=== PATIENT | female | born 1950 | race African-American/Black ===

== ENCOUNTER → 2017-10-05 | Outpatient (CLI) | payer MEDICARE, OTHER ==
[~2017-10-05] MED LIST: FLUT9.9S NS; LOSA1TAB22 PO; MULT1TAB52 PO; PANT40TA5 PO
--- NOTE | 2017-10-05 15:02 | KCIC ---
MRI Lumbar Spine without contrast History: Low back pain into the hips since May, bilateral leg pain Technique: Multiplanar, multi sequential noncontrast MR imaging was performed of the lumbar spine. Contrast: None Comparison: None Findings: Lumbar vertebral body stature is preserved. There is negligible anterior spondylolisthesis at L4-5. Conus terminates at L1. There is some edema associated with the facet articulations at L4-5 greater on the left. There is mild degenerative disc disease L1-2 through L4-5 and mild disc desiccation L5-S1. There is also mild degenerative disc disease of the visualized T11-12 and to lesser degree the T12-L1 levels. Not included on the axial images, there are posterior bulges at T11-12, T12-L1, L1-2 with mild indentation upon the ventral thecal sac. There is mild narrowing of the central canal at T11-12. Facet degenerative change contributes to [id number] posterior narrowing of the T11-12 neural foramina. L2-L3: There is very minimal disc osteophyte complex. There is mild facet hypertrophic change and mild to moderate buckling of the ligamentum flavum. There is prominence of posterior epidural fat. Spinal canal is overall adequate. Neural foramina are overall adequate. L3-L4: There is very minimal disc osteophyte complex. There is mild buckling of the ligamentum flavum and facet hypertrophic change. Spinal canal is overall adequate. Neural foramina are adequate. L4-L5: There is moderate buckling of the ligamentum flavum and [id number]-[id number] facet degenerative change. There is minimal disc osteophyte complex. There is overall mild spinal stenosis, mild left lateral recess stenosis. Neural foramina are overall adequate. L5-S1: There is moderate to severe facet degenerative change. There is some fluid in the left facet articulation. Spinal canal is overall adequate. Neural foramina are adequate. Impression: 1. There is mild spinal stenosis with left lateral recess stenosis at L4-5. There is negligible anterior spondylolisthesis at L4-5 at which there is facet degenerative change, some edema about the facet articulations at L4-5 probably reactive/degenerative in etiology. 2. There is no significant lumbar neural foramina compromise. 3. There is multilevel mild degenerative disc disease. Electronically signed by: David Salvador MD (10/05/2017 2:58 PM) -[id number]
== END | disposition home or self-care (01) ==
LOC: KCIC MRI 12:56
PROVIDERS: ATTEND Family Medicine
DX: M48.061 Spinal stenosis, lumbar region without neurogenic claudication (principal); M43.16 Spondylolisthesis, lumbar region
CPT/HCPCS: 72148

== ENCOUNTER → 2017-10-16 | Outpatient (CLI) | payer MEDICARE, OTHER ==
[~2017-10-16] MED LIST changes: -FLUT9.9S NS; +IOHEXOL 180 MG/ML 10 ML VIAL.; -LOSA1TAB22 PO; -MULT1TAB52 PO; -PANT40TA5 PO; +methylPREDNISolone ACETATE 40 MG/ML VIAL.; +methylPREDNISolone ACETATE 80 MG/ML VIAL.
== END | disposition home or self-care (01) ==
LOC: PNCL 08:01
DX: M51.16 Intervertebral disc disorders with radiculopathy, lumbar region (principal); M48.061 Spinal stenosis, lumbar region without neurogenic claudication; I10 Essential (primary) hypertension; E11.9 Type 2 diabetes mellitus without complications; M19.90 Unspecified osteoarthritis, unspecified site; M81.0 Age-related osteoporosis without current pathological fracture; Z79.899 Other long term (current) drug therapy; Z88.8 Allergy status to other drugs, medicaments and biological substances; Z98.890 Other specified postprocedural states
CPT/HCPCS: 62323; J1030; J1040

== ENCOUNTER → 2017-11-02 | Outpatient (CLI) | payer MEDICARE, OTHER | END | disposition home or self-care (01) | LOC: PNCL 13:02 | DX: M51.16 Intervertebral disc disorders with radiculopathy, lumbar region (principal); M48.061 Spinal stenosis, lumbar region without neurogenic claudication; Z88.6 Allergy status to analgesic agent; Z88.8 Allergy status to other drugs, medicaments and biological substances | CPT/HCPCS: 62323; J1030; J1040 ==

== ENCOUNTER → 2017-11-16 | Outpatient (CLI) | payer MEDICARE, OTHER | END | disposition home or self-care (01) | LOC: PNCL 11:33 | DX: M51.16 Intervertebral disc disorders with radiculopathy, lumbar region (principal); M48.061 Spinal stenosis, lumbar region without neurogenic claudication; Z88.6 Allergy status to analgesic agent; Z88.8 Allergy status to other drugs, medicaments and biological substances | CPT/HCPCS: 62323; J1030; J1040 ==

== ENCOUNTER 2018-01-19 15:26 | Inpatient (IN) | payer MEDICARE, OTHER ==
[2018-01-19 16:16] LABS: BILIRUBIN,URINE NEGATIVE (NEG); CLARITY,URINE CLEAR; GLUCOSE,URINE NEGATIVE (NEG); NITRITE,URINE NEGATIVE (NEG); PH,URINE 7.5; PROTEIN,URINE NEGATIVE (NEG-TRACE); UROBILINOGEN,URINE 0.2 mg/dL (0.2 mg/dL)
[2018-01-19 16:19] LABS: COLOR,URINE STRAW
[2018-01-19 16:22] LABS: BACTERIA,URINE MANY /HPF (0-FEW); RBC,URINE OCC /HPF (0-2); SQUAMOUS EPITHELIAL CELL,UR MOD /LPF
[2018-01-19 16:41] LABS: ADD MAN DIFF? NO
[2018-01-19 16:42] LABS: BASO % 0 % (0-3); EOS # 0.1 x10^3/uL (0.0-0.7); EOS % 1 % (0-3); HEMATOCRIT 31.8 % (36.0-47.0); HEMOGLOBIN 10.2 g/dL (12.0-15.5); LYMPH # 1.6 x10^3/uL (1.0-4.8); LYMPH % 18 % (24-48); MEAN CORPUSCULAR HEMOGLOBIN 26 pg (25-35); MEAN CORPUSCULAR HGB CONC 32 g/dL (31-37); MEAN CORPUSCULAR VOLUME 79 fL (79-100); MONO % 12 % (0-9); NEUT % 69 % (31-73); PLATELET COUNT 547 x10^3/uL (140-400); RED CELL DISTRIBUTION WIDTH 15.8 % (11.5-14.5); WHITE BLOOD COUNT 8.7 x10^3/uL (4.0-11.0)
[2018-01-19 17:10] LABS: LACTIC ACID 1.3 mmol/L (0.4-2.0)
[2018-01-19 17:14] LABS: TROPONINI < 0.017 ng/mL (0.000-0.055)
[2018-01-19 17:17] LABS: ALBUMIN 2.5 g/dL (3.4-5.0); ALK PHOS 60 U/L (46-116); ALT (SGPT) 17 U/L (14-59); ANION GAP 8 (6-14); AST (SGOT) 22 U/L (15-37); BLOOD UREA NITROGEN 8 mg/dL (7-20); CALCIUM 9.4 mg/dL (8.5-10.1); CARBON DIOXIDE 31 mmol/L (21-32); CHLORIDE 95 mmol/L (98-107); DIRECT BILIRUBIN 0.1 mg/dL (0.0-0.2); GFR 66.5; GLUCOSE 90 mg/dL (70-99); LIPASE 140 U/L (73-393); SODIUM 134 mmol/L (136-145); TOTAL BILIRUBIN 0.4 mg/dL (0.2-1.0); TOTAL PROTEIN 7.8 g/dL (6.4-8.2)
[2018-01-19 17:19] LABS: POTASSIUM 2.9 mmol/L (3.5-5.1)
[2018-01-19] MEDS: IV NORMAL SALINE 500ML BAG 500 ML IV (17:44)
[2018-01-19] MEDS: ONDANSETRON PF 4 MG/2 ML VIAL. IV (17:45)
[2018-01-19] MEDS: fentaNYL PF VIAL 100 MCG/2 ML VIAL IV ×2 (17:45→19:30)
[2018-01-19] MEDS ORDERED: CONTRAST GIVEN MC (17:45)
[2018-01-19] MEDS: IOHEXOL 300 MG/ML 100ML VIAL. IV (18:00)
[2018-01-19] MEDS: METOCLOPRAMIDE HCL 10 MG/2 ML VIAL. IV (19:29)
[2018-01-19] MEDS: CIPROFLOXACIN 400MG PREMIX 200 ML IV (21:21)
[2018-01-19] MEDS: IV NORMAL SALINE 1000ML BAG 1,000 ML IV (21:21)
[2018-01-19] MEDS: MORPHINE SULFATE 4 MG/ML DISP.SYRIN. IV (22:49)
[2018-01-20 05:20] LABS: ADD MAN DIFF? NO
[2018-01-20 05:37] LABS: BASO % 0 % (0-3); EOS # 0.1 x10^3/uL (0.0-0.7); EOS % 1 % (0-3); HEMATOCRIT 29.1 % (36.0-47.0); HEMOGLOBIN 9.5 g/dL (12.0-15.5); LYMPH # 1.5 x10^3/uL (1.0-4.8); LYMPH % 19 % (24-48); MEAN CORPUSCULAR HEMOGLOBIN 26 pg (25-35); MEAN CORPUSCULAR HGB CONC 32 g/dL (31-37); MEAN CORPUSCULAR VOLUME 80 fL (79-100); MONO # 1.3 x10^3/uL (0.0-1.1); MONO % 16 % (0-9); NEUT % 63 % (31-73); PLATELET COUNT 492 x10^3/uL (140-400); RED BLOOD COUNT 3.65 x10^6/uL (3.50-5.40); RED CELL DISTRIBUTION WIDTH 15.9 % (11.5-14.5); WHITE BLOOD COUNT 7.9 x10^3/uL (4.0-11.0)
[2018-01-20 05:43] LABS: ANION GAP 5 (6-14); BLOOD UREA NITROGEN 6 mg/dL (7-20); CARBON DIOXIDE 33 mmol/L (21-32); CHLORIDE 102 mmol/L (98-107); CREATININE 1.1 mg/dL (0.6-1.0); GFR 59.6; GLUCOSE 95 mg/dL (70-99); POTASSIUM 3.7 mmol/L (3.5-5.1); SODIUM 140 mmol/L (136-145)
[2018-01-20] MEDS: MORPHINE SULFATE 4 MG/ML DISP.SYRIN. IV ×4 (06:45→20:04)
[2018-01-20] MEDS: ONDANSETRON PF 4 MG/2 ML VIAL. IV (06:46)
[2018-01-20] MEDS: CIPROFLOXACIN 400MG PREMIX 200 ML IV ×2 (08:28→23:59)
[2018-01-20] MEDS ORDERED: NON FORMULARY ITEM (Losartan/Hydrochlorothiazide (Losartan-Hctz 100-25 Mg Tab) 1 TAB) PO (09:00)
[2018-01-20] MEDS: MULTIVITAMIN with MINERAL TABLET. PO ×2 (09:01→09:07)
[2018-01-20] MEDS: LOSARTAN POTASSIUM 50 MG TABLET. PO (09:08)
[2018-01-20] MEDS: hydroCHLOROthiazide 25 MG TABLET PO (09:09)
[2018-01-20] MEDS: PANTOPRAZOLE 40 MG TABLET.DR. PO ×2 (09:12→16:19)
[2018-01-20] MEDS: LACTOBACILLUS RHAMNOSUS GG 1 CAPSULE. PO ×2 (09:12→21:36)
[2018-01-20] MEDS ORDERED: PANTOPRAZOLE 40 MG TABLET.DR. PO (09:30)
[2018-01-20] MEDS: FLUTICASONE 50MCG/NASAL SPRAY 16GM BOTTLE. NS (09:55)
[2018-01-20 12:27] LABS: RETIC COUNT 1.5 % (0.5-2.5)
[2018-01-20 12:31] LABS: % SAT IRON 10 % (15-34); IRON,SERUM 14 ug/dL (50-170)
[2018-01-20 12:43] LABS: VITAMIN-B12 1814 pg/mL (247-911)
[2018-01-21] MEDS: fentaNYL PF VIAL 100 MCG/2 ML VIAL IV ×4 (06:30→21:09)
[2018-01-21 07:01] LABS: ANION GAP 5 (6-14); BLOOD UREA NITROGEN 3 mg/dL (7-20); CALCIUM 8.6 mg/dL (8.5-10.1); CARBON DIOXIDE 32 mmol/L (21-32); CHLORIDE 105 mmol/L (98-107); GFR 66.5; GLUCOSE 107 mg/dL (70-99); SODIUM 142 mmol/L (136-145)
[2018-01-21] MEDS: PANTOPRAZOLE 40 MG TABLET.DR. PO ×2 (09:46→16:58)
[2018-01-21] MEDS: LACTOBACILLUS RHAMNOSUS GG 1 CAPSULE. PO ×2 (09:46→21:09)
[2018-01-21] MEDS: CIPROFLOXACIN 400MG PREMIX 200 ML IV ×2 (09:46→22:25)
[2018-01-21] MEDS: FLUTICASONE 50MCG/NASAL SPRAY 16GM BOTTLE. NS (09:47)
[2018-01-22] MEDS ORDERED: LIDOCAINE 1% PF 2 ML VIAL. ID (07:00)
[2018-01-22] MEDS ORDERED: MORPHINE SULFATE 4 MG/ML DISP.SYRIN. IV (07:00)
[2018-01-22] MEDS ORDERED: PROCHLORPERAZINE 10 MG/2 ML VIAL. IV (07:00)
[2018-01-22] MEDS ORDERED: fentaNYL PF VIAL 100 MCG/2 ML VIAL IV (07:00)
[2018-01-22] MEDS ORDERED: HYDROmorphone 2 MG/ML VIAL IV (07:00)
[2018-01-22] MEDS: IV RINGERS,LACTATED 1000ML 1,000 ML IV ×2 (07:07→09:03)
[2018-01-22] MEDS ORDERED: fentaNYL PF VIAL 100 MCG/2 ML VIAL (07:14)
[2018-01-22] MEDS ORDERED: DEXAMETHASONE SOD PHOS 20 MG/5 ML VIAL. (07:14)
[2018-01-22] MEDS ORDERED: PROPOFOL 20 ML IV (07:14)
[2018-01-22] MEDS ORDERED: ONDANSETRON PF 4 MG/2 ML VIAL. (07:14)
[2018-01-22] MEDS: PANTOPRAZOLE 40 MG TABLET.DR. PO ×2 (07:30→16:27)
[2018-01-22] MEDS ORDERED: FAMOTIDINE 20 MG/2 ML VIAL (08:21)
[2018-01-22] MEDS ORDERED: SEVOFLURANE 31 TO 60 MINUTES. IH (08:35)
[2018-01-22] MEDS: fentaNYL PF VIAL 100 MCG/2 ML VIAL IV ×2 (09:04→09:17)
[2018-01-22] MEDS: CIPROFLOXACIN 400MG PREMIX 200 ML IV (09:17)
[2018-01-22] MEDS: FLUTICASONE 50MCG/NASAL SPRAY 16GM BOTTLE. NS (12:09)
[2018-01-22] MEDS: LACTOBACILLUS RHAMNOSUS GG 1 CAPSULE. PO ×2 (12:09→21:06)
[2018-01-22] MEDS: MULTIVITAMIN with MINERAL TABLET. PO (12:09)
[2018-01-22] MEDS ORDERED: ACETAMINOPHEN 500 MG TABLET PO (12:45)
[2018-01-22] MEDS: metroNIDAZOLE 500 MG TABLET PO (21:06)
[2018-01-22] MEDS: CIPROFLOXACIN HCL 250 MG TABLET. PO (21:06)
[2018-01-23] MEDS: PANTOPRAZOLE 40 MG TABLET.DR. PO (06:19)
[2018-01-23] MEDS: LACTOBACILLUS RHAMNOSUS GG 1 CAPSULE. PO (08:43)
[2018-01-23] MEDS: FLUTICASONE 50MCG/NASAL SPRAY 16GM BOTTLE. NS (08:43)
[2018-01-23] MEDS: metroNIDAZOLE 500 MG TABLET PO (08:43)
[2018-01-23] MEDS: MULTIVITAMIN with MINERAL TABLET. PO (08:43)
[2018-01-23] MEDS: CIPROFLOXACIN HCL 250 MG TABLET. PO (08:43)
== END 2018-01-23 14:41 | disposition home or self-care (01) | DRG 744 ==
LOC: ER 15:26 → 5 SOUTH 20:42
PROC: 0UDB8ZX Extraction of Endometrium, Via Natural or Artificial Opening Endoscopic, Diagnostic (ICD-10-PCS; principal; 2018-01-22 07:30)
DX: D25.9 Leiomyoma of uterus, unspecified (principal); K57.32 Diverticulitis of large intestine without perforation or abscess without bleeding; E11.22 Type 2 diabetes mellitus with diabetic chronic kidney disease; N13.4 Hydroureter; N18.3 Chronic kidney disease, stage 3 (moderate); N70.11 Chronic salpingitis; E87.6 Hypokalemia; K21.9 Gastro-esophageal reflux disease without esophagitis; N84.0 Polyp of corpus uteri; R93.8 Abnormal findings on diagnostic imaging of other specified body structures; K57.30 Diverticulosis of large intestine without perforation or abscess without bleeding; I12.9 Hypertensive chronic kidney disease with stage 1 through stage 4 chronic kidney disease, or unspecified chronic kidney disease; J30.9 Allergic rhinitis, unspecified; Z88.8 Allergy status to other drugs, medicaments and biological substances; Z80.9 Family history of malignant neoplasm, unspecified; Z83.3 Family history of diabetes mellitus
CPT/HCPCS: 36415; 74177; 76830; 76856; 80048; 80076; 81001; 82607; 82746; 83540; 83550; 83605; 83690; 84484; 85025; 85045; 87086; 88305; 93005; 96361; 96365; 96368; 96375; 99285; 99285-25; J0744; J1100; J2270; J2405; J2704; J2765; J3010; J3490; J7030; J7040; J7120; S0028

== ENCOUNTER → 2018-07-07 | Day surgery (SDC) | payer MEDICARE, OTHER ==
[~2018-07-07] MED LIST changes: +CIPR250T30 PO; +FLUT9.9S NS; +HYDROmorphone 2 MG/ML VIAL IV PRN; -IOHEXOL 180 MG/ML 10 ML VIAL.; +IV RINGERS,LACTATED 1000ML 1,000 ML IV SCH; +LIDOCAINE 1% PF 2 ML VIAL. ID PRN; +LOSA1TAB22 PO; +METF500T16 PO; +METR500T PO; +MORPHINE SULFATE 2 MG/ML VIAL. IV PRN; +MULT1TAB52 PO; +PANT40TA5 PO; +PROCHLORPERAZINE 10 MG/2 ML VIAL. IV PRN; +PROPOFOL 40 ML IV ONE; +fentaNYL PF VIAL 100 MCG/2 ML VIAL IV PRN; -methylPREDNISolone ACETATE 40 MG/ML VIAL.; -methylPREDNISolone ACETATE 80 MG/ML VIAL.
[2018-07-07 08:28] VITALS: BP 123/60
== END | disposition home or self-care (01) ==
LOC: ENDOS 06:22
PROVIDERS: ATTEND Internal Medicine Gastroenterology
DX: K64.0 First degree hemorrhoids (principal); Z53.8 Procedure and treatment not carried out for other reasons; K29.50 Unspecified chronic gastritis without bleeding; K56.699 Other intestinal obstruction unspecified as to partial versus complete obstruction; Z88.6 Allergy status to analgesic agent; Z88.1 Allergy status to other antibiotic agents; Z88.8 Allergy status to other drugs, medicaments and biological substances; I10 Essential (primary) hypertension; M15.0 Primary generalized (osteo)arthritis; Z86.010 Personal history of colon polyps; E11.9 Type 2 diabetes mellitus without complications; K21.9 Gastro-esophageal reflux disease without esophagitis; Z82.3 Family history of stroke; Z82.49 Family history of ischemic heart disease and other diseases of the circulatory system; Z83.3 Family history of diabetes mellitus; Z79.84 Long term (current) use of oral hypoglycemic drugs; Z79.899 Other long term (current) drug therapy; Z90.710 Acquired absence of both cervix and uterus
CPT/HCPCS: 43235; 45378; J2704

== ENCOUNTER → 2018-07-15 | Outpatient (CLI) | payer MEDICARE, OTHER ==
[2018-07-07 08:28] VITALS: BP 123/60
[~2018-07-15] MED LIST changes: -HYDROmorphone 2 MG/ML VIAL IV PRN; -IV RINGERS,LACTATED 1000ML 1,000 ML IV SCH; -LIDOCAINE 1% PF 2 ML VIAL. ID PRN; -MORPHINE SULFATE 2 MG/ML VIAL. IV PRN; -PROCHLORPERAZINE 10 MG/2 ML VIAL. IV PRN; -PROPOFOL 40 ML IV ONE; -fentaNYL PF VIAL 100 MCG/2 ML VIAL IV PRN
--- NOTE | 2018-07-16 09:28 | KCIC ---
Double contrast barium enema 07/15/2018 CLINICAL HISTORY: Sigmoid colon stricture. Constipation. TECHNIQUE: A double contrast barium enema was performed under fluoroscopic and radiographic control. The total fluoroscopic time is 7 minutes 16 seconds. 7 digital spot radiographs were obtained. FINDINGS: Comparison is made to a CT scan of the abdomen and pelvis dated 02/25/2018. An AP supine digital radiograph of the abdomen/pelvis was obtained as crocheter hand. This demonstrates a nonobstructive bowel gas pattern. Calcifications are seen within the pelvis consistent with phleboliths. Degenerative changes are seen involving lumbar spine and both hips. An area of marked narrowing of the contrast column is seen involving the sigmoid colon which measures approximately 5 cm in length.. This is consistent with the patient's history of a stricture. Whether this stricture is benign or malignant cannot be determined on this study. Multiple diverticula are seen scattered throughout the colon. The entire colon is distended with barium and air. The cecum is in its normal location within the right lower quadrant of the abdomen. No additional mucosal abnormality of the colon is seen. No extrinsic mass effect upon the large bowel is noted. IMPRESSION: 1. 5 cm stricture involving the sigmoid colon. 2. Colonic diverticulosis. 3. Otherwise negative study. Electronically signed by: Tera Higuera MD (07/16/2018 9:24 AM) [email or web address]
== END | disposition home or self-care (01) ==
LOC: KCIC 08:09
PROVIDERS: ATTEND Internal Medicine Gastroenterology
DX: K56.699 Other intestinal obstruction unspecified as to partial versus complete obstruction (principal); K57.30 Diverticulosis of large intestine without perforation or abscess without bleeding; I87.8 Other specified disorders of veins; I12.9 Hypertensive chronic kidney disease with stage 1 through stage 4 chronic kidney disease, or unspecified chronic kidney disease; E11.22 Type 2 diabetes mellitus with diabetic chronic kidney disease; N18.3 Chronic kidney disease, stage 3 (moderate); K21.9 Gastro-esophageal reflux disease without esophagitis; E87.6 Hypokalemia; Z90.710 Acquired absence of both cervix and uterus; Z86.010 Personal history of colon polyps; Z88.1 Allergy status to other antibiotic agents; Z88.6 Allergy status to analgesic agent; Z88.8 Allergy status to other drugs, medicaments and biological substances; Z82.3 Family history of stroke; Z82.49 Family history of ischemic heart disease and other diseases of the circulatory system; Z83.3 Family history of diabetes mellitus; Z80.3 Family history of malignant neoplasm of breast
CPT/HCPCS: 74270

== ENCOUNTER → 2018-07-30 | Outpatient (CLI) | payer MEDICARE, OTHER ==
[2018-07-07 08:28] VITALS: BP 123/60
[~2018-07-30] MED LIST changes: +CONTRAST GIVEN. MC PRN; +IOHEXOL 240 MG/ML 50ML VIAL. PO ONE; +IOHEXOL 300 MG/ML 100ML VIAL. IV ONE
--- NOTE | 2018-07-30 13:07 | KCIC ---
EXAM: CT Abdomen and Pelvis with IV contrast CLINICAL HISTORY: Colonic stricture, follow-up with CT. COMPARISON: 02/25/2018, 02/24/2018 TECHNIQUE: Helical CT of the abdomen and pelvis was performed following the administration of intravenous contrast. Oral contrast was administered. Axial, coronal and sagittal reformatted images were generated. PQRS compliance statement - One or more of the following individualized dose reduction techniques were utilized for this study: 1. Automated exposure control 2. Adjustment of the mA and/or kV according to patient size 3. Use of iterative reconstruction technique FINDINGS: Lower chest: Minimal dependent opacities in the lung bases likely atelectasis. Heart is mildly enlarged. Small hiatal hernia. Abdomen and Pelvis: No focal liver lesion. Gallbladder is unremarkable. No biliary ductal dilatation. Adrenal glands and pancreas are normal. Symmetric nephrograms. Left interpolar renal cystic lesion is stable. No hydronephrosis. Bladder is unremarkable. Moderate colonic stool content is seen throughout the colon. Diffuse colonic diverticulosis most prominent in the sigmoid colon. Associated mild fat infiltration surrounding the sigmoid colon may suggest superimposed acute diverticulitis. This should be further evaluated with endoscopy to exclude associated colonic mass. Associated mildly prominent lymph nodes, possibly reactive. No abdominal or pelvic lymphadenopathy by size criteria. No free intraperitoneal gas or ascites. Trace presacral edema. There has been a hysterectomy. Small fat-containing periumbilical hernia. Bones: Advanced right hip joint osteoarthritis. Degenerative changes of the spine are also seen. IMPRESSION: 1. Diffuse thickening of the sigmoid colon with associated fat infiltration in the region of several diverticula is compatible with acute diverticulitis. However associated colonic mass is not excluded and therefore recommend correlation with direct visualization/colonoscopy. A few small associated lymph nodes may be reactive. Electronically signed by: Baudilio Hogue MD (07/30/2018 1:04 PM) [id number]
== END | disposition home or self-care (01) ==
LOC: KCIC CT 08:30
PROVIDERS: ATTEND Surgery
DX: K57.30 Diverticulosis of large intestine without perforation or abscess without bleeding (principal); K42.9 Umbilical hernia without obstruction or gangrene; K44.9 Diaphragmatic hernia without obstruction or gangrene; M16.11 Unilateral primary osteoarthritis, right hip; M47.896 Other spondylosis, lumbar region
CPT/HCPCS: 74177; 82565; Q9966; Q9967

== ENCOUNTER 2018-12-07 07:25 | Inpatient (IN) | payer MEDICARE, OTHER ==
[~2018-12-07] VITALS: Ht 152.4 cm; Wt 79.8 kg
[2018-12-07] VITALS (8 sets, daily range): BP systolic 90–111; BP diastolic 52–70
[~2018-12-07 07:25] MED LIST changes: -CONTRAST GIVEN. MC PRN; +DICY10CA3 PO; -IOHEXOL 240 MG/ML 50ML VIAL. PO ONE; -IOHEXOL 300 MG/ML 100ML VIAL. IV ONE; +LIDOCAINE 1% PF 2 ML VIAL. ID PRN; +LISI1TAB5 PO; +MORPHINE SULFATE 2 MG/ML VIAL. IV PRN; +ONDANSETRON PF 4 MG/2 ML VIAL. IV PRN; +fentaNYL PF VIAL 100 MCG/2 ML VIAL IV PRN
[2018-12-07] MEDS ORDERED: cefOXitin SODIUM 2 GM in IV DEXTROSE 5% 100ML 100 ML IV ONE (07:30)
[2018-12-07] MEDS ORDERED: cefOXitin SODIUM IV Push 1 GM VIAL. IVP ONE ×2 (07:30→11:48)
[2018-12-07] MEDS ORDERED: IOHEXOL 300 MG/ML 100ML VIAL. ONE (07:31)
[2018-12-07] MEDS ORDERED: BUPIVAC MPF-EPI 0.5%-1:200000 30 ML VIAL. ONE (07:31)
[2018-12-07] MEDS ORDERED: LIDOCAINE 2% JELLY 6ML IN APPLICATOR. ONE (07:32)
[2018-12-07] MEDS: IV RINGERS,LACTATED 1000ML 1,000 ML IV SCH ×3 (08:00→15:06)
[2018-12-07] MEDS ORDERED: LIDOCAINE 2% PF 5 ML VIAL. ONE (08:37)
[2018-12-07] MEDS ORDERED: PROPOFOL 20 ML IV ONE (08:37)
[2018-12-07] MEDS ORDERED: ROCURONIUM 100 MG/10 ML VIAL. ONE (08:39)
[2018-12-07] MEDS ORDERED: fentaNYL PF VIAL 100 MCG/2 ML VIAL ONE ×2 (08:40→09:37)
[2018-12-07] MEDS ORDERED: SUCCINYLCHOLINE 200 MG/10 ML VIAL. ONE (08:40)
[2018-12-07] MEDS ORDERED: PHENYLEPHRINE 10 MG/ML VIAL. ONE (08:42)
--- NOTE | 2018-12-07 09:11 | PDOC ---
SURGICAL PROGRESS NOTE Subjective 68 yo F with recurrent, complicated diverticulitis with associated colon stricture and colovaginal fistula TO OR for laparoscopic versus open sigmoid resection with protecting loop ileostomy Appreciate urology placing stents R/R/B/A d/w pt and pt's supportive family. Risks, including, but not limited to : bleeding, infection, damage to surrounding structures, risk of anesthesia, risk of open. Suspect that pt has hostile abd with above process and may require extensive dissection. They appear to understand, their questions are answered and they elect to proceed. Office note H&P reviewed and unchanged. Pt reexamined. Vital Signs Vital Signs Date Time Temp Pulse Resp B/P (MAP) Pulse Ox O2 Delivery O2 Flow Rate FiO2 12/07/18 07:50 98.2 81 98 98.2 12/07/18 07:40 20 98/61 Room Air Labs Laboratory Tests Test 12/07/18 07:58 Glucose (Fingerstick) 113 mg/dL (70-99) Laboratory Tests Test 12/07/18 07:58 Glucose (Fingerstick) 113 mg/dL (70-99) JOEY GAGNON MD Dec 07, 2018 09:11
[2018-12-07] MEDS ORDERED: SEVOFLURANE > 120 MINUTES. IH ONE ×2 (09:40→12:06)
[2018-12-07] MEDS ORDERED: FAMOTIDINE 20 MG/2 ML VIAL ONE (09:51)
--- NOTE | 2018-12-07 09:54 | PDOC4 ---
OPERATIVE NOTE Date: Date: February 16, 2018 Pre-Op Diagnosis: colon surgery Post-Op Diagnosis: same Procedure Performed: cysto, placement of ureteral catheters Surgeon: jadon Anesthesia Type: gen Blood Loss: min Specimans Obtained: none Findings: nl bladder and trigone Complications: none Operative Note: Pt under GA, in lith'y pos'n, prepped and draped in usual fashion. Cysto performed w 21-Fr scope. Bladder exam wnl. Trigonal structures identified in nl location. 5-Fr whistle-tip catheters were threaded thru each orifice approx 25 cm. The scope was removed and sheriff placed. the ureteral cath's were connected to the sheriff in usual fashion. The procedure was then turned over to Dr Mack. LISSETH DIEHL MD Dec 07, 2018 09:54
[2018-12-07] MEDS ORDERED: NEOSTIGMINE 10 MG/10 ML VIAL. ONE (10:58)
[2018-12-07] MEDS ORDERED: GLYCOPYRROLATE 1 MG/5 ML VIAL. ONE (10:58)
[2018-12-07] MEDS ORDERED: NALOXONE 0.4 MG/ML VIAL. IV PRN (13:30)
[2018-12-07] MEDS ORDERED: HYDROmorphone 12mg/30ml PCA 30 ML IV PRN (13:30)
[2018-12-07] MEDS ORDERED: 0.9 % SODIUM CHLORIDE 10 ML DISP.SYRIN. IV PRN (13:30)
--- NOTE | 2018-12-07 13:44 | PDOC4 ---
OPERATIVE NOTE Date: Date: Dec 07, 2018 Pre-Op Diagnosis: Colovaginal fistula, diverticulitis, colonic stricture Post-Op Diagnosis: same Procedure Performed: Laparoscopic converted to open exploration, lysis of adhesions (extensive), takedown of splenic flexure, sigmoid colectomy with protecting loop ileostomy, repair of vaginal cuff Surgeon: Aldair Gagnon Anesthesia Type: GETA plus local Blood Loss: 100 Specimans Obtained: sigmoid colon Findings: extensive adhesions to lower abdominal midline and left side wall, chronic inflammatory changes in deep pelvis with multiple loops of small bowel adherent , stricturing of sigmoid colon secondary to diverticulitis, perforated diverticulum, c/w colovaginal fistula, no persistent fistula noted, surgically absent appendix, no gynecological structures, intact ureters bilaterally. Complications: none Operative Note: After obtaining informed consent, patient was taken to OR, induced under GETA and prepped in the usual fashion. 5mm port placed in LUQ, RUQ and RLQ, all under laparoscopic guidance. Abdominal cavity was explored and otherwise unremarkable. Extensive adhesions noted and taken down laparoscopically off the anterior abdominal wall. Given extensive adhesions, open procedure indicated. An extensive lysis was performed, which was majority of procedure. Abdominal cavity explored. Stomach and liver normal in appearance. Small bowel had extensive adhesions which required extensive lysis of adhesions. Multiple serosal tears (inherent to the procedure) created but no obvious mucosal injury noted. Multiple loops of small bowel caught up in involuted area in deep pelvis in area of concern, requiring freeing up of bowel. Multiple serosal tears repaired with 3 0 vicryl. Right colon and transverse normal in appearance. Appendix surgically absent. Splenic flexure taken down using cautery, mobilizing left colon. White line of toldt taken down using cautery. Sigmoid colon was hard and strictured, secondary to chronic inflammation. Extensive dissection needed to free up involved area. Ureters noted by stent palpation bilaterally and maintained without injury. Sigmoid colon divided with NAUN proximal to area of concern. Mesentery taken with ligasure. Dissection continued below peritoneal reflection. Rectum divided below area of concern using cautery. Specimen sent to pathology for evaluation with stitch in distal end. No mucosal lesion. Multiple diverticuli, with one c /w colovaginal fistula. Vaginal cuff and rough area, but no persistent fistula , once colon mobilized off. Raw area was oversewn with 3 0 vicryl. Bladder did not appear to be involved. End to end sutured anastomosis created with 3 0 PDS and 3 0 vicryl. Anastomosis noted to be intact, under no tension, completely viable and without evidence of leakage. Hysteroscopy performed and area of fistula noted at apex of vaginal cuff. No air noted with inflation. Rigid sigmoidoscopy performed with patent anastomosis with no evidence of air leakage. Gown and gloves changed. Copious irrigation. No evidence of bleeding or other pathology noted. Omentum placed over area of concern of vaginal cuff. Given extensive inflammation, ileostomy indicated. Ileum brought through RUQ over ostomy bridge, proximal to area of main concern on small bowel. Fascia repaired with 0 looped PDS. Skin repaired with 3 0 vicryl and 4 0 monocryl with aylsha placed in wound. Dressing placed. Ileostomy matured with 3 0 chromic and noted to patent to fascia. Ostomy device placed. Patient tolerated procedure well and sent to PACU in stable condition. All counts correct. Wound class is dirty, 4 (pus noted in area of concern). Procedure was difficult throughout. JOEY GAGNON MD Dec 07, 2018 13:44
[2018-12-07] MEDS ORDERED: MORPHINE SULFATE 10 MG/ML VIAL. ONE (13:51)
[2018-12-07] MEDS ORDERED: PROCHLORPERAZINE 10 MG/2 ML VIAL. ONE (13:57)
[2018-12-07] MEDS: IV NORMAL SALINE 1000ML BAG 1,000 ML IV SCH (14:00)
[2018-12-07] MEDS: PROCHLORPERAZINE 10 MG/2 ML VIAL. IV PRN ×2 (14:03→14:50)
[2018-12-07] MEDS ORDERED: KETOROLAC 15 MG/ML VIAL. IV ONE (14:15)
[2018-12-07] MEDS: HYDROmorphone 2 MG/ML VIAL IV PRN ×2 (14:18→14:51)
--- NOTE | 2018-12-07 16:58 | RAD ---
Portable abdomen, 12/07/2018: HISTORY: Postop colectomy Gas is present in large and small bowel extending down to the rectal level. There is a moderate amount of gas in the transverse colon. There is no evidence of a retained surgical instrument, needle or radiopaque sponge on this single view. Electronically signed by: Abrahan Velasco MD (12/07/2018 4:55 PM) [facility]
[2018-12-07] MEDS: INSULIN LISPRO 300 UNITS/3 ML INSULN.PEN. SQ SCH ×2 (17:00→21:00)
--- NOTE | 2018-12-07 19:45 | NUR ---
Pt arrived to unit by bed from PACU at 1600. Pt drowsy but A&Ox4 when asked any questions. 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 Dr. uNll notified of consult, Side rails up x2, call light within reach, bedside report given to CRISTO Weber.
[2018-12-08] MEDS: IV RINGERS,LACTATED 1000ML 1,000 ML IV SCH ×3 (00:37→20:49)
[2018-12-08 03:12] VITALS: BP 96/58
[2018-12-08 04:20] LABS: BASO % 0 % (0-3); EOS % 0 % (0-3); HEMATOCRIT 34.3 % (36.0-47.0); HEMOGLOBIN 11.1 g/dL (12.0-15.5); LYMPH # 0.7 x10^3/uL (1.0-4.8); LYMPH % 6 % (24-48); MEAN CORPUSCULAR HEMOGLOBIN 26 pg (25-35); MEAN CORPUSCULAR HGB CONC 32 g/dL (31-37); MEAN CORPUSCULAR VOLUME 80 fL (79-100); MONO % 9 % (0-9); NEUT # 10.1 x10^3uL (1.8-7.7); NEUT % 85 % (31-73); PLATELET COUNT 292 x10^3/uL (140-400); RED BLOOD COUNT 4.28 x10^6/uL (3.50-5.40); RED CELL DISTRIBUTION WIDTH 16.8 % (11.5-14.5); WHITE BLOOD COUNT 11.8 x10^3/uL (4.0-11.0)
[2018-12-08 05:01] LABS: % BANDS 17 % (0-9); % LYMPHS 9 % (24-48); % METAS 1 % (0-0); % MONOS 7 % (0-10); % SEGS 66 % (35-66); PLT ESTIMATE ADEQUATE (ADEQUATE); TOXIC GRANULATION MOD
[2018-12-08 07:00] VITALS: BP 90/59
[2018-12-08] MEDS: INSULIN LISPRO 300 UNITS/3 ML INSULN.PEN. SQ SCH ×4 (07:30→20:55)
[2018-12-08] MEDS: ENOXAPARIN 40 MG/0.4 ML SYRINGE. SQ SCH (08:29)
[2018-12-08 11:00] VITALS: BP 118/73
--- NOTE | 2018-12-08 11:59 | NUR ---
SW following for discharge planning. Discussed with RN, pt had surgery yesterday. No SW needs at this time. SW will continue to follow.
[2018-12-08] MEDS: IV NORMAL SALINE 1000ML BAG 1,000 ML IV SCH (12:11)
[2018-12-08 15:00] VITALS: BP 101/56
--- NOTE | 2018-12-08 15:12 | PDOC ---
SURGICAL PROGRESS NOTE Subjective Pt doing well, franny some clears slowly, pain controlled Vital Signs Vital Signs Date Time Temp Pulse Resp B/P (MAP) Pulse Ox O2 Delivery O2 Flow Rate FiO2 12/08/18 11:00 98.2 95 18 118/73 (88) 96 Room Air 98.2 12/07/18 23:00 2.0 I&O Intake and Output 12/08/18 07:00 Intake Total 3700 ml Output Total 650 ml Balance 3050 ml Intake Oral 100 ml IV Total 3200 ml Other 400 ml Output Urine Total 550 ml Estimated Blood Loss 100 ml PATIENT HAS A GONGORA: Yes General: Alert, Oriented X3, Cooperative, No acute distress Abdomen: Soft, No tenderness, Other (ostomy pink and viable) Labs Laboratory Tests Test 12/07/18 07:58 12/07/18 15:23 12/07/18 20:09 12/08/18 03:00 Glucose (Fingerstick) 113 mg/dL (70-99) 178 mg/dL (70-99) 198 mg/dL (70-99) White Blood Count 11.8 x10^3/uL (4.0-11.0) Red Blood Count 4.28 x10^6/uL (3.50-5.40) Hemoglobin 11.1 g/dL (12.0-15.5) Hematocrit 34.3 % (36.0-47.0) Mean Corpuscular Volume 80 fL (79-100) Mean Corpuscular Hemoglobin 26 pg (25-35) Mean Corpuscular Hemoglobin Concent 32 g/dL (31-37) Red Cell Distribution Width 16.8 % (11.5-14.5) Platelet Count 292 x10^3/uL (140-400) Neutrophils (%) (Auto) 85 % (31-73) Lymphocytes (%) (Auto) 6 % (24-48) Monocytes (%) (Auto) 9 % (0-9) Eosinophils (%) (Auto) 0 % (0-3) Basophils (%) (Auto) 0 % (0-3) Neutrophils # (Auto) 10.1 x10^3uL (1.8-7.7) Lymphocytes # (Auto) 0.7 x10^3/uL (1.0-4.8) Monocytes # (Auto) 1.0 x10^3/uL (0.0-1.1) Eosinophils # (Auto) 0.0 x10^3/uL (0.0-0.7) Basophils # (Auto) 0.0 x10^3/uL (0.0-0.2) Segmented Neutrophils % 66 % (35-66) Band Neutrophils % 17 % (0-9) Lymphocytes % 9 % (24-48) Monocytes % 7 % (0-10) Metamyelocytes % 1 % (0-0) Toxic Granulation Mod Platelet Estimate Adequate (ADEQUATE) Test 12/08/18 07:20 12/08/18 10:32 Glucose (Fingerstick) 127 mg/dL (70-99) 167 mg/dL (70-99) Laboratory Tests Test 12/07/18 15:23 12/07/18 20:09 12/08/18 03:00 12/08/18 07:20 Glucose (Fingerstick) 178 mg/dL (70-99) 198 mg/dL (70-99) 127 mg/dL (70-99) White Blood Count 11.8 x10^3/uL (4.0-11.0) Red Blood Count 4.28 x10^6/uL (3.50-5.40) Hemoglobin 11.1 g/dL (12.0-15.5) Hematocrit 34.3 % (36.0-47.0) Mean Corpuscular Volume 80 fL (79-100) Mean Corpuscular Hemoglobin 26 pg (25-35) Mean Corpuscular Hemoglobin Concent 32 g/dL (31-37) Red Cell Distribution Width 16.8 % (11.5-14.5) Platelet Count 292 x10^3/uL (140-400) Neutrophils (%) (Auto) 85 % (31-73) Lymphocytes (%) (Auto) 6 % (24-48) Monocytes (%) (Auto) 9 % (0-9) Eosinophils (%) (Auto) 0 % (0-3) Basophils (%) (Auto) 0 % (0-3) Neutrophils # (Auto) 10.1 x10^3uL (1.8-7.7) Lymphocytes # (Auto) 0.7 x10^3/uL (1.0-4.8) Monocytes # (Auto) 1.0 x10^3/uL (0.0-1.1) Eosinophils # (Auto) 0.0 x10^3/uL (0.0-0.7) Basophils # (Auto) 0.0 x10^3/uL (0.0-0.2) Segmented Neutrophils % 66 % (35-66) Band Neutrophils % 17 % (0-9) Lymphocytes % 9 % (24-48) Monocytes % 7 % (0-10) Metamyelocytes % 1 % (0-0) Toxic Granulation Mod Platelet Estimate Adequate (ADEQUATE) Test 12/08/18 10:32 Glucose (Fingerstick) 167 mg/dL (70-99) Problem List s/p sigmoid looks pretty good await bowel fxn cont supportive care JOEY GAGNON MD Dec 08, 2018 15:12
--- NOTE | 2018-12-08 16:28 | CONS ---
DATE OF CONSULTATION: 12/08/2018 REASON FOR CONSULTATION: Medical management of diabetes. CLINICAL COURSE: This patient is a 68-year-old -Algerian female who has been under outpatient evaluation for suspected rectovaginal fistula after a severe case of diverticulitis. She was brought in for elective colostomy and debridement with resection of fistula. This was accomplished and is postop day #1. The patient is doing well, but continues to have minimal bowel sounds, but healthy-appearing colostomy with no significant output. The patient did have some mildly elevated blood sugars and sliding scale insulin was prescribed. The patient is currently n.p.o. PAST MEDICAL HISTORY: Significant for, 1. Hypertension. 2. Type 2 diabetes. 3. Gastroesophageal reflux disease. 4. Chronic kidney disease stage 3. 5. Morbid obesity. 6. Osteoarthritis of shoulder. 7. History of gallstones. 8. Diverticulosis, status post diverticulitis. FAMILY HISTORY: Significant for mother who was with late effect of CVA. Father who was with heart disease. A sister who was with breast cancer. PAST SURGICAL HISTORY: Significant for total abdominal hysterectomy, appendectomy, previous foot surgery, previous laparotomy. SOCIAL HISTORY: The patient has never smoked. She does not use alcohol. ALLERGIES: THE PATIENT EXHIBITS ALLERGIES TO BACTRIM WELL NAPROSYN. NAPROSYN CAUSES UPSET STOMACH. REVIEW OF SYSTEMS: The patient is in her usual state of health except for new episodes of vaginal bleeding and vaginal discharge consistent with GI liquid stools. PHYSICAL EXAMINATION: GENERAL: This is a well-nourished -Algerian female in no apparent distress, on my exam, she is alert and oriented x 3. HEENT: Benign. NECK: Supple. CARDIAC: Regular rate and rhythm. LUNGS: Clear. ABDOMEN: Soft with hypoactive bowel sounds. EXTREMITIES: With 2+ pulses without edema. NEUROLOGIC: Intact. SKIN: She has right-sided colostomy noted, which is pink and healthy looking. ASSESSMENT: 1. Postop day #1, rectovaginal fistula closure with diverting colostomy. 2. Type 2 diabetes, under good control. We will add sliding scale insulin due to n.p.o. status and routine blood sugar monitoring. 3. Longstanding hypertension. 4. Chronic kidney disease with baseline creatinine of 1.14. PLAN: To continue to monitor postoperative course with surgery and GRAB HOOKER and follow blood pressure and diabetes needs. Thank you very much for this consultation. ASTRID DURAN MD DR: PORTIA/esperanza JOB#: [id number] / [id number]
[2018-12-08 19:45] VITALS: BP 106/60
--- NOTE | 2018-12-08 22:30 | NUR ---
Patient currently running oral temp 100.7, HR 111, BP 89/54. paged to notify of positive sepsis screen and orders rec'd. Nurse will initiate orders, and lab draw in the AM. Will continue to monitor closely.
[2018-12-08] MEDS ORDERED: ACETAMINOPHEN 325 MG TABLET. PO PRN (22:45)
[2018-12-08] MEDS ORDERED: IV NORMAL SALINE 1000ML BAG 1,000 ML IV SCH (22:45)
[2018-12-08 23:00] VITALS: BP 89/54
[2018-12-09] VITALS (7 sets, daily range): BP systolic 112–151; BP diastolic 68–89
[2018-12-09 03:57] LABS: BASO % 0 % (0-3); EOS % 1 % (0-3); HEMATOCRIT 29.6 % (36.0-47.0); HEMOGLOBIN 9.7 g/dL (12.0-15.5); LYMPH # 0.9 x10^3/uL (1.0-4.8); LYMPH % 13 % (24-48); MEAN CORPUSCULAR HEMOGLOBIN 26 pg (25-35); MEAN CORPUSCULAR HGB CONC 33 g/dL (31-37); MEAN CORPUSCULAR VOLUME 80 fL (79-100); MONO # 0.7 x10^3/uL (0.0-1.1); MONO % 11 % (0-9); NEUT # 5.1 x10^3uL (1.8-7.7); NEUT % 75 % (31-73); PLATELET COUNT 241 x10^3/uL (140-400); RED BLOOD COUNT 3.72 x10^6/uL (3.50-5.40); RED CELL DISTRIBUTION WIDTH 16.4 % (11.5-14.5); WHITE BLOOD COUNT 6.7 x10^3/uL (4.0-11.0)
[2018-12-09 04:13] LABS: ALBUMIN 2.2 g/dL (3.4-5.0); ALBUMIN/GLOBULIN RATIO 0.6 (1.0-1.7); CALCIUM 8.6 mg/dL (8.5-10.1); CREATININE 1.1 mg/dL (0.6-1.0); GFR 59.4; POTASSIUM 3.9 mmol/L (3.5-5.1); TOTAL BILIRUBIN 0.3 mg/dL (0.2-1.0); TOTAL PROTEIN 6.2 g/dL (6.4-8.2)
--- NOTE | 2018-12-09 05:59 | NUR ---
400cc clear, straw urine emptied from sheriff catheter at this time. 16F Sheriff removed, patient tolerated well. Alba care completed. Will continue to monitor closely.
[2018-12-09] MEDS: IV RINGERS,LACTATED 1000ML 1,000 ML IV SCH ×3 (06:00→17:49)
[2018-12-09] MEDS: INSULIN LISPRO 300 UNITS/3 ML INSULN.PEN. SQ SCH ×4 (07:30→21:59)
[2018-12-09] MEDS: FLUTICASONE 50MCG/NASAL SPRAY 16GM BOTTLE. NS SCH (08:49)
[2018-12-09] MEDS: ENOXAPARIN 40 MG/0.4 ML SYRINGE. SQ SCH (08:50)
--- NOTE | 2018-12-09 09:59 | PDOC ---
SURGICAL PROGRESS NOTE Subjective some nausea yesterday, better today pain managed up to chair Vital Signs Vital Signs Date Time Temp Pulse Resp B/P (MAP) Pulse Ox O2 Delivery O2 Flow Rate FiO2 12/09/18 07:22 Room Air 12/09/18 07:00 97.8 89 16 116/75 (89) 99 2.0 97.8 I&O Intake and Output 12/09/18 06:59 Intake Total 3831.5 ml Output Total 4150 ml Balance -318.5 ml Intake Oral 2822 ml IV Total 1009.5 ml Output Urine Total 3750 ml Stool Total 400 ml General: Alert, Oriented X3, Cooperative, No acute distress Abdomen: Soft, Other (stoma pink, some stool, dressing dry) Labs Laboratory Tests Test 12/07/18 15:23 12/07/18 20:09 12/08/18 03:00 12/08/18 07:20 Glucose (Fingerstick) 178 mg/dL (70-99) 198 mg/dL (70-99) 127 mg/dL (70-99) White Blood Count 11.8 x10^3/uL (4.0-11.0) Red Blood Count 4.28 x10^6/uL (3.50-5.40) Hemoglobin 11.1 g/dL (12.0-15.5) Hematocrit 34.3 % (36.0-47.0) Mean Corpuscular Volume 80 fL (79-100) Mean Corpuscular Hemoglobin 26 pg (25-35) Mean Corpuscular Hemoglobin Concent 32 g/dL (31-37) Red Cell Distribution Width 16.8 % (11.5-14.5) Platelet Count 292 x10^3/uL (140-400) Neutrophils (%) (Auto) 85 % (31-73) Lymphocytes (%) (Auto) 6 % (24-48) Monocytes (%) (Auto) 9 % (0-9) Eosinophils (%) (Auto) 0 % (0-3) Basophils (%) (Auto) 0 % (0-3) Neutrophils # (Auto) 10.1 x10^3uL (1.8-7.7) Lymphocytes # (Auto) 0.7 x10^3/uL (1.0-4.8) Monocytes # (Auto) 1.0 x10^3/uL (0.0-1.1) Eosinophils # (Auto) 0.0 x10^3/uL (0.0-0.7) Basophils # (Auto) 0.0 x10^3/uL (0.0-0.2) Segmented Neutrophils % 66 % (35-66) Band Neutrophils % 17 % (0-9) Lymphocytes % 9 % (24-48) Monocytes % 7 % (0-10) Metamyelocytes % 1 % (0-0) Toxic Granulation Mod Platelet Estimate Adequate (ADEQUATE) Test 12/08/18 10:32 12/08/18 16:43 12/08/18 20:42 12/09/18 02:55 Glucose (Fingerstick) 167 mg/dL (70-99) 107 mg/dL (70-99) 155 mg/dL (70-99) White Blood Count 6.7 x10^3/uL (4.0-11.0) Red Blood Count 3.72 x10^6/uL (3.50-5.40) Hemoglobin 9.7 g/dL (12.0-15.5) Hematocrit 29.6 % (36.0-47.0) Mean Corpuscular Volume 80 fL (79-100) Mean Corpuscular Hemoglobin 26 pg (25-35) Mean Corpuscular Hemoglobin Concent 33 g/dL (31-37) Red Cell Distribution Width 16.4 % (11.5-14.5) Platelet Count 241 x10^3/uL (140-400) Neutrophils (%) (Auto) 75 % (31-73) Lymphocytes (%) (Auto) 13 % (24-48) Monocytes (%) (Auto) 11 % (0-9) Eosinophils (%) (Auto) 1 % (0-3) Basophils (%) (Auto) 0 % (0-3) Neutrophils # (Auto) 5.1 x10^3uL (1.8-7.7) Lymphocytes # (Auto) 0.9 x10^3/uL (1.0-4.8) Monocytes # (Auto) 0.7 x10^3/uL (0.0-1.1) Eosinophils # (Auto) 0.0 x10^3/uL (0.0-0.7) Basophils # (Auto) 0.0 x10^3/uL (0.0-0.2) Sodium Level 136 mmol/L (136-145) Potassium Level 3.9 mmol/L (3.5-5.1) Chloride Level 99 mmol/L (98-107) Carbon Dioxide Level 29 mmol/L (21-32) Anion Gap 8 (6-14) Blood Urea Nitrogen 11 mg/dL (7-20) Creatinine 1.1 mg/dL (0.6-1.0) Estimated GFR (Cockcroft-Gault) 59.4 BUN/Creatinine Ratio 10 (6-20) Glucose Level 110 mg/dL (70-99) Calcium Level 8.6 mg/dL (8.5-10.1) Total Bilirubin 0.3 mg/dL (0.2-1.0) Aspartate Amino Transf (AST/SGOT) 23 U/L (15-37) Alanine Aminotransferase (ALT/SGPT) 20 U/L (14-59) Alkaline Phosphatase 46 U/L (46-116) Total Protein 6.2 g/dL (6.4-8.2) Albumin 2.2 g/dL (3.4-5.0) Albumin/Globulin Ratio 0.6 (1.0-1.7) Test 12/09/18 07:30 Glucose (Fingerstick) 91 mg/dL (70-99) Laboratory Tests Test 12/08/18 10:32 12/08/18 16:43 12/08/18 20:42 12/09/18 02:55 Glucose (Fingerstick) 167 mg/dL (70-99) 107 mg/dL (70-99) 155 mg/dL (70-99) White Blood Count 6.7 x10^3/uL (4.0-11.0) Red Blood Count 3.72 x10^6/uL (3.50-5.40) Hemoglobin 9.7 g/dL (12.0-15.5) Hematocrit 29.6 % (36.0-47.0) Mean Corpuscular Volume 80 fL (79-100) Mean Corpuscular Hemoglobin 26 pg (25-35) Mean Corpuscular Hemoglobin Concent 33 g/dL (31-37) Red Cell Distribution Width 16.4 % (11.5-14.5) Platelet Count 241 x10^3/uL (140-400) Neutrophils (%) (Auto) 75 % (31-73) Lymphocytes (%) (Auto) 13 % (24-48) Monocytes (%) (Auto) 11 % (0-9) Eosinophils (%) (Auto) 1 % (0-3) Basophils (%) (Auto) 0 % (0-3) Neutrophils # (Auto) 5.1 x10^3uL (1.8-7.7) Lymphocytes # (Auto) 0.9 x10^3/uL (1.0-4.8) Monocytes # (Auto) 0.7 x10^3/uL (0.0-1.1) Eosinophils # (Auto) 0.0 x10^3/uL (0.0-0.7) Basophils # (Auto) 0.0 x10^3/uL (0.0-0.2) Sodium Level 136 mmol/L (136-145) Potassium Level 3.9 mmol/L (3.5-5.1) Chloride Level 99 mmol/L (98-107) Carbon Dioxide Level 29 mmol/L (21-32) Anion Gap 8 (6-14) Blood Urea Nitrogen 11 mg/dL (7-20) Creatinine 1.1 mg/dL (0.6-1.0) Estimated GFR (Cockcroft-Gault) 59.4 BUN/Creatinine Ratio 10 (6-20) Glucose Level 110 mg/dL (70-99) Calcium Level 8.6 mg/dL (8.5-10.1) Total Bilirubin 0.3 mg/dL (0.2-1.0) Aspartate Amino Transf (AST/SGOT) 23 U/L (15-37) Alanine Aminotransferase (ALT/SGPT) 20 U/L (14-59) Alkaline Phosphatase 46 U/L (46-116) Total Protein 6.2 g/dL (6.4-8.2) Albumin 2.2 g/dL (3.4-5.0) Albumin/Globulin Ratio 0.6 (1.0-1.7) Test 12/09/18 07:30 Glucose (Fingerstick) 91 mg/dL (70-99) Problem List s/p sigmoid, protecting ileostomy increase activity clears today, if no n/v, advance diet in am FERNANDO MAHONEY APRN Dec 09, 2018 09:59
[2018-12-09] MEDS: ONDANSETRON PF 4 MG/2 ML VIAL. IV PRN ×2 (12:02→23:32)
--- NOTE | 2018-12-09 12:37 | PDOC ---
PROGRESS NOTES Subjective Subjective Patient feeling better nausea improved on clears. Objective Objective Vital Signs Date Time Temp Pulse Resp B/P (MAP) Pulse Ox O2 Delivery O2 Flow Rate FiO2 12/09/18 11:00 98.3 94 16 134/77 (96) 94 Room Air 98.3 12/09/18 07:00 2.0 Intake and Output 12/09/18 06:59 Intake Total 3831.5 ml Output Total 4150 ml Balance -318.5 ml Intake Oral 2822 ml IV Total 1009.5 ml Output Urine Total 3750 ml Stool Total 400 ml Physical Exam Abdomen: Normal bowel sounds Heart: Regular rate Extremities: No edema General: Alert Lungs: Clear to auscultation Assessment Assessment 1. Postop day #2, rectovaginal fistula closure with diverting colostomy. 2. Type 2 diabetes, under good control. 3. Longstanding hypertension. 4. Chronic kidney disease with baseline creatinine of 1.14. Plan Plan of Care Start PO meds increase activity await bowel function Comment Review of Relevant I have reviewed the following items sathya (where applicable) has been applied. Labs Laboratory Tests Test 12/07/18 15:23 12/07/18 20:09 12/08/18 03:00 12/08/18 07:20 Glucose (Fingerstick) 178 mg/dL (70-99) 198 mg/dL (70-99) 127 mg/dL (70-99) White Blood Count 11.8 x10^3/uL (4.0-11.0) Red Blood Count 4.28 x10^6/uL (3.50-5.40) Hemoglobin 11.1 g/dL (12.0-15.5) Hematocrit 34.3 % (36.0-47.0) Mean Corpuscular Volume 80 fL (79-100) Mean Corpuscular Hemoglobin 26 pg (25-35) Mean Corpuscular Hemoglobin Concent 32 g/dL (31-37) Red Cell Distribution Width 16.8 % (11.5-14.5) Platelet Count 292 x10^3/uL (140-400) Neutrophils (%) (Auto) 85 % (31-73) Lymphocytes (%) (Auto) 6 % (24-48) Monocytes (%) (Auto) 9 % (0-9) Eosinophils (%) (Auto) 0 % (0-3) Basophils (%) (Auto) 0 % (0-3) Neutrophils # (Auto) 10.1 x10^3uL (1.8-7.7) Lymphocytes # (Auto) 0.7 x10^3/uL (1.0-4.8) Monocytes # (Auto) 1.0 x10^3/uL (0.0-1.1) Eosinophils # (Auto) 0.0 x10^3/uL (0.0-0.7) Basophils # (Auto) 0.0 x10^3/uL (0.0-0.2) Segmented Neutrophils % 66 % (35-66) Band Neutrophils % 17 % (0-9) Lymphocytes % 9 % (24-48) Monocytes % 7 % (0-10) Metamyelocytes % 1 % (0-0) Toxic Granulation Mod Platelet Estimate Adequate (ADEQUATE) Test 12/08/18 10:32 12/08/18 16:43 12/08/18 20:42 12/09/18 02:55 Glucose (Fingerstick) 167 mg/dL (70-99) 107 mg/dL (70-99) 155 mg/dL (70-99) White Blood Count 6.7 x10^3/uL (4.0-11.0) Red Blood Count 3.72 x10^6/uL (3.50-5.40) Hemoglobin 9.7 g/dL (12.0-15.5) Hematocrit 29.6 % (36.0-47.0) Mean Corpuscular Volume 80 fL (79-100) Mean Corpuscular Hemoglobin 26 pg (25-35) Mean Corpuscular Hemoglobin Concent 33 g/dL (31-37) Red Cell Distribution Width 16.4 % (11.5-14.5) Platelet Count 241 x10^3/uL (140-400) Neutrophils (%) (Auto) 75 % (31-73) Lymphocytes (%) (Auto) 13 % (24-48) Monocytes (%) (Auto) 11 % (0-9) Eosinophils (%) (Auto) 1 % (0-3) Basophils (%) (Auto) 0 % (0-3) Neutrophils # (Auto) 5.1 x10^3uL (1.8-7.7) Lymphocytes # (Auto) 0.9 x10^3/uL (1.0-4.8) Monocytes # (Auto) 0.7 x10^3/uL (0.0-1.1) Eosinophils # (Auto) 0.0 x10^3/uL (0.0-0.7) Basophils # (Auto) 0.0 x10^3/uL (0.0-0.2) Sodium Level 136 mmol/L (136-145) Potassium Level 3.9 mmol/L (3.5-5.1) Chloride Level 99 mmol/L (98-107) Carbon Dioxide Level 29 mmol/L (21-32) Anion Gap 8 (6-14) Blood Urea Nitrogen 11 mg/dL (7-20) Creatinine 1.1 mg/dL (0.6-1.0) Estimated GFR (Cockcroft-Gault) 59.4 BUN/Creatinine Ratio 10 (6-20) Glucose Level 110 mg/dL (70-99) Calcium Level 8.6 mg/dL (8.5-10.1) Total Bilirubin 0.3 mg/dL (0.2-1.0) Aspartate Amino Transf (AST/SGOT) 23 U/L (15-37) Alanine Aminotransferase (ALT/SGPT) 20 U/L (14-59) Alkaline Phosphatase 46 U/L (46-116) Total Protein 6.2 g/dL (6.4-8.2) Albumin 2.2 g/dL (3.4-5.0) Albumin/Globulin Ratio 0.6 (1.0-1.7) Test 12/09/18 07:30 12/09/18 11:44 Glucose (Fingerstick) 91 mg/dL (70-99) 116 mg/dL (70-99) Laboratory Tests Test 12/08/18 16:43 12/08/18 20:42 12/09/18 02:55 12/09/18 07:30 Glucose (Fingerstick) 107 mg/dL (70-99) 155 mg/dL (70-99) 91 mg/dL (70-99) White Blood Count 6.7 x10^3/uL (4.0-11.0) Red Blood Count 3.72 x10^6/uL (3.50-5.40) Hemoglobin 9.7 g/dL (12.0-15.5) Hematocrit 29.6 % (36.0-47.0) Mean Corpuscular Volume 80 fL (79-100) Mean Corpuscular Hemoglobin 26 pg (25-35) Mean Corpuscular Hemoglobin Concent 33 g/dL (31-37) Red Cell Distribution Width 16.4 % (11.5-14.5) Platelet Count 241 x10^3/uL (140-400) Neutrophils (%) (Auto) 75 % (31-73) Lymphocytes (%) (Auto) 13 % (24-48) Monocytes (%) (Auto) 11 % (0-9) Eosinophils (%) (Auto) 1 % (0-3) Basophils (%) (Auto) 0 % (0-3) Neutrophils # (Auto) 5.1 x10^3uL (1.8-7.7) Lymphocytes # (Auto) 0.9 x10^3/uL (1.0-4.8) Monocytes # (Auto) 0.7 x10^3/uL (0.0-1.1) Eosinophils # (Auto) 0.0 x10^3/uL (0.0-0.7) Basophils # (Auto) 0.0 x10^3/uL (0.0-0.2) Sodium Level 136 mmol/L (136-145) Potassium Level 3.9 mmol/L (3.5-5.1) Chloride Level 99 mmol/L (98-107) Carbon Dioxide Level 29 mmol/L (21-32) Anion Gap 8 (6-14) Blood Urea Nitrogen 11 mg/dL (7-20) Creatinine 1.1 mg/dL (0.6-1.0) Estimated GFR (Cockcroft-Gault) 59.4 BUN/Creatinine Ratio 10 (6-20) Glucose Level 110 mg/dL (70-99) Calcium Level 8.6 mg/dL (8.5-10.1) Total Bilirubin 0.3 mg/dL (0.2-1.0) Aspartate Amino Transf (AST/SGOT) 23 U/L (15-37) Alanine Aminotransferase (ALT/SGPT) 20 U/L (14-59) Alkaline Phosphatase 46 U/L (46-116) Total Protein 6.2 g/dL (6.4-8.2) Albumin 2.2 g/dL (3.4-5.0) Albumin/Globulin Ratio 0.6 (1.0-1.7) Test 12/09/18 11:44 Glucose (Fingerstick) 116 mg/dL (70-99) Medications Current Medications Ondansetron HCl (Zofran) 4 mg PRN Q6HRS PRN IV NAUSEA/VOMITING; Start 12/07/18 at 07:00; Stop 12/07/18 at 19:00; Status DC Fentanyl Citrate (Fentanyl 2ml Vial) 25 mcg PRN Q5MIN PRN IV MILD PAIN; Start 12/07/18 at 07:00; Stop 12/07/18 at 19:00; Status DC Fentanyl Citrate (Fentanyl 2ml Vial) 50 mcg PRN Q5MIN PRN IV MODERATE TO SEVERE PAIN; Start 12/07/18 at 07:00; Stop 12/07/18 at 19:00; Status DC Morphine Sulfate (Morphine Sulfate) 1 mg PRN Q10MIN PRN IV SEVERE PAIN; Start 12/07/18 at 07:00; Stop 12/07/18 at 19:00; Status DC Ringer's Solution 1,000 ml @ 30 mls/hr Q24H IV Last administered on 12/07/18at 15:06; Start 12/07/18 at 07:00; Stop 12/07/18 at 18:59; Status DC Lidocaine HCl (Xylocaine-Mpf 1% 2ml Vial) 2 ml PRN 1X PRN ID IV START; Start at 07:00; Stop 12/07/18 at 19:00; Status DC Hydromorphone HCl (Dilaudid) 0.5 mg PRN Q10MIN PRN IV SEV PAIN, Second choice Last administered on 12/07/18at 14:51; Start 12/07/18 at 07:00; Stop 12/07/18 at 19:00; Status DC Prochlorperazine Edisylate (Compazine) 5 mg PACU PRN PRN IV NAUSEA, MRX1 Last administered on 12/07/18at 14:50; Start 12/07/18 at 07:00; Stop 12/07/18 at 19:00 ; Status DC Cefoxitin Sodium 2 gm/Dextrose 100 ml @ 200 mls/hr 1X ONCE IV ; Start at 07:30; Stop 12/07/18 at 07:59; Status UNV Cefoxitin Sodium (Mefoxin) 2 gm 1X ONCE IVP Last administered on 12/07/18at 09: 25; Start 12/07/18 at 07:30; Stop 12/07/18 at 07:31; Status DC Bupivacaine HCl/ Epinephrine Bitart (Sensorcain-Mpf Epi 0.5%-1:[id number]) 30 ml STK -MED ONCE .ROUTE Last administered on 12/07/18at 11:20; Start 12/07/18 at 07:31 ; Stop 12/07/18 at 07:32; Status DC Iohexol (Omnipaque 300 Mg/ml) 100 ml STK-MED ONCE .ROUTE ; Start 12/07/18 at 07: 31; Stop 12/07/18 at 07:32; Status DC Lidocaine HCl (Glydo (Lidocaine) Jelly) 6 jonas STK-MED ONCE .ROUTE ; Start at 07:32; Stop 12/07/18 at 07:33; Status DC Propofol 20 ml @ As Directed STK-MED ONCE IV ; Start 12/07/18 at 08:37; Stop at 08:38; Status DC Lidocaine HCl (Lidocaine Pf 2% Vial) 5 ml STK-MED ONCE .ROUTE ; Start 12/07/18 at 08:37; Stop 12/07/18 at 08:38; Status DC Ephedrine Sulfate (Akovaz) 50 mg STK-MED ONCE .ROUTE ; Start 12/07/18 at 08:37; Stop 12/07/18 at 08:38; Status DC Rocuronium Reinbeck (Zemuron) 100 mg STK-MED ONCE .ROUTE ; Start 12/07/18 at 08: 39; Stop 12/07/18 at 08:40; Status DC Succinylcholine Chloride (Anectine) 200 mg STK-MED ONCE .ROUTE ; Start 12/07/18 at 08:40; Stop 12/07/18 at 08:41; Status DC Fentanyl Citrate (Fentanyl 2ml Vial) 100 mcg STK-MED ONCE .ROUTE ; Start at 08:40; Stop 12/07/18 at 08:41; Status DC Phenylephrine HCl (Newton-Synephrine Inj) 10 mg STK-MED ONCE .ROUTE ; Start at 08:42; Stop 12/07/18 at 08:43; Status DC Fentanyl Citrate (Fentanyl 2ml Vial) 100 mcg STK-MED ONCE .ROUTE ; Start at 09:37; Stop 12/07/18 at 09:38; Status DC Sevoflurane (Ultane) 90 ml STK-MED ONCE IH ; Start 12/07/18 at 09:40; Stop 12/07 at 09:41; Status DC Famotidine (Pepcid Vial) 20 mg STK-MED ONCE .ROUTE ; Start 12/07/18 at 09:51; Stop 12/07/18 at 09:52; Status DC Neostigmine Methylsulfate (Bloxiverz) 10 mg STK-MED ONCE .ROUTE ; Start at 10:58; Stop 12/07/18 at 10:59; Status DC Glycopyrrolate (Robinul) 1 mg STK-MED ONCE .ROUTE ; Start 12/07/18 at 10:58; Stop 12/07/18 at 10:59; Status DC Cefoxitin Sodium (Mefoxin) 1 gm STK-MED ONCE IVP ; Start 12/07/18 at 11:48; Stop 12/07/18 at 11:49; Status DC Sevoflurane (Ultane) 90 ml STK-MED ONCE IH ; Start 12/07/18 at 12:06; Stop 12/07 at 12:07; Status DC Enoxaparin Sodium (Lovenox 40mg Syringe) 40 mg Q24H SQ Last administered on at 08:50; Start 12/08/18 at 09:00 Sodium Chloride (Normal Saline Flush) 3 ml QSHIFT PRN IV AFTER MEDS AND BLOOD DRAWS; Start 12/07/18 at 13:30 Ringer's Solution 1,000 ml @ 100 mls/hr Q10H IV Last administered on at 08:51; Start 12/07/18 at 14:00 Naloxone HCl (Narcan) 0.4 mg PRN Q2MIN PRN IV SEE INSTRUCTIONS; Start 12/07/18 at 13:30 Sodium Chloride 1,000 ml @ 25 mls/hr Q24H IV ; Start 12/07/18 at 14:00; Stop at 07:32; Status DC Hydromorphone HCl 30 ml @ 0 mls/hr CONT PRN PRN IV PER PROTOCOL Last administered on 12/07/18 14:57; Start 12/07/18 at 13:30 Ondansetron HCl (Zofran) 4 mg PRN Q6HRS PRN IV NAUESA, 1ST CHOICE Last administered on 12/09/18at 12:02; Start 12/07/18 at 13:30 Morphine Sulfate (Morphine Sulfate) 10 mg STK-MED ONCE .ROUTE ; Start 12/07/18 at 13:51; Stop 12/07/18 at 13:52; Status DC Prochlorperazine Edisylate (Compazine) 10 mg STK-MED ONCE .ROUTE ; Start at 13:57; Stop 12/07/18 at 13:58; Status DC Ketorolac Tromethamine (Toradol 15mg Vial) 15 mg 1X ONCE IV ; Start 12/07/18 at 14:15; Stop 12/07/18 at 14:32; Status DC Insulin Human Lispro (HumaLOG) 0-12 UNITS QIDACHS SQ Last administered on at 20:55; Start 12/07/18 at 17:00 Acetaminophen (Tylenol) 650 mg PRN Q6HRS PRN PO FEVER > 100.5'F Last administered on 12/08/18at 22:54; Start 12/08/18 at 22:45 Sodium Chloride 1,000 ml @ 100 mls/hr Q10H IV ; Start 12/08/18 at 22:45; Stop 12/09/18 at 07:32; Status DC Fluticasone Propionate (Flonase) 2 spray DAILY NS Last administered on at 08:49; Start 12/09/18 at 09:00 Active Scripts Active Reported Lisinopril-Hctz 20-12.5 Mg Tab (Lisinopril/Hydrochlorothiazide) 1 Each Tablet 1 Tab PO DAILY Dicyclomine Hcl 10 Mg Capsule 1 Cap PO TID Metformin Hcl 500 Mg Tablet 500 Mg PO BIDWMEALS Flonase Allergy Relief (Fluticasone Propionate) 9.9 Ml [place].susp 2 Sprays NS DAILY Pantoprazole Sodium 40 Mg Tablet.dr 1 Tab PO DAILY Vitals/I & O Vital Sign - Last 24 Hours 12/08/18 12/08/18 12/08/18 12/08/18 15:00 19:45 20:45 23:00 Temp 99.0 98.8 100.7 99.0 98.8 100.7 Pulse 97 113 111 Resp 18 16 16 B/P (MAP) 101/56 (71) 106/60 (75) 89/54 (66) Pulse Ox 94 93 90 O2 Delivery Room Air Room Air Room Air Room Air 12/09/18 12/09/18 12/09/18 12/09/18 00:05 00:05 03:00 04:22 Temp 98.5 98.1 98.5 98.1 Pulse 97 86 Resp 23 23 16 16 B/P (MAP) 112/68 (83) 122/71 (88) Pulse Ox 95 98 O2 Delivery Room Air Nasal Cannula Room Air Nasal Cannula O2 Flow Rate 2.0 2.0 12/09/18 12/09/18 12/09/18 07:00 07:22 11:00 Temp 97.8 98.3 97.8 98.3 Pulse 89 94 Resp 16 16 B/P (MAP) 116/75 (89) 134/77 (96) Pulse Ox 99 94 O2 Delivery Nasal Cannula Room Air Room Air O2 Flow Rate 2.0 Intake and Output 12/08/18 12/08/18 12/09/18 14:59 22:59 06:59 Intake Total 2622 ml 709.5 ml 500 ml Output Total 2750 ml 1400 ml Balance 2622 ml -2040.5 ml -900 ml ASTRID DURAN MD Dec 09, 2018 12:36
[2018-12-09] MEDS: PANTOPRAZOLE 40 MG TABLET.DR. PO SCH (13:18)
[2018-12-09] MEDS: LISINOPRIL 20 MG TABLET PO SCH (13:18)
[2018-12-09] MEDS: hydroCHLOROthiazide 12.5 MG CAPSULE PO SCH (13:18)
[2018-12-09] MEDS: DICYCLOMINE HCL 10 MG CAPSULE PO SCH ×2 (13:19→21:52)
--- NOTE | 2018-12-09 15:07 | PATHOLOGY ---
[facility] Accession Number: [id number] . 01 Material submitted: . SIGMOID . 01 Clinical history: . Colonic stricture . 02 Diagnosis: Segment of colon "sigmoid colon", segmental resection: - Multiple diverticulosis with diverticulitis and with acute abscess formation and with perforation clinically consistent with a colovaginal fistula. The sections submitted as resection margins appear viable. - Lymph nodes (7) with reactive changes negative for malignancy. - Narrowing consistent with stricture. (SHA:arnoldo; 12/09/2018) QMS/12/09/2018 . 02 Electronically signed: . Chester Grewal MD, Pathologist NPI- [id number] . 01 Gross description: . The specimen is received fresh and is designated "sigmoid - suture distal". This consists of a curved segment of colon with attached mesocolon. The segment measures approximately 12 cm in length. The attached mesocolon measures up to 2.5 cm in depth. The proximal end is stapled closed. The distal end has an attached suture and is open. The antimesocolic serosa is reddish brown and focally roughened. There is a stricture of the mid portion of the segment associated with a puckered hemorrhagic area and with focal hemorrhagic induration of the pericolic fatty tissue. The segment is opened along the antimesolic aspect. The colonic mucosa is brown and transversely folded. There is narrowing of the lumen in the area of stricture. There are multiple diverticula within the segment. There is a focal area of mucosal hyperemia which appears to be associated with a perforated diverticulum and consistent with a colovaginal fistula as indicated by the surgeon. There are no polyps or tumor masses. (JPM:arnoldo; 12/07/2018) . Environmental Web [employer]ler tissue is submitted as follows: A1. Proximal margin, en face A2. Distal margin, en face A3. Radial margin (pericolic fat), en face closest to sticture/perforation A4-A15. Perforation, sticture, diverticula from proximal to distal (each section, trisected, please refer to attached diagram) A16-A18. Diverticulum in each cassette. A19. Possible Single lymph node,serially sectioned (SWS; 12/08/2018) . INTRAOPERATIVE CONSULTATION WITH GROSS IMPRESSION (Olman Garcia MD) . Segment of colon and attached mesocolon: - Diverticulosis with stricture and with focal perforation consistent with colovaginal fistula. . The results are displayed to Dr. Sandoval in the operating room. The specimen is fixed in formalin prior to additional sectioning. (JPM:arnoldo; 12/07/2018) . . Intraoperative consultation performed at [facility], [address] [place] [id number] [facility]/QMS . 02 Pathologist provided ICD-10: K57.32, K57.30 . 02 CPT . 865831, 024385 Specimen Comment: A courtesy copy of this report has been sent to Specimen Comment: [phone], . Specimen Comment: Report sent to / DR DURAN Specimen Comment: A duplicate report has been generated due to demographic updates. Performed at: 01 [facility] [address], [place] [id number] MD Kaden Norman MD Phone: [phone] Performed at: [address] [id number] MD Olman Garcia MD Phone: [phone]
[2018-12-09] MEDS ORDERED: CALCIUM CARBONATE 500 MG TAB.CHEW PO PRN (21:45)
[2018-12-09] MEDS: PROCHLORPERAZINE 10 MG/2 ML VIAL. IV PRN (23:55)
[2018-12-10 02:36] VITALS: BP 155/106
[2018-12-10] MEDS: PANTOPRAZOLE 40 MG TABLET.DR. PO SCH (06:12)
[2018-12-10 07:00] VITALS: BP 124/80
[2018-12-10] MEDS: INSULIN LISPRO 300 UNITS/3 ML INSULN.PEN. SQ SCH ×4 (08:40→21:00)
[2018-12-10] MEDS ORDERED: NON FORMULARY ITEM (Lisinopril/Hydrochlorothiazide (Lisinopril-Hctz 20-12.5 Mg Tab) 1 TAB) PO SCH (09:00)
[2018-12-10] MEDS: ENOXAPARIN 40 MG/0.4 ML SYRINGE. SQ SCH (09:11)
[2018-12-10] MEDS: PROCHLORPERAZINE 10 MG/2 ML VIAL. IV PRN (09:11)
[2018-12-10] MEDS: FLUTICASONE 50MCG/NASAL SPRAY 16GM BOTTLE. NS SCH (09:13)
[2018-12-10] MEDS: DICYCLOMINE HCL 10 MG CAPSULE PO SCH ×3 (09:13→20:26)
[2018-12-10] MEDS: hydroCHLOROthiazide 12.5 MG CAPSULE PO SCH (09:13)
[2018-12-10] MEDS: LISINOPRIL 20 MG TABLET PO SCH (09:13)
[2018-12-10] MEDS ORDERED: ENALAPRILAT 1.25 MG/ML VIAL. IVP PRN (09:15)
--- NOTE | 2018-12-10 09:39 | PDOC ---
SURGICAL PROGRESS NOTE Subjective emesis earlier still some nausea Vital Signs Vital Signs Date Time Temp Pulse Resp B/P (MAP) Pulse Ox O2 Delivery O2 Flow Rate FiO2 12/10/18 09:13 104 124/80 12/10/18 07:00 98.7 16 92 Room Air 98.7 12/09/18 07:00 2.0 I&O Intake and Output 12/10/18 07:00 Intake Total 1000 ml Balance 1000 ml IV Total 1000 ml # Voids 6 General: Alert, Cooperative Abdomen: Soft, Other (dressing dry, ostomy with stool) Labs Laboratory Tests Test 12/08/18 10:32 12/08/18 16:43 12/08/18 20:42 12/09/18 02:55 Glucose (Fingerstick) 167 mg/dL (70-99) 107 mg/dL (70-99) 155 mg/dL (70-99) White Blood Count 6.7 x10^3/uL (4.0-11.0) Red Blood Count 3.72 x10^6/uL (3.50-5.40) Hemoglobin 9.7 g/dL (12.0-15.5) Hematocrit 29.6 % (36.0-47.0) Mean Corpuscular Volume 80 fL (79-100) Mean Corpuscular Hemoglobin 26 pg (25-35) Mean Corpuscular Hemoglobin Concent 33 g/dL (31-37) Red Cell Distribution Width 16.4 % (11.5-14.5) Platelet Count 241 x10^3/uL (140-400) Neutrophils (%) (Auto) 75 % (31-73) Lymphocytes (%) (Auto) 13 % (24-48) Monocytes (%) (Auto) 11 % (0-9) Eosinophils (%) (Auto) 1 % (0-3) Basophils (%) (Auto) 0 % (0-3) Neutrophils # (Auto) 5.1 x10^3uL (1.8-7.7) Lymphocytes # (Auto) 0.9 x10^3/uL (1.0-4.8) Monocytes # (Auto) 0.7 x10^3/uL (0.0-1.1) Eosinophils # (Auto) 0.0 x10^3/uL (0.0-0.7) Basophils # (Auto) 0.0 x10^3/uL (0.0-0.2) Sodium Level 136 mmol/L (136-145) Potassium Level 3.9 mmol/L (3.5-5.1) Chloride Level 99 mmol/L (98-107) Carbon Dioxide Level 29 mmol/L (21-32) Anion Gap 8 (6-14) Blood Urea Nitrogen 11 mg/dL (7-20) Creatinine 1.1 mg/dL (0.6-1.0) Estimated GFR (Cockcroft-Gault) 59.4 BUN/Creatinine Ratio 10 (6-20) Glucose Level 110 mg/dL (70-99) Calcium Level 8.6 mg/dL (8.5-10.1) Total Bilirubin 0.3 mg/dL (0.2-1.0) Aspartate Amino Transf (AST/SGOT) 23 U/L (15-37) Alanine Aminotransferase (ALT/SGPT) 20 U/L (14-59) Alkaline Phosphatase 46 U/L (46-116) Total Protein 6.2 g/dL (6.4-8.2) Albumin 2.2 g/dL (3.4-5.0) Albumin/Globulin Ratio 0.6 (1.0-1.7) Test 12/09/18 07:30 12/09/18 11:44 12/09/18 21:21 Glucose (Fingerstick) 91 mg/dL (70-99) 116 mg/dL (70-99) 167 mg/dL (70-99) Laboratory Tests Test 12/09/18 11:44 12/09/18 21:21 Glucose (Fingerstick) 116 mg/dL (70-99) 167 mg/dL (70-99) Assessment/Plan NPO, await better bowel function cardiac eval-tachy FERNANDO MAHONEY APRN Dec 10, 2018 09:39
[2018-12-10 10:00] LABS: CALCIUM 9.3 mg/dL (8.5-10.1); GFR 66.3; POTASSIUM 3.5 mmol/L (3.5-5.1)
[2018-12-10 10:03] LABS: MAGNESIUM 1.6 mg/dL (1.8-2.4); PHOSPHORUS 2.9 mg/dL (2.6-4.7)
[2018-12-10 11:00] VITALS: BP 116/69
--- NOTE | 2018-12-10 13:13 | PDOC ---
PROGRESS NOTES Subjective Subjective Patient not feeling well this morning. Patient had episodes of nausea vomiting last evening. Objective Objective Vital Signs Date Time Temp Pulse Resp B/P (MAP) Pulse Ox O2 Delivery O2 Flow Rate FiO2 12/10/18 11:00 98.1 97 18 116/69 (85) 90 Room Air 98.1 12/09/18 07:00 2.0 Intake and Output 12/10/18 07:00 Intake Total 1000 ml Balance 1000 ml IV Total 1000 ml # Voids 6 Physical Exam Abdomen: Other (hypoactive) Heart: Regular rate, Other (slight tachycardia) Extremities: No edema General: Alert Lungs: Clear to auscultation Assessment Assessment 1. Postop day #3, rectovaginal fistula closure with diverting colostomy. 2. Ileus 3. Longstanding hypertension. 4. Chronic kidney disease with baseline creatinine of 1.14. 5. Type 2 diabetes, under good control. Plan Plan of Care Recommend PICC line Proceed with TPN Continue nothing by mouth status Check a.m. labs Monitor blood sugars Comment Review of Relevant I have reviewed the following items sathya (where applicable) has been applied. Labs Laboratory Tests Test 12/08/18 16:43 12/08/18 20:42 12/09/18 02:55 12/09/18 07:30 Glucose (Fingerstick) 107 mg/dL (70-99) 155 mg/dL (70-99) 91 mg/dL (70-99) White Blood Count 6.7 x10^3/uL (4.0-11.0) Red Blood Count 3.72 x10^6/uL (3.50-5.40) Hemoglobin 9.7 g/dL (12.0-15.5) Hematocrit 29.6 % (36.0-47.0) Mean Corpuscular Volume 80 fL (79-100) Mean Corpuscular Hemoglobin 26 pg (25-35) Mean Corpuscular Hemoglobin Concent 33 g/dL (31-37) Red Cell Distribution Width 16.4 % (11.5-14.5) Platelet Count 241 x10^3/uL (140-400) Neutrophils (%) (Auto) 75 % (31-73) Lymphocytes (%) (Auto) 13 % (24-48) Monocytes (%) (Auto) 11 % (0-9) Eosinophils (%) (Auto) 1 % (0-3) Basophils (%) (Auto) 0 % (0-3) Neutrophils # (Auto) 5.1 x10^3uL (1.8-7.7) Lymphocytes # (Auto) 0.9 x10^3/uL (1.0-4.8) Monocytes # (Auto) 0.7 x10^3/uL (0.0-1.1) Eosinophils # (Auto) 0.0 x10^3/uL (0.0-0.7) Basophils # (Auto) 0.0 x10^3/uL (0.0-0.2) Sodium Level 136 mmol/L (136-145) Potassium Level 3.9 mmol/L (3.5-5.1) Chloride Level 99 mmol/L (98-107) Carbon Dioxide Level 29 mmol/L (21-32) Anion Gap 8 (6-14) Blood Urea Nitrogen 11 mg/dL (7-20) Creatinine 1.1 mg/dL (0.6-1.0) Estimated GFR (Cockcroft-Gault) 59.4 BUN/Creatinine Ratio 10 (6-20) Glucose Level 110 mg/dL (70-99) Calcium Level 8.6 mg/dL (8.5-10.1) Total Bilirubin 0.3 mg/dL (0.2-1.0) Aspartate Amino Transf (AST/SGOT) 23 U/L (15-37) Alanine Aminotransferase (ALT/SGPT) 20 U/L (14-59) Alkaline Phosphatase 46 U/L (46-116) Total Protein 6.2 g/dL (6.4-8.2) Albumin 2.2 g/dL (3.4-5.0) Albumin/Globulin Ratio 0.6 (1.0-1.7) Test 12/09/18 11:44 12/09/18 21:21 12/10/18 09:35 12/10/18 10:54 Glucose (Fingerstick) 116 mg/dL (70-99) 167 mg/dL (70-99) 118 mg/dL (70-99) Sodium Level 135 mmol/L (136-145) Potassium Level 3.5 mmol/L (3.5-5.1) Chloride Level 96 mmol/L (98-107) Carbon Dioxide Level 32 mmol/L (21-32) Anion Gap 7 (6-14) Blood Urea Nitrogen 10 mg/dL (7-20) Creatinine 1.0 mg/dL (0.6-1.0) Estimated GFR (Cockcroft-Gault) 66.3 Glucose Level 131 mg/dL (70-99) Calcium Level 9.3 mg/dL (8.5-10.1) Phosphorus Level 2.9 mg/dL (2.6-4.7) Magnesium Level 1.6 mg/dL (1.8-2.4) Laboratory Tests Test 12/09/18 21:21 12/10/18 09:35 12/10/18 10:54 Glucose (Fingerstick) 167 mg/dL (70-99) 118 mg/dL (70-99) Sodium Level 135 mmol/L (136-145) Potassium Level 3.5 mmol/L (3.5-5.1) Chloride Level 96 mmol/L (98-107) Carbon Dioxide Level 32 mmol/L (21-32) Anion Gap 7 (6-14) Blood Urea Nitrogen 10 mg/dL (7-20) Creatinine 1.0 mg/dL (0.6-1.0) Estimated GFR (Cockcroft-Gault) 66.3 Glucose Level 131 mg/dL (70-99) Calcium Level 9.3 mg/dL (8.5-10.1) Phosphorus Level 2.9 mg/dL (2.6-4.7) Magnesium Level 1.6 mg/dL (1.8-2.4) Medications Current Medications Ondansetron HCl (Zofran) 4 mg PRN Q6HRS PRN IV NAUSEA/VOMITING; Start 12/07/18 at 07:00; Stop 12/07/18 at 19:00; Status DC Fentanyl Citrate (Fentanyl 2ml Vial) 25 mcg PRN Q5MIN PRN IV MILD PAIN; Start 12/07/18 at 07:00; Stop 12/07/18 at 19:00; Status DC Fentanyl Citrate (Fentanyl 2ml Vial) 50 mcg PRN Q5MIN PRN IV MODERATE TO SEVERE PAIN; Start 12/07/18 at 07:00; Stop 12/07/18 at 19:00; Status DC Morphine Sulfate (Morphine Sulfate) 1 mg PRN Q10MIN PRN IV SEVERE PAIN; Start 12/07/18 at 07:00; Stop 12/07/18 at 19:00; Status DC Ringer's Solution 1,000 ml @ 30 mls/hr Q24H IV Last administered on 12/07/18at 15:06; Start 12/07/18 at 07:00; Stop 12/07/18 at 18:59; Status DC Lidocaine HCl (Xylocaine-Mpf 1% 2ml Vial) 2 ml PRN 1X PRN ID IV START; Start at 07:00; Stop 12/07/18 at 19:00; Status DC Hydromorphone HCl (Dilaudid) 0.5 mg PRN Q10MIN PRN IV SEV PAIN, Second choice Last administered on 12/07/18at 14:51; Start 12/07/18 at 07:00; Stop 12/07/18 at 19:00; Status DC Prochlorperazine Edisylate (Compazine) 5 mg PACU PRN PRN IV NAUSEA, MRX1 Last administered on 12/07/18at 14:50; Start 12/07/18 at 07:00; Stop 12/07/18 at 19:00 ; Status DC Cefoxitin Sodium 2 gm/Dextrose 100 ml @ 200 mls/hr 1X ONCE IV ; Start at 07:30; Stop 12/07/18 at 07:59; Status UNV Cefoxitin Sodium (Mefoxin) 2 gm 1X ONCE IVP Last administered on 12/07/18at 09: 25; Start 12/07/18 at 07:30; Stop 12/07/18 at 07:31; Status DC Bupivacaine HCl/ Epinephrine Bitart (Sensorcain-Mpf Epi 0.5%-1:[id number]) 30 ml STK -MED ONCE .ROUTE Last administered on 12/07/18at 11:20; Start 12/07/18 at 07:31 ; Stop 12/07/18 at 07:32; Status DC Iohexol (Omnipaque 300 Mg/ml) 100 ml STK-MED ONCE .ROUTE ; Start 12/07/18 at 07: 31; Stop 12/07/18 at 07:32; Status DC Lidocaine HCl (Glydo (Lidocaine) Jelly) 6 jonas STK-MED ONCE .ROUTE ; Start at 07:32; Stop 12/07/18 at 07:33; Status DC Propofol 20 ml @ As Directed STK-MED ONCE IV ; Start 12/07/18 at 08:37; Stop at 08:38; Status DC Lidocaine HCl (Lidocaine Pf 2% Vial) 5 ml STK-MED ONCE .ROUTE ; Start 12/07/18 at 08:37; Stop 12/07/18 at 08:38; Status DC Ephedrine Sulfate (Akovaz) 50 mg STK-MED ONCE .ROUTE ; Start 12/07/18 at 08:37; Stop 12/07/18 at 08:38; Status DC Rocuronium [place] (Zemuron) 100 mg STK-MED ONCE .ROUTE ; Start 12/07/18 at 08: 39; Stop 12/07/18 at 08:40; Status DC Succinylcholine Chloride (Anectine) 200 mg STK-MED ONCE .ROUTE ; Start 12/07/18 at 08:40; Stop 12/07/18 at 08:41; Status DC Fentanyl Citrate (Fentanyl 2ml Vial) 100 mcg STK-MED ONCE .ROUTE ; Start at 08:40; Stop 12/07/18 at 08:41; Status DC Phenylephrine HCl (Newton-Synephrine Inj) 10 mg STK-MED ONCE .ROUTE ; Start at 08:42; Stop 12/07/18 at 08:43; Status DC Fentanyl Citrate (Fentanyl 2ml Vial) 100 mcg STK-MED ONCE .ROUTE ; Start at 09:37; Stop 12/07/18 at 09:38; Status DC Sevoflurane (Ultane) 90 ml STK-MED ONCE IH ; Start 12/07/18 at 09:40; Stop 12/07 at 09:41; Status DC Famotidine (Pepcid Vial) 20 mg STK-MED ONCE .ROUTE ; Start 12/07/18 at 09:51; Stop 12/07/18 at 09:52; Status DC Neostigmine Methylsulfate (Bloxiverz) 10 mg STK-MED ONCE .ROUTE ; Start at 10:58; Stop 12/07/18 at 10:59; Status DC Glycopyrrolate (Robinul) 1 mg STK-MED ONCE .ROUTE ; Start 12/07/18 at 10:58; Stop 12/07/18 at 10:59; Status DC Cefoxitin Sodium (Mefoxin) 1 gm STK-MED ONCE IVP ; Start 12/07/18 at 11:48; Stop 12/07/18 at 11:49; Status DC Sevoflurane (Ultane) 90 ml STK-MED ONCE IH ; Start 12/07/18 at 12:06; Stop 12/07 at 12:07; Status DC Enoxaparin Sodium (Lovenox 40mg Syringe) 40 mg Q24H SQ Last administered on at 09:11; Start 12/08/18 at 09:00 Sodium Chloride (Normal Saline Flush) 3 ml QSHIFT PRN IV AFTER MEDS AND BLOOD DRAWS; Start 12/07/18 at 13:30 Ringer's Solution 1,000 ml @ 100 mls/hr Q10H IV Last administered on at 17:49; Start 12/07/18 at 14:00 Naloxone HCl (Narcan) 0.4 mg PRN Q2MIN PRN IV SEE INSTRUCTIONS; Start 12/07/18 at 13:30 Sodium Chloride 1,000 ml @ 25 mls/hr Q24H IV ; Start 12/07/18 at 14:00; Stop at 07:32; Status DC Hydromorphone HCl 30 ml @ 0 mls/hr CONT PRN PRN IV PER PROTOCOL Last administered on 12/07/18at 14:57; Start 12/07/18 at 13:30 Ondansetron HCl (Zofran) 4 mg PRN Q6HRS PRN IV NAUESA, 1ST CHOICE Last administered on 12/09/18at 23:32; Start 12/07/18 at 13:30 Morphine Sulfate (Morphine Sulfate) 10 mg STK-MED ONCE .ROUTE ; Start 12/07/18 at 13:51; Stop 12/07/18 at 13:52; Status DC Prochlorperazine Edisylate (Compazine) 10 mg STK-MED ONCE .ROUTE ; Start at 13:57; Stop 12/07/18 at 13:58; Status DC Ketorolac Tromethamine (Toradol 15mg Vial) 15 mg 1X ONCE IV ; Start 12/07/18 at 14:15; Stop 12/07/18 at 14:32; Status DC Insulin Human Lispro (HumaLOG) 0-12 UNITS QIDACHS SQ Last administered on at 21:59; Start 12/07/18 at 17:00 Acetaminophen (Tylenol) 650 mg PRN Q6HRS PRN PO FEVER > 100.5'F Last administered on 12/08/18at 22:54; Start 12/08/18 at 22:45 Sodium Chloride 1,000 ml @ 100 mls/hr Q10H IV ; Start 12/08/18 at 22:45; Stop 12/09/18 at 07:32; Status DC Fluticasone Propionate (Flonase) 2 spray DAILY NS Last administered on at 08:49; Start 12/09/18 at 09:00 Dicyclomine HCl (Bentyl) 10 mg TID PO Last administered on 12/09/18at 21:52; Start 12/09/18 at 14:00 Pantoprazole Sodium (Protonix) 40 mg DAILYAC PO Last administered on 12/09/18at 13:18; Start 12/09/18 at 13:30 Non-Formulary Medication (Lisinopril/ Hydrochlorothiazide (Lisinopril-Hctz 20- 12.5 Mg Tab)) 1 tab DAILY PO ; Start 12/10/18 at 09:00; Status UNV Lisinopril (Prinivil) 20 mg DAILY PO ; Start 12/09/18 at 13:30 Hydrochlorothiazide (Microzide) 12.5 mg DAILY PO ; Start 12/09/18 at 13:30 Calcium Carbonate/ Glycine (Tums) 1,000 mg PRN AFTMEALHC PRN PO INDIGESTION Last administered on 12/09/18at 21:52; Start 12/09/18 at 21:45 Prochlorperazine Edisylate (Compazine) 10 mg PRN Q6HRS PRN IV NAUSEA/VOMITING Last administered on 12/10/18at 09:11; Start 12/09/18 at 23:45 Enalaprilat (Vasotec Inj) 1.25 mg PRN Q6HRS PRN IVP HYPERTENSION, SEE COMMENTS ; Start 12/10/18 at 09:15 Info (Tpn Per Pharmacy) 1 each PRN DAILY PRN MC SEE COMMENTS; Start 12/10/18 at 09:15 Active Scripts Active Reported Lisinopril-Hctz 20-12.5 Mg Tab (Lisinopril/Hydrochlorothiazide) 1 Each Tablet 1 Tab PO DAILY Dicyclomine Hcl 10 Mg Capsule 1 Cap PO TID Metformin Hcl 500 Mg Tablet 500 Mg PO BIDWMEALS Flonase Allergy Relief (Fluticasone Propionate) 9.9 Ml [place].susp 2 Sprays NS DAILY Pantoprazole Sodium 40 Mg Tablet.dr 1 Tab PO DAILY Vitals/I & O Vital Sign - Last 24 Hours 12/09/18 12/09/18 12/09/18 12/09/18 15:00 19:00 20:00 22:55 Temp 98.1 98.6 98.2 98.1 98.6 98.2 Pulse 105 111 105 Resp 16 18 18 B/P (MAP) 119/77 (91) 151/89 (109) 122/82 (95) Pulse Ox 90 90 93 O2 Delivery Room Air Room Air Room Air Room Air 12/10/18 12/10/18 12/10/18 12/10/18 02:36 07:00 08:30 09:13 Temp 98.9 98.7 98.9 98.7 Pulse 118 104 104 Resp 18 16 B/P (MAP) 155/106 (122) 124/80 (95) 124/80 Pulse Ox 92 92 O2 Delivery Room Air Room Air Room Air 12/10/18 11:00 Temp 98.1 98.1 Pulse 97 Resp 18 B/P (MAP) 116/69 (85) Pulse Ox 90 O2 Delivery Room Air Intake and Output 12/09/18 12/09/18 12/10/18 15:00 23:00 07:00 Intake Total 1000 ml Balance 1000 ml ASTRID DURAN MD Dec 10, 2018 13:12
--- NOTE | 2018-12-10 13:23 | PDOC2 ---
LUTHER MAHAJAN SCALPING MACHINE OPERATOR 12/10/18 1323: CARDIAC CONSULT DATE OF CONSULT Date of Consult DATE: 12/10/18 TIME: 13:10 REASON FOR CONSULT Reason for Consult: Chest pain REFERRING PHYSICIAN Referring Physician: Brandee SOURCE Source: Chart review, Patient HISTORY OF PRESENT ILLNESS HISTORY OF PRESENT ILLNESS This is a 68 yo female admitted for planned abdominal surgery. This is POD#3 s/ p sigmoid, protecting ileostomy. she tolerated the procedure well. Presently her surgical pain is controlled with peoplesoft business analyst. She was advanced to CL but placed back to NPO because of nausea. Reports some right sided chest pain intermittent started actually yesterday but felt like heartburn. No palpitations but has been noted with tachycardia. She did not have any tele monitor and the tachy was noted via BP monitor reading. EKG shows sinus tach with significant changes at 103. denies any SOA, vomiting. No prior hx of VTE nor CAD. No prior Echo nor stress test. Prior to her surgery she denies any LAGUNAS nor exertional CP and very independent and tolerate this procedure well. PAST MEDICAL HISTORY Cardiovascular: HTN GI: Diverticulosis, Other (diverticulitis with possible rectovaginal fistule) Hepatobiliary: Cholelithiasis Musculoskeletal: Osteoarthritis Renal/: Chronic renal insuff (CKD3) Endocrine: Diabetes (2) PAST SURGICAL HISTORY Past Surgical History: Appendectomy, Hysterectomy, Other (foot surgery) FAMILY HISTORY Family History: Coronary Artery Disease (father), Stroke (mother) SOCIAL HISTORY Smoke: No ALCOHOL: none Drugs: None Lives: with Family CURRENT MEDICATIONS CURRENT MEDICATIONS Current Medications Medications (Trade) Dose Ordered Sig/Werner Route PRN Reason Start Time Stop Time Status Last Admin Dose Admin Dicyclomine HCl (Bentyl) 10 mg TID PO 12/09/18 14:00 12/09/18 21:52 Pantoprazole Sodium (Protonix) 40 mg DAILYAC PO 12/09/18 13:30 12/09/18 13:18 Calcium Carbonate/ Glycine (Tums) 1,000 mg PRN AFTMEALHC PRN PO INDIGESTION 12/09/18 21:45 12/09/18 21:52 Prochlorperazine Edisylate (Compazine) 10 mg PRN Q6HRS PRN IV NAUSEA/VOMITING 12/09/18 23:45 12/10/18 09:11 ALLERGIES ALLERGIES: Coded Allergies: ciprofloxacin (Verified Allergy, Intermediate, 12/07/18) sulfamethoxazole (Verified Allergy, Intermediate, Unknown, 12/07/18) trimethoprim (Verified Allergy, Intermediate, Unknown, 12/07/18) naproxen (Verified Adverse Reaction, Severe, gastric bleeding, 12/07/18) tizanidine (Verified Adverse Reaction, Intermediate, N/V, 12/07/18) ROS Review of System 14 point ROS evaluated with pertinent positives noted per HPI PHYSICAL EXAM General: Alert, Oriented X3, Cooperative, No acute distress HEENT: Atraumatic, Mucous membr. moist/pink Lungs: Other (basilar crackles) Heart: Regular rate (sinus tach), Normal S1, Normal S2, Other (2/6 systolic murmur to LLS border) Abdomen: Soft, Other (abd surgical incision with colostomy) Extremities: No cyanosis Skin: No breakdown, No significant lesion Neuro: Normal speech, Sensation intact Psych/Mental Status: Mental status NL, Mood NL MUSCULOSKELETAL: Osteoarthritic changes both hands VITALS VITALS Vital Signs Date Time Temp Pulse Resp B/P (MAP) Pulse Ox O2 Delivery O2 Flow Rate FiO2 12/10/18 11:00 98.1 97 18 116/69 (85) 90 Room Air 98.1 12/09/18 07:00 2.0 LABS Lab: Laboratory Tests Test 12/09/18 21:21 12/10/18 09:35 12/10/18 10:54 Glucose (Fingerstick) 167 mg/dL (70-99) 118 mg/dL (70-99) Sodium Level 135 mmol/L (136-145) Potassium Level 3.5 mmol/L (3.5-5.1) Chloride Level 96 mmol/L (98-107) Carbon Dioxide Level 32 mmol/L (21-32) Anion Gap 7 (6-14) Blood Urea Nitrogen 10 mg/dL (7-20) Creatinine 1.0 mg/dL (0.6-1.0) Estimated GFR (Cockcroft-Gault) 66.3 Glucose Level 131 mg/dL (70-99) Calcium Level 9.3 mg/dL (8.5-10.1) Phosphorus Level 2.9 mg/dL (2.6-4.7) Magnesium Level 1.6 mg/dL (1.8-2.4) ASSESSMENT/PLAN ASSESSMENT/PLAN 1. S/P Exlap with rectovaginal fistula closure with diverting colostomy POD#3 2. Atypical Chest pain: GERD like symptom. 3. Sinus Tachycardia: reactive. 4. HTN: controlled 5. CKD3 6. elevated trop: initial at 0.08. possibly demand mediated, type 2. Noted good tolerance to surgery. Recommendations 1. Troponin, EKG. Place on tele monitor. TTE and will note RV and EF 2. Currently NPO unable to take protonix. Pepcid IV x1. Replace Mg. FIDEL COFFEY MD 12/10/18 1602: CARDIAC CONSULT ASSESSMENT/PLAN ASSESSMENT/PLAN Patient seen and examined. Agree with YARN COMBER's assessment and plan. Chest pain with atypical features and most probably GI etiology. Slight troponin elevation probably demand ischemia. 2-D echo showed normal LV function without any regional wall motion abnormalities. Sinus tachycardia physiologic. Continue postop care per surgical team. Thank you for your consultation. LUTHER MAHAJAN APRN Dec 10, 2018 13:23 FIDEL COFFEY MD Dec 10, 2018 16:02
--- NOTE | 2018-12-10 13:36 | EKG ---
[facility] [address] [place] [address] Test Date: 2018-12-10 Test Time: 13:24:12 Pat Name: GAURAV DEAL Department: Room: 200 1 Gender: F Instrumentation Fitter: ALYSHA : 1950 Requested By: LUTHER MAHAJAN Order Number: [id number] Reading MD: Robinson Mehta Measurements Intervals [place] Rate: 103 P: 30 [place]: 128 QRS: 28 QRSD: 88 T: 34 QT: 302 QTc: 397 Interpretive Statements SINUS TACHYCARDIA ATRIAL PREMATURE COMPLEX(ES) Electronically Signed On 12-21-2018 10:23:24 DIRECTOR DIGITAL CATALOGUE by Robinson Mehta
[2018-12-10] MEDS: TPN PER PHARMACY MC PRN (14:33)
--- NOTE | 2018-12-10 15:17 | EKG ---
[facility] [address] [place] [address] Test Date: 2018-12-10 Test Time: 14:59:23 Pat Name: GAURAV DEAL Department: Room: [facility] 1 Gender: F Medical Science Liaison: ALYSHA : 1950 Requested By: JOEY GAGNON Order Number: [id number] Reading MD: Robinson Mehta Measurements Intervals [place] Rate: 101 P: 0 [place]: 134 QRS: 33 QRSD: 88 T: 31 QT: 296 QTc: 384 Interpretive Statements SINUS TACHYCARDIA Electronically Signed On 12-21-2018 10:27:59 POWERHOUSE MECHANIC SUPERVISOR by Robinson Mehta
[2018-12-10 15:23] LABS: CHOLESTEROL/HDL RATIO 2.2
[2018-12-10] MEDS ORDERED: MAGNESIUM SULFATE 1GM 100 ML IV ONE (15:30)
[2018-12-10] MEDS ORDERED: FAMOTIDINE 20 MG/2 ML VIAL IVP ONE (15:30)
[2018-12-10] MEDS ORDERED: LIDOCAINE WITH 8.4% SOD BICARB 3 ML DISP.SYRIN. INJ ONE ×2 (15:30→16:30)
[2018-12-10] MEDS ORDERED: LIDOCAINE WITH 8.4% SOD BICARB 3 ML DISP.SYRIN. ONE (15:33)
--- NOTE | 2018-12-10 15:40 | NUR ---
Pt transferred to Room 200 for the following reasons: tachycardia, right sided chest discomfort, elevated troponin. Decision to transfer made so pt could be monitored on telemetry. Report was given to Aldair LEMONS per phone and at bedside. Spoke to pts son as well as notified Dr Irvin and Dr Duffy.
--- NOTE | 2018-12-10 15:43 | CARD ---
MR#: [id number] Date of Study: 12/10/2018 Ordering Physician: LUTHER MAHAJAN, Referring Physician: JOEY GAGNON Tech: Meera Ramirez DIXON APPROVED REPORT EXAM: Two-dimensional and M-mode echocardiogram with Doppler and color Doppler. Other Information Quality : AverageHR: 100bpm Rhythm : Tachycardia INDICATION Chest Pain 2D DIMENSIONS RVDd3.1 (2.9-3.5cm)Left Atrium(2D)2.6 (1.6-4.0cm) IVSd1.3 (0.7-1.1cm)Aortic Root(2D)3.1 (2.0-3.7cm) LVDd4.2 (3.9-5.9cm)LVOT Diameter2.0 (1.8-2.4cm) PWd1.1 (0.7-1.1cm)LVDs2.4 (2.5-4.0cm) FS (%) 43.8 %SV60.7 ml LVEF(%)75.3 (>50%) M-Mode DIMENSIONS Left Atrium(MM)2.84 (2.5-4.0cm)Aortic Root2.81 (2.2-3.7cm) Aortic Valve AoV Peak Brenden.172.6cm/sAoV VTI22.5cm AO Peak GR.11.9mmHgLVOT Peak Brenden.104.4cm/s AO Mean GR.5mmHgAVA (VMAX)1.87cm2 JESSICA (VTI)1.90cm2 Mitral Valve MV E Dconvogo91.2cm/sMV DECEL [id number] MV A Vjaiszsb28.3cm/sE/A Ratio0.8 Pulmonary Valve PV Peak Sjxfziij735.3cm/s Tricuspid Valve TR P. Trrgsjjy065dq/sRAP [id number] TR Peak Gr.[id number] LEFT VENTRICLE The left ventricle is normal size. There is mild concentric left ventricular hypertrophy. The left ve ntricle is hyperdynamic. The Ejection Fraction is 70-75%. There is normal LV segmental wall motion. T ransmitral Doppler flow pattern is Grade I-abnormal relaxation pattern. RIGHT VENTRICLE The right ventricle is normal size. There is normal right ventricular wall thickness. The right ventr icular systolic function is normal. ATRIA The left atrium size is normal. The right atrium size is normal. The interatrial septum is intact wit h no evidence for an atrial septal defect or patent foramen ovale as noted on 2-D or Doppler imaging. AORTIC VALVE The aortic valve is normal in structure and function. The aortic valve is trileaflet. Doppler and Col or Flow revealed no significant aortic regurgitation. There is no significant aortic valvular stenosi s. MITRAL VALVE The mitral valve is thickened but opens well. There is no evidence of mitral valve prolapse. There is no mitral valve stenosis. Doppler and Color Flow revealed no mitral valve regurgitation noted. TRICUSPID VALVE The tricuspid valve is normal in structure and function. Doppler and Color Flow revealed moderate tri cuspid regurgitation. There is severe pulmonary hypertension. The PA pressure was estimated at 103 mm Hg. There is no tricuspid valve prolapse or vegetation. There is no tricuspid valve stenosis. PULMONIC VALVE Pulmonic valve not well visualized. Doppler and Color Flow revealed no pulmonic valvular regurgitatio n. There is no pulmonic valvular stenosis. GREAT VESSELS The aortic root is normal in size. The ascending aorta is normal in size. The IVC is dilated and giovana apses <50% with inspiration. PERICARDIAL EFFUSION There is no evidence of significant pericardial effusion. Critical Notification Critical Value: No <Conclusion> The left ventricle is hyperdynamic. The Ejection Fraction is 70-75%. There is normal LV segmental wall motion. Transmitral Doppler flow pattern is Grade I-abnormal relaxation pattern. Moderate tricuspid regurgitation. There is severe pulmonary hypertension. The PA pressure was estimated at 103 mmHg. There is no evidence of significant pericardial effusion. Signed by : Robinson Mehta, Electronically Approved : 12/10/2018 15:42:54
[2018-12-10] MEDS: IV RINGERS,LACTATED 1000ML 1,000 ML IV SCH ×2 (15:55→22:00)
--- NOTE | 2018-12-10 16:48 | RAD ---
Procedure: Upper extremity PICC line placement Clinical Indication: 68-year-old female requiring central venous access Sedation: Local anesthesia only was provided Antibiotics: None Fluoro Time: 0.6 minutes. Images: 1 Contrast: None Sterility: All elements of maximal sterile barrier technique including the use of a cap, mask, sterile gown, sterile gloves, large sterile sheet, appropriate hand hygiene, and 2% chlorhexidine for cutaneous antisepsis (or acceptable alternative antiseptic per current guidelines) were followed for this procedure. Consent: The procedure was explained in its entirety to the patient or the patients designated telephone claims representative by a member of the treatment team, including a discussion of the risks, benefits and commonly accepted alternatives to the procedure, as well as the expected consequences of no therapy whatsoever. Discussion of the risks included, but was not limited to, those that are most frequent and those that are rare but possibly severe or life-threatening, as well as the possibility of unforeseen complications. Technique and Findings: Following informed consent, the patient was prepped and draped in the usual sterile fashion. Ultrasound interrogation of the right arm revealed patency and compressibility of paired right brachial veins. A hard copy ultrasound image was recorded. 1% Lidocaine was used to achieve local anesthesia and a 21-gauge micropuncture needle was used to gain access to the targeted vein. The needle was exchanged over wire for a 5 Malag[place] peel-away sheath which was used to deploy a PICC line under fluoroscopic guidance such that the distal tip resided at the cavoatrial junction. The catheter flushed and aspirated with ease and was sutured to the skin. Complications: No immediate Impression: 1. Ultrasound guided PICC line placement as described.
[2018-12-10] MEDS ORDERED: IOHEXOL 350 MG/ML 100 ML VIAL. IV ONE (17:15)
[2018-12-10] MEDS ORDERED: CONTRAST GIVEN. MC PRN (17:30)
--- NOTE | 2018-12-10 17:42 | RAD ---
PQRS Compliance Statement: One or more of the following individualized dose reduction techniques were utilized for this examination: 1. Automated exposure control 2. Adjustment of the mA and/or kV according to patient size 3. Use of iterative reconstruction technique CT angiography chest with contrast 12/10/2018 5:19 PM INDICATION: Post colon resection with severe pulmonary hypertension. COMPARISON: None available TECHNIQUE: Axial CT images of the chest were obtained after the intravenous administration of nonionic contrast. Coronal and sagittal reformats are provided. Maximum intensity projection images of the thoracic vasculature are provided. FINDINGS: There is a 10 mm hypoattenuating nodule in the left lower lobe. There are no pathologically enlarged axillary, mediastinal or hilar lymph nodes. The heart size is within normal limits. No significant pericardial effusion. Thoracic aorta is normal in course and caliber. Circumferential esophageal wall thickening suggestive of esophagitis. Small hiatal hernia is noted. There is adequate opacification of the pulmonary arterial system. There there are no filling defects within the pulmonary arterial system to suggest acute or chronic pulmonary embolus. Main pulmonary artery is normal in caliber. There are no suspicious solid noncalcified pulmonary nodules. Trace right pleural effusion. Bibasilar bandlike consolidation in the costophrenic angles may represent subsegmental atelectasis. No pulmonary vascular congestion or pneumothorax. Mild bronchial wall thickening suggestive of bronchitis. Small volume abdominal ascites. No suspicious osseous lesions are visualized. IMPRESSION: 1. There is no evidence for acute or chronic pulmonary embolism. Pulmonary arteries are normal in caliber. 2. Mild esophageal wall thickening suggestive of esophagitis. Small hiatal hernia. 3. Trace right pleural effusion. Bibasilar bandlike consolidation in the costophrenic angles may represent subsegmental atelectasis. 4. Mild bronchial wall thickening suggestive of bronchitis. 5. Small volume abdominal ascites. Electronically signed by: Kaity Jeronimo MD (12/10/2018 5:39 PM) [facility]
[2018-12-10 19:00] VITALS: BP 150/79
[2018-12-10] MEDS ORDERED: TOTAL PARENTERAL NUTRITION IV SCH ×10 (22:00)
[2018-12-10] MEDS ORDERED: DEXTROSE 70% IV SCH ×10 (22:00)
[2018-12-10] MEDS ORDERED: AMINO ACID IV SCH ×10 (22:00)
[2018-12-10] MEDS ORDERED: [UNRECOGNIZED DRUG - OTHER] IV SCH ×10 (22:00)
[2018-12-10 22:40] VITALS: BP 126/69
[2018-12-11 03:10] VITALS: BP 106/71
[2018-12-11 06:02] LABS: HEMATOCRIT 27.7 % (36.0-47.0); RED BLOOD COUNT 3.47 x10^6/uL (3.50-5.40); RED CELL DISTRIBUTION WIDTH 16.5 % (11.5-14.5); WHITE BLOOD COUNT 6.5 x10^3/uL (4.0-11.0)
[2018-12-11 06:24] LABS: MAGNESIUM 2.3 mg/dL (1.8-2.4); PHOSPHORUS 3.1 mg/dL (2.6-4.7)
[2018-12-11 06:30] LABS: ALBUMIN 1.9 g/dL (3.4-5.0); ALBUMIN/GLOBULIN RATIO 0.6 (1.0-1.7); CALCIUM 8.6 mg/dL (8.5-10.1); CREATININE 0.9 mg/dL (0.6-1.0); GFR 74.9; POTASSIUM 4.2 mmol/L (3.5-5.1); TOTAL BILIRUBIN 0.3 mg/dL (0.2-1.0); TOTAL PROTEIN 5.2 g/dL (6.4-8.2)
[2018-12-11 07:00] VITALS: BP 116/73
[2018-12-11] MEDS: PANTOPRAZOLE 40 MG TABLET.DR. PO SCH (07:30)
[2018-12-11] MEDS: INSULIN LISPRO 300 UNITS/3 ML INSULN.PEN. SQ SCH ×3 (07:30→16:30)
[2018-12-11] MEDS: DICYCLOMINE HCL 10 MG CAPSULE PO SCH ×3 (09:00→22:24)
[2018-12-11] MEDS: hydroCHLOROthiazide 12.5 MG CAPSULE PO SCH (09:00)
[2018-12-11] MEDS: LISINOPRIL 20 MG TABLET PO SCH (09:00)
[2018-12-11] MEDS: FLUTICASONE 50MCG/NASAL SPRAY 16GM BOTTLE. NS SCH (10:02)
[2018-12-11] MEDS: ENOXAPARIN 40 MG/0.4 ML SYRINGE. SQ SCH (10:02)
[2018-12-11 11:00] VITALS: BP 120/75
--- NOTE | 2018-12-11 11:35 | PDOC ---
PROGRESS NOTES Subjective Subjective Patient denies nausea at this time. 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 Objective Objective Vital Signs Date Time Temp Pulse Resp B/P (MAP) Pulse Ox O2 Delivery O2 Flow Rate FiO2 12/11/18 07:30 Room Air 12/11/18 07:00 98.4 82 24 116/73 (87) 92 98.4 12/09/18 07:00 2.0 Intake and Output 12/11/18 06:59 Intake Total 585 ml Output Total 3550 ml Balance -2965 ml Intake Oral 0 ml IV Total 585 ml Output Urine Total 600 ml Stool Total 850 ml Emesis 1000 ml Drainage Total 1100 ml Physical Exam Abdomen: Soft, Other (few BS present, gas and small amount liquid stool in colostomy bag) Heart: Regular rate Extremities: No edema General: Alert, Oriented X3, No acute distress Lungs: Clear to auscultation Plan Plan of Care 1. Colovaginal fistula, POD #4 repair with postoperative ileus - stable, afebrile. Nausea has improved. Some output from colostomy. 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 2. tachycardia - resolved, Echo WNL. Resume therapies. 3. HTN - presently normotensive without po meds. IV available prn. Resume home meds when no longer NPO. 4. DM2 - controlled with prn insulin. Comment Review of Relevant I have reviewed the following items sathya (where applicable) has been applied. Labs Laboratory Tests Test 12/09/18 11:44 12/09/18 21:21 12/10/18 09:35 12/10/18 10:54 Glucose (Fingerstick) 116 mg/dL (70-99) 167 mg/dL (70-99) 118 mg/dL (70-99) Sodium Level 135 mmol/L (136-145) Potassium Level 3.5 mmol/L (3.5-5.1) Chloride Level 96 mmol/L (98-107) Carbon Dioxide Level 32 mmol/L (21-32) Anion Gap 7 (6-14) Blood Urea Nitrogen 10 mg/dL (7-20) Creatinine 1.0 mg/dL (0.6-1.0) Estimated GFR (Cockcroft-Gault) 66.3 Glucose Level 131 mg/dL (70-99) Calcium Level 9.3 mg/dL (8.5-10.1) Phosphorus Level 2.9 mg/dL (2.6-4.7) Magnesium Level 1.6 mg/dL (1.8-2.4) Troponin I Quantitative 0.080 ng/mL (0.000-0.055) Triglycerides Level 83 mg/dL (0-150) Cholesterol Level 116 mg/dL (0-200) LDL Cholesterol, Calculated 46 mg/dL (0-100) VLDL Cholesterol, Calculated 17 mg/dL (0-40) Non-HDL Cholesterol Calculated 63 mg/dL (0-129) HDL Cholesterol 53 mg/dL (40-60) Cholesterol/HDL Ratio 2.2 Test 12/10/18 15:05 12/10/18 17:11 12/11/18 00:51 12/11/18 05:43 Troponin I Quantitative 0.066 ng/mL (0.000-0.055) Glucose (Fingerstick) 116 mg/dL (70-99) 132 mg/dL (70-99) 187 mg/dL (70-99) Test 12/11/18 05:55 White Blood Count 6.5 x10^3/uL (4.0-11.0) Red Blood Count 3.47 x10^6/uL (3.50-5.40) Hemoglobin 9.0 g/dL (12.0-15.5) Hematocrit 27.7 % (36.0-47.0) Mean Corpuscular Volume 80 fL (79-100) Mean Corpuscular Hemoglobin 26 pg (25-35) Mean Corpuscular Hemoglobin Concent 33 g/dL (31-37) Red Cell Distribution Width 16.5 % (11.5-14.5) Platelet Count 216 x10^3/uL (140-400) Sodium Level 139 mmol/L (136-145) Potassium Level 4.2 mmol/L (3.5-5.1) Chloride Level 101 mmol/L (98-107) Carbon Dioxide Level 34 mmol/L (21-32) Anion Gap 4 (6-14) Blood Urea Nitrogen 9 mg/dL (7-20) Creatinine 0.9 mg/dL (0.6-1.0) Estimated GFR (Cockcroft-Gault) 74.9 BUN/Creatinine Ratio 10 (6-20) Glucose Level 185 mg/dL (70-99) Calcium Level 8.6 mg/dL (8.5-10.1) Phosphorus Level 3.1 mg/dL (2.6-4.7) Magnesium Level 2.3 mg/dL (1.8-2.4) Total Bilirubin 0.3 mg/dL (0.2-1.0) Aspartate Amino Transf (AST/SGOT) 18 U/L (15-37) Alanine Aminotransferase (ALT/SGPT) 15 U/L (14-59) Alkaline Phosphatase 39 U/L (46-116) Total Protein 5.2 g/dL (6.4-8.2) Albumin 1.9 g/dL (3.4-5.0) Albumin/Globulin Ratio 0.6 (1.0-1.7) Laboratory Tests Test 12/10/18 15:05 12/10/18 17:11 12/11/18 00:51 12/11/18 05:43 Troponin I Quantitative 0.066 ng/mL (0.000-0.055) Glucose (Fingerstick) 116 mg/dL (70-99) 132 mg/dL (70-99) 187 mg/dL (70-99) Test 12/11/18 05:55 White Blood Count 6.5 x10^3/uL (4.0-11.0) Red Blood Count 3.47 x10^6/uL (3.50-5.40) Hemoglobin 9.0 g/dL (12.0-15.5) Hematocrit 27.7 % (36.0-47.0) Mean Corpuscular Volume 80 fL (79-100) Mean Corpuscular Hemoglobin 26 pg (25-35) Mean Corpuscular Hemoglobin Concent 33 g/dL (31-37) Red Cell Distribution Width 16.5 % (11.5-14.5) Platelet Count 216 x10^3/uL (140-400) Sodium Level 139 mmol/L (136-145) Potassium Level 4.2 mmol/L (3.5-5.1) Chloride Level 101 mmol/L (98-107) Carbon Dioxide Level 34 mmol/L (21-32) Anion Gap 4 (6-14) Blood Urea Nitrogen 9 mg/dL (7-20) Creatinine 0.9 mg/dL (0.6-1.0) Estimated GFR (Cockcroft-Gault) 74.9 BUN/Creatinine Ratio 10 (6-20) Glucose Level 185 mg/dL (70-99) Calcium Level 8.6 mg/dL (8.5-10.1) Phosphorus Level 3.1 mg/dL (2.6-4.7) Magnesium Level 2.3 mg/dL (1.8-2.4) Total Bilirubin 0.3 mg/dL (0.2-1.0) Aspartate Amino Transf (AST/SGOT) 18 U/L (15-37) Alanine Aminotransferase (ALT/SGPT) 15 U/L (14-59) Alkaline Phosphatase 39 U/L (46-116) Total Protein 5.2 g/dL (6.4-8.2) Albumin 1.9 g/dL (3.4-5.0) Albumin/Globulin Ratio 0.6 (1.0-1.7) Medications Current Medications Ondansetron HCl (Zofran) 4 mg PRN Q6HRS PRN IV NAUSEA/VOMITING; Start 12/07/18 at 07:00; Stop 12/07/18 at 19:00; Status DC Fentanyl Citrate (Fentanyl 2ml Vial) 25 mcg PRN Q5MIN PRN IV MILD PAIN; Start 12/07/18 at 07:00; Stop 12/07/18 at 19:00; Status DC Fentanyl Citrate (Fentanyl 2ml Vial) 50 mcg PRN Q5MIN PRN IV MODERATE TO SEVERE PAIN; Start 12/07/18 at 07:00; Stop 12/07/18 at 19:00; Status DC Morphine Sulfate (Morphine Sulfate) 1 mg PRN Q10MIN PRN IV SEVERE PAIN; Start 12/07/18 at 07:00; Stop 12/07/18 at 19:00; Status DC Ringer's Solution 1,000 ml @ 30 mls/hr Q24H IV Last administered on 12/07/18at 15:06; Start 12/07/18 at 07:00; Stop 12/07/18 at 18:59; Status DC Lidocaine HCl (Xylocaine-Mpf 1% 2ml Vial) 2 ml PRN 1X PRN ID IV START; Start at 07:00; Stop 12/07/18 at 19:00; Status DC Hydromorphone HCl (Dilaudid) 0.5 mg PRN Q10MIN PRN IV SEV PAIN, Second choice Last administered on 12/07/18at 14:51; Start 12/07/18 at 07:00; Stop 12/07/18 at 19:00; Status DC Prochlorperazine Edisylate (Compazine) 5 mg PACU PRN PRN IV NAUSEA, MRX1 Last administered on 12/07/18at 14:50; Start 12/07/18 at 07:00; Stop 12/07/18 at 19:00 ; Status DC Cefoxitin Sodium 2 gm/Dextrose 100 ml @ 200 mls/hr 1X ONCE IV ; Start at 07:30; Stop 12/07/18 at 07:59; Status UNV Cefoxitin Sodium (Mefoxin) 2 gm 1X ONCE IVP Last administered on 12/07/18at 09: 25; Start 12/07/18 at 07:30; Stop 12/07/18 at 07:31; Status DC Bupivacaine HCl/ Epinephrine Bitart (Sensorcain-Mpf Epi 0.5%-[id number]) 30 ml STK -MED ONCE .ROUTE Last administered on 12/07/18at 11:20; Start 12/07/18 at 07:31 ; Stop 12/07/18 at 07:32; Status DC Iohexol (Omnipaque 300 Mg/ml) 100 ml STK-MED ONCE .ROUTE ; Start 12/07/18 at 07: 31; Stop 12/07/18 at 07:32; Status DC Lidocaine HCl (Glydo (Lidocaine) Jelly) 6 jonas STK-MED ONCE .ROUTE ; Start at 07:32; Stop 12/07/18 at 07:33; Status DC Propofol 20 ml @ As Directed STK-MED ONCE IV ; Start 12/07/18 at 08:37; Stop at 08:38; Status DC Lidocaine HCl (Lidocaine Pf 2% Vial) 5 ml STK-MED ONCE .ROUTE ; Start 12/07/18 at 08:37; Stop 12/07/18 at 08:38; Status DC Ephedrine Sulfate (Akovaz) 50 mg STK-MED ONCE .ROUTE ; Start 12/07/18 at 08:37; Stop 12/07/18 at 08:38; Status DC Rocuronium [place] (Zemuron) 100 mg STK-MED ONCE .ROUTE ; Start 12/07/18 at 08: 39; Stop 12/07/18 at 08:40; Status DC Succinylcholine Chloride (Anectine) 200 mg STK-MED ONCE .ROUTE ; Start 12/07/18 at 08:40; Stop 12/07/18 at 08:41; Status DC Fentanyl Citrate (Fentanyl 2ml Vial) 100 mcg STK-MED ONCE .ROUTE ; Start at 08:40; Stop 12/07/18 at 08:41; Status DC Phenylephrine HCl ([place]-Synephrine Inj) 10 mg STK-MED ONCE .ROUTE ; Start at 08:42; Stop 12/07/18 at 08:43; Status DC Fentanyl Citrate (Fentanyl 2ml Vial) 100 mcg STK-MED ONCE .ROUTE ; Start at 09:37; Stop 12/07/18 at 09:38; Status DC Sevoflurane (Ultane) 90 ml STK-MED ONCE IH ; Start 12/07/18 at 09:40; Stop 12/07 at 09:41; Status DC Famotidine (Pepcid Vial) 20 mg STK-MED ONCE .ROUTE ; Start 12/07/18 at 09:51; Stop 12/07/18 at 09:52; Status DC Neostigmine Methylsulfate (Bloxiverz) 10 mg STK-MED ONCE .ROUTE ; Start at 10:58; Stop 12/07/18 at 10:59; Status DC Glycopyrrolate (Robinul) 1 mg STK-MED ONCE .ROUTE ; Start 12/07/18 at 10:58; Stop 12/07/18 at 10:59; Status DC Cefoxitin Sodium (Mefoxin) 1 gm STK-MED ONCE IVP ; Start 12/07/18 at 11:48; Stop 12/07/18 at 11:49; Status DC Sevoflurane (Ultane) 90 ml STK-MED ONCE IH ; Start 12/07/18 at 12:06; Stop 12/07 at 12:07; Status DC Enoxaparin Sodium (Lovenox 40mg Syringe) 40 mg Q24H SQ Last administered on at 10:02; Start 12/08/18 at 09:00 Sodium Chloride (Normal Saline Flush) 3 ml QSHIFT PRN IV AFTER MEDS AND BLOOD DRAWS; Start 12/07/18 at 13:30 Ringer's Solution 1,000 ml @ 100 mls/hr Q10H IV Last administered on at 15:55; Start 12/07/18 at 14:00 Naloxone HCl (Narcan) 0.4 mg PRN Q2MIN PRN IV SEE INSTRUCTIONS; Start 12/07/18 at 13:30 Sodium Chloride 1,000 ml @ 25 mls/hr Q24H IV ; Start 12/07/18 at 14:00; Stop at 07:32; Status DC Hydromorphone HCl 30 ml @ 0 mls/hr CONT PRN PRN IV PER PROTOCOL Last administered on 12/07/18at 14:57; Start 12/07/18 at 13:30 Ondansetron HCl (Zofran) 4 mg PRN Q6HRS PRN IV NAUESA, 1ST CHOICE Last administered on 12/09/18at 23:32; Start 12/07/18 at 13:30 Morphine Sulfate (Morphine Sulfate) 10 mg STK-MED ONCE .ROUTE ; Start 12/07/18 at 13:51; Stop 12/07/18 at 13:52; Status DC Prochlorperazine Edisylate (Compazine) 10 mg STK-MED ONCE .ROUTE ; Start at 13:57; Stop 12/07/18 at 13:58; Status DC Ketorolac Tromethamine (Toradol 15mg Vial) 15 mg 1X ONCE IV ; Start 12/07/18 at 14:15; Stop 12/07/18 at 14:32; Status DC Insulin Human Lispro (HumaLOG) 0-12 UNITS QIDACHS SQ Last administered on at 21:59; Start 12/07/18 at 17:00 Acetaminophen (Tylenol) 650 mg PRN Q6HRS PRN PO FEVER > 100.5'F Last administered on 12/08/18at 22:54; Start 12/08/18 at 22:45 Sodium Chloride 1,000 ml @ 100 mls/hr Q10H IV ; Start 12/08/18 at 22:45; Stop 12/09/18 at 07:32; Status DC Fluticasone Propionate (Flonase) 2 spray DAILY NS Last administered on at 10:02; Start 12/09/18 at 09:00 Dicyclomine HCl (Bentyl) 10 mg TID PO Last administered on 12/09/18at 21:52; Start 12/09/18 at 14:00 Pantoprazole Sodium (Protonix) 40 mg DAILYAC PO Last administered on 12/09/18at 13:18; Start 12/09/18 at 13:30 Non-Formulary Medication (Lisinopril/ Hydrochlorothiazide (Lisinopril-Hctz 20- 12.5 Mg Tab)) 1 tab DAILY PO ; Start 12/10/18 at 09:00; Status UNV Lisinopril (Prinivil) 20 mg DAILY PO ; Start 12/09/18 at 13:30 Hydrochlorothiazide (Microzide) 12.5 mg DAILY PO ; Start 12/09/18 at 13:30 Calcium Carbonate/ Glycine (Tums) 1,000 mg PRN AFTMEALHC PRN PO INDIGESTION Last administered on 12/09/18at 21:52; Start 12/09/18 at 21:45 Prochlorperazine Edisylate (Compazine) 10 mg PRN Q6HRS PRN IV NAUSEA/VOMITING 2ND CHOICE Last administered on 12/10/18at 09:11; Start 12/09/18 at 23:45 Enalaprilat (Vasotec Inj) 1.25 mg PRN Q6HRS PRN IVP HYPERTENSION, SEE COMMENTS ; Start 12/10/18 at 09:15 Info (Tpn Per Pharmacy) 1 each PRN DAILY PRN MC SEE COMMENTS Last administered on 12/10/18at 14:33; Start 12/10/18 at 09:15 Sodium Chloride 90 meq/Potassium Chloride 50 meq/ Potassium Phosphate 13.6 mmol/ Magnesium Sulfate 20 meq/ Calcium Gluconate 10 meq/ Multivitamins 10 ml/Chromium / Copper/Manganese/ Seleni/Zn 1 ml/ Total Parenteral Nutrition/Amino Acids/ Dextrose/ Fat Emulsion Intravenous 1,512 ml @ 63 mls/hr TPN CONT IV Last administered on 12/10/18at 22:19; Start 12/10/18 at 22:00; Stop 12/11/18 at 21:59 Famotidine (Pepcid Vial) 20 mg 1X ONCE IVP Last administered on 12/10/18at 17: 01; Start 12/10/18 at 15:30; Stop 12/10/18 at 15:31; Status DC Magnesium Sulfate/ Dextrose 100 ml @ 100 mls/hr 1X ONCE IV Last administered on 12/10/18at 15:57; Start 12/10/18 at 15:30; Stop 12/10/18 at 16:29; Status DC Lidocaine/Sodium Bicarbonate (Buffered Lidocaine 1%) 3 ml 1X ONCE INJ ; Start 12/10/18 at 15:30; Stop 12/10/18 at 15:31; Status DC Lidocaine/Sodium Bicarbonate (Buffered Lidocaine 1%) 3 ml STK-MED ONCE .ROUTE ; Start 12/10/18 at 15:33; Stop 12/10/18 at 15:34; Status DC Lidocaine/Sodium Bicarbonate (Buffered Lidocaine 1%) 4 ml 1X ONCE INJ Last administered on 12/10/18at 16:37; Start 12/10/18 at 16:30; Stop 12/10/18 at 16:31 ; Status DC Iohexol (Omnipaque 350 Mg/ml) 100 ml 1X ONCE IV Last administered on at 17:30; Start 12/10/18 at 17:15; Stop 12/10/18 at 17:16; Status DC Info (CONTRAST GIVEN -- Rx MONITORING) 1 each PRN DAILY PRN MC SEE COMMENTS; Start 12/10/18 at 17:30; Stop 12/12/18 at 17:29 Active Scripts Active Reported Lisinopril-Hctz 20-12.5 Mg Tab (Lisinopril/Hydrochlorothiazide) 1 Each Tablet 1 Tab PO DAILY Dicyclomine Hcl 10 Mg Capsule 1 Cap PO TID Metformin Hcl 500 Mg Tablet 500 Mg PO BIDWMEALS Flonase Allergy Relief (Fluticasone Propionate) 9.9 Ml [place].susp 2 Sprays NS DAILY Pantoprazole Sodium 40 Mg Tablet. 1 Tab PO DAILY Vitals/I & O Vital Sign - Last 24 Hours 12/10/18 12/10/18 12/10/18 12/11/18 19:00 19:57 22:40 03:10 Temp 98.5 99.0 98.7 98.5 99.0 98.7 Pulse 74 95 84 Resp 18 17 17 B/P (MAP) 150/79 (102) 126/69 (88) 106/71 (83) Pulse Ox 91 92 94 O2 Delivery Room Air Room Air Room Air Room Air 12/11/18 12/11/18 07:00 07:30 Temp 98.4 98.4 Pulse 82 Resp 24 B/P (MAP) 116/73 (87) Pulse Ox 92 O2 Delivery Room Air Room Air Intake and Output 12/10/18 12/10/18 12/11/18 14:59 22:59 06:59 Intake Total 0 ml 110 ml 475 ml Output Total 1550 ml 1050 ml 950 ml Balance -1550 ml -940 ml -475 ml LINDA JOSHI MD Dec 11, 2018 11:35
[2018-12-11] MEDS: TPN PER PHARMACY MC PRN (11:42)
--- NOTE | 2018-12-11 11:44 | NUR ---
Pharmacy TPN Dosing Note S: GAURAV DEAL is a 68 year old F Currently receiving Central Continuous TPN started 12/10/18 B:Pertinent PMH: rectovaginal fistula closure with diverting colostomy Height: 5 feet, 0 inches Weight: 79.797950 kg Current diet: NPO LABS: Sodium: 139 Potassium: 4.2 Chloride: 101 Calcium: 9.3 Corrected Calcium: 10.98 Magnesium: 2.3 CO2: 34 SCr: 0.9 Glucose: 131 Albumin: 1.9 AST: 23 ALT: 20 TPN FORMULA: TPN TYPE: Central Continuous AMINO ACIDS: 60 gm DEXTROSE: 195 gm LIPIDS: 20 gm SODIUM CHLORIDE: 90 mEq SODIUM ACETATE: mEq SODIUM PHOSPHATE: mmol POTASSIUM CHLORIDE: 50 mEq POTASSIUM ACETATE: mEq POTASSIUM PHOSPHATE: 13.6 mmol MAGNESIUM: 12 mEq CALCIUM: 10 mEq INSULIN: units MULTIPLE VITAMIN: 10 ml TRACE ELEMENTS: 1 ml(s) TPN PLAN: adjust magso4 to 12 meq. Labs in the am R: Continue TPN at 63ml/hr Will monitor electrolytes, glucose, and tolerance to TPN. DOUG MCGILL [facility]MER[facility] [place], 12/11/18 1144
[2018-12-11] MEDS ORDERED: MORPHINE SULFATE 4 MG/ML VIAL. IV PRN (14:30)
--- NOTE | 2018-12-11 14:31 | PDOC ---
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 Vital Signs Date Time Temp Pulse Resp B/P (MAP) Pulse Ox O2 Delivery O2 Flow Rate FiO2 12/11/18 11:00 98.2 81 32 120/75 (90) 95 Room Air 98.2 I&O Intake and Output 12/11/18 07:00 Intake Total 585 ml Output Total 3550 ml Balance -2965 ml Intake Oral 0 ml IV Total 585 ml Output Urine Total 600 ml Stool Total 850 ml Emesis 1000 ml Drainage Total 1100 ml General: Alert, Oriented X3, Cooperative, No acute distress Abdomen: Soft, No tenderness, Other (ostomy fxn) Labs Laboratory Tests Test 12/09/18 21:21 12/10/18 09:35 12/10/18 10:54 12/10/18 15:05 Glucose (Fingerstick) 167 mg/dL (70-99) 118 mg/dL (70-99) Sodium Level 135 mmol/L (136-145) Potassium Level 3.5 mmol/L (3.5-5.1) Chloride Level 96 mmol/L (98-107) Carbon Dioxide Level 32 mmol/L (21-32) Anion Gap 7 (6-14) Blood Urea Nitrogen 10 mg/dL (7-20) Creatinine 1.0 mg/dL (0.6-1.0) Estimated GFR (Cockcroft-Gault) 66.3 Glucose Level 131 mg/dL (70-99) Calcium Level 9.3 mg/dL (8.5-10.1) Phosphorus Level 2.9 mg/dL (2.6-4.7) Magnesium Level 1.6 mg/dL (1.8-2.4) Troponin I Quantitative 0.080 ng/mL (0.000-0.055) 0.066 ng/mL (0.000-0.055) Triglycerides Level 83 mg/dL (0-150) Cholesterol Level 116 mg/dL (0-200) LDL Cholesterol, Calculated 46 mg/dL (0-100) VLDL Cholesterol, Calculated 17 mg/dL (0-40) Non-HDL Cholesterol Calculated 63 mg/dL (0-129) HDL Cholesterol 53 mg/dL (40-60) Cholesterol/HDL Ratio 2.2 Test 12/10/18 17:11 12/11/18 00:51 12/11/18 05:43 12/11/18 05:55 Glucose (Fingerstick) 116 mg/dL (70-99) 132 mg/dL (70-99) 187 mg/dL (70-99) White Blood Count 6.5 x10^3/uL (4.0-11.0) Red Blood Count 3.47 x10^6/uL (3.50-5.40) Hemoglobin 9.0 g/dL (12.0-15.5) Hematocrit 27.7 % (36.0-47.0) Mean Corpuscular Volume 80 fL (79-100) Mean Corpuscular Hemoglobin 26 pg (25-35) Mean Corpuscular Hemoglobin Concent 33 g/dL (31-37) Red Cell Distribution Width 16.5 % (11.5-14.5) Platelet Count 216 x10^3/uL (140-400) Sodium Level 139 mmol/L (136-145) Potassium Level 4.2 mmol/L (3.5-5.1) Chloride Level 101 mmol/L (98-107) Carbon Dioxide Level 34 mmol/L (21-32) Anion Gap 4 (6-14) Blood Urea Nitrogen 9 mg/dL (7-20) Creatinine 0.9 mg/dL (0.6-1.0) Estimated GFR (Cockcroft-Gault) 74.9 BUN/Creatinine Ratio 10 (6-20) Glucose Level 185 mg/dL (70-99) Calcium Level 8.6 mg/dL (8.5-10.1) Phosphorus Level 3.1 mg/dL (2.6-4.7) Magnesium Level 2.3 mg/dL (1.8-2.4) Total Bilirubin 0.3 mg/dL (0.2-1.0) Aspartate Amino Transf (AST/SGOT) 18 U/L (15-37) Alanine Aminotransferase (ALT/SGPT) 15 U/L (14-59) Alkaline Phosphatase 39 U/L (46-116) Total Protein 5.2 g/dL (6.4-8.2) Albumin 1.9 g/dL (3.4-5.0) Albumin/Globulin Ratio 0.6 (1.0-1.7) Test 12/11/18 11:36 Glucose (Fingerstick) 148 mg/dL (70-99) Laboratory Tests Test 12/10/18 15:05 12/10/18 17:11 12/11/18 00:51 12/11/18 05:43 Troponin I Quantitative 0.066 ng/mL (0.000-0.055) Glucose (Fingerstick) 116 mg/dL (70-99) 132 mg/dL (70-99) 187 mg/dL (70-99) Test 12/11/18 05:55 12/11/18 11:36 White Blood Count 6.5 x10^3/uL (4.0-11.0) Red Blood Count 3.47 x10^6/uL (3.50-5.40) Hemoglobin 9.0 g/dL (12.0-15.5) Hematocrit 27.7 % (36.0-47.0) Mean Corpuscular Volume 80 fL (79-100) Mean Corpuscular Hemoglobin 26 pg (25-35) Mean Corpuscular Hemoglobin Concent 33 g/dL (31-37) Red Cell Distribution Width 16.5 % (11.5-14.5) Platelet Count 216 x10^3/uL (140-400) Sodium Level 139 mmol/L (136-145) Potassium Level 4.2 mmol/L (3.5-5.1) Chloride Level 101 mmol/L (98-107) Carbon Dioxide Level 34 mmol/L (21-32) Anion Gap 4 (6-14) Blood Urea Nitrogen 9 mg/dL (7-20) Creatinine 0.9 mg/dL (0.6-1.0) Estimated GFR (Cockcroft-Gault) 74.9 BUN/Creatinine Ratio 10 (6-20) Glucose Level 185 mg/dL (70-99) Calcium Level 8.6 mg/dL (8.5-10.1) Phosphorus Level 3.1 mg/dL (2.6-4.7) Magnesium Level 2.3 mg/dL (1.8-2.4) Total Bilirubin 0.3 mg/dL (0.2-1.0) Aspartate Amino Transf (AST/SGOT) 18 U/L (15-37) Alanine Aminotransferase (ALT/SGPT) 15 U/L (14-59) Alkaline Phosphatase 39 U/L (46-116) Total Protein 5.2 g/dL (6.4-8.2) Albumin 1.9 g/dL (3.4-5.0) Albumin/Globulin Ratio 0.6 (1.0-1.7) Glucose (Fingerstick) 148 mg/dL (70-99) Problem List s/p sigmoid restart clears change to PO pain meds JOEY ESTRELLA MD Dec 11, 2018 14:31
[2018-12-11 15:00] VITALS: BP 125/74
--- NOTE | 2018-12-11 15:49 | PDOC ---
PROGRESS NOTES Subjective Subjective Patient denied any chest pain today. Objective Objective Vital Signs Date Time Temp Pulse Resp B/P (MAP) Pulse Ox O2 Delivery O2 Flow Rate FiO2 12/11/18 15:00 98.0 81 16 125/74 (91) 96 Room Air 98.0 Intake and Output 12/11/18 07:00 Intake Total 585 ml Output Total 3550 ml Balance -2965 ml Intake Oral 0 ml IV Total 585 ml Output Urine Total 600 ml Stool Total 850 ml Emesis 1000 ml Drainage Total 1100 ml Physical Exam Abdomen: Soft, No tenderness, Other (ostomy fxn) Heart: Regular rate Extremities: No edema General: Alert, Oriented X3, Cooperative, No acute distress HEENT: Atraumatic, Mucous membr. moist/pink Lungs: Clear to auscultation Neuro: Normal speech, Sensation intact Psych/Mental Status: Mental status NL, Mood NL Skin: No breakdown, No significant lesion Assessment Assessment 1. 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 Continue postop care per general surgery team 2. Atypical Chest pain: Most probably GI etiology. Slight troponin elevation probably demand ischemia. 2-D echo showed normal LV function without any wall motion abnormalities. She did have elevated PA pressure of uncertain etiology. We will work this further probably with right heart catheterization as an outpatient. We will also consider ischemic evaluation as an outpatient. 3. Sinus Tachycardia: Physiologic. 4. HTN: controlled 5. CKD3 Follow-up with our office in 1 month. Comment Review of Relevant I have reviewed the following items sathya (where applicable) has been applied. Labs Laboratory Tests Test 12/10/18 17:11 12/11/18 00:51 12/11/18 05:43 12/11/18 05:55 Glucose (Fingerstick) 116 mg/dL (70-99) 132 mg/dL (70-99) 187 mg/dL (70-99) White Blood Count 6.5 x10^3/uL (4.0-11.0) Red Blood Count 3.47 x10^6/uL (3.50-5.40) Hemoglobin 9.0 g/dL (12.0-15.5) Hematocrit 27.7 % (36.0-47.0) Mean Corpuscular Volume 80 fL (79-100) Mean Corpuscular Hemoglobin 26 pg (25-35) Mean Corpuscular Hemoglobin Concent 33 g/dL (31-37) Red Cell Distribution Width 16.5 % (11.5-14.5) Platelet Count 216 x10^3/uL (140-400) Sodium Level 139 mmol/L (136-145) Potassium Level 4.2 mmol/L (3.5-5.1) Chloride Level 101 mmol/L (98-107) Carbon Dioxide Level 34 mmol/L (21-32) Anion Gap 4 (6-14) Blood Urea Nitrogen 9 mg/dL (7-20) Creatinine 0.9 mg/dL (0.6-1.0) Estimated GFR (Cockcroft-Gault) 74.9 BUN/Creatinine Ratio 10 (6-20) Glucose Level 185 mg/dL (70-99) Calcium Level 8.6 mg/dL (8.5-10.1) Phosphorus Level 3.1 mg/dL (2.6-4.7) Magnesium Level 2.3 mg/dL (1.8-2.4) Total Bilirubin 0.3 mg/dL (0.2-1.0) Aspartate Amino Transf (AST/SGOT) 18 U/L (15-37) Alanine Aminotransferase (ALT/SGPT) 15 U/L (14-59) Alkaline Phosphatase 39 U/L (46-116) Total Protein 5.2 g/dL (6.4-8.2) Albumin 1.9 g/dL (3.4-5.0) Albumin/Globulin Ratio 0.6 (1.0-1.7) Test 12/11/18 11:36 Glucose (Fingerstick) 148 mg/dL (70-99) Medications Current Medications Acetaminophen/ Hydrocodone Bitart (Lortab 5/325) 1 tab PRN Q4HRS PRN PO PAIN; Start 12/11/18 at 14:30 Info (CONTRAST GIVEN -- Rx MONITORING) 1 each PRN DAILY PRN MC SEE COMMENTS; Start 12/10/18 at 17:30; Stop 12/12/18 at 17:29 Iohexol (Omnipaque 350 Mg/ml) 100 ml 1X ONCE IV Last administered on at 17:30; Start 12/10/18 at 17:15; Stop 12/10/18 at 17:16; Status DC Lidocaine/Sodium Bicarbonate (Buffered Lidocaine 1%) 4 ml 1X ONCE INJ Last administered on 12/10/18at 16:37; Start 12/10/18 at 16:30; Stop 12/10/18 at 16:31 ; Status DC Morphine Sulfate (Morphine Sulfate) 2 mg PRN Q2HR PRN IV PAIN; Start 12/11/18 at 14:30 Sodium Chloride 90 meq/Potassium Chloride 50 meq/ Potassium Phosphate 13.6 mmol/ Magnesium Sulfate 12 meq/ Calcium Gluconate 10 meq/ Multivitamins 10 ml/Chromium / Copper/Manganese/ Seleni/Zn 1 ml/ Total Parenteral Nutrition/Amino Acids/ Dextrose/ Fat Emulsion Intravenous 1,512 ml @ 63 mls/hr TPN CONT IV ; Start at 22:00; Stop 12/12/18 at 21:59 Sodium Chloride 90 meq/Potassium Chloride 50 meq/ Potassium Phosphate 13.6 mmol/ Magnesium Sulfate 20 meq/ Calcium Gluconate 10 meq/ Multivitamins 10 ml/Chromium / Copper/Manganese/ Seleni/Zn 1 ml/ Total Parenteral Nutrition/Amino Acids/ Dextrose/ Fat Emulsion Intravenous 1,512 ml @ 63 mls/hr TPN CONT IV Last administered on 12/10/18at 22:19; Start 12/10/18 at 22:00; Stop 12/11/18 at 21:59 Vitals/I & O Vital Sign - Last 24 Hours 12/10/18 12/10/18 12/10/18 12/11/18 19:00 19:57 22:40 03:10 Temp 98.5 99.0 98.7 98.5 99.0 98.7 Pulse 74 95 84 Resp 18 17 17 B/P (MAP) 150/79 (102) 126/69 (88) 106/71 (83) Pulse Ox 91 92 94 O2 Delivery Room Air Room Air Room Air Room Air 12/11/18 12/11/18 12/11/18 12/11/18 07:00 07:30 11:00 15:00 Temp 98.4 98.2 98.0 98.4 98.2 98.0 Pulse 82 81 81 Resp 24 32 16 B/P (MAP) 116/73 (87) 120/75 (90) 125/74 (91) Pulse Ox 92 95 96 O2 Delivery Room Air Room Air Room Air Room Air Intake and Output 12/10/18 12/10/18 12/11/18 15:00 23:00 07:00 Intake Total 0 ml 110 ml 475 ml Output Total 1550 ml 1050 ml 950 ml Balance -1550 ml -940 ml -475 ml FIDEL COFFEY MD Dec 11, 2018 15:49
[2018-12-11 19:40] VITALS: BP 114/55
[2018-12-11] MEDS ORDERED: TOTAL PARENTERAL NUTRITION IV SCH ×10 (22:00)
[2018-12-11] MEDS ORDERED: AMINO ACID IV SCH ×10 (22:00)
[2018-12-11] MEDS ORDERED: [UNRECOGNIZED DRUG - OTHER] IV SCH ×10 (22:00)
[2018-12-11] MEDS ORDERED: DEXTROSE 70% IV SCH ×10 (22:00)
[2018-12-11 23:08] VITALS: BP 133/74
[2018-12-12 03:48] VITALS: BP 142/76
[2018-12-12 06:02] LABS: CALCIUM 8.6 mg/dL (8.5-10.1); CREATININE 0.9 mg/dL (0.6-1.0); GFR 74.9; POTASSIUM 4.2 mmol/L (3.5-5.1)
[2018-12-12] MEDS: INSULIN LISPRO 300 UNITS/3 ML INSULN.PEN. SQ SCH ×5 (07:30→20:41)
[2018-12-12 07:35] VITALS: BP 135/65
[2018-12-12] MEDS: ONDANSETRON PF 4 MG/2 ML VIAL. IV PRN ×2 (08:57→18:53)
[2018-12-12] MEDS: hydroCHLOROthiazide 12.5 MG CAPSULE PO SCH (09:00)
[2018-12-12] MEDS: LISINOPRIL 20 MG TABLET PO SCH (09:00)
[2018-12-12 10:09] VITALS: BP 127/75
[2018-12-12] MEDS: PANTOPRAZOLE 40 MG TABLET.DR. PO SCH (10:56)
[2018-12-12] MEDS: DICYCLOMINE HCL 10 MG CAPSULE PO SCH ×3 (10:56→20:41)
[2018-12-12] MEDS: FLUTICASONE 50MCG/NASAL SPRAY 16GM BOTTLE. NS SCH (10:57)
[2018-12-12] MEDS: ENOXAPARIN 40 MG/0.4 ML SYRINGE. SQ SCH (10:57)
--- NOTE | 2018-12-12 12:20 | PDOC ---
PROGRESS NOTES Subjective Subjective Patient reports tolerating clear liquids. Pain OK with present pain meds. Objective Objective Vital Signs Date Time Temp Pulse Resp B/P (MAP) Pulse Ox O2 Delivery O2 Flow Rate FiO2 12/12/18 10:09 98.7 77 18 127/75 (92) 97 Room Air 98.7 12/12/18 09:35 2.0 Intake and Output 12/12/18 06:59 Intake Total 820 ml Output Total 3875 ml Balance -3055 ml Intake Oral 820 ml Output Urine Total 2575 ml Stool Total 1300 ml Physical Exam Abdomen: Normal bowel sounds, Soft, No tenderness, Other (stool and gas in colostomy bag) Heart: Regular rate Extremities: No edema General: Alert, Oriented X3, No acute distress Lungs: Clear to auscultation Plan Plan of Care 1. Colovaginal fistula, POD #5 - doing well, slowly advancing diet. Continue clear, TPN. Resumed therapies. 2. HTN - remains normotensive without medications at present. 3. DM2 - FSBG good, continue SS if needed. Comment Review of Relevant I have reviewed the following items sathya (where applicable) has been applied. Labs Laboratory Tests Test 12/10/18 15:05 12/10/18 17:11 12/11/18 00:51 12/11/18 05:43 Troponin I Quantitative 0.066 ng/mL (0.000-0.055) Glucose (Fingerstick) 116 mg/dL (70-99) 132 mg/dL (70-99) 187 mg/dL (70-99) Test 12/11/18 05:55 12/11/18 11:36 12/11/18 17:52 12/12/18 00:22 White Blood Count 6.5 x10^3/uL (4.0-11.0) Red Blood Count 3.47 x10^6/uL (3.50-5.40) Hemoglobin 9.0 g/dL (12.0-15.5) Hematocrit 27.7 % (36.0-47.0) Mean Corpuscular Volume 80 fL (79-100) Mean Corpuscular Hemoglobin 26 pg (25-35) Mean Corpuscular Hemoglobin Concent 33 g/dL (31-37) Red Cell Distribution Width 16.5 % (11.5-14.5) Platelet Count 216 x10^3/uL (140-400) Sodium Level 139 mmol/L (136-145) Potassium Level 4.2 mmol/L (3.5-5.1) Chloride Level 101 mmol/L (98-107) Carbon Dioxide Level 34 mmol/L (21-32) Anion Gap 4 (6-14) Blood Urea Nitrogen 9 mg/dL (7-20) Creatinine 0.9 mg/dL (0.6-1.0) Estimated GFR (Cockcroft-Gault) 74.9 BUN/Creatinine Ratio 10 (6-20) Glucose Level 185 mg/dL (70-99) Calcium Level 8.6 mg/dL (8.5-10.1) Phosphorus Level 3.1 mg/dL (2.6-4.7) Magnesium Level 2.3 mg/dL (1.8-2.4) Total Bilirubin 0.3 mg/dL (0.2-1.0) Aspartate Amino Transf (AST/SGOT) 18 U/L (15-37) Alanine Aminotransferase (ALT/SGPT) 15 U/L (14-59) Alkaline Phosphatase 39 U/L (46-116) Total Protein 5.2 g/dL (6.4-8.2) Albumin 1.9 g/dL (3.4-5.0) Albumin/Globulin Ratio 0.6 (1.0-1.7) Glucose (Fingerstick) 148 mg/dL (70-99) 126 mg/dL (70-99) 122 mg/dL (70-99) Test 12/12/18 05:30 12/12/18 06:15 12/12/18 11:11 Sodium Level 140 mmol/L (136-145) Potassium Level 4.2 mmol/L (3.5-5.1) Chloride Level 102 mmol/L (98-107) Carbon Dioxide Level 31 mmol/L (21-32) Anion Gap 7 (6-14) Blood Urea Nitrogen 10 mg/dL (7-20) Creatinine 0.9 mg/dL (0.6-1.0) Estimated GFR (Cockcroft-Gault) 74.9 Glucose Level 132 mg/dL (70-99) Calcium Level 8.6 mg/dL (8.5-10.1) Glucose (Fingerstick) 116 mg/dL (70-99) 133 mg/dL (70-99) Laboratory Tests Test 12/11/18 17:52 12/12/18 00:22 12/12/18 05:30 12/12/18 06:15 Glucose (Fingerstick) 126 mg/dL (70-99) 122 mg/dL (70-99) 116 mg/dL (70-99) Sodium Level 140 mmol/L (136-145) Potassium Level 4.2 mmol/L (3.5-5.1) Chloride Level 102 mmol/L (98-107) Carbon Dioxide Level 31 mmol/L (21-32) Anion Gap 7 (6-14) Blood Urea Nitrogen 10 mg/dL (7-20) Creatinine 0.9 mg/dL (0.6-1.0) Estimated GFR (Cockcroft-Gault) 74.9 Glucose Level 132 mg/dL (70-99) Calcium Level 8.6 mg/dL (8.5-10.1) Test 12/12/18 11:11 Glucose (Fingerstick) 133 mg/dL (70-99) Medications Current Medications Ondansetron HCl (Zofran) 4 mg PRN Q6HRS PRN IV NAUSEA/VOMITING; Start 12/07/18 at 07:00; Stop 12/07/18 at 19:00; Status DC Fentanyl Citrate (Fentanyl 2ml Vial) 25 mcg PRN Q5MIN PRN IV MILD PAIN; Start 12/07/18 at 07:00; Stop 12/07/18 at 19:00; Status DC Fentanyl Citrate (Fentanyl 2ml Vial) 50 mcg PRN Q5MIN PRN IV MODERATE TO SEVERE PAIN; Start 12/07/18 at 07:00; Stop 12/07/18 at 19:00; Status DC Morphine Sulfate (Morphine Sulfate) 1 mg PRN Q10MIN PRN IV SEVERE PAIN; Start 12/07/18 at 07:00; Stop 12/07/18 at 19:00; Status DC Ringer's Solution 1,000 ml @ 30 mls/hr Q24H IV Last administered on 12/07/18at 15:06; Start 12/07/18 at 07:00; Stop 12/07/18 at 18:59; Status DC Lidocaine HCl (Xylocaine-Mpf 1% 2ml Vial) 2 ml PRN 1X PRN ID IV START; Start at 07:00; Stop 12/07/18 at 19:00; Status DC Hydromorphone HCl (Dilaudid) 0.5 mg PRN Q10MIN PRN IV SEV PAIN, Second choice Last administered on 12/07/18at 14:51; Start 12/07/18 at 07:00; Stop 12/07/18 at 19:00; Status DC Prochlorperazine Edisylate (Compazine) 5 mg PACU PRN PRN IV NAUSEA, MRX1 Last administered on 12/07/18at 14:50; Start 12/07/18 at 07:00; Stop 12/07/18 at 19:00 ; Status DC Cefoxitin Sodium 2 gm/Dextrose 100 ml @ 200 mls/hr 1X ONCE IV ; Start at 07:30; Stop 12/07/18 at 07:59; Status UNV Cefoxitin Sodium (Mefoxin) 2 gm 1X ONCE IVP Last administered on 12/07/18at 09: 25; Start 12/07/18 at 07:30; Stop 12/07/18 at 07:31; Status DC Bupivacaine HCl/ Epinephrine Bitart (Sensorcain-Mpf Epi 0.5%-1:250794) 30 ml STK -MED ONCE .ROUTE Last administered on 12/07/18at 11:20; Start 12/07/18 at 07:31 ; Stop 12/07/18 at 07:32; Status DC Iohexol (Omnipaque 300 Mg/ml) 100 ml STK-MED ONCE .ROUTE ; Start 12/07/18 at 07: 31; Stop 12/07/18 at 07:32; Status DC Lidocaine HCl (Glydo (Lidocaine) Jelly) 6 jonas STK-MED ONCE .ROUTE ; Start at 07:32; Stop 12/07/18 at 07:33; Status DC Propofol 20 ml @ As Directed STK-MED ONCE IV ; Start 12/07/18 at 08:37; Stop at 08:38; Status DC Lidocaine HCl (Lidocaine Pf 2% Vial) 5 ml STK-MED ONCE .ROUTE ; Start 12/07/18 at 08:37; Stop 12/07/18 at 08:38; Status DC Ephedrine Sulfate (Akovaz) 50 mg STK-MED ONCE .ROUTE ; Start 12/07/18 at 08:37; Stop 12/07/18 at 08:38; Status DC Rocuronium Otis (Zemuron) 100 mg STK-MED ONCE .ROUTE ; Start 12/07/18 at 08: 39; Stop 12/07/18 at 08:40; Status DC Succinylcholine Chloride (Anectine) 200 mg STK-MED ONCE .ROUTE ; Start 12/07/18 at 08:40; Stop 12/07/18 at 08:41; Status DC Fentanyl Citrate (Fentanyl 2ml Vial) 100 mcg STK-MED ONCE .ROUTE ; Start at 08:40; Stop 12/07/18 at 08:41; Status DC Phenylephrine HCl (Newton-Synephrine Inj) 10 mg STK-MED ONCE .ROUTE ; Start at 08:42; Stop 12/07/18 at 08:43; Status DC Fentanyl Citrate (Fentanyl 2ml Vial) 100 mcg STK-MED ONCE .ROUTE ; Start at 09:37; Stop 12/07/18 at 09:38; Status DC Sevoflurane (Ultane) 90 ml STK-MED ONCE IH ; Start 12/07/18 at 09:40; Stop 12/07 at 09:41; Status DC Famotidine (Pepcid Vial) 20 mg STK-MED ONCE .ROUTE ; Start 12/07/18 at 09:51; Stop 12/07/18 at 09:52; Status DC Neostigmine Methylsulfate (Bloxiverz) 10 mg STK-MED ONCE .ROUTE ; Start at 10:58; Stop 12/07/18 at 10:59; Status DC Glycopyrrolate (Robinul) 1 mg STK-MED ONCE .ROUTE ; Start 12/07/18 at 10:58; Stop 12/07/18 at 10:59; Status DC Cefoxitin Sodium (Mefoxin) 1 gm STK-MED ONCE IVP ; Start 12/07/18 at 11:48; Stop 12/07/18 at 11:49; Status DC Sevoflurane (Ultane) 90 ml STK-MED ONCE IH ; Start 12/07/18 at 12:06; Stop 12/07 at 12:07; Status DC Enoxaparin Sodium (Lovenox 40mg Syringe) 40 mg Q24H SQ Last administered on at 10:57; Start 12/08/18 at 09:00 Sodium Chloride (Normal Saline Flush) 3 ml QSHIFT PRN IV AFTER MEDS AND BLOOD DRAWS; Start 12/07/18 at 13:30 Ringer's Solution 1,000 ml @ 100 mls/hr Q10H IV Last administered on at 15:55; Start 12/07/18 at 14:00; Stop 12/11/18 at 11:24; Status DC Naloxone HCl (Narcan) 0.4 mg PRN Q2MIN PRN IV SEE INSTRUCTIONS; Start 12/07/18 at 13:30 Sodium Chloride 1,000 ml @ 25 mls/hr Q24H IV ; Start 12/07/18 at 14:00; Stop at 07:32; Status DC Hydromorphone HCl 30 ml @ 0 mls/hr CONT PRN PRN IV PER PROTOCOL Last administered on 12/07/18at 14:57; Start 12/07/18 at 13:30; Stop 12/11/18 at 14:30 ; Status DC Ondansetron HCl (Zofran) 4 mg PRN Q6HRS PRN IV NAUESA, 1ST CHOICE Last administered on 12/12/18at 08:57; Start 12/07/18 at 13:30 Morphine Sulfate (Morphine Sulfate) 10 mg STK-MED ONCE .ROUTE ; Start 12/07/18 at 13:51; Stop 12/07/18 at 13:52; Status DC Prochlorperazine Edisylate (Compazine) 10 mg STK-MED ONCE .ROUTE ; Start at 13:57; Stop 12/07/18 at 13:58; Status DC Ketorolac Tromethamine (Toradol 15mg Vial) 15 mg 1X ONCE IV ; Start 12/07/18 at 14:15; Stop 12/07/18 at 14:32; Status DC Insulin Human Lispro (HumaLOG) 0-12 UNITS QIDACHS SQ Last administered on at 21:59; Start 12/07/18 at 17:00 Acetaminophen (Tylenol) 650 mg PRN Q6HRS PRN PO FEVER > 100.5'F Last administered on 12/08/18at 22:54; Start 12/08/18 at 22:45 Sodium Chloride 1,000 ml @ 100 mls/hr Q10H IV ; Start 12/08/18 at 22:45; Stop 12/09/18 at 07:32; Status DC Fluticasone Propionate (Flonase) 2 spray DAILY NS Last administered on 10:57; Start 12/09/18 at 09:00 Dicyclomine HCl (Bentyl) 10 mg TID PO Last administered on 12/12/18 10:56; Start 12/09/18 at 14:00 Pantoprazole Sodium (Protonix) 40 mg DAILYAC PO Last administered on 12/12/18 10:56; Start 12/09/18 at 13:30 Non-Formulary Medication (Lisinopril/ Hydrochlorothiazide (Lisinopril-Hctz 20- 12.5 Mg Tab)) 1 tab DAILY PO ; Start 12/10/18 at 09:00; Status UNV Lisinopril (Prinivil) 20 mg DAILY PO ; Start 12/09/18 at 13:30 Hydrochlorothiazide (Microzide) 12.5 mg DAILY PO ; Start 12/09/18 at 13:30 Calcium Carbonate/ Glycine (Tums) 1,000 mg PRN AFTMEALHC PRN PO INDIGESTION Last administered on 12/09/18at 21:52; Start 12/09/18 at 21:45 Prochlorperazine Edisylate (Compazine) 10 mg PRN Q6HRS PRN IV NAUSEA/VOMITING 2ND CHOICE Last administered on 12/10/18at 09:11; Start 12/09/18 at 23:45 Enalaprilat (Vasotec Inj) 1.25 mg PRN Q6HRS PRN IVP HYPERTENSION, SEE COMMENTS ; Start 12/10/18 at 09:15 Info (Tpn Per Pharmacy) 1 each PRN DAILY PRN MC SEE COMMENTS Last administered on 12/11/18at 11:42; Start 12/10/18 at 09:15 Sodium Chloride 90 meq/Potassium Chloride 50 meq/ Potassium Phosphate 13.6 mmol/ Magnesium Sulfate 20 meq/ Calcium Gluconate 10 meq/ Multivitamins 10 ml/Chromium / Copper/Manganese/ Seleni/Zn 1 ml/ Total Parenteral Nutrition/Amino Acids/ Dextrose/ Fat Emulsion Intravenous 1,512 ml @ 63 mls/hr TPN CONT IV Last administered on 12/10/18at 22:19; Start 12/10/18 at 22:00; Stop 12/11/18 at 21:59 ; Status DC Famotidine (Pepcid Vial) 20 mg 1X ONCE IVP Last administered on 12/10/18at 17: 01; Start 12/10/18 at 15:30; Stop 12/10/18 at 15:31; Status DC Magnesium Sulfate/ Dextrose 100 ml @ 100 mls/hr 1X ONCE IV Last administered on 12/10/18at 15:57; Start 12/10/18 at 15:30; Stop 12/10/18 at 16:29; Status DC Lidocaine/Sodium Bicarbonate (Buffered Lidocaine 1%) 3 ml 1X ONCE INJ ; Start 12/10/18 at 15:30; Stop 12/10/18 at 15:31; Status DC Lidocaine/Sodium Bicarbonate (Buffered Lidocaine 1%) 3 ml STK-MED ONCE .ROUTE ; Start 12/10/18 at 15:33; Stop 12/10/18 at 15:34; Status DC Lidocaine/Sodium Bicarbonate (Buffered Lidocaine 1%) 4 ml 1X ONCE INJ Last administered on 12/10/18at 16:37; Start 12/10/18 at 16:30; Stop 12/10/18 at 16:31 ; Status DC Iohexol (Omnipaque 350 Mg/ml) 100 ml 1X ONCE IV Last administered on at 17:30; Start 12/10/18 at 17:15; Stop 12/10/18 at 17:16; Status DC Info (CONTRAST GIVEN -- Rx MONITORING) 1 each PRN DAILY PRN MC SEE COMMENTS; Start 12/10/18 at 17:30; Stop 12/12/18 at 17:29 Sodium Chloride 90 meq/Potassium Chloride 50 meq/ Potassium Phosphate 13.6 mmol/ Magnesium Sulfate 12 meq/ Calcium Gluconate 10 meq/ Multivitamins 10 ml/Chromium / Copper/Manganese/ Seleni/Zn 1 ml/ Total Parenteral Nutrition/Amino Acids/ Dextrose/ Fat Emulsion Intravenous 1,512 ml @ 63 mls/hr TPN CONT IV Last administered on 12/11/18at 22:24; Start 12/11/18 at 22:00; Stop 12/12/18 at 21:59 Acetaminophen/ Hydrocodone Bitart (Lortab 5/325) 1 tab PRN Q4HRS PRN PO PAIN; Start 12/11/18 at 14:30 Morphine Sulfate (Morphine Sulfate) 2 mg PRN Q2HR PRN IV PAIN Last administered on 12/12/18at 08:56; Start 12/11/18 at 14:30 Active Scripts Active Reported Lisinopril-Hctz 20-12.5 Mg Tab (Lisinopril/Hydrochlorothiazide) 1 Each Tablet 1 Tab PO DAILY Dicyclomine Hcl 10 Mg Capsule 1 Cap PO TID Metformin Hcl 500 Mg Tablet 500 Mg PO BIDWMEALS Flonase Allergy Relief (Fluticasone Propionate) 9.9 Ml [place].susp 2 Sprays NS DAILY Pantoprazole Sodium 40 Mg Tablet.dr 1 Tab PO DAILY Vitals/I & O Vital Sign - Last 24 Hours 12/11/18 12/11/18 12/11/18 12/11/18 15:00 19:40 19:40 23:08 Temp 98.0 98.2 98.5 98.0 98.2 98.5 Pulse 81 80 79 Resp 16 16 16 B/P (MAP) 125/74 (91) 114/55 (74) 133/74 (93) Pulse Ox 96 95 96 O2 Delivery Room Air Room Air Room Air Room Air 12/12/18 12/12/18 12/12/18 12/12/18 03:48 07:35 08:00 08:56 Temp 98.3 98.1 98.3 98.1 Pulse 72 77 Resp 16 18 B/P (MAP) 142/76 (98) 135/65 (88) Pulse Ox 95 96 96 O2 Delivery Room Air Room Air Room Air Room Air 12/12/18 12/12/18 09:35 10:09 Temp 98.7 98.7 Pulse 77 Resp 18 B/P (MAP) 127/75 (92) Pulse Ox 97 97 O2 Delivery Room Air Room Air O2 Flow Rate 2.0 Intake and Output 12/11/18 12/11/18 12/12/18 14:59 22:59 06:59 Intake Total 0 ml 420 ml 400 ml Output Total 1500 ml 750 ml 1625 ml Balance -1500 ml -330 ml -1225 ml LINDA JOSHI MD Dec 12, 2018 12:20
--- NOTE | 2018-12-12 12:42 | PDOC ---
SURGICAL PROGRESS NOTE Subjective Pt with c/o min nausea and soreness, controlled, franny clears well Vital Signs Vital Signs Date Time Temp Pulse Resp B/P (MAP) Pulse Ox O2 Delivery O2 Flow Rate FiO2 12/12/18 10:09 98.7 77 18 127/75 (92) 97 Room Air 98.7 12/12/18 09:35 2.0 I&O Intake and Output 12/12/18 07:00 Intake Total 820 ml Output Total 3875 ml Balance -3055 ml Intake Oral 820 ml Output Urine Total 2575 ml Stool Total 1300 ml General: Alert, Oriented X3, Cooperative, No acute distress Abdomen: Soft, No tenderness, Other (ostomy pink and viable) Labs Laboratory Tests Test 12/10/18 15:05 12/10/18 17:11 12/11/18 00:51 12/11/18 05:43 Troponin I Quantitative 0.066 ng/mL (0.000-0.055) Glucose (Fingerstick) 116 mg/dL (70-99) 132 mg/dL (70-99) 187 mg/dL (70-99) Test 12/11/18 05:55 12/11/18 11:36 12/11/18 17:52 12/12/18 00:22 White Blood Count 6.5 x10^3/uL (4.0-11.0) Red Blood Count 3.47 x10^6/uL (3.50-5.40) Hemoglobin 9.0 g/dL (12.0-15.5) Hematocrit 27.7 % (36.0-47.0) Mean Corpuscular Volume 80 fL (79-100) Mean Corpuscular Hemoglobin 26 pg (25-35) Mean Corpuscular Hemoglobin Concent 33 g/dL (31-37) Red Cell Distribution Width 16.5 % (11.5-14.5) Platelet Count 216 x10^3/uL (140-400) Sodium Level 139 mmol/L (136-145) Potassium Level 4.2 mmol/L (3.5-5.1) Chloride Level 101 mmol/L (98-107) Carbon Dioxide Level 34 mmol/L (21-32) Anion Gap 4 (6-14) Blood Urea Nitrogen 9 mg/dL (7-20) Creatinine 0.9 mg/dL (0.6-1.0) Estimated GFR (Cockcroft-Gault) 74.9 BUN/Creatinine Ratio 10 (6-20) Glucose Level 185 mg/dL (70-99) Calcium Level 8.6 mg/dL (8.5-10.1) Phosphorus Level 3.1 mg/dL (2.6-4.7) Magnesium Level 2.3 mg/dL (1.8-2.4) Total Bilirubin 0.3 mg/dL (0.2-1.0) Aspartate Amino Transf (AST/SGOT) 18 U/L (15-37) Alanine Aminotransferase (ALT/SGPT) 15 U/L (14-59) Alkaline Phosphatase 39 U/L (46-116) Total Protein 5.2 g/dL (6.4-8.2) Albumin 1.9 g/dL (3.4-5.0) Albumin/Globulin Ratio 0.6 (1.0-1.7) Glucose (Fingerstick) 148 mg/dL (70-99) 126 mg/dL (70-99) 122 mg/dL (70-99) Test 12/12/18 05:30 12/12/18 06:15 12/12/18 11:11 Sodium Level 140 mmol/L (136-145) Potassium Level 4.2 mmol/L (3.5-5.1) Chloride Level 102 mmol/L (98-107) Carbon Dioxide Level 31 mmol/L (21-32) Anion Gap 7 (6-14) Blood Urea Nitrogen 10 mg/dL (7-20) Creatinine 0.9 mg/dL (0.6-1.0) Estimated GFR (Cockcroft-Gault) 74.9 Glucose Level 132 mg/dL (70-99) Calcium Level 8.6 mg/dL (8.5-10.1) Glucose (Fingerstick) 116 mg/dL (70-99) 133 mg/dL (70-99) Laboratory Tests Test 12/11/18 17:52 12/12/18 00:22 12/12/18 05:30 12/12/18 06:15 Glucose (Fingerstick) 126 mg/dL (70-99) 122 mg/dL (70-99) 116 mg/dL (70-99) Sodium Level 140 mmol/L (136-145) Potassium Level 4.2 mmol/L (3.5-5.1) Chloride Level 102 mmol/L (98-107) Carbon Dioxide Level 31 mmol/L (21-32) Anion Gap 7 (6-14) Blood Urea Nitrogen 10 mg/dL (7-20) Creatinine 0.9 mg/dL (0.6-1.0) Estimated GFR (Cockcroft-Gault) 74.9 Glucose Level 132 mg/dL (70-99) Calcium Level 8.6 mg/dL (8.5-10.1) Test 12/12/18 11:11 Glucose (Fingerstick) 133 mg/dL (70-99) Problem List s/p colectomy full liquids in Am d/w JOEY Al MD Dec 12, 2018 12:42
[2018-12-12] MEDS: TPN PER PHARMACY MC PRN (13:09)
--- NOTE | 2018-12-12 13:11 | NUR ---
Pharmacy TPN Dosing Note S: GAURAV DEAL is a 68 year old F Currently receiving Central Continuous TPN started 12/10/18 B:Pertinent PMH: rectovaginal fistula closure with diverting colostomy Height: 5 feet, 0 inches Weight: [id number] kg Current diet: NPO LABS: Sodium: 139 Potassium: 4.2 Chloride: 101 Calcium: 9.3 Corrected Calcium: 10.98 Magnesium: 2.3 CO2: 34 SCr: 0.9 Glucose: 131 Albumin: 1.9 AST: 23 ALT: 20 TPN FORMULA: TPN TYPE: Central Continuous AMINO ACIDS: 60 gm DEXTROSE: 195 gm LIPIDS: 20 gm SODIUM CHLORIDE: 90 mEq SODIUM ACETATE: mEq SODIUM PHOSPHATE: mmol POTASSIUM CHLORIDE: 50 mEq POTASSIUM ACETATE: mEq POTASSIUM PHOSPHATE: 13.6 mmol MAGNESIUM: 12 mEq CALCIUM: 10 mEq INSULIN: units MULTIPLE VITAMIN: 10 ml TRACE ELEMENTS: 1 ml(s) TPN PLAN: tolerate clear diet, tpn one more day! R: Continue TPN AT 63ML/HR Will monitor electrolytes, glucose, and tolerance to TPN. DOUG MCGILL [facility], 12/12/18 [id number]
[2018-12-12 14:03] VITALS: BP 125/80
[2018-12-12 19:10] VITALS: BP 126/70
[2018-12-12] MEDS ORDERED: TOTAL PARENTERAL NUTRITION IV SCH ×10 (22:00)
[2018-12-12] MEDS ORDERED: [UNRECOGNIZED DRUG - OTHER] IV SCH ×10 (22:00)
[2018-12-12] MEDS ORDERED: DEXTROSE 70% IV SCH ×10 (22:00)
[2018-12-12] MEDS ORDERED: AMINO ACID IV SCH ×10 (22:00)
[2018-12-12 22:11] VITALS: BP 149/74
[2018-12-13] VITALS (7 sets, daily range): BP systolic 112–153; BP diastolic 66–87
[2018-12-13] MEDS: HYDROcodone/APAP 5/325MG 1 TAB TABLET PO PRN ×3 (02:15→19:49)
[2018-12-13] MEDS: PANTOPRAZOLE 40 MG TABLET.DR. PO SCH (05:08)
[2018-12-13 05:57] LABS: ALBUMIN 2.4 g/dL (3.4-5.0); ALBUMIN/GLOBULIN RATIO 0.6 (1.0-1.7); GFR 66.3; PHOSPHORUS 3.4 mg/dL (2.6-4.7); POTASSIUM 4.6 mmol/L (3.5-5.1); TOTAL BILIRUBIN 0.2 mg/dL (0.2-1.0); TOTAL PROTEIN 6.7 g/dL (6.4-8.2)
[2018-12-13] MEDS: INSULIN LISPRO 300 UNITS/3 ML INSULN.PEN. SQ SCH ×4 (07:30→20:49)
[2018-12-13] MEDS: DICYCLOMINE HCL 10 MG CAPSULE PO SCH ×3 (08:26→20:46)
[2018-12-13] MEDS: ENOXAPARIN 40 MG/0.4 ML SYRINGE. SQ SCH (08:26)
[2018-12-13] MEDS: FLUTICASONE 50MCG/NASAL SPRAY 16GM BOTTLE. NS SCH (08:28)
--- NOTE | 2018-12-13 08:47 | PDOC ---
SURGICAL PROGRESS NOTE Subjective started [place] for breakfast no n/v pain managed Vital Signs Vital Signs Date Time Temp Pulse Resp B/P (MAP) Pulse Ox O2 Delivery O2 Flow Rate FiO2 12/13/18 07:00 98.0 72 16 112/68 (83) 98 Room Air 98.0 12/12/18 09:35 2.0 I&O Intake and Output 12/13/18 06:59 Intake Total 1856 ml Output Total 4625 ml Balance -2769 ml Intake Oral 1100 ml IV Total 756 ml Output Urine Total 3425 ml Stool Total 800 ml Urine/Stool Mix 400 ml General: Alert, Oriented X3, Cooperative, No acute distress Abdomen: Soft, Other (ostomy with stool, incision c/d/i, no erythema ) Labs Laboratory Tests Test 12/11/18 11:36 12/11/18 17:52 12/12/18 00:22 12/12/18 05:30 Glucose (Fingerstick) 148 mg/dL (70-99) 126 mg/dL (70-99) 122 mg/dL (70-99) Sodium Level 140 mmol/L (136-145) Potassium Level 4.2 mmol/L (3.5-5.1) Chloride Level 102 mmol/L (98-107) Carbon Dioxide Level 31 mmol/L (21-32) Anion Gap 7 (6-14) Blood Urea Nitrogen 10 mg/dL (7-20) Creatinine 0.9 mg/dL (0.6-1.0) Estimated GFR (Cockcroft-Gault) 74.9 Glucose Level 132 mg/dL (70-99) Calcium Level 8.6 mg/dL (8.5-10.1) Test 12/12/18 06:15 12/12/18 11:11 12/12/18 17:48 12/13/18 00:02 Glucose (Fingerstick) 116 mg/dL (70-99) 133 mg/dL (70-99) 93 mg/dL (70-99) 119 mg/dL (70-99) Test 12/13/18 05:00 12/13/18 07:39 Sodium Level 139 mmol/L (136-145) Potassium Level 4.6 mmol/L (3.5-5.1) Chloride Level 101 mmol/L (98-107) Carbon Dioxide Level 29 mmol/L (21-32) Anion Gap 9 (6-14) Blood Urea Nitrogen 12 mg/dL (7-20) Creatinine 1.0 mg/dL (0.6-1.0) Estimated GFR (Cockcroft-Gault) 66.3 BUN/Creatinine Ratio 12 (6-20) Glucose Level 125 mg/dL (70-99) Calcium Level 9.0 mg/dL (8.5-10.1) Phosphorus Level 3.4 mg/dL (2.6-4.7) Magnesium Level 2.0 mg/dL (1.8-2.4) Total Bilirubin 0.2 mg/dL (0.2-1.0) Aspartate Amino Transf (AST/SGOT) 23 U/L (15-37) Alanine Aminotransferase (ALT/SGPT) 23 U/L (14-59) Alkaline Phosphatase 50 U/L (46-116) Total Protein 6.7 g/dL (6.4-8.2) Albumin 2.4 g/dL (3.4-5.0) Albumin/Globulin Ratio 0.6 (1.0-1.7) Glucose (Fingerstick) 131 mg/dL (70-99) Laboratory Tests Test 12/12/18 11:11 12/12/18 17:48 12/13/18 00:02 12/13/18 05:00 Glucose (Fingerstick) 133 mg/dL (70-99) 93 mg/dL (70-99) 119 mg/dL (70-99) Sodium Level 139 mmol/L (136-145) Potassium Level 4.6 mmol/L (3.5-5.1) Chloride Level 101 mmol/L (98-107) Carbon Dioxide Level 29 mmol/L (21-32) Anion Gap 9 (6-14) Blood Urea Nitrogen 12 mg/dL (7-20) Creatinine 1.0 mg/dL (0.6-1.0) Estimated GFR (Cockcroft-Gault) 66.3 BUN/Creatinine Ratio 12 (6-20) Glucose Level 125 mg/dL (70-99) Calcium Level 9.0 mg/dL (8.5-10.1) Phosphorus Level 3.4 mg/dL (2.6-4.7) Magnesium Level 2.0 mg/dL (1.8-2.4) Total Bilirubin 0.2 mg/dL (0.2-1.0) Aspartate Amino Transf (AST/SGOT) 23 U/L (15-37) Alanine Aminotransferase (ALT/SGPT) 23 U/L (14-59) Alkaline Phosphatase 50 U/L (46-116) Total Protein 6.7 g/dL (6.4-8.2) Albumin 2.4 g/dL (3.4-5.0) Albumin/Globulin Ratio 0.6 (1.0-1.7) Test 12/13/18 07:39 Glucose (Fingerstick) 131 mg/dL (70-99) Assessment/Plan full liquids today slowing advance diet FERNANDO MAHONEY APRN Dec 13, 2018 08:47
[2018-12-13] MEDS: LISINOPRIL 20 MG TABLET PO SCH (09:00)
[2018-12-13] MEDS: hydroCHLOROthiazide 12.5 MG CAPSULE PO SCH (09:00)
--- NOTE | 2018-12-13 11:52 | NUR ---
SS following for discharge planning. Pt is from home and currently on room air. PT recommended home at discharge. Pt currently on full liquid diet and will need to advance diet prior to returning home. SS will continue to follow for discharge needs.
[2018-12-13] MEDS: TPN PER PHARMACY MC PRN (12:17)
--- NOTE | 2018-12-13 12:18 | NUR ---
Pharmacy TPN Dosing Note S: GAURAV DEAL is a 68 year old F Currently receiving Central Continuous TPN started 12/10/18 B:Pertinent PMH: rectovaginal fistula closure with diverting colostomy Height: 5 feet, 0 inches Weight: 79.504553 kg Current diet: FLD LABS: Sodium: 139 Potassium: 4.6 Chloride: 101 Calcium: 9.0 Corrected Calcium: 10.28 Magnesium: 2.4 CO2: 29 SCr: 1.0 Glucose: 131 Albumin: 2.4 AST: 23 ALT: 23 TPN FORMULA: TPN TYPE: Central Continuous AMINO ACIDS: 60 gm DEXTROSE: 195 gm LIPIDS: 20 gm SODIUM CHLORIDE: 90 mEq SODIUM ACETATE: mEq SODIUM PHOSPHATE: mmol POTASSIUM CHLORIDE: 50 mEq POTASSIUM ACETATE: mEq POTASSIUM PHOSPHATE: 13.6 mmol MAGNESIUM: 12 mEq CALCIUM: 10 mEq INSULIN: units MULTIPLE VITAMIN: 10 ml TRACE ELEMENTS: 1 ml(s) TPN PLAN: Tolerating diet. Advanced to full liquid this AM. No changes to TPN today. No labs in AM, expect DC TPN soon. R: Continue TPN ABOVE. Will monitor electrolytes, glucose, and tolerance to TPN. MARV CURRY FORMERLY [facility] [place], 12/13/18 1890
--- NOTE | 2018-12-13 15:30 | NUR ---
ostomy care patient seen for ostomy teaching. patients daughter, Ronda at bedside. ostomy teaching provided at this time, pt and daughter shown how to change the ostomy bag. patient enrolled in the [employer] Program at this time. will continue to f/u for questions.
--- NOTE | 2018-12-13 16:56 | PDOC ---
PROGRESS NOTES Subjective Subjective Patient improving tolerating full liquids. SVT improved Objective Objective Vital Signs Date Time Temp Pulse Resp B/P (MAP) Pulse Ox O2 Delivery O2 Flow Rate FiO2 12/13/18 15:45 98.0 72 20 128/73 (91) 99 Room Air 98.0 12/12/18 09:35 2.0 Intake and Output 12/13/18 07:00 Intake Total 1856 ml Output Total 4625 ml Balance -2769 ml Intake Oral 1100 ml IV Total 756 ml Output Urine Total 3425 ml Stool Total 800 ml Urine/Stool Mix 400 ml Physical Exam Abdomen: Normal bowel sounds Heart: Regular rate Extremities: No edema General: Alert Lungs: Clear to auscultation Assessment Assessment 1. Postop day #6, rectovaginal fistula closure with diverting colostomy. 2. Ileus 3. Longstanding hypertension. 4. Chronic kidney disease with baseline creatinine of 1.14. 5. Type 2 diabetes, under good control. 6. Physiologic SVT-improved Plan Plan of Care Continue surgery care Continue increase activity Comment Review of Relevant I have reviewed the following items sathya (where applicable) has been applied. Labs Laboratory Tests Test 12/11/18 17:52 12/12/18 00:22 12/12/18 05:30 12/12/18 06:15 Glucose (Fingerstick) 126 mg/dL (70-99) 122 mg/dL (70-99) 116 mg/dL (70-99) Sodium Level 140 mmol/L (136-145) Potassium Level 4.2 mmol/L (3.5-5.1) Chloride Level 102 mmol/L (98-107) Carbon Dioxide Level 31 mmol/L (21-32) Anion Gap 7 (6-14) Blood Urea Nitrogen 10 mg/dL (7-20) Creatinine 0.9 mg/dL (0.6-1.0) Estimated GFR (Cockcroft-Gault) 74.9 Glucose Level 132 mg/dL (70-99) Calcium Level 8.6 mg/dL (8.5-10.1) Test 12/12/18 11:11 12/12/18 17:48 12/13/18 00:02 12/13/18 05:00 Glucose (Fingerstick) 133 mg/dL (70-99) 93 mg/dL (70-99) 119 mg/dL (70-99) Sodium Level 139 mmol/L (136-145) Potassium Level 4.6 mmol/L (3.5-5.1) Chloride Level 101 mmol/L (98-107) Carbon Dioxide Level 29 mmol/L (21-32) Anion Gap 9 (6-14) Blood Urea Nitrogen 12 mg/dL (7-20) Creatinine 1.0 mg/dL (0.6-1.0) Estimated GFR (Cockcroft-Gault) 66.3 BUN/Creatinine Ratio 12 (6-20) Glucose Level 125 mg/dL (70-99) Calcium Level 9.0 mg/dL (8.5-10.1) Phosphorus Level 3.4 mg/dL (2.6-4.7) Magnesium Level 2.0 mg/dL (1.8-2.4) Total Bilirubin 0.2 mg/dL (0.2-1.0) Aspartate Amino Transf (AST/SGOT) 23 U/L (15-37) Alanine Aminotransferase (ALT/SGPT) 23 U/L (14-59) Alkaline Phosphatase 50 U/L (46-116) Total Protein 6.7 g/dL (6.4-8.2) Albumin 2.4 g/dL (3.4-5.0) Albumin/Globulin Ratio 0.6 (1.0-1.7) Test 12/13/18 07:39 12/13/18 11:10 Glucose (Fingerstick) 131 mg/dL (70-99) 106 mg/dL (70-99) Laboratory Tests Test 12/12/18 17:48 12/13/18 00:02 12/13/18 05:00 12/13/18 07:39 Glucose (Fingerstick) 93 mg/dL (70-99) 119 mg/dL (70-99) 131 mg/dL (70-99) Sodium Level 139 mmol/L (136-145) Potassium Level 4.6 mmol/L (3.5-5.1) Chloride Level 101 mmol/L (98-107) Carbon Dioxide Level 29 mmol/L (21-32) Anion Gap 9 (6-14) Blood Urea Nitrogen 12 mg/dL (7-20) Creatinine 1.0 mg/dL (0.6-1.0) Estimated GFR (Cockcroft-Gault) 66.3 BUN/Creatinine Ratio 12 (6-20) Glucose Level 125 mg/dL (70-99) Calcium Level 9.0 mg/dL (8.5-10.1) Phosphorus Level 3.4 mg/dL (2.6-4.7) Magnesium Level 2.0 mg/dL (1.8-2.4) Total Bilirubin 0.2 mg/dL (0.2-1.0) Aspartate Amino Transf (AST/SGOT) 23 U/L (15-37) Alanine Aminotransferase (ALT/SGPT) 23 U/L (14-59) Alkaline Phosphatase 50 U/L (46-116) Total Protein 6.7 g/dL (6.4-8.2) Albumin 2.4 g/dL (3.4-5.0) Albumin/Globulin Ratio 0.6 (1.0-1.7) Test 12/13/18 11:10 Glucose (Fingerstick) 106 mg/dL (70-99) Medications Current Medications Ondansetron HCl (Zofran) 4 mg PRN Q6HRS PRN IV NAUSEA/VOMITING; Start 12/07/18 at 07:00; Stop 12/07/18 at 19:00; Status DC Fentanyl Citrate (Fentanyl 2ml Vial) 25 mcg PRN Q5MIN PRN IV MILD PAIN; Start 12/07/18 at 07:00; Stop 12/07/18 at 19:00; Status DC Fentanyl Citrate (Fentanyl 2ml Vial) 50 mcg PRN Q5MIN PRN IV MODERATE TO SEVERE PAIN; Start 12/07/18 at 07:00; Stop 12/07/18 at 19:00; Status DC Morphine Sulfate (Morphine Sulfate) 1 mg PRN Q10MIN PRN IV SEVERE PAIN; Start 12/07/18 at 07:00; Stop 12/07/18 at 19:00; Status DC Ringer's Solution 1,000 ml @ 30 mls/hr Q24H IV Last administered on 12/07/18at 15:06; Start 12/07/18 at 07:00; Stop 12/07/18 at 18:59; Status DC Lidocaine HCl (Xylocaine-Mpf 1% 2ml Vial) 2 ml PRN 1X PRN ID IV START; Start at 07:00; Stop 12/07/18 at 19:00; Status DC Hydromorphone HCl (Dilaudid) 0.5 mg PRN Q10MIN PRN IV SEV PAIN, Second choice Last administered on 12/07/18at 14:51; Start 12/07/18 at 07:00; Stop 12/07/18 at 19:00; Status DC Prochlorperazine Edisylate (Compazine) 5 mg PACU PRN PRN IV NAUSEA, MRX1 Last administered on 12/07/18at 14:50; Start 12/07/18 at 07:00; Stop 12/07/18 at 19:00 ; Status DC Cefoxitin Sodium 2 gm/Dextrose 100 ml @ 200 mls/hr 1X ONCE IV ; Start at 07:30; Stop 12/07/18 at 07:59; Status UNV Cefoxitin Sodium (Mefoxin) 2 gm 1X ONCE IVP Last administered on 12/07/18at 09: 25; Start 12/07/18 at 07:30; Stop 12/07/18 at 07:31; Status DC Bupivacaine HCl/ Epinephrine Bitart (Sensorcain-Mpf Epi 0.5%-[id number]) 30 ml STK -MED ONCE .ROUTE Last administered on 12/07/18at 11:20; Start 12/07/18 at 07:31 ; Stop 12/07/18 at 07:32; Status DC Iohexol (Omnipaque 300 Mg/ml) 100 ml STK-MED ONCE .ROUTE ; Start 12/07/18 at 07: 31; Stop 12/07/18 at 07:32; Status DC Lidocaine HCl (Glydo (Lidocaine) Jelly) 6 jonas STK-MED ONCE .ROUTE ; Start at 07:32; Stop 12/07/18 at 07:33; Status DC Propofol 20 ml @ As Directed STK-MED ONCE IV ; Start 12/07/18 at 08:37; Stop at 08:38; Status DC Lidocaine HCl (Lidocaine Pf 2% Vial) 5 ml STK-MED ONCE .ROUTE ; Start 12/07/18 at 08:37; Stop 12/07/18 at 08:38; Status DC Ephedrine Sulfate (Akovaz) 50 mg STK-MED ONCE .ROUTE ; Start 12/07/18 at 08:37; Stop 12/07/18 at 08:38; Status DC Rocuronium [place] (Zemuron) 100 mg STK-MED ONCE .ROUTE ; Start 12/07/18 at 08: 39; Stop 12/07/18 at 08:40; Status DC Succinylcholine Chloride (Anectine) 200 mg STK-MED ONCE .ROUTE ; Start 12/07/18 at 08:40; Stop 12/07/18 at 08:41; Status DC Fentanyl Citrate (Fentanyl 2ml Vial) 100 mcg STK-MED ONCE .ROUTE ; Start at 08:40; Stop 12/07/18 at 08:41; Status DC Phenylephrine HCl (Newton-Synephrine Inj) 10 mg STK-MED ONCE .ROUTE ; Start at 08:42; Stop 12/07/18 at 08:43; Status DC Fentanyl Citrate (Fentanyl 2ml Vial) 100 mcg STK-MED ONCE .ROUTE ; Start at 09:37; Stop 12/07/18 at 09:38; Status DC Sevoflurane (Ultane) 90 ml STK-MED ONCE IH ; Start 12/07/18 at 09:40; Stop 12/07 at 09:41; Status DC Famotidine (Pepcid Vial) 20 mg STK-MED ONCE .ROUTE ; Start 12/07/18 at 09:51; Stop 12/07/18 at 09:52; Status DC Neostigmine Methylsulfate (Bloxiverz) 10 mg STK-MED ONCE .ROUTE ; Start at 10:58; Stop 12/07/18 at 10:59; Status DC Glycopyrrolate (Robinul) 1 mg STK-MED ONCE .ROUTE ; Start 12/07/18 at 10:58; Stop 12/07/18 at 10:59; Status DC Cefoxitin Sodium (Mefoxin) 1 gm STK-MED ONCE IVP ; Start 12/07/18 at 11:48; Stop 12/07/18 at 11:49; Status DC Sevoflurane (Ultane) 90 ml STK-MED ONCE IH ; Start 12/07/18 at 12:06; Stop 12/07 at 12:07; Status DC Enoxaparin Sodium (Lovenox 40mg Syringe) 40 mg Q24H SQ Last administered on at 08:26; Start 12/08/18 at 09:00 Sodium Chloride (Normal Saline Flush) 3 ml QSHIFT PRN IV AFTER MEDS AND BLOOD DRAWS; Start 12/07/18 at 13:30 Ringer's Solution 1,000 ml @ 100 mls/hr Q10H IV Last administered on at 15:55; Start 12/07/18 at 14:00; Stop 12/11/18 at 11:24; Status DC Naloxone HCl (Narcan) 0.4 mg PRN Q2MIN PRN IV SEE INSTRUCTIONS; Start 12/07/18 at 13:30 Sodium Chloride 1,000 ml @ 25 mls/hr Q24H IV ; Start 12/07/18 at 14:00; Stop at 07:32; Status DC Hydromorphone HCl 30 ml @ 0 mls/hr CONT PRN PRN IV PER PROTOCOL Last administered on 12/07/18at 14:57; Start 12/07/18 at 13:30; Stop 12/11/18 at 14:30 ; Status DC Ondansetron HCl (Zofran) 4 mg PRN Q6HRS PRN IV NAUESA, 1ST CHOICE Last administered on 12/12/18at 18:53; Start 12/07/18 at 13:30 Morphine Sulfate (Morphine Sulfate) 10 mg STK-MED ONCE .ROUTE ; Start 12/07/18 at 13:51; Stop 12/07/18 at 13:52; Status DC Prochlorperazine Edisylate (Compazine) 10 mg STK-MED ONCE .ROUTE ; Start at 13:57; Stop 12/07/18 at 13:58; Status DC Ketorolac Tromethamine (Toradol 15mg Vial) 15 mg 1X ONCE IV ; Start 12/07/18 at 14:15; Stop 12/07/18 at 14:32; Status DC Insulin Human Lispro (HumaLOG) 0-12 UNITS QIDACHS SQ Last administered on at 21:59; Start 12/07/18 at 17:00 Acetaminophen (Tylenol) 650 mg PRN Q6HRS PRN PO FEVER > 100.5'F Last administered on 12/08/18at 22:54; Start 12/08/18 at 22:45 Sodium Chloride 1,000 ml @ 100 mls/hr Q10H IV ; Start 12/08/18 at 22:45; Stop 12/09/18 at 07:32; Status DC Fluticasone Propionate (Flonase) 2 spray DAILY NS Last administered on at 08:28; Start 12/09/18 at 09:00 Dicyclomine HCl (Bentyl) 10 mg TID PO Last administered on 12/13/18at 08:26; Start 12/09/18 at 14:00 Pantoprazole Sodium (Protonix) 40 mg DAILYAC PO Last administered on 12/13/18 05:08; Start 12/09/18 at 13:30 Non-Formulary Medication (Lisinopril/ Hydrochlorothiazide (Lisinopril-Hctz 20- 12.5 Mg Tab)) 1 tab DAILY PO ; Start 12/10/18 at 09:00; Status UNV Lisinopril (Prinivil) 20 mg DAILY PO ; Start 12/09/18 at 13:30 Hydrochlorothiazide (Microzide) 12.5 mg DAILY PO ; Start 12/09/18 at 13:30 Calcium Carbonate/ Glycine (Tums) 1,000 mg PRN AFTMEALHC PRN PO INDIGESTION Last administered on 12/09/18at 21:52; Start 12/09/18 at 21:45 Prochlorperazine Edisylate (Compazine) 10 mg PRN Q6HRS PRN IV NAUSEA/VOMITING 2ND CHOICE Last administered on 12/10/18at 09:11; Start 12/09/18 at 23:45 Enalaprilat (Vasotec Inj) 1.25 mg PRN Q6HRS PRN IVP HYPERTENSION, SEE COMMENTS ; Start 12/10/18 at 09:15 Info (Tpn Per Pharmacy) 1 each PRN DAILY PRN MC SEE COMMENTS Last administered on 12/13/18at 12:17; Start 12/10/18 at 09:15; Stop 12/13/18 at 16:49; Status DC Sodium Chloride 90 meq/Potassium Chloride 50 meq/ Potassium Phosphate 13.6 mmol/ Magnesium Sulfate 20 meq/ Calcium Gluconate 10 meq/ Multivitamins 10 ml/Chromium / Copper/Manganese/ Seleni/Zn 1 ml/ Total Parenteral Nutrition/Amino Acids/ Dextrose/ Fat Emulsion Intravenous 1,512 ml @ 63 mls/hr TPN CONT IV Last administered on 12/10/18at 22:19; Start 12/10/18 at 22:00; Stop 12/11/18 at 21:59 ; Status DC Famotidine (Pepcid Vial) 20 mg 1X ONCE IVP Last administered on 12/10/18at 17: 01; Start 12/10/18 at 15:30; Stop 12/10/18 at 15:31; Status DC Magnesium Sulfate/ Dextrose 100 ml @ 100 mls/hr 1X ONCE IV Last administered on 12/10/18at 15:57; Start 12/10/18 at 15:30; Stop 12/10/18 at 16:29; Status DC Lidocaine/Sodium Bicarbonate (Buffered Lidocaine 1%) 3 ml 1X ONCE INJ ; Start 12/10/18 at 15:30; Stop 12/10/18 at 15:31; Status DC Lidocaine/Sodium Bicarbonate (Buffered Lidocaine 1%) 3 ml STK-MED ONCE .ROUTE ; Start 12/10/18 at 15:33; Stop 12/10/18 at 15:34; Status DC Lidocaine/Sodium Bicarbonate (Buffered Lidocaine 1%) 4 ml 1X ONCE INJ Last administered on 12/10/18at 16:37; Start 12/10/18 at 16:30; Stop 12/10/18 at 16:31 ; Status DC Iohexol (Omnipaque 350 Mg/ml) 100 ml 1X ONCE IV Last administered on at 17:30; Start 12/10/18 at 17:15; Stop 12/10/18 at 17:16; Status DC Info (CONTRAST GIVEN -- Rx MONITORING) 1 each PRN DAILY PRN MC SEE COMMENTS; Start 12/10/18 at 17:30; Stop 12/12/18 at 17:29; Status DC Sodium Chloride 90 meq/Potassium Chloride 50 meq/ Potassium Phosphate 13.6 mmol/ Magnesium Sulfate 12 meq/ Calcium Gluconate 10 meq/ Multivitamins 10 ml/Chromium / Copper/Manganese/ Seleni/Zn 1 ml/ Total Parenteral Nutrition/Amino Acids/ Dextrose/ Fat Emulsion Intravenous 1,512 ml @ 63 mls/hr TPN CONT IV Last administered on 12/11/18at 22:24; Start 12/11/18 at 22:00; Stop 12/12/18 at 21:59 ; Status DC Acetaminophen/ Hydrocodone Bitart (Lortab 5/325) 1 tab PRN Q4HRS PRN PO PAIN Last administered on 12/13/18at 12:30; Start 12/11/18 at 14:30 Morphine Sulfate (Morphine Sulfate) 2 mg PRN Q2HR PRN IV PAIN Last administered on 12/12/18at 08:56; Start 12/11/18 at 14:30 Sodium Chloride 90 meq/Potassium Chloride 50 meq/ Potassium Phosphate 13.6 mmol/ Magnesium Sulfate 12 meq/ Calcium Gluconate 10 meq/ Multivitamins 10 ml/Chromium / Copper/Manganese/ Seleni/Zn 1 ml/ Total Parenteral Nutrition/Amino Acids/ Dextrose/ Fat Emulsion Intravenous 1,512 ml @ 63 mls/hr TPN CONT IV Last administered on 12/12/18at 23:27; Start 12/12/18 at 22:00; Stop 12/13/18 at 16:47 ; Status DC Sodium Chloride 90 meq/Potassium Chloride 50 meq/ Potassium Phosphate 13.6 mmol/ Magnesium Sulfate 12 meq/ Calcium Gluconate 10 meq/ Multivitamins 10 ml/Chromium / Copper/Manganese/ Seleni/Zn 1 ml/ Total Parenteral Nutrition/Amino Acids/ Dextrose/ Fat Emulsion Intravenous 1,512 ml @ 63 mls/hr TPN CONT IV ; Start at 22:00; Stop 12/14/18 at 21:59 Active Scripts Active Reported Lisinopril-Hctz 20-12.5 Mg Tab (Lisinopril/Hydrochlorothiazide) 1 Each Tablet 1 Tab PO DAILY Dicyclomine Hcl 10 Mg Capsule 1 Cap PO TID Metformin Hcl 500 Mg Tablet 500 Mg PO BIDWMEALS Flonase Allergy Relief (Fluticasone Propionate) 9.9 Ml [place].susp 2 Sprays NS DAILY Pantoprazole Sodium 40 Mg Tablet. 1 Tab PO DAILY Vitals/I & O Vital Sign - Last 24 Hours 12/12/18 12/12/18 12/12/18 12/13/18 19:10 19:25 22:11 02:05 Temp 98.5 98.2 98.5 98.5 98.2 98.5 Pulse 74 75 79 Resp 18 18 18 B/P (MAP) 126/70 (88) 149/74 (99) 153/87 (109) Pulse Ox 98 97 97 O2 Delivery Room Air Room Air Room Air Room Air 12/13/18 12/13/18 12/13/18 12/13/18 02:15 03:15 07:00 08:00 Temp 98.0 98.0 Pulse 72 Resp 18 16 16 B/P (MAP) 112/68 (83) Pulse Ox 98 99 98 O2 Delivery Room Air Room Air Room Air 12/13/18 12/13/18 12/13/18 12/13/18 09:00 11:00 12:30 13:30 Temp 98.2 98.2 Pulse 72 72 Resp 28 B/P (MAP) 112/68 119/66 (83) O2 Delivery Room Air Room Air 12/13/18 15:45 Temp 98.0 98.0 Pulse 72 Resp 20 B/P (MAP) 128/73 (91) Pulse Ox 99 O2 Delivery Room Air Intake and Output 12/12/18 12/12/18 12/13/18 15:00 23:00 07:00 Intake Total 1000 ml 856 ml Output Total 1725 ml 1550 ml 1350 ml Balance -725 ml -1550 ml -494 ml ASTRID DURAN MD Dec 13, 2018 16:56
--- NOTE | 2018-12-13 19:40 | NUR ---
Pt in bed assessment completed vss poc explained pt states she is having pain will medicate pt and continue to monitor pt. call light in reach.
[2018-12-13] MEDS ORDERED: [UNRECOGNIZED DRUG - OTHER] IV SCH ×10 (22:00)
[2018-12-13] MEDS ORDERED: TOTAL PARENTERAL NUTRITION IV SCH ×10 (22:00)
[2018-12-13] MEDS ORDERED: AMINO ACID IV SCH ×10 (22:00)
[2018-12-13] MEDS ORDERED: DEXTROSE 70% IV SCH ×10 (22:00)
[2018-12-14] MEDS: HYDROcodone/APAP 5/325MG 1 TAB TABLET PO PRN ×3 (00:52→19:30)
[2018-12-14 03:04] VITALS: BP 100/52
[2018-12-14] MEDS: PANTOPRAZOLE 40 MG TABLET.DR. PO SCH (06:08)
[2018-12-14 06:58] VITALS: BP 107/62
[2018-12-14] MEDS: INSULIN LISPRO 300 UNITS/3 ML INSULN.PEN. SQ SCH ×4 (07:30→20:50)
[2018-12-14] MEDS: FLUTICASONE 50MCG/NASAL SPRAY 16GM BOTTLE. NS SCH (08:51)
[2018-12-14] MEDS: DICYCLOMINE HCL 10 MG CAPSULE PO SCH ×3 (08:51→20:49)
[2018-12-14] MEDS: ENOXAPARIN 40 MG/0.4 ML SYRINGE. SQ SCH (08:53)
[2018-12-14] MEDS: hydroCHLOROthiazide 12.5 MG CAPSULE PO SCH (09:00)
[2018-12-14] MEDS: LISINOPRIL 20 MG TABLET PO SCH (09:00)
[2018-12-14 11:00] VITALS: BP 119/59
--- NOTE | 2018-12-14 12:56 | PDOC ---
PROGRESS NOTES Subjective Subjective Patient tolerating soft diet Objective Objective Vital Signs Date Time Temp Pulse Resp B/P (MAP) Pulse Ox O2 Delivery O2 Flow Rate FiO2 12/14/18 12:48 Room Air 12/14/18 11:00 98.1 72 18 119/59 (79) 98 98.1 12/12/18 09:35 2.0 Intake and Output 12/14/18 06:59 Intake Total 1040 ml Output Total 5000 ml Balance -3960 ml Intake Oral 1040 ml Output Urine Total 4000 ml Stool Total 1000 ml Physical Exam Abdomen: Normal bowel sounds Heart: No murmurs Extremities: No clubbing General: Alert Lungs: Clear to auscultation Assessment Assessment 1. Postop day #7, rectovaginal fistula closure with diverting colostomy. 2. Ileus 3. Longstanding hypertension. 4. Chronic kidney disease with baseline creatinine of 1.14. 5. Type 2 diabetes, under good control. 6. 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 Labs Laboratory Tests Test 12/12/18 17:48 12/13/18 00:02 12/13/18 05:00 12/13/18 07:39 Glucose (Fingerstick) 93 mg/dL (70-99) 119 mg/dL (70-99) 131 mg/dL (70-99) Sodium Level 139 mmol/L (136-145) Potassium Level 4.6 mmol/L (3.5-5.1) Chloride Level 101 mmol/L (98-107) Carbon Dioxide Level 29 mmol/L (21-32) Anion Gap 9 (6-14) Blood Urea Nitrogen 12 mg/dL (7-20) Creatinine 1.0 mg/dL (0.6-1.0) Estimated GFR (Cockcroft-Gault) 66.3 BUN/Creatinine Ratio 12 (6-20) Glucose Level 125 mg/dL (70-99) Calcium Level 9.0 mg/dL (8.5-10.1) Phosphorus Level 3.4 mg/dL (2.6-4.7) Magnesium Level 2.0 mg/dL (1.8-2.4) Total Bilirubin 0.2 mg/dL (0.2-1.0) Aspartate Amino Transf (AST/SGOT) 23 U/L (15-37) Alanine Aminotransferase (ALT/SGPT) 23 U/L (14-59) Alkaline Phosphatase 50 U/L (46-116) Total Protein 6.7 g/dL (6.4-8.2) Albumin 2.4 g/dL (3.4-5.0) Albumin/Globulin Ratio 0.6 (1.0-1.7) Test 12/13/18 11:10 12/13/18 16:54 12/13/18 20:49 12/14/18 07:19 Glucose (Fingerstick) 106 mg/dL (70-99) 116 mg/dL (70-99) 126 mg/dL (70-99) 90 mg/dL (70-99) Test 12/14/18 12:07 Glucose (Fingerstick) 83 mg/dL (70-99) Laboratory Tests Test 12/13/18 16:54 12/13/18 20:49 12/14/18 07:19 12/14/18 12:07 Glucose (Fingerstick) 116 mg/dL (70-99) 126 mg/dL (70-99) 90 mg/dL (70-99) 83 mg/dL (70-99) Medications Current Medications Ondansetron HCl (Zofran) 4 mg PRN Q6HRS PRN IV NAUSEA/VOMITING; Start 12/07/18 at 07:00; Stop 12/07/18 at 19:00; Status DC Fentanyl Citrate (Fentanyl 2ml Vial) 25 mcg PRN Q5MIN PRN IV MILD PAIN; Start 12/07/18 at 07:00; Stop 12/07/18 at 19:00; Status DC Fentanyl Citrate (Fentanyl 2ml Vial) 50 mcg PRN Q5MIN PRN IV MODERATE TO SEVERE PAIN; Start 12/07/18 at 07:00; Stop 12/07/18 at 19:00; Status DC Morphine Sulfate (Morphine Sulfate) 1 mg PRN Q10MIN PRN IV SEVERE PAIN; Start 12/07/18 at 07:00; Stop 12/07/18 at 19:00; Status DC Ringer's Solution 1,000 ml @ 30 mls/hr Q24H IV Last administered on 12/07/18at 15:06; Start 12/07/18 at 07:00; Stop 12/07/18 at 18:59; Status DC Lidocaine HCl (Xylocaine-Mpf 1% 2ml Vial) 2 ml PRN 1X PRN ID IV START; Start at 07:00; Stop 12/07/18 at 19:00; Status DC Hydromorphone HCl (Dilaudid) 0.5 mg PRN Q10MIN PRN IV SEV PAIN, Second choice Last administered on 12/07/18at 14:51; Start 12/07/18 at 07:00; Stop 12/07/18 at 19:00; Status DC Prochlorperazine Edisylate (Compazine) 5 mg PACU PRN PRN IV NAUSEA, MRX1 Last administered on 12/07/18at 14:50; Start 12/07/18 at 07:00; Stop 12/07/18 at 19:00 ; Status DC Cefoxitin Sodium 2 gm/Dextrose 100 ml @ 200 mls/hr 1X ONCE IV ; Start at 07:30; Stop 12/07/18 at 07:59; Status UNV Cefoxitin Sodium (Mefoxin) 2 gm 1X ONCE IVP Last administered on 12/07/18at 09: 25; Start 12/07/18 at 07:30; Stop 12/07/18 at 07:31; Status DC Bupivacaine HCl/ Epinephrine Bitart (Sensorcain-Mpf Epi 0.5%-1:[id number]) 30 ml STK -MED ONCE .ROUTE Last administered on 12/07/18at 11:20; Start 12/07/18 at 07:31 ; Stop 12/07/18 at 07:32; Status DC Iohexol (Omnipaque 300 Mg/ml) 100 ml STK-MED ONCE .ROUTE ; Start 12/07/18 at 07: 31; Stop 12/07/18 at 07:32; Status DC Lidocaine HCl (Glydo (Lidocaine) Jelly) 6 jonas STK-MED ONCE .ROUTE ; Start at 07:32; Stop 12/07/18 at 07:33; Status DC Propofol 20 ml @ As Directed STK-MED ONCE IV ; Start 12/07/18 at 08:37; Stop at 08:38; Status DC Lidocaine HCl (Lidocaine Pf 2% Vial) 5 ml STK-MED ONCE .ROUTE ; Start 12/07/18 at 08:37; Stop 12/07/18 at 08:38; Status DC Ephedrine Sulfate (Akovaz) 50 mg STK-MED ONCE .ROUTE ; Start 12/07/18 at 08:37; Stop 12/07/18 at 08:38; Status DC Rocuronium [place] (Zemuron) 100 mg STK-MED ONCE .ROUTE ; Start 12/07/18 at 08: 39; Stop 12/07/18 at 08:40; Status DC Succinylcholine Chloride (Anectine) 200 mg STK-MED ONCE .ROUTE ; Start 12/07/18 at 08:40; Stop 12/07/18 at 08:41; Status DC Fentanyl Citrate (Fentanyl 2ml Vial) 100 mcg STK-MED ONCE .ROUTE ; Start at 08:40; Stop 12/07/18 at 08:41; Status DC Phenylephrine HCl ([place]-Synephrine Inj) 10 mg STK-MED ONCE .ROUTE ; Start at 08:42; Stop 12/07/18 at 08:43; Status DC Fentanyl Citrate (Fentanyl 2ml Vial) 100 mcg STK-MED ONCE .ROUTE ; Start at 09:37; Stop 12/07/18 at 09:38; Status DC Sevoflurane (Ultane) 90 ml STK-MED ONCE IH ; Start 12/07/18 at 09:40; Stop 12/07 at 09:41; Status DC Famotidine (Pepcid Vial) 20 mg STK-MED ONCE .ROUTE ; Start 12/07/18 at 09:51; Stop 12/07/18 at 09:52; Status DC Neostigmine Methylsulfate (Bloxiverz) 10 mg STK-MED ONCE .ROUTE ; Start at 10:58; Stop 12/07/18 at 10:59; Status DC Glycopyrrolate (Robinul) 1 mg STK-MED ONCE .ROUTE ; Start 12/07/18 at 10:58; Stop 12/07/18 at 10:59; Status DC Cefoxitin Sodium (Mefoxin) 1 gm STK-MED ONCE IVP ; Start 12/07/18 at 11:48; Stop 12/07/18 at 11:49; Status DC Sevoflurane (Ultane) 90 ml STK-MED ONCE IH ; Start 12/07/18 at 12:06; Stop 12/07 at 12:07; Status DC Enoxaparin Sodium (Lovenox 40mg Syringe) 40 mg Q24H SQ Last administered on at 08:53; Start 12/08/18 at 09:00 Sodium Chloride (Normal Saline Flush) 3 ml QSHIFT PRN IV AFTER MEDS AND BLOOD DRAWS; Start 12/07/18 at 13:30 Ringer's Solution 1,000 ml @ 100 mls/hr Q10H IV Last administered on at 15:55; Start 12/07/18 at 14:00; Stop 12/11/18 at 11:24; Status DC Naloxone HCl (Narcan) 0.4 mg PRN Q2MIN PRN IV SEE INSTRUCTIONS; Start 12/07/18 at 13:30 Sodium Chloride 1,000 ml @ 25 mls/hr Q24H IV ; Start 12/07/18 at 14:00; Stop at 07:32; Status DC Hydromorphone HCl 30 ml @ 0 mls/hr CONT PRN PRN IV PER PROTOCOL Last administered on 12/07/18at 14:57; Start 12/07/18 at 13:30; Stop 12/11/18 at 14:30 ; Status DC Ondansetron HCl (Zofran) 4 mg PRN Q6HRS PRN IV NAUESA, 1ST CHOICE Last administered on 12/12/18at 18:53; Start 12/07/18 at 13:30 Morphine Sulfate (Morphine Sulfate) 10 mg STK-MED ONCE .ROUTE ; Start 12/07/18 at 13:51; Stop 12/07/18 at 13:52; Status DC Prochlorperazine Edisylate (Compazine) 10 mg STK-MED ONCE .ROUTE ; Start at 13:57; Stop 12/07/18 at 13:58; Status DC Ketorolac Tromethamine (Toradol 15mg Vial) 15 mg 1X ONCE IV ; Start 12/07/18 at 14:15; Stop 12/07/18 at 14:32; Status DC Insulin Human Lispro (HumaLOG) 0-12 UNITS QIDACHS SQ Last administered on at 21:59; Start 12/07/18 at 17:00 Acetaminophen (Tylenol) 650 mg PRN Q6HRS PRN PO FEVER > 100.5'F Last administered on 12/08/18at 22:54; Start 12/08/18 at 22:45 Sodium Chloride 1,000 ml @ 100 mls/hr Q10H IV ; Start 12/08/18 at 22:45; Stop 12/09/18 at 07:32; Status DC Fluticasone Propionate (Flonase) 2 spray DAILY NS Last administered on 08:51; Start 12/09/18 at 09:00 Dicyclomine HCl (Bentyl) 10 mg TID PO Last administered on 12/14/18 08:51; Start 12/09/18 at 14:00 Pantoprazole Sodium (Protonix) 40 mg DAILYAC PO Last administered on 12/14/18 06:08; Start 12/09/18 at 13:30 Non-Formulary Medication (Lisinopril/ Hydrochlorothiazide (Lisinopril-Hctz 20- 12.5 Mg Tab)) 1 tab DAILY PO ; Start 12/10/18 at 09:00; Status UNV Lisinopril (Prinivil) 20 mg DAILY PO ; Start 12/09/18 at 13:30 Hydrochlorothiazide (Microzide) 12.5 mg DAILY PO ; Start 12/09/18 at 13:30 Calcium Carbonate/ Glycine (Tums) 1,000 mg PRN AFTMEALHC PRN PO INDIGESTION Last administered on 12/09/18at 21:52; Start 12/09/18 at 21:45 Prochlorperazine Edisylate (Compazine) 10 mg PRN Q6HRS PRN IV NAUSEA/VOMITING 2ND CHOICE Last administered on 12/10/18at 09:11; Start 12/09/18 at 23:45 Enalaprilat (Vasotec Inj) 1.25 mg PRN Q6HRS PRN IVP HYPERTENSION, SEE COMMENTS ; Start 12/10/18 at 09:15 Info (Tpn Per Pharmacy) 1 each PRN DAILY PRN MC SEE COMMENTS Last administered on 12/13/18at 12:17; Start 12/10/18 at 09:15; Stop 12/13/18 at 16:49; Status DC Sodium Chloride 90 meq/Potassium Chloride 50 meq/ Potassium Phosphate 13.6 mmol/ Magnesium Sulfate 20 meq/ Calcium Gluconate 10 meq/ Multivitamins 10 ml/Chromium / Copper/Manganese/ Seleni/Zn 1 ml/ Total Parenteral Nutrition/Amino Acids/ Dextrose/ Fat Emulsion Intravenous 1,512 ml @ 63 mls/hr TPN CONT IV Last administered on 12/10/18at 22:19; Start 12/10/18 at 22:00; Stop 12/11/18 at 21:59 ; Status DC Famotidine (Pepcid Vial) 20 mg 1X ONCE IVP Last administered on 12/10/18at 17: 01; Start 12/10/18 at 15:30; Stop 12/10/18 at 15:31; Status DC Magnesium Sulfate/ Dextrose 100 ml @ 100 mls/hr 1X ONCE IV Last administered on 12/10/18at 15:57; Start 12/10/18 at 15:30; Stop 12/10/18 at 16:29; Status DC Lidocaine/Sodium Bicarbonate (Buffered Lidocaine 1%) 3 ml 1X ONCE INJ ; Start 12/10/18 at 15:30; Stop 12/10/18 at 15:31; Status DC Lidocaine/Sodium Bicarbonate (Buffered Lidocaine 1%) 3 ml STK-MED ONCE .ROUTE ; Start 12/10/18 at 15:33; Stop 12/10/18 at 15:34; Status DC Lidocaine/Sodium Bicarbonate (Buffered Lidocaine 1%) 4 ml 1X ONCE INJ Last administered on 12/10/18at 16:37; Start 12/10/18 at 16:30; Stop 12/10/18 at 16:31 ; Status DC Iohexol (Omnipaque 350 Mg/ml) 100 ml 1X ONCE IV Last administered on at 17:30; Start 12/10/18 at 17:15; Stop 12/10/18 at 17:16; Status DC Info (CONTRAST GIVEN -- Rx MONITORING) 1 each PRN DAILY PRN MC SEE COMMENTS; Start 12/10/18 at 17:30; Stop 12/12/18 at 17:29; Status DC Sodium Chloride 90 meq/Potassium Chloride 50 meq/ Potassium Phosphate 13.6 mmol/ Magnesium Sulfate 12 meq/ Calcium Gluconate 10 meq/ Multivitamins 10 ml/Chromium / Copper/Manganese/ Seleni/Zn 1 ml/ Total Parenteral Nutrition/Amino Acids/ Dextrose/ Fat Emulsion Intravenous 1,512 ml @ 63 mls/hr TPN CONT IV Last administered on 12/11/18at 22:24; Start 12/11/18 at 22:00; Stop 12/12/18 at 21:59 ; Status DC Acetaminophen/ Hydrocodone Bitart (Lortab 5/325) 1 tab PRN Q4HRS PRN PO PAIN Last administered on 12/14/18at 12:48; Start 12/11/18 at 14:30 Morphine Sulfate (Morphine Sulfate) 2 mg PRN Q2HR PRN IV PAIN Last administered on 12/12/18at 08:56; Start 12/11/18 at 14:30 Sodium Chloride 90 meq/Potassium Chloride 50 meq/ Potassium Phosphate 13.6 mmol/ Magnesium Sulfate 12 meq/ Calcium Gluconate 10 meq/ Multivitamins 10 ml/Chromium / Copper/Manganese/ Seleni/Zn 1 ml/ Total Parenteral Nutrition/Amino Acids/ Dextrose/ Fat Emulsion Intravenous 1,512 ml @ 63 mls/hr TPN CONT IV Last administered on 12/12/18at 23:27; Start 12/12/18 at 22:00; Stop 12/13/18 at 16:47 ; Status DC Sodium Chloride 90 meq/Potassium Chloride 50 meq/ Potassium Phosphate 13.6 mmol/ Magnesium Sulfate 12 meq/ Calcium Gluconate 10 meq/ Multivitamins 10 ml/Chromium / Copper/Manganese/ Seleni/Zn 1 ml/ Total Parenteral Nutrition/Amino Acids/ Dextrose/ Fat Emulsion Intravenous 1,512 ml @ 63 mls/hr TPN CONT IV ; Start at 22:00; Stop 12/13/18 at 22:00; Status DC Active Scripts Active Reported Lisinopril-Hctz 20-12.5 Mg Tab (Lisinopril/Hydrochlorothiazide) 1 Each Tablet 1 Tab PO DAILY Dicyclomine Hcl 10 Mg Capsule 1 Cap PO TID Metformin Hcl 500 Mg Tablet 500 Mg PO BIDWMEALS Flonase Allergy Relief (Fluticasone Propionate) 9.9 Ml [place].susp 2 Sprays NS DAILY Pantoprazole Sodium 40 Mg Tablet.dr 1 Tab PO DAILY Vitals/I & O Vital Sign - Last 24 Hours 12/13/18 12/13/18 12/13/18 12/13/18 15:45 19:10 19:40 19:49 Temp 98.0 98.3 98.0 98.3 Pulse 72 69 Resp 20 20 16 B/P (MAP) 128/73 (91) 133/68 (89) Pulse Ox 99 98 96 O2 Delivery Room Air Room Air Room Air Room Air 12/13/18 12/14/18 12/14/18 12/14/18 23:00 00:52 01:52 03:04 Temp 98.1 98.6 98.1 98.6 Pulse 62 63 Resp 18 16 16 16 B/P (MAP) 144/73 (96) 100/52 (68) Pulse Ox 97 97 96 97 O2 Delivery Room Air Room Air Room Air Room Air 12/14/18 12/14/18 12/14/18 12/14/18 06:58 08:00 09:00 11:00 Temp 98.0 98.1 98.0 98.1 Pulse 63 63 72 Resp 18 18 B/P (MAP) 107/62 (77) 107/62 119/59 (79) Pulse Ox 97 98 O2 Delivery Room Air Room Air Room Air 12/14/18 12:48 O2 Delivery Room Air Intake and Output 12/13/18 12/13/18 12/14/18 14:59 22:59 06:59 Intake Total 180 ml 360 ml 500 ml Output Total 2850 ml 500 ml 1650 ml Balance -2670 ml -140 ml -1150 ml ASTRID DURAN MD Dec 14, 2018 12:56
[2018-12-14] MEDS ORDERED: HYDR-2761 PO (12:59)
[2018-12-14 15:00] VITALS: BP 126/74
--- NOTE | 2018-12-14 15:00 | PDOC ---
SURGICAL PROGRESS NOTE Subjective Pt doing well, no N/v since yesterday, pain controlled Vital Signs Vital Signs Date Time Temp Pulse Resp B/P (MAP) Pulse Ox O2 Delivery O2 Flow Rate FiO2 12/14/18 13:48 Room Air 12/14/18 11:00 98.1 72 18 119/59 (79) 98 98.1 I&O Intake and Output 12/14/18 07:00 Intake Total 1040 ml Output Total 5000 ml Balance -3960 ml Intake Oral 1040 ml Output Urine Total 4000 ml Stool Total 1000 ml General: Alert, Oriented X3, Cooperative, No acute distress Abdomen: Soft, No tenderness, Other (ostomy fxn) Labs Laboratory Tests Test 12/12/18 17:48 12/13/18 00:02 12/13/18 05:00 12/13/18 07:39 Glucose (Fingerstick) 93 mg/dL (70-99) 119 mg/dL (70-99) 131 mg/dL (70-99) Sodium Level 139 mmol/L (136-145) Potassium Level 4.6 mmol/L (3.5-5.1) Chloride Level 101 mmol/L (98-107) Carbon Dioxide Level 29 mmol/L (21-32) Anion Gap 9 (6-14) Blood Urea Nitrogen 12 mg/dL (7-20) Creatinine 1.0 mg/dL (0.6-1.0) Estimated GFR (Cockcroft-Gault) 66.3 BUN/Creatinine Ratio 12 (6-20) Glucose Level 125 mg/dL (70-99) Calcium Level 9.0 mg/dL (8.5-10.1) Phosphorus Level 3.4 mg/dL (2.6-4.7) Magnesium Level 2.0 mg/dL (1.8-2.4) Total Bilirubin 0.2 mg/dL (0.2-1.0) Aspartate Amino Transf (AST/SGOT) 23 U/L (15-37) Alanine Aminotransferase (ALT/SGPT) 23 U/L (14-59) Alkaline Phosphatase 50 U/L (46-116) Total Protein 6.7 g/dL (6.4-8.2) Albumin 2.4 g/dL (3.4-5.0) Albumin/Globulin Ratio 0.6 (1.0-1.7) Test 12/13/18 11:10 12/13/18 16:54 12/13/18 20:49 12/14/18 07:19 Glucose (Fingerstick) 106 mg/dL (70-99) 116 mg/dL (70-99) 126 mg/dL (70-99) 90 mg/dL (70-99) Test 12/14/18 12:07 Glucose (Fingerstick) 83 mg/dL (70-99) Laboratory Tests Test 12/13/18 16:54 12/13/18 20:49 12/14/18 07:19 12/14/18 12:07 Glucose (Fingerstick) 116 mg/dL (70-99) 126 mg/dL (70-99) 90 mg/dL (70-99) 83 mg/dL (70-99) Problem List s/p sigmoid doing well ADAT plan d/c home in AM with JOEY HERNÁNDEZ MD Dec 14, 2018 15:00
[2018-12-14 19:00] VITALS: BP 119/67
[2018-12-14 23:00] VITALS: BP 114/67
[2018-12-15 03:00] VITALS: BP 134/76
[2018-12-15] MEDS: HYDROcodone/APAP 5/325MG 1 TAB TABLET PO PRN (03:26)
[2018-12-15] MEDS: PANTOPRAZOLE 40 MG TABLET.DR. PO SCH (05:27)
[2018-12-15 07:00] VITALS: BP 109/67
[2018-12-15] MEDS: INSULIN LISPRO 300 UNITS/3 ML INSULN.PEN. SQ SCH ×2 (07:30→11:30)
[2018-12-15] MEDS: LISINOPRIL 20 MG TABLET PO SCH (09:00)
[2018-12-15] MEDS: hydroCHLOROthiazide 12.5 MG CAPSULE PO SCH (09:00)
[2018-12-15] MEDS: ENOXAPARIN 40 MG/0.4 ML SYRINGE. SQ SCH (09:00)
[2018-12-15] MEDS: DICYCLOMINE HCL 10 MG CAPSULE PO SCH ×2 (09:10→14:00)
[2018-12-15] MEDS: FLUTICASONE 50MCG/NASAL SPRAY 16GM BOTTLE. NS SCH (09:10)
--- NOTE | 2018-12-15 09:40 | PDOC3 ---
Discharge Summary Visit Information Date of Admission: Dec 07, 2018 Date of Discharge: Dec 15, 2018 Admitting Diagnosis: Complicated diverticulitis with fistula and stricture Brief Hospital Course Allergies Allergies Coded Allergies Type Severity Reaction Last Updated Verified ciprofloxacin Allergy Intermediate 12/07/18 Yes sulfamethoxazole Allergy Intermediate Unknown 12/07/18 Yes trimethoprim Allergy Intermediate Unknown 12/07/18 Yes naproxen Adverse Reaction Severe gastric bleeding 12/07/18 Yes tizanidine Adverse Reaction Intermediate N/V 12/07/18 Yes Vital Signs Vital Signs Date Time Temp Pulse Resp B/P (MAP) Pulse Ox O2 Delivery O2 Flow Rate FiO2 12/15/18 07:00 97.7 16 109/67 (81) 96 Room Air 97.7 12/15/18 03:00 81 Lab Results Laboratory Tests Test 12/13/18 11:10 12/13/18 16:54 12/13/18 20:49 12/14/18 07:19 Glucose (Fingerstick) 106 mg/dL (70-99) 116 mg/dL (70-99) 126 mg/dL (70-99) 90 mg/dL (70-99) Test 12/14/18 12:07 12/14/18 16:37 12/14/18 20:49 12/15/18 07:17 Glucose (Fingerstick) 83 mg/dL (70-99) 104 mg/dL (70-99) 111 mg/dL (70-99) 90 mg/dL (70-99) Laboratory Tests Test 12/14/18 12:07 12/14/18 16:37 12/14/18 20:49 12/15/18 07:17 Glucose (Fingerstick) 83 mg/dL (70-99) 104 mg/dL (70-99) 111 mg/dL (70-99) 90 mg/dL (70-99) Brief Hospital Course Ms. Poole is a 68 old F who presented with complicated diverticular disease. Underwent sigmoid colectomy with protecting ileostomy. Post operative gradually improved. Day of d/c, doing well and d/c home with home health. Discharge Information Condition at Discharge: Improved Follow Up: Weeks (2) Disposition/Orders: D/C to Home w/ HH Scheduled Dicyclomine Hcl (Dicyclomine Hcl) 10 Mg Capsule, 1 CAP PO TID for unknown, #90 Ref 3 (Reported) Entered as Reported by: ARELY PETERSON on 12/06/18 1248 Last Taken: Unknown Dose on 12/06/18 Last Action: Continued on 12/09/18 123 by ASTRID UDRAN Fluticasone Propionate (Flonase Allergy Relief) 9.9 Ml [place].susp, 2 SPRAYS NS DAILY, (Reported) Entered as Reported by: TALIA DOW on 10/16/17 0856 Last Taken: Unknown Dose on 12/06/18 Last Action: Converted on 12/09/18 0712 by GIANLUCA SYLVESTER RN Lisinopril/Hydrochlorothiazide (Lisinopril-Hctz 20-12.5 Mg Tab) 1 Each Tablet, 1 TAB PO DAILY for antihypertensive/diuretic, #30 Ref 5 (Reported) Entered as Reported by: ARELY PETERSON on 12/06/18 1248 Last Taken: Unknown Dose on 12/06/18 1000 Last Action: Converted on 123 by ASTRID DURAN Metformin Hcl (Metformin Hcl) 500 Mg Tablet, 500 MG PO BIDWMEALS for ANTI- DIABETIC, Ref 0 (Reported) Entered as Reported by: CROW ROJAS on 01/19/18 2218 Last Taken: Unknown Dose on 12/06/18 Last Action: HELD on 12/09/181236 by ASTRID DURAN Pantoprazole Sodium (Pantoprazole Sodium) 40 Mg Tablet.dr, 1 TAB PO DAILY, #30 Ref 3 (Reported) Entered as Reported by: TALIA DOW on 10/16/17 0856 Last Taken: Unknown Dose on 12/07/18 0630 Last Action: Continued on 1236 by ASTRID DURAN Scheduled PRN Hydrocodone Bit/Acetaminophen (Hydrocodone-Apap 5-325 ) 1 Tab Tablet, 1 TAB PO PRN Q4HRS PRN for PAIN for 30 Days, #60 Prescribed by: ASTRID DURAN on 12/14/18 1259 Patient Instructions Patient Instructions Diet as tolerated No heavy lifting. F/u with cardiology f/u with primary JOEY GAGNON MD Dec 15, 2018 09:40
[2018-12-15 11:00] VITALS: BP 116/74
--- NOTE | 2018-12-15 11:00 | NUR ---
SS following up with discharge planning. Discharge order on the chart for home healthcare. Pt agreeable to home healthcare at discharge with [facility], ; fax [phone]. SS awaiting discharge instructions for home healthcare and will phone and fax referral once received. Pt's RN notified.
--- NOTE | 2018-12-15 15:58 | PDOC ---
PROGRESS NOTES Subjective Subjective Patient feeling well and tolerating diet. Colostomy working well. Objective Objective Vital Signs Date Time Temp Pulse Resp B/P (MAP) Pulse Ox O2 Delivery O2 Flow Rate FiO2 12/15/18 09:00 81 109/67 12/15/18 08:00 Room Air 12/15/18 07:00 97.7 16 96 97.7 12/12/18 09:35 2.0 Intake and Output 12/15/18 07:00 Intake Total 800 ml Output Total 950 ml Balance -150 ml Intake Oral 800 ml Output Urine Total 500 ml Stool Total 450 ml # Voids 1 Physical Exam Abdomen: Normal bowel sounds Heart: Regular rate Extremities: No edema General: Alert Lungs: Clear to auscultation Assessment Assessment 1. Postop day #8, rectovaginal fistula closure with diverting colostomy. 2. Ileus 3. Longstanding hypertension. 4. Chronic kidney disease with baseline creatinine of 1.14. 5. Type 2 diabetes, under good control. 6. Physiologic SVT-improved Plan Plan of Care Plan for discharge with home health today. Follow-up in practice clinic 1 week Comment Review of Relevant I have reviewed the following items sathya (where applicable) has been applied. Labs Laboratory Tests Test 12/13/18 16:54 12/13/18 20:49 12/14/18 07:19 12/14/18 12:07 Glucose (Fingerstick) 116 mg/dL (70-99) 126 mg/dL (70-99) 90 mg/dL (70-99) 83 mg/dL (70-99) Test 12/14/18 16:37 12/14/18 20:49 12/15/18 07:17 Glucose (Fingerstick) 104 mg/dL (70-99) 111 mg/dL (70-99) 90 mg/dL (70-99) Laboratory Tests Test 12/14/18 16:37 12/14/18 20:49 12/15/18 07:17 Glucose (Fingerstick) 104 mg/dL (70-99) 111 mg/dL (70-99) 90 mg/dL (70-99) Medications Current Medications Ondansetron HCl (Zofran) 4 mg PRN Q6HRS PRN IV NAUSEA/VOMITING; Start 12/07/18 at 07:00; Stop 12/07/18 at 19:00; Status DC Fentanyl Citrate (Fentanyl 2ml Vial) 25 mcg PRN Q5MIN PRN IV MILD PAIN; Start 12/07/18 at 07:00; Stop 12/07/18 at 19:00; Status DC Fentanyl Citrate (Fentanyl 2ml Vial) 50 mcg PRN Q5MIN PRN IV MODERATE TO SEVERE PAIN; Start 12/07/18 at 07:00; Stop 12/07/18 at 19:00; Status DC Morphine Sulfate (Morphine Sulfate) 1 mg PRN Q10MIN PRN IV SEVERE PAIN; Start 12/07/18 at 07:00; Stop 12/07/18 at 19:00; Status DC Ringer's Solution 1,000 ml @ 30 mls/hr Q24H IV Last administered on 12/07/18at 15:06; Start 12/07/18 at 07:00; Stop 12/07/18 at 18:59; Status DC Lidocaine HCl (Xylocaine-Mpf 1% 2ml Vial) 2 ml PRN 1X PRN ID IV START; Start at 07:00; Stop 12/07/18 at 19:00; Status DC Hydromorphone HCl (Dilaudid) 0.5 mg PRN Q10MIN PRN IV SEV PAIN, Second choice Last administered on 12/07/18at 14:51; Start 12/07/18 at 07:00; Stop 12/07/18 at 19:00; Status DC Prochlorperazine Edisylate (Compazine) 5 mg PACU PRN PRN IV NAUSEA, MRX1 Last administered on 12/07/18at 14:50; Start 12/07/18 at 07:00; Stop 12/07/18 at 19:00 ; Status DC Cefoxitin Sodium 2 gm/Dextrose 100 ml @ 200 mls/hr 1X ONCE IV ; Start at 07:30; Stop 12/07/18 at 07:59; Status UNV Cefoxitin Sodium (Mefoxin) 2 gm 1X ONCE IVP Last administered on 12/07/18at 09: 25; Start 12/07/18 at 07:30; Stop 12/07/18 at 07:31; Status DC Bupivacaine HCl/ Epinephrine Bitart (Sensorcain-Mpf Epi 0.5%-1:[id number]) 30 ml STK -MED ONCE .ROUTE Last administered on 12/07/18at 11:20; Start 12/07/18 at 07:31 ; Stop 12/07/18 at 07:32; Status DC Iohexol (Omnipaque 300 Mg/ml) 100 ml STK-MED ONCE .ROUTE ; Start 12/07/18 at 07: 31; Stop 12/07/18 at 07:32; Status DC Lidocaine HCl (Glydo (Lidocaine) Jelly) 6 jonas STK-MED ONCE .ROUTE ; Start at 07:32; Stop 12/07/18 at 07:33; Status DC Propofol 20 ml @ As Directed STK-MED ONCE IV ; Start 12/07/18 at 08:37; Stop at 08:38; Status DC Lidocaine HCl (Lidocaine Pf 2% Vial) 5 ml STK-MED ONCE .ROUTE ; Start 12/07/18 at 08:37; Stop 12/07/18 at 08:38; Status DC Ephedrine Sulfate (Akovaz) 50 mg STK-MED ONCE .ROUTE ; Start 12/07/18 at 08:37; Stop 12/07/18 at 08:38; Status DC Rocuronium [place] (Zemuron) 100 mg STK-MED ONCE .ROUTE ; Start 12/07/18 at 08: 39; Stop 12/07/18 at 08:40; Status DC Succinylcholine Chloride (Anectine) 200 mg STK-MED ONCE .ROUTE ; Start 12/07/18 at 08:40; Stop 12/07/18 at 08:41; Status DC Fentanyl Citrate (Fentanyl 2ml Vial) 100 mcg STK-MED ONCE .ROUTE ; Start at 08:40; Stop 12/07/18 at 08:41; Status DC Phenylephrine HCl (Newton-Synephrine Inj) 10 mg STK-MED ONCE .ROUTE ; Start at 08:42; Stop 12/07/18 at 08:43; Status DC Fentanyl Citrate (Fentanyl 2ml Vial) 100 mcg STK-MED ONCE .ROUTE ; Start at 09:37; Stop 12/07/18 at 09:38; Status DC Sevoflurane (Ultane) 90 ml STK-MED ONCE IH ; Start 12/07/18 at 09:40; Stop 12/07 at 09:41; Status DC Famotidine (Pepcid Vial) 20 mg STK-MED ONCE .ROUTE ; Start 12/07/18 at 09:51; Stop 12/07/18 at 09:52; Status DC Neostigmine Methylsulfate (Bloxiverz) 10 mg STK-MED ONCE .ROUTE ; Start at 10:58; Stop 12/07/18 at 10:59; Status DC Glycopyrrolate (Robinul) 1 mg STK-MED ONCE .ROUTE ; Start 12/07/18 at 10:58; Stop 12/07/18 at 10:59; Status DC Cefoxitin Sodium (Mefoxin) 1 gm STK-MED ONCE IVP ; Start 12/07/18 at 11:48; Stop 12/07/18 at 11:49; Status DC Sevoflurane (Ultane) 90 ml STK-MED ONCE IH ; Start 12/07/18 at 12:06; Stop 12/07 at 12:07; Status DC Enoxaparin Sodium (Lovenox 40mg Syringe) 40 mg Q24H SQ Last administered on at 08:53; Start 12/08/18 at 09:00 Sodium Chloride (Normal Saline Flush) 3 ml QSHIFT PRN IV AFTER MEDS AND BLOOD DRAWS; Start 12/07/18 at 13:30 Ringer's Solution 1,000 ml @ 100 mls/hr Q10H IV Last administered on at 15:55; Start 12/07/18 at 14:00; Stop 12/11/18 at 11:24; Status DC Naloxone HCl (Narcan) 0.4 mg PRN Q2MIN PRN IV SEE INSTRUCTIONS; Start 12/07/18 at 13:30 Sodium Chloride 1,000 ml @ 25 mls/hr Q24H IV ; Start 12/07/18 at 14:00; Stop at 07:32; Status DC Hydromorphone HCl 30 ml @ 0 mls/hr CONT PRN PRN IV PER PROTOCOL Last administered on 12/07/18at 14:57; Start 12/07/18 at 13:30; Stop 12/11/18 at 14:30 ; Status DC Ondansetron HCl (Zofran) 4 mg PRN Q6HRS PRN IV NARADHAA, 1ST CHOICE Last administered on 12/12/18at 18:53; Start 12/07/18 at 13:30 Morphine Sulfate (Morphine Sulfate) 10 mg STK-MED ONCE .ROUTE ; Start 12/07/18 at 13:51; Stop 12/07/18 at 13:52; Status DC Prochlorperazine Edisylate (Compazine) 10 mg STK-MED ONCE .ROUTE ; Start at 13:57; Stop 12/07/18 at 13:58; Status DC Ketorolac Tromethamine (Toradol 15mg Vial) 15 mg 1X ONCE IV ; Start 12/07/18 at 14:15; Stop 12/07/18 at 14:32; Status DC Insulin Human Lispro (HumaLOG) 0-12 UNITS QIDACHS SQ Last administered on at 21:59; Start 12/07/18 at 17:00 Acetaminophen (Tylenol) 650 mg PRN Q6HRS PRN PO FEVER > 100.5'F Last administered on 12/08/18at 22:54; Start 12/08/18 at 22:45 Sodium Chloride 1,000 ml @ 100 mls/hr Q10H IV ; Start 12/08/18 at 22:45; Stop 12/09/18 at 07:32; Status DC Fluticasone Propionate (Flonase) 2 spray DAILY NS Last administered on at 09:10; Start 12/09/18 at 09:00 Dicyclomine HCl (Bentyl) 10 mg TID PO Last administered on 12/15/18at 09:10; Start 12/09/18 at 14:00 Pantoprazole Sodium (Protonix) 40 mg DAILYAC PO Last administered on 12/15/18at 05:27; Start 12/09/18 at 13:30 Non-Formulary Medication (Lisinopril/ Hydrochlorothiazide (Lisinopril-Hctz 20- 12.5 Mg Tab)) 1 tab DAILY PO ; Start 12/10/18 at 09:00; Status UNV Lisinopril (Prinivil) 20 mg DAILY PO ; Start 12/09/18 at 13:30 Hydrochlorothiazide (Microzide) 12.5 mg DAILY PO ; Start 12/09/18 at 13:30 Calcium Carbonate/ Glycine (Tums) 1,000 mg PRN AFTMEALHC PRN PO INDIGESTION Last administered on 12/09/18at 21:52; Start 12/09/18 at 21:45 Prochlorperazine Edisylate (Compazine) 10 mg PRN Q6HRS PRN IV NAUSEA/VOMITING 2ND CHOICE Last administered on 12/10/18at 09:11; Start 12/09/18 at 23:45 Enalaprilat (Vasotec Inj) 1.25 mg PRN Q6HRS PRN IVP HYPERTENSION, SEE COMMENTS ; Start 12/10/18 at 09:15 Info (Tpn Per Pharmacy) 1 each PRN DAILY PRN MC SEE COMMENTS Last administered on 12/13/18at 12:17; Start 12/10/18 at 09:15; Stop 12/13/18 at 16:49; Status DC Sodium Chloride 90 meq/Potassium Chloride 50 meq/ Potassium Phosphate 13.6 mmol/ Magnesium Sulfate 20 meq/ Calcium Gluconate 10 meq/ Multivitamins 10 ml/Chromium / Copper/Manganese/ Seleni/Zn 1 ml/ Total Parenteral Nutrition/Amino Acids/ Dextrose/ Fat Emulsion Intravenous 1,512 ml @ 63 mls/hr TPN CONT IV Last administered on 12/10/18at 22:19; Start 12/10/18 at 22:00; Stop 12/11/18 at 21:59 ; Status DC Famotidine (Pepcid Vial) 20 mg 1X ONCE IVP Last administered on 12/10/18at 17: 01; Start 12/10/18 at 15:30; Stop 12/10/18 at 15:31; Status DC Magnesium Sulfate/ Dextrose 100 ml @ 100 mls/hr 1X ONCE IV Last administered on 12/10/18at 15:57; Start 12/10/18 at 15:30; Stop 12/10/18 at 16:29; Status DC Lidocaine/Sodium Bicarbonate (Buffered Lidocaine 1%) 3 ml 1X ONCE INJ ; Start 12/10/18 at 15:30; Stop 12/10/18 at 15:31; Status DC Lidocaine/Sodium Bicarbonate (Buffered Lidocaine 1%) 3 ml STK-MED ONCE .ROUTE ; Start 12/10/18 at 15:33; Stop 12/10/18 at 15:34; Status DC Lidocaine/Sodium Bicarbonate (Buffered Lidocaine 1%) 4 ml 1X ONCE INJ Last administered on 12/10/18at 16:37; Start 12/10/18 at 16:30; Stop 12/10/18 at 16:31 ; Status DC Iohexol (Omnipaque 350 Mg/ml) 100 ml 1X ONCE IV Last administered on at 17:30; Start 12/10/18 at 17:15; Stop 12/10/18 at 17:16; Status DC Info (CONTRAST GIVEN -- Rx MONITORING) 1 each PRN DAILY PRN MC SEE COMMENTS; Start 12/10/18 at 17:30; Stop 12/12/18 at 17:29; Status DC Sodium Chloride 90 meq/Potassium Chloride 50 meq/ Potassium Phosphate 13.6 mmol/ Magnesium Sulfate 12 meq/ Calcium Gluconate 10 meq/ Multivitamins 10 ml/Chromium / Copper/Manganese/ Seleni/Zn 1 ml/ Total Parenteral Nutrition/Amino Acids/ Dextrose/ Fat Emulsion Intravenous 1,512 ml @ 63 mls/hr TPN CONT IV Last administered on 12/11/18at 22:24; Start 12/11/18 at 22:00; Stop 12/12/18 at 21:59 ; Status DC Acetaminophen/ Hydrocodone Bitart (Lortab 5/325) 1 tab PRN Q4HRS PRN PO PAIN Last administered on 12/15/18at 03:26; Start 12/11/18 at 14:30 Morphine Sulfate (Morphine Sulfate) 2 mg PRN Q2HR PRN IV PAIN Last administered on 12/12/18at 08:56; Start 12/11/18 at 14:30; Stop 12/14/18 at 14:59 ; Status DC Sodium Chloride 90 meq/Potassium Chloride 50 meq/ Potassium Phosphate 13.6 mmol/ Magnesium Sulfate 12 meq/ Calcium Gluconate 10 meq/ Multivitamins 10 ml/Chromium / Copper/Manganese/ Seleni/Zn 1 ml/ Total Parenteral Nutrition/Amino Acids/ Dextrose/ Fat Emulsion Intravenous 1,512 ml @ 63 mls/hr TPN CONT IV Last administered on 12/12/18at 23:27; Start 12/12/18 at 22:00; Stop 12/13/18 at 16:47 ; Status DC Sodium Chloride 90 meq/Potassium Chloride 50 meq/ Potassium Phosphate 13.6 mmol/ Magnesium Sulfate 12 meq/ Calcium Gluconate 10 meq/ Multivitamins 10 ml/Chromium / Copper/Manganese/ Seleni/Zn 1 ml/ Total Parenteral Nutrition/Amino Acids/ Dextrose/ Fat Emulsion Intravenous 1,512 ml @ 63 mls/hr TPN CONT IV ; Start at 22:00; Stop 12/13/18 at 22:00; Status DC Active Scripts Active Hydrocodone-Apap 5-325 (Hydrocodone Bit/Acetaminophen) 1 Tab Tablet 1 Tab PO PRN Q4HRS PRN 30 Days Reported Lisinopril-Hctz 20-12.5 Mg Tab (Lisinopril/Hydrochlorothiazide) 1 Each Tablet 1 Tab PO DAILY Dicyclomine Hcl 10 Mg Capsule 1 Cap PO TID Metformin Hcl 500 Mg Tablet 500 Mg PO BIDWMEALS Flonase Allergy Relief (Fluticasone Propionate) 9.9 Ml [place].susp 2 Sprays NS DAILY Pantoprazole Sodium 40 Mg Tablet. 1 Tab PO DAILY Vitals/I & O Vital Sign - Last 24 Hours 12/14/18 12/14/18 12/14/18 12/14/18 19:00 19:20 19:30 23:00 Temp 98.7 98.5 98.7 98.5 Pulse 69 68 Resp 16 16 16 B/P (MAP) 119/67 (84) 114/67 (83) Pulse Ox 96 98 98 O2 Delivery Room Air Room Air Room Air Room Air 12/15/18 12/15/18 12/15/18 12/15/18 03:00 03:26 04:26 07:00 Temp 98.4 97.7 98.4 97.7 Pulse 81 Resp 18 18 16 16 B/P (MAP) 134/76 (95) 109/67 (81) Pulse Ox 98 97 98 96 O2 Delivery Room Air Room Air Room Air Room Air 12/15/18 12/15/18 08:00 09:00 Pulse 81 B/P (MAP) 109/67 O2 Delivery Room Air Intake and Output 12/14/18 12/14/18 12/15/18 15:00 23:00 07:00 Intake Total 600 ml 200 ml Output Total 800 ml 150 ml Balance -800 ml 450 ml 200 ml ASTRID DURAN MD Dec 15, 2018 15:58
--- NOTE | 2018-12-15 16:04 | NUR ---
Discharge Note: GAURAV DEAL Discharge instructions and discharge home medications reviewed with Patient and a copy given. All questions have been answered and understanding verbalized. PICC line removed and pressure dressing applied. PT given ileostomy education and verbalized understanding.
--- NOTE | 2018-12-15 16:11 | NUR ---
SS following up with discharge planning. Referral for home healthcare was phoned and faxed to [facility], ; fax [phone].
[2018-12-23] MEDS ORDERED: AMOX1TAB61 PO (12:34)
[2019-01-02] MEDS ORDERED: Pantoprazole PO (14:44)
[2019-01-02] MEDS ORDERED: ONDA4VIA7 IV (14:44)
== END 2018-12-15 16:05 | disposition home health service (06) | DRG 329 ==
LOC: SURG 07:25 → 4 NORTH 14:52 → 2 NORTH 12-10 15:41
PROVIDERS: ADMIT Surgery; ATTEND Surgery
PROC: 0D1B0Z4 Bypass Ileum to Cutaneous, Open Approach (ICD-10-PCS; 2018-12-07)
PROC: 0UQG0ZZ Repair Vagina, Open Approach (ICD-10-PCS; 2018-12-07)
PROC: 0DJD8ZZ Inspection of Lower Intestinal Tract, Via Natural or Artificial Opening Endoscopic (ICD-10-PCS; 2018-12-07)
PROC: 0T9B80Z Drainage of Bladder with Drainage Device, Via Natural or Artificial Opening Endoscopic (ICD-10-PCS; 2018-12-07)
PROC: 0DN80ZZ Release Small Intestine, Open Approach (ICD-10-PCS; principal; 2018-12-07 09:00)
PROC: 0DTN0ZZ Resection of Sigmoid Colon, Open Approach (ICD-10-PCS; 2018-12-07 09:00)
PROC: 02HV33Z Insertion of Infusion Device into Superior Vena Cava, Percutaneous Approach (ICD-10-PCS; 2018-12-10)
PROC: B5181ZA Fluoroscopy of Superior Vena Cava using Low Osmolar Contrast, Guidance (ICD-10-PCS; 2018-12-10)
PROC: B548ZZA Ultrasonography of Superior Vena Cava, Guidance (ICD-10-PCS; 2018-12-10)
DX: K57.00 Diverticulitis of small intestine with perforation and abscess without bleeding (principal); E43 Unspecified severe protein-calorie malnutrition; N82.3 Fistula of vagina to large intestine; K56.699 Other intestinal obstruction unspecified as to partial versus complete obstruction; I47.1 Supraventricular tachycardia; Z53.31 Laparoscopic surgical procedure converted to open procedure; Z93.3 Colostomy status; E11.65 Type 2 diabetes mellitus with hyperglycemia; E11.22 Type 2 diabetes mellitus with diabetic chronic kidney disease; E66.01 Morbid (severe) obesity due to excess calories; I12.9 Hypertensive chronic kidney disease with stage 1 through stage 4 chronic kidney disease, or unspecified chronic kidney disease; K21.9 Gastro-esophageal reflux disease without esophagitis; K66.0 Peritoneal adhesions (postprocedural) (postinfection); M19.019 Primary osteoarthritis, unspecified shoulder; N18.3 Chronic kidney disease, stage 3 (moderate); Z80.3 Family history of malignant neoplasm of breast; Z82.3 Family history of stroke; Z82.49 Family history of ischemic heart disease and other diseases of the circulatory system; Z90.710 Acquired absence of both cervix and uterus; Z68.34 Body mass index [BMI] 34.0-34.9, adult; Z88.2 Allergy status to sulfonamides; Z88.8 Allergy status to other drugs, medicaments and biological substances; Z79.899 Other long term (current) drug therapy; Z90.49 Acquired absence of other specified parts of digestive tract
CPT/HCPCS: 36415; 36569; 71275; 74018; 76937; 77001; 80048; 80053; 80061; 82962; 83735; 84100; 84484; 85007; 85025; 85027; 88307; 93005; 93306; A7015; C1751; C1892; C2617; J0330; J0610; J0694; J0780; J1170; J1650; J1815; J1885; J2001; J2270; J2405; J2704; J2710; J3010; J3475; J3480; J3490; J7030; J7120; Q9967; 97110; 97116; 97530; 97535; A4461; C1769

== ENCOUNTER → 2018-12-17 | Outpatient (CLI) | payer MEDICARE, OTHER ==
[2018-12-15 11:00] VITALS: BP 116/74
[~2018-12-17] MED LIST changes: +AMOX1TAB61 PO; +FERR325T72 PO; +HYDR-2761 PO; -LIDOCAINE 1% PF 2 ML VIAL. ID PRN; -MORPHINE SULFATE 2 MG/ML VIAL. IV PRN; +ONDA4TAB12 PO; +ONDA4VIA7 IV; -ONDANSETRON PF 4 MG/2 ML VIAL. IV PRN; +Pantoprazole PO; -fentaNYL PF VIAL 100 MCG/2 ML VIAL IV PRN
== END | disposition home or self-care (01) ==
LOC: PMGWOUND 10:19
PROVIDERS: ATTEND Preventive Medicine Undersea and Hyperbaric Medicine
DX: K94.00 Colostomy complication, unspecified (principal); E11.65 Type 2 diabetes mellitus with hyperglycemia; I12.9 Hypertensive chronic kidney disease with stage 1 through stage 4 chronic kidney disease, or unspecified chronic kidney disease; E11.22 Type 2 diabetes mellitus with diabetic chronic kidney disease; N18.3 Chronic kidney disease, stage 3 (moderate); M19.019 Primary osteoarthritis, unspecified shoulder; K21.9 Gastro-esophageal reflux disease without esophagitis; E66.01 Morbid (severe) obesity due to excess calories; Z68.33 Body mass index [BMI] 33.0-33.9, adult; Z79.899 Other long term (current) drug therapy; Z90.710 Acquired absence of both cervix and uterus; Z90.49 Acquired absence of other specified parts of digestive tract; F41.9 Anxiety disorder, unspecified
CPT/HCPCS: 99213; G0463

== ENCOUNTER 2018-12-21 04:07 | Inpatient (IN) | payer MEDICARE, OTHER ==
[~2018-12-21] VITALS: Ht 152.4 cm; Wt 68.9 kg
[2018-12-21] VITALS (17 sets, daily range): BP systolic 82–109; BP diastolic 43–69
[~2018-12-21 04:07] MED LIST changes: -AMOX1TAB61 PO; -FERR325T72 PO; -ONDA4TAB12 PO; -ONDA4VIA7 IV; -Pantoprazole PO
[2018-12-21] MEDS ORDERED: IV NORMAL SALINE 1000ML BAG 1,000 ML IV ONE ×2 (04:30→05:00)
[2018-12-21] MEDS ORDERED: FAMOTIDINE 20 MG/2 ML VIAL IVP ONE (04:30)
[2018-12-21] MEDS ORDERED: ONDANSETRON PF 4 MG/2 ML VIAL. IV ONE (04:30)
[2018-12-21 04:44] LABS: BASO # 0.1 x10^3/uL (0.0-0.2); BASO % 1 % (0-3); EOS % 0 % (0-3); HEMATOCRIT 37.7 % (36.0-47.0); HEMOGLOBIN 12.3 g/dL (12.0-15.5); LYMPH # 2.1 x10^3/uL (1.0-4.8); LYMPH % 15 % (24-48); MEAN CORPUSCULAR HEMOGLOBIN 26 pg (25-35); MEAN CORPUSCULAR HGB CONC 33 g/dL (31-37); MEAN CORPUSCULAR VOLUME 80 fL (79-100); MONO # 0.9 x10^3/uL (0.0-1.1); MONO % 7 % (0-9); NEUT # 10.6 x10^3uL (1.8-7.7); NEUT % 77 % (31-73); PLATELET COUNT 536 x10^3/uL (140-400); RED BLOOD COUNT 4.74 x10^6/uL (3.50-5.40); RED CELL DISTRIBUTION WIDTH 16.5 % (11.5-14.5); WHITE BLOOD COUNT 13.8 x10^3/uL (4.0-11.0)
[2018-12-21 04:52] LABS: CALCIUM 9.6 mg/dL (8.5-10.1); CREATININE 2.3 mg/dL (0.6-1.0); GFR 25.4; POTASSIUM 4.6 mmol/L (3.5-5.1)
[2018-12-21 05:00] LABS: PROTHROMBIN TIME PATIENT 13.3 SEC (11.7-14.0)
[2018-12-21 05:07] LABS: ALBUMIN/GLOBULIN RATIO 0.6 (1.0-1.7); MAGNESIUM 1.6 mg/dL (1.8-2.4); TOTAL BILIRUBIN 0.3 mg/dL (0.2-1.0); TOTAL PROTEIN 8.2 g/dL (6.4-8.2)
--- NOTE | 2018-12-21 05:13 | PHYS DOC ---
Past Medical History Past Medical History: Diabetes-Type II, Diverticulitis, GERD, Hypertension Past Surgical History: Colectomy (with Ileostomy), Hysterectomy, Other Additional Past Surgical Histo: BILAT BUNION REMOVAL Alcohol Use: None Drug Use: None Adult General Chief Complaint Chief Complaint: ABDOMINAL PAIN HPI HPI 68-year-old female presents with report of headache, nausea and vomiting, and dizziness which started early this morning at 0100. Patient reports generalized weakness. Patient does have history of recent colectomy with ileostomy secondary to diverticulitis which was performed by Dr. Irvin on 12/07/2018. She does report dizziness worse with position change. Denies fever. Denies known sick contacts. Patient does report good ostomy output. Denies known trauma. Denies neck pain. Review of Systems Review of Systems Constitutional: Denies fever or chills; reports generalized malaise Eyes: Denies change in visual acuity, redness, or eye pain [] HENT: Denies nasal congestion or sore throat [] Respiratory: Denies cough or shortness of breath [] Cardiovascular: Denies chest pain or palpitations GI: Reports some abdominal pain with associated nausea and vomiting : Denies dysuria or hematuria [] Musculoskeletal: Denies back pain or joint pain [] Integument: Denies rash or skin lesions [] Neurologic: Reports headache; denies focal weakness or sensory changes [] Complete systems were reviewed and found to be within normal limits, except as documented in this note. Current Medications Current Medications Current Medications Medications (Trade) Dose Ordered Sig/Werner Start Time Stop Time Status Last Admin Dose Admin Acetaminophen (Tylenol) 650 mg PRN Q4HRS PRN 12/21/18 05:15 12/22/18 05:14 Famotidine (Pepcid Vial) 20 mg 1X ONCE 12/21/18 04:30 12/21/18 04:31 DC 12/21/18 04:48 20 MG Fentanyl Citrate (Fentanyl 2ml Vial) 25 mcg PRN Q2HRS PRN 12/21/18 05:15 Ondansetron HCl (Zofran) 4 mg PRN Q8HRS PRN 12/21/18 05:15 12/22/18 05:14 Sodium Chloride 1,000 ml @ 1,000 mls/hr 1X ONCE 12/21/18 05:00 12/21/18 05:59 DC 12/21/18 05:42 1,000 MLS/HR Vancomycin HCl (Vanco Per Pharmacy) 1 each PRN DAILY PRN 12/21/18 05:15 Allergies Allergies Allergies Coded Allergies Type Severity Reaction Last Updated Verified ciprofloxacin Allergy Intermediate 12/07/18 Yes sulfamethoxazole Allergy Intermediate 12/21/18 Yes trimethoprim Allergy Intermediate 12/21/18 Yes naproxen Adverse Reaction Severe gastric bleeding 12/07/18 Yes tizanidine Adverse Reaction Intermediate N/V 12/07/18 Yes Physical Exam Physical Exam Constitutional: Well developed, well nourished,, appears uncomfortable HENT: Normocephalic, atraumatic, oropharynx tacky Eyes: PERRL, EOMI, conjunctiva normal, no discharge. [] Neck: Normal range of motion, no tenderness, supple, no meningeal signs Cardiovascular: Tachycardia, Refill less than 2 seconds Lungs & Thorax: Bilateral breath sounds clear to auscultation; no wheezes, rhonchi, or rails Abdomen: Soft, diffuse tenderness, ileostomy bag in place, healing vertical abdominal wound noted Skin: Warm, dry, no erythema, no rash. [] Extremities: No tenderness, ROM intact, no edema. [] Neurologic: Alert and oriented X 3, normal motor function, normal sensory function, no focal deficits noted. [] Psychologic: Affect normal, judgement normal, mood normal. [] Current Patient Data Vital Signs Vital Signs Date Time Temp Pulse Resp B/P (MAP) Pulse Ox O2 Delivery O2 Flow Rate FiO2 12/21/18 04:20 97.4 110 19 71/51 (58) 98 Room Air 97.4 Lab Values Laboratory Tests Test 12/21/18 04:32 White Blood Count 13.8 x10^3/uL (4.0-11.0) H Red Blood Count 4.74 x10^6/uL (3.50-5.40) Hemoglobin 12.3 g/dL (12.0-15.5) Hematocrit 37.7 % (36.0-47.0) Mean Corpuscular Volume 80 fL (79-100) Mean Corpuscular Hemoglobin 26 pg (25-35) Mean Corpuscular Hemoglobin Concent 33 g/dL (31-37) Red Cell Distribution Width 16.5 % (11.5-14.5) H Platelet Count 536 x10^3/uL (140-400) H Neutrophils (%) (Auto) 77 % (31-73) H Lymphocytes (%) (Auto) 15 % (24-48) L Monocytes (%) (Auto) 7 % (0-9) Eosinophils (%) (Auto) 0 % (0-3) Basophils (%) (Auto) 1 % (0-3) Neutrophils # (Auto) 10.6 x10^3uL (1.8-7.7) H Lymphocytes # (Auto) 2.1 x10^3/uL (1.0-4.8) Monocytes # (Auto) 0.9 x10^3/uL (0.0-1.1) Eosinophils # (Auto) 0.0 x10^3/uL (0.0-0.7) Basophils # (Auto) 0.1 x10^3/uL (0.0-0.2) Prothrombin Time 13.3 SEC (11.7-14.0) Prothrombin Time INR 1.0 (0.8-1.1) PTT 24 SEC (24-38) Sodium Level 124 mmol/L (136-145) L Potassium Level 4.6 mmol/L (3.5-5.1) Chloride Level 86 mmol/L (98-107) L Carbon Dioxide Level 24 mmol/L (21-32) Anion Gap 14 (6-14) Blood Urea Nitrogen 16 mg/dL (7-20) Creatinine 2.3 mg/dL (0.6-1.0) H Estimated GFR (Cockcroft-Gault) 25.4 BUN/Creatinine Ratio 7 (6-20) Glucose Level 216 mg/dL (70-99) H Lactic Acid Level 3.6 mmol/L (0.4-2.0) H Calcium Level 9.6 mg/dL (8.5-10.1) Magnesium Level 1.6 mg/dL (1.8-2.4) L Total Bilirubin 0.3 mg/dL (0.2-1.0) Aspartate Amino Transferase (AST) 30 U/L (15-37) Alanine Aminotransferase (ALT) 33 U/L (14-59) Alkaline Phosphatase 71 U/L (46-116) Creatine Kinase 42 U/L (26-192) Creatine Kinase MB (Mass) 0.6 ng/mL (0.0-3.6) Creatine Kinase MB Relative Index % (0-4) Troponin I Quantitative < 0.017 ng/mL (0.000-0.055) Total Protein 8.2 g/dL (6.4-8.2) Albumin 3.0 g/dL (3.4-5.0) L Albumin/Globulin Ratio 0.6 (1.0-1.7) L Lipase 1278 U/L (73-393) H Ethyl Alcohol Level < 10 mg/dL (0-10) Laboratory Tests 12/21/18 04:32 Laboratory Tests 12/21/18 04:32 EKG EKG @0421 Sinus tachycardia at 104bpm, wandering baseline due to patient's respiratory effort. NO ST elevation Radiology/Procedures Radiology/Procedures PROCEDURE: CT ABDOMEN PELVIS WO CONTRAST CT abdomen pelvis without contrast dated 12/21/2018. Comparison made to 07/30/2018. CLINICAL INDICATION: Abdominal pain. Postop resection. TECHNIQUE: Contiguous axial imaging of the abdomen and pelvis performed without the administration of IV or oral contrast. One or more of the following individualized dose reduction techniques were utilized for this examination: 1. Automated exposure control 2. Adjustment of the mA and/or kV according to patient size 3. Use of iterative reconstruction technique. FINDINGS: Limited images of lung bases are clear. Heart size upper limits of normal. No pleural or pericardial effusion. Small hiatal hernia. Solid abdominal viscera not well evaluated in the absence of contrast material. No apparent attenuation abnormality of the liver or spleen. No biliary ductal dilatation. Gallbladder unremarkable. Small amount of perihepatic and perisplenic ascites. Pancreas, adrenal glands and kidneys are unremarkable. There is a well-defined low-density focus at the mid to upper pole left kidney, most consistent with cysts, unchanged. No stone or hydronephrosis. There has been interval small bowel resection with right lower quadrant ostomy. There are loops of small bowel in the left upper quadrant that are dilated and show circumferential circumferential wall thickening. Mild inflammatory stranding in the mesenteric fat. Distal small bowel loops are relatively collapsed. No pneumoperitoneum. Images of pelvis show nondistended urinary bladder. Uterus is surgically absent. There is a small pocket of fluid within the right pelvis that measures up to 5.6 cm, located along the margins of a collapsed urinary bladder. No pelvic lymphadenopathy. Bone windows show no acute findings. Mild multilevel spondylosis. IMPRESSION: 1. Interval small bowel resection with right lower quadrant ostomy. 2. There are dilated thickened loops of proximal small bowel with relative distal small bowel collapse. This could be related to enteritis or postoperative ileus. A partial small bowel obstruction is not excluded. 3. Small amount of ascites with loculated pocket of fluid in the low right pelvis measuring up to 5.6 cm in size. This could represent postoperative seroma or hematoma. Abscess considered less likely. Electronically signed by: Marquise French MD (12/21/2018 5:53 AM) [facility] [id number] PROCEDURE: CT HEAD WO CONTRAST CT head without contrast dated 12/21/2018. No comparison available. CLINICAL INDICATION: Headache. TECHNIQUE: Contiguous axial imaging the head was performed from skull base to vertex. No contrast administered. FINDINGS: Ventricles and sulci are within normal limits for age. No midline shift or mass effect. Mild patchy low density in the deep/subcortical periventricular white matter. No hemorrhage or extra-axial collection. Posterior fossa and brainstem unremarkable. Visualized paranasal sinuses and mastoid air cells are clear. No apparent calvarial abnormality. IMPRESSION: No evidence of acute intracranial abnormality. Electronically signed by: Marquise French MD (12/21/2018 5:39 AM) [facility] [id number] Course & Med Decision Making Course & Med Decision Making Pertinent Labs and Imaging studies reviewed. (See chart for details) Patient presents with history of recent colectomy with ileostomy secondary to diverticulitis. Patient now with N/V and dizziness. Patient tachycardic and with hypotension. SIRS criteria met with tachycardia and leukocytosis. Lactic acid significantly elevated. Lipase also significantly elevated. Hyponatremia and acute renal insufficiency also noted. Sepsis bolus of 30ml/kg provided. Empiric antibiotics given with Zosyn and Vancomycin. CT head without acute process. CT abd/pelvis with possible postoperative ileus and area concerning for seroma or hematoma. However cannot fully exclude abscess. Patient requiring admission for further evaluation and treatment. Discussed with Dr. Null (PCP) who is in agreement with ICU admission. Discussed case with Dr. Maurer covering for Dr. Irvin (Gen. surgery) who is in agreement with consult. Discussed findings and plan with patient and family, who acknowledge understanding and agreement. Dragon Disclaimer Dragon Disclaimer This electronic medical record was generated, in whole or in part, using a voice recognition dictation system. Departure Departure Impression: Primary Impression: Severe sepsis Additional Impressions: Pancreatitis Hypomagnesemia Hyponatremia Renal insufficiency Postoperative ileus Abdominal fluid collection Disposition: ADMITTED INPATIENT (ICU) Admitting Physician: Marquise Null Condition: GUARDED Referrals: MARQUISE NULL MD (PCP) Critical Care Time Critical care time was 30 minutes which includes time at bedside, spent in discussion of patient's care with specialists and/or family members, with interpretation of laboratory and/or radiological studies and is exclusive of procedures. Problem Qualifiers Additional Impressions: Pancreatitis Chronicity: acute Pancreatitis type: unspecified pancreatitis type Acute pancreatitis complication: unspecified Qualified Codes: K85.90 - Acute pancreatitis without necrosis or infection, unspecified MARQUISE BURCIAGA DO Dec 21, 2018 05:12
[2018-12-21 05:15] LABS: CREATINE KINASE 42 U/L (26-192)
[2018-12-21] MEDS ORDERED: ACETAMINOPHEN 325 MG TABLET. PO PRN (05:15)
[2018-12-21] MEDS ORDERED: ONDANSETRON PF 4 MG/2 ML VIAL. IV PRN ×2 (05:15→09:30)
[2018-12-21] MEDS ORDERED: VANCOMYCIN PER PHARMACY MC PRN (05:15)
[2018-12-21] MEDS ORDERED: IV NORMAL SALINE 500ML BAG 500 ML IV ONE (05:30)
[2018-12-21] MEDS ORDERED: PIPERACILLIN/TAZOBACTAM 3.375 GM in IV NORMAL SALINE 50ML 50 ML IV ONE (05:30)
[2018-12-21] MEDS ORDERED: MAGNESIUM SULFATE 2GM 50 ML IV ONE (05:30)
[2018-12-21] MEDS ORDERED: fentaNYL PF VIAL 100 MCG/2 ML VIAL IV ONE (05:30)
--- NOTE | 2018-12-21 05:43 | RAD ---
CT head without contrast dated 12/21/2018. No comparison available. CLINICAL INDICATION: Headache. TECHNIQUE: Contiguous axial imaging the head was performed from skull base to vertex. No contrast administered. FINDINGS: Ventricles and sulci are within normal limits for age. No midline shift or mass effect. Mild patchy low density in the deep/subcortical periventricular white matter. No hemorrhage or extra-axial collection. Posterior fossa and brainstem unremarkable. Visualized paranasal sinuses and mastoid air cells are clear. No apparent calvarial abnormality. IMPRESSION: No evidence of acute intracranial abnormality. Electronically signed by: Marquise French MD (12/21/2018 5:39 AM) [email or web address]
--- NOTE | 2018-12-21 05:56 | RAD ---
CT abdomen pelvis without contrast dated 12/21/2018. Comparison made to 07/30/2018. CLINICAL INDICATION: Abdominal pain. Postop resection. TECHNIQUE: Contiguous axial imaging of the abdomen and pelvis performed without the administration of IV or oral contrast. One or more of the following individualized dose reduction techniques were utilized for this examination: 1. Automated exposure control 2. Adjustment of the mA and/or kV according to patient size 3. Use of iterative reconstruction technique. FINDINGS: Limited images of lung bases are clear. Heart size upper limits of normal. No pleural or pericardial effusion. Small hiatal hernia. Solid abdominal viscera not well evaluated in the absence of contrast material. No apparent attenuation abnormality of the liver or spleen. No biliary ductal dilatation. Gallbladder unremarkable. Small amount of perihepatic and perisplenic ascites. Pancreas, adrenal glands and kidneys are unremarkable. There is a well-defined low-density focus at the mid to upper pole left kidney, most consistent with cysts, unchanged. No stone or hydronephrosis. There has been interval small bowel resection with right lower quadrant ostomy. There are loops of small bowel in the left upper quadrant that are dilated and show circumferential circumferential wall thickening. Mild inflammatory stranding in the mesenteric fat. Distal small bowel loops are relatively collapsed. No pneumoperitoneum. Images of pelvis show nondistended urinary bladder. Uterus is surgically absent. There is a small pocket of fluid within the right pelvis that measures up to 5.6 cm, located along the margins of a collapsed urinary bladder. No pelvic lymphadenopathy. Bone windows show no acute findings. Mild multilevel spondylosis. IMPRESSION: 1. Interval small bowel resection with right lower quadrant ostomy. 2. There are dilated thickened loops of proximal small bowel with relative distal small bowel collapse. This could be related to enteritis or postoperative ileus. A partial small bowel obstruction is not excluded. 3. Small amount of ascites with loculated pocket of fluid in the low right pelvis measuring up to 5.6 cm in size. This could represent postoperative seroma or hematoma. Abscess considered less likely. Electronically signed by: Marquise French MD (12/21/2018 5:53 AM) [facility]
[2018-12-21] MEDS ORDERED: VANCOMYCIN 1.5 GM in IV NORMAL SALINE 500ML BAG 500 ML IV ONE (06:00)
--- NOTE | 2018-12-21 08:13 | PDOC2 ---
FERNANDO GORMAN MOLDER [employer]TING 12/21/18 0813: CONSULT Date of Consult Date of Consult DATE: 12/21/18 TIME: 08:07 Reason for Consult Reason for Consult: recent surgery Referring Physician Referring Physician: ER Identification/Chief Complaint Chief Complaint vomiting Source Source: Chart review, Patient History of Present Illness Reason for Visit: Patient underwent Laparoscopic converted to open exploration, lysis of adhesions (extensive), takedown of splenic flexure, sigmoid colectomy with protecting loop ileostomy, repair of vaginal cuff on 12/07/[address] Irvin for a colovaginal fistula, diverticulitis, colonic stricture. She discharged home . The next day she began feeling nausea. Yesterday increased nausea, emesis, and lightheaded. ostomy has continued to function. Abdominal pain has been minimal Past Medical History Cardiovascular: HTN GI: Diverticulosis, Other Hepatobiliary: Cholelithiasis Musculoskeletal: Osteoarthritis Renal/: Chronic renal insuff Endocrine: Diabetes Past Surgical History Past Surgical History: Appendectomy, Hysterectomy, Other Family History Family History: Coronary Artery Disease, Stroke Social History ALCOHOL: none Drugs: None Lives: with Family Current Problem List Problem List Problems Medical Problems: (1) Abdominal fluid collection Status: Acute (2) Hypomagnesemia Status: Acute (3) Hyponatremia Status: Acute (4) Pancreatitis Status: Acute (5) Renal insufficiency Status: Acute (6) Severe sepsis Status: Acute Current Medications Current Medications Current Medications Ondansetron HCl (Zofran) 4 mg 1X ONCE IV Last administered on 12/21/18at 04:44; Start 12/21/18 at 04:30; Stop 12/21/18 at 04:31; Status DC Famotidine (Pepcid Vial) 20 mg 1X ONCE IVP Last administered on 12/21/18at 04:48 ; Start 12/21/18 at 04:30; Stop 12/21/18 at 04:31; Status DC Sodium Chloride 1,000 ml @ 1,000 mls/hr 1X ONCE IV Last administered on at 04:43; Start 12/21/18 at 04:30; Stop 12/21/18 at 05:29; Status DC Sodium Chloride 1,000 ml @ 1,000 mls/hr 1X ONCE IV Last administered on at 05:42; Start 12/21/18 at 05:00; Stop 12/21/18 at 05:59; Status DC Fentanyl Citrate (Fentanyl 2ml Vial) 25 mcg 1X ONCE IV ; Start 12/21/18 at 05:30 ; Stop 12/21/18 at 05:31; Status DC Piperacillin Sod/ Tazobactam Sod 3.375 gm/Sodium Chloride 50 ml @ 100 mls/hr 1X ONCE IV Last administered on 12/21/18at 06:19; Start 12/21/18 at 05:30; Stop 12/21/18 at 05:59; Status DC Sodium Chloride 500 ml @ 500 mls/hr 1X ONCE IV Last administered on 12/21/18at 05:43; Start 12/21/18 at 05:30; Stop 12/21/18 at 06:29; Status DC Vancomycin HCl 1.5 gm/Sodium Chloride 500 ml @ 250 mls/hr 1X ONCE IV Last administered on 12/21/18at 08:02; Start 12/21/18 at 06:00; Stop 12/21/18 at 07:59; Status DC Magnesium Sulfate 50 ml @ 25 mls/hr 1X ONCE IV Last administered on 12/21/18at 08:02; Start 12/21/18 at 05:30; Stop 12/21/18 at 07:29; Status DC Vancomycin HCl (Vanco Per Pharmacy) 1 each PRN DAILY PRN MC SEE COMMENTS; Start 12/21/18 at 05:15 Ondansetron HCl (Zofran) 4 mg PRN Q8HRS PRN IV NAUSEA/VOMITING 1ST CHOICE; Start 12/21/18 at 05:15; Stop 12/22/18 at 05:14 Fentanyl Citrate (Fentanyl 2ml Vial) 25 mcg PRN Q2HRS PRN IV SEVERE PAIN; Start 12/21/18 at 05:15 Acetaminophen (Tylenol) 650 mg PRN Q4HRS PRN PO FEVER; Start 12/21/18 at 05:15; Stop 12/22/18 at 05:14 Active Scripts Active Hydrocodone-Apap 5-325 (Hydrocodone Bit/Acetaminophen) 1 Tab Tablet 1 Tab PO PRN Q4HRS PRN 30 Days Reported Lisinopril-Hctz 20-12.5 Mg Tab (Lisinopril/Hydrochlorothiazide) 1 Each Tablet 1 Tab PO DAILY Dicyclomine Hcl 10 Mg Capsule 1 Cap PO TID Metformin Hcl 500 Mg Tablet 500 Mg PO BIDWMEALS Flonase Allergy Relief (Fluticasone Propionate) 9.9 Ml [place].susp 2 Sprays NS DAILY Pantoprazole Sodium 40 Mg Tablet.dr 1 Tab PO DAILY Allergies Allergies: Coded Allergies: ciprofloxacin (Verified Allergy, Intermediate, 12/07/18) sulfamethoxazole (Verified Allergy, Intermediate, 12/21/18) trimethoprim (Verified Allergy, Intermediate, 12/21/18) naproxen (Verified Adverse Reaction, Severe, gastric bleeding, 12/07/18) tizanidine (Verified Adverse Reaction, Intermediate, N/V, 12/07/18) ROS General: YES: Malaise; No: Chills PSYCHOLOGICAL ROS: No: Anxiety, Depression Eyes: No Blurry vision, No Double vision HEENT: No: Heacaches, Sore Throat Hematological and Lymphatic: No: Bleeding Problems, Blood Clots Respiratory: No: Cough, Shortness of breath Cardiovascular: No Chest Pain, No Palpitations Gastrointestinal: Yes Other (see hpi) Genitourinary: No Dysuria, No Hematuria Musculoskeletal: Yes Muscular Weakness; No Joint Pain Neurological: Yes Impaired Coord/balance; No Numbness/Tingling Skin: No Pruritus, No Rash Physical Exam General: Alert, Oriented X3, Cooperative, No acute distress HEENT: PERRLA, Mucous membr. moist/pink Lungs: Clear to auscultation, Normal air movement Heart: Regular rate, Normal S1, Normal S2, No murmurs Abdomen: Soft, Other (ND, ostomy with stool, NTTP) Extremities: No clubbing, No cyanosis Skin: No rashes, No breakdown Neuro: Normal gait, Normal speech Psych/Mental Status: Mental status NL, Mood NL MUSCULOSKELETAL: No deformity, No swelling Vitals VITALS Vital Signs Date Time Temp Pulse Resp B/P (MAP) Pulse Ox O2 Delivery O2 Flow Rate FiO2 12/21/18 06:45 90 24 107/70 (82) 98 Room Air 12/21/18 04:20 97.4 97.4 Labs Labs Laboratory Tests Test 12/21/18 04:32 White Blood Count 13.8 x10^3/uL (4.0-11.0) Red Blood Count 4.74 x10^6/uL (3.50-5.40) Hemoglobin 12.3 g/dL (12.0-15.5) Hematocrit 37.7 % (36.0-47.0) Mean Corpuscular Volume 80 fL (79-100) Mean Corpuscular Hemoglobin 26 pg (25-35) Mean Corpuscular Hemoglobin Concent 33 g/dL (31-37) Red Cell Distribution Width 16.5 % (11.5-14.5) Platelet Count 536 x10^3/uL (140-400) Neutrophils (%) (Auto) 77 % (31-73) Lymphocytes (%) (Auto) 15 % (24-48) Monocytes (%) (Auto) 7 % (0-9) Eosinophils (%) (Auto) 0 % (0-3) Basophils (%) (Auto) 1 % (0-3) Neutrophils # (Auto) 10.6 x10^3uL (1.8-7.7) Lymphocytes # (Auto) 2.1 x10^3/uL (1.0-4.8) Monocytes # (Auto) 0.9 x10^3/uL (0.0-1.1) Eosinophils # (Auto) 0.0 x10^3/uL (0.0-0.7) Basophils # (Auto) 0.1 x10^3/uL (0.0-0.2) Prothrombin Time 13.3 SEC (11.7-14.0) Prothromb Time International Ratio 1.0 (0.8-1.1) Activated Partial Thromboplast Time 24 SEC (24-38) Sodium Level 124 mmol/L (136-145) Potassium Level 4.6 mmol/L (3.5-5.1) Chloride Level 86 mmol/L (98-107) Carbon Dioxide Level 24 mmol/L (21-32) Anion Gap 14 (6-14) Blood Urea Nitrogen 16 mg/dL (7-20) Creatinine 2.3 mg/dL (0.6-1.0) Estimated GFR (Cockcroft-Gault) 25.4 BUN/Creatinine Ratio 7 (6-20) Glucose Level 216 mg/dL (70-99) Lactic Acid Level 3.6 mmol/L (0.4-2.0) Calcium Level 9.6 mg/dL (8.5-10.1) Magnesium Level 1.6 mg/dL (1.8-2.4) Total Bilirubin 0.3 mg/dL (0.2-1.0) Aspartate Amino Transf (AST/SGOT) 30 U/L (15-37) Alanine Aminotransferase (ALT/SGPT) 33 U/L (14-59) Alkaline Phosphatase 71 U/L (46-116) Creatine Kinase 42 U/L (26-192) Creatine Kinase MB (Mass) 0.6 ng/mL (0.0-3.6) Creatine Kinase MB Relative Index % (0-4) Troponin I Quantitative < 0.017 ng/mL (0.000-0.055) Total Protein 8.2 g/dL (6.4-8.2) Albumin 3.0 g/dL (3.4-5.0) Albumin/Globulin Ratio 0.6 (1.0-1.7) Lipase 1278 U/L (73-393) Ethyl Alcohol Level < 10 mg/dL (0-10) Laboratory Tests Test 12/21/18 04:32 White Blood Count 13.8 x10^3/uL (4.0-11.0) Red Blood Count 4.74 x10^6/uL (3.50-5.40) Hemoglobin 12.3 g/dL (12.0-15.5) Hematocrit 37.7 % (36.0-47.0) Mean Corpuscular Volume 80 fL (79-100) Mean Corpuscular Hemoglobin 26 pg (25-35) Mean Corpuscular Hemoglobin Concent 33 g/dL (31-37) Red Cell Distribution Width 16.5 % (11.5-14.5) Platelet Count 536 x10^3/uL (140-400) Neutrophils (%) (Auto) 77 % (31-73) Lymphocytes (%) (Auto) 15 % (24-48) Monocytes (%) (Auto) 7 % (0-9) Eosinophils (%) (Auto) 0 % (0-3) Basophils (%) (Auto) 1 % (0-3) Neutrophils # (Auto) 10.6 x10^3uL (1.8-7.7) Lymphocytes # (Auto) 2.1 x10^3/uL (1.0-4.8) Monocytes # (Auto) 0.9 x10^3/uL (0.0-1.1) Eosinophils # (Auto) 0.0 x10^3/uL (0.0-0.7) Basophils # (Auto) 0.1 x10^3/uL (0.0-0.2) Prothrombin Time 13.3 SEC (11.7-14.0) Prothromb Time International Ratio 1.0 (0.8-1.1) Activated Partial Thromboplast Time 24 SEC (24-38) Sodium Level 124 mmol/L (136-145) Potassium Level 4.6 mmol/L (3.5-5.1) Chloride Level 86 mmol/L (98-107) Carbon Dioxide Level 24 mmol/L (21-32) Anion Gap 14 (6-14) Blood Urea Nitrogen 16 mg/dL (7-20) Creatinine 2.3 mg/dL (0.6-1.0) Estimated GFR (Cockcroft-Gault) 25.4 BUN/Creatinine Ratio 7 (6-20) Glucose Level 216 mg/dL (70-99) Lactic Acid Level 3.6 mmol/L (0.4-2.0) Calcium Level 9.6 mg/dL (8.5-10.1) Magnesium Level 1.6 mg/dL (1.8-2.4) Total Bilirubin 0.3 mg/dL (0.2-1.0) Aspartate Amino Transf (AST/SGOT) 30 U/L (15-37) Alanine Aminotransferase (ALT/SGPT) 33 U/L (14-59) Alkaline Phosphatase 71 U/L (46-116) Creatine Kinase 42 U/L (26-192) Creatine Kinase MB (Mass) 0.6 ng/mL (0.0-3.6) Creatine Kinase MB Relative Index % (0-4) Troponin I Quantitative < 0.017 ng/mL (0.000-0.055) Total Protein 8.2 g/dL (6.4-8.2) Albumin 3.0 g/dL (3.4-5.0) Albumin/Globulin Ratio 0.6 (1.0-1.7) Lipase 1278 U/L (73-393) Ethyl Alcohol Level < 10 mg/dL (0-10) Assessment/Plan Assessment/Plan n/v enteritis/pancreatitis SUZY bowel rest, hydration JOEY IRVIN MD 12/21/18 1012: CONSULT Assessment/Plan Assessment/Plan Pt seen and examined. Agree with Ms. Gorman's note D/w pt and pt's family extensively. D/w Dr. Null Pt with c/o light headed and nausea, feeling better with fluid abd soft, ND, NTTP, ostomy fxn Ct reviewed, suspect issues secondary to dehydration secondary to enteritis, favor GI virus with fluid losses secondary to ileostomy. Will check US to evaluate GB as possible source of pancreatitis. Will consider ileostomy takedown soon. Thanks for consult! FERNANDO GORMAN APRN Dec 21, 2018 08:13 JOEY IRVIN MD Dec 21, 2018 10:12
[2018-12-21] MEDS ORDERED: fentaNYL PF VIAL 100 MCG/2 ML VIAL IV PRN (09:30)
[2018-12-21] MEDS ORDERED: PROCHLORPERAZINE 5 MG TABLET. PO PRN (09:30)
[2018-12-21] MEDS ORDERED: PROCHLORPERAZINE 10 MG/2 ML VIAL. IV PRN (09:30)
[2018-12-21] MEDS: IV NORMAL SALINE 1000ML BAG 1,000 ML IV SCH ×2 (09:45→21:04)
[2018-12-21] MEDS ORDERED: HYDROcodone/APAP 5/325MG 1 TAB TABLET PO PRN ×2 (09:45)
--- NOTE | 2018-12-21 10:32 | EKG ---
[facility] [address] [place] [address] Test Date: 2018-12-21 Test Time: 04:21:35 Pat Name: GAURAV DEAL Department: Room: 113 1 Gender: F Bingo Worker: : [id number] Requested By: ASTRID BURCIAGA Order Number: [id number] Reading MD: Robinson Mehta Measurements Intervals [place] Rate: 102 P: -1 TX: 136 QRS: -18 QRSD: 78 T: 28 QT: 332 QTc: 437 Interpretive Statements SINUS TACHYCARDIA LEFTWARD AXIS Electronically Signed On 12-21-2018 11:09:38 [employer]ES SERVICE SUPERVISOR by Robinson Mehta
[2018-12-21] MEDS: INSULIN LISPRO 300 UNITS/3 ML INSULN.PEN. SQ SCH ×3 (11:30→21:00)
[2018-12-21] MEDS: PANTOPRAZOLE 40 MG TABLET.DR. PO SCH (12:24)
[2018-12-21] MEDS: ENOXAPARIN 30 MG/0.3 ML SYRINGE. SQ SCH (12:24)
--- NOTE | 2018-12-21 12:56 | HP ---
ADMIT DATE: 12/21/2018 CHIEF COMPLAINT: Abdominal pain. HISTORY OF PRESENT ILLNESS AND HOSPITAL COURSE: This patient is a 68-year-old -[place] female who underwent ileostomy due to colovaginal fistula from ruptured diverticulosis. The patient was discharged approximately 6 days prior to this readmission. The patient states that the day after discharge, she began having poor p.o. intake, but was passing gas and having bowel movements, but had nausea. She did have evaluation for a partial separation of the ostomy site and was being followed by Wound Care, with no evidence of cellulitis noted on recent followup. She was evaluated in the ER and found to be hypotensive, with laboratory evidence of severe dehydration with a baseline creatinine of up to 2.3 on this admission. The patient was also found to be profoundly hyponatremic as well as hypotensive, with slightly elevated white count triggering sepsis screen. Lactic acid was also elevated at 3.6. Due to the severity of symptoms, the patient was admitted to the ICU for possible sepsis and General Surgery was consulted as well as Infectious Disease. PAST MEDICAL HISTORY: Significant for: 1. Hypertension. 2. Type 2 diabetes, diet controlled. 3. Gastroesophageal reflux disease. 4. Chronic kidney disease, stable. 5. Morbid obesity. 6. Osteoarthritis. 7. History of gallstones. 8. Diverticulitis with history of colovaginal fistula, status post recent surgery and diverting ileostomy. FAMILY HISTORY: Significant for mother who with late effects of CVA, father who with heart disease and a sister who is with breast cancer. PAST SURGICAL HISTORY: Significant for total abdominal hysterectomy, appendectomy, previous foot surgery and recent diverting ileostomy for treatment of colovaginal fistula. REVIEW OF SYSTEMS: The patient is recently discharged from the hospital within the last week, having poor p.o. intake and increasing nausea and vomiting over the last 24-48 hours as well as abdominal pain. PHYSICAL EXAMINATION: GENERAL: This is a well-nourished, well-developed -[place] female, in no apparent distress after 12 hours of hospitalization and IV fluids. She is feeling better, but continues to have some nausea. HEENT: Benign. NECK: Supple. CARDIAC EXAMINATION: Regular rate and rhythm. LUNGS: Clear. ABDOMEN: Soft with positive bowel sounds and minimal tenderness. EXTREMITIES: Exhibited 2+ pulses, without significant edema. NEUROLOGICAL EXAMINATION: Showed no unilateral findings. ASSESSMENT: 1. Suspected sepsis. 2. Ileus. 3. Postoperative ascites/seroma on CT scan. 4. Hyponatremia. 5. Rrkil-ts-kyzphux renal failure. 6. Hypomagnesemia. 7. Mild protein malnutrition. 8. Lactic acidosis. PLAN: To proceed with IV fluids. Consult Nephrology and Infectious Disease as well as Surgery. Make n.p.o., advance diet as tolerated. Start empiric antibiotics and monitor for further signs of sepsis. ASTRID DURAN MD DR: PORTIA/esperanza JOB#: [id number] / [id number]
[2018-12-21] MEDS: fentaNYL PF VIAL 100 MCG/2 ML VIAL IV PRN ×2 (14:45→20:53)
[2018-12-21] MEDS ORDERED: PIP/TAZO PER PHARMACY MC PRN (15:30)
--- NOTE | 2018-12-21 15:43 | PDOC ---
Infectious Disease Note Vital Signs: Vital Signs Vital Signs Date Time Temp Pulse Resp B/P (MAP) Pulse Ox O2 Delivery O2 Flow Rate FiO2 12/21/18 14:45 99 Room Air 12/21/18 14:00 72 20 87/55 (66) 12/21/18 12:00 98.7 98.7 Medications: Inpatient Meds: Current Medications Medications (Trade) Dose Ordered Sig/Werner Start Time Stop Time Status Last Admin Dose Admin Acetaminophen (Tylenol) 650 mg PRN Q4HRS PRN 12/21/18 05:15 12/22/18 05:14 Acetaminophen/ Hydrocodone Bitart (Lortab 5/325) 2 tab PRN Q4HRS PRN 12/21/18 09:45 Enoxaparin Sodium (Lovenox 30mg Syringe) 30 mg Q24H 12/21/18 10:15 12/21/18 12:24 30 MG Famotidine (Pepcid Vial) 20 mg 1X ONCE 12/21/18 04:30 12/21/18 04:31 DC 12/21/18 04:48 20 MG Fentanyl Citrate (Fentanyl 2ml Vial) 50 mcg PRN Q2HR PRN 12/21/18 09:30 Insulin Human Lispro (HumaLOG) 0-12 UNITS QIDACHS 12/21/18 11:30 Lactobacillus Rhamnosus (Culturelle) 1 cap BID 12/21/18 21:00 Linezolid/Dextrose 300 ml @ 300 mls/hr Q12HR 12/21/18 16:00 Magnesium Sulfate 50 ml @ 25 mls/hr 1X ONCE 12/21/18 05:30 12/21/18 07:29 DC 12/21/18 08:02 25 MLS/HR Micafungin Sodium 100 mg/Dextrose 100 ml @ 100 mls/hr Q24H 12/21/18 16:00 Ondansetron HCl (Zofran) 4 mg PRN Q6HRS PRN 12/21/18 09:30 12/21/18 14:45 4 MG Pantoprazole Sodium (Protonix) 40 mg DAILYAC 12/21/18 11:00 12/21/18 12:24 40 MG Piperacillin Sod/ Tazobactam Sod (Zosyn Per Pharmacy) 1 each PRN DAILY PRN 12/21/18 15:30 UNV Piperacillin Sod/ Tazobactam Sod 3.375 gm/Sodium Chloride 50 ml @ 100 mls/hr 1X ONCE 12/21/18 05:30 12/21/18 05:59 DC 12/21/18 06:19 100 MLS/HR Prochlorperazine Edisylate (Compazine) 10 mg PRN Q6HRS PRN 12/21/18 09:30 Prochlorperazine Maleate (Compazine) 5 mg PRN Q6HRS PRN 12/21/18 09:30 Sodium Chloride 1,000 ml @ 100 mls/hr Q10H 12/21/18 09:45 12/21/18 09:45 100 MLS/HR Vancomycin HCl (Vanco Per Pharmacy) 1 each PRN DAILY PRN 12/21/18 05:15 12/21/18 12:59 1 EACH Vancomycin HCl (Vancomycin Random Level) 1 each 1X ONCE 12/23/18 08:00 12/23/18 08:01 Vancomycin HCl 1.5 gm/Sodium Chloride 500 ml @ 250 mls/hr 1X ONCE 12/21/18 06:00 12/21/18 07:59 DC 12/21/18 08:02 250 MLS/HR Labs: Lab Laboratory Tests Test 12/21/18 04:32 12/21/18 08:30 12/21/18 11:30 12/21/18 12:37 White Blood Count 13.8 x10^3/uL (4.0-11.0) Red Blood Count 4.74 x10^6/uL (3.50-5.40) Hemoglobin 12.3 g/dL (12.0-15.5) Hematocrit 37.7 % (36.0-47.0) Mean Corpuscular Volume 80 fL (79-100) Mean Corpuscular Hemoglobin 26 pg (25-35) Mean Corpuscular Hemoglobin Concent 33 g/dL (31-37) Red Cell Distribution Width 16.5 % (11.5-14.5) Platelet Count 536 x10^3/uL (140-400) Neutrophils (%) (Auto) 77 % (31-73) Lymphocytes (%) (Auto) 15 % (24-48) Monocytes (%) (Auto) 7 % (0-9) Eosinophils (%) (Auto) 0 % (0-3) Basophils (%) (Auto) 1 % (0-3) Neutrophils # (Auto) 10.6 x10^3uL (1.8-7.7) Lymphocytes # (Auto) 2.1 x10^3/uL (1.0-4.8) Monocytes # (Auto) 0.9 x10^3/uL (0.0-1.1) Eosinophils # (Auto) 0.0 x10^3/uL (0.0-0.7) Basophils # (Auto) 0.1 x10^3/uL (0.0-0.2) Prothrombin Time 13.3 SEC (11.7-14.0) Prothromb Time International Ratio 1.0 (0.8-1.1) Activated Partial Thromboplast Time 24 SEC (24-38) Sodium Level 124 mmol/L (136-145) Potassium Level 4.6 mmol/L (3.5-5.1) Chloride Level 86 mmol/L (98-107) Carbon Dioxide Level 24 mmol/L (21-32) Anion Gap 14 (6-14) Blood Urea Nitrogen 16 mg/dL (7-20) Creatinine 2.3 mg/dL (0.6-1.0) Estimated GFR (Cockcroft-Gault) 25.4 BUN/Creatinine Ratio 7 (6-20) Glucose Level 216 mg/dL (70-99) Lactic Acid Level 3.6 mmol/L (0.4-2.0) 3.0 mmol/L (0.4-2.0) Calcium Level 9.6 mg/dL (8.5-10.1) Magnesium Level 1.6 mg/dL (1.8-2.4) Total Bilirubin 0.3 mg/dL (0.2-1.0) Aspartate Amino Transf (AST/SGOT) 30 U/L (15-37) Alanine Aminotransferase (ALT/SGPT) 33 U/L (14-59) Alkaline Phosphatase 71 U/L (46-116) Creatine Kinase 42 U/L (26-192) Creatine Kinase MB (Mass) 0.6 ng/mL (0.0-3.6) Creatine Kinase MB Relative Index % (0-4) Troponin I Quantitative < 0.017 ng/mL (0.000-0.055) < 0.017 ng/mL (0.000-0.055) < 0.017 ng/mL (0.000-0.055) Total Protein 8.2 g/dL (6.4-8.2) Albumin 3.0 g/dL (3.4-5.0) Albumin/Globulin Ratio 0.6 (1.0-1.7) Lipase 1278 U/L (73-393) Ethyl Alcohol Level < 10 mg/dL (0-10) Glucose (Fingerstick) 108 mg/dL (70-99) Objective: Assessment: Pt seen and examined Consult dictated IMP: Leucocytosis sepsis source intraabdominal seroma/abscess/hematoma SBO Enteritis SUZY on CKD lactic acidosis high lipase Plan: Plan of Care Zyvox/zosyn/micafungin f/u cutl and labs in am Gen surgery following May need drainage of intraabdo fluid collection if ostomy output increases then check for c diff ,stool c/s D/W daughter and granddaughter at bedside Granddaughter is irate and not happy with the care her grandmother is getting at this facility reassurance given, all questions answered at length thank you [id number] YANI BROOKS MD Dec 21, 2018 15:43
[2018-12-21] MEDS: PIPERACILLIN/TAZOBACTAM 2.25 GM in IV NORMAL SALINE 50ML 50 ML IV SCH (15:54)
--- NOTE | 2018-12-21 16:06 | RAD ---
Complete abdominal ultrasound 12/21/2018 INDICATION: Pancreatitis. COMPARISON STUDY: CT of the abdomen and pelvis without contrast December 21, 2018. Discussion: Ultrasound evaluation of the abdomen was performed. Static images are submitted to PACS. Pancreas is partially visualized. Visualized portions of the pancreatic head are grossly unremarkable. Visualized portions of the aorta and IVC are grossly unremarkable. The liver is normal in size measuring 15.5 cm longitudinally. Hepatic echotexture is unremarkable. No intrahepatic biliary dilatation is identified. No focal hepatic lesions are identified. The gallbladder is nonvisualized. Shadowing structure seen in the right upper quadrant. The colon is noted to overlie the expected area of the gallbladder on CT scanning. This may represent obscuration of the gallbladder by overlying gas filled bowel. What is measured as gallbladder wall by the technologist, may in fact not relate to the gallbladder. No gas is seen within the gallbladder on the CT scan to explain the degree of shadowing. Stone filled gallbladder is possible but felt to be less likely. The right kidney measures 10.3 cm in length. Within the inferior right kidney is a 1.1 cm probable cyst with a small septation. The spleen is normal in size measuring 7 cm in length. Left kidney contains a 1.5 cm simple appearing cyst. Left kidney measures 9.7 cm in length. IMPRESSION: 1. Probable nonvisualization of the gallbladder secondary to overlying air-filled colon. Colon is seen to be overlying the gallbladder on recent CT scan. Alternatively, stone filled gallbladder can produce a similar appearance but this is felt to be less likely. In the setting of pancreatitis, MRCP imaging is recommended to evaluate for the presence of gallstones, as well evaluation of other possible stones within the biliary tree. 2. Renal cysts as described. Attention on MRI imaging recommended. Electronically signed by: Duncan James MD (12/21/2018 4:03 PM) [id number]
[2018-12-21] MEDS: MICAFUNGIN 100 MG in IV DEXTROSE 5% 100ML 100 ML IV SCH (16:50)
[2018-12-21] MEDS: LACTOBACILLUS RHAMNOSUS GG 1 CAPSULE. PO SCH (20:53)
[2018-12-22] VITALS (14 sets, daily range): BP systolic 76–140; BP diastolic 44–80
[2018-12-22] MEDS: PIPERACILLIN/TAZOBACTAM 2.25 GM in IV NORMAL SALINE 50ML 50 ML IV SCH ×5 (00:54→23:52)
--- NOTE | 2018-12-22 01:29 | CONS ---
DATE OF CONSULTATION: 12/21/2018 REFERRING PHYSICIAN: Dr. Null. REASON FOR CONSULTATION: Antibiotic management. HISTORY OF PRESENT ILLNESS: A 68-year-old female who underwent laparoscopic converted to open exploration, lysis of adhesions (extensive), takedown of splenic flexure, sigmoid colectomy with protecting loop ileostomy, repair of vaginal cuff on 12/07/2018 for colovaginal fistula, diverticulitis, colonic stricture. The patient was discharged last Thursday and the day after discharge ,she started having poor p.o. intake, was having ileostomy output, was passing gas, but continued to have nausea. There was some separation of the ostomy site in the inferior area for which she was seen [facility] last Thursday.Since she continued to have worsening of symptoms and generalized weakness, poor po intake, she presented today to the ER ,was found to have hypotension with creatinine up to 2.3 The patient had subjective fevers and chills at home prior to presentation. CBC revealed eukocytosis. Her lactate was 3.6 in the setting of SUZY. he patient has been admitted to ICU for further evaluation and treatment. She got a dose of IV vancomycin and Zosyn, 1 time dose. ID consult has been requested for antibiotic management. The patient underwent a CT of the abdomen and pelvis, which showed interval small bowel resection with a right lower quadrant ostomy. There are dilated thickened loops of proximal small bowel with relative small bowel collapse, this could be related to enteritis or postoperative ileus. Partial small bowel obstruction is not excluded. A small amount of ascites with loculated pocket of fluid in the low right pelvis measuring up to 5.6 cm in size, this could represent postoperative seroma, hematoma; abscess considered less likely. . Upon arrival, her temperature was 97.4, blood pressure was 71/51 and she was tachycardic. She is currently on room air. Lipase is elevated. Head CT showed no acute intracranial abnormality. Abdominal ultrasound is done, which is pending at this time. General Surgery has evaluated the patient. Today she says she is not feeling well. Has nausea, some abdominal distention, concerned about her ileostomy. She has had no further drainage from the inferior aspect of her incision. She is passing gas. Apetite is poor. She has generalized weakness. She has been evaluated by General surgery team this am. PAST MEDICAL HISTORY: Hypertension, diverticulosis, cholelithiasis, osteoarthritis, chronic renal insufficiency, diabetes, colovaginal fistula, diverticulitis, colonic stricture. PAST SURGICAL HISTORY: Appendectomy, hysterectomy, laparoscopic converted to open exploration, lysis of adhesions, takedown of splenic flexure, sigmoid colectomy with protecting loop ileostomy, repair of a vaginal cuff on 12/07/2018. SOCIAL HISTORY: Denies smoking, ETOH or illicit drug use. Lives alone. No pets. No recent travel. FAMILY HISTORY: As per HPI. CURRENT MEDICATIONS: Vancomycin 1 dose, Zosyn 1 dose, Lactobacillus, insulin, pantoprazole, enoxaparin, hydrocodone, prochlorperazine, ondansetron, fentanyl citrate, acetaminophen. ALLERGIES: CIPROFLOXACIN, SULFAMETHOXAZOLE, TRIMETHOPRIM, NAPROXEN, TIZANIDINE. REVIEW OF SYSTEMS: Malaise, fever, nausea, abdominal discomfort, drainage from the lower most inferior incision site, weakness, nausea. PHYSICAL EXAMINATION: Daughter and granddaugher at bedside. VITAL SIGNS: Temperature 98.7, pulse 72, respiratory rate 20, blood pressure 87/55, oxygen saturation 98% on room air. GENERAL: Alert and oriented x 3, cooperative female, lying in bed comfortably, tired appearing and nontoxic appearing, in no acute distress. Cooperative. HEENT: Normocephalic, atraumatic. Anicteric. No thrush. No conjunctival petechiae. Oropharynx clear. No oropharyngeal exudate noted. NECK: Supple. No JVD. LUNGS: Clear bilaterally. No wheezing. HEART: S1, S2. No gallops, murmurs or rubs. ABDOMEN: Soft. Ostomy +. Midline incision well healed. There is a small area, which is dehisced in the lower most part of the incision. No purulent drainage seen. There is drainage, which is dry on the gauze piece. No surrounding redness, no fluctuance. Diffuse mild tenderness present on deep palpation. No rebound, no guarding. EXTREMITIES: No edema, no cyanosis, no clubbing. DERMATOLOGIC: Warm, dry. No generalized skin rash. NEUROLOGIC: Alert and oriented x 3, grossly nonfocal. PSYCHIATRIC: Cooperative, appropriate mood and affect. LABORATORY DATA: WBC 13.8, hemoglobin 12.3, hematocrit 37.7, platelets 536, neutrophils 77. Sodium 124, potassium 4.6, chloride 86, BUN 16, creatinine 2.3, glucose 216. Lactate 3.6, magnesium 1.6, albumin 3.0. Lipase 1278. LFTs within normal limits. Magnesium 1.6, calcium 9.6, CK 42, troponin less than 0.017. Micro, blood culture pending. Urine culture pending. IMAGING STUDIES: CT head no acute abn noted. Abdomen and pelvis CT, impression, interval small bowel resection with right lower quadrant ostomy. There are dilated thickened loops of proximal small bowel with relative distal small bowel collapse. This could be related to enteritis or postoperative ileus. Partial small bowel obstruction is not excluded. Small amount of ascites with loculated pocket of fluid in the low right pelvis measuring about 5.6 cm in size. This could represent postoperative seroma or hematoma, abscess is considered less likely. IMPRESSION: 1. Sepsis source intraabdominal 2. Leukocytosis and Febrile illness. 3. Ileus. [address] abdomen as above with fluid collection,could be Postoperative seroma/hematoma/abscess though report does not mention as abscess. 5. Recent surgery for exploratory laparotomy with lysis of adhesions, takedown of splenic flexure, sigmoid colectomy with protecting loop ileostomy, repair of vaginal cuff.Mild dehiscence at the inferior aspect of the incision 6. Ascites. 7. Severe hyponatremia. 8. Acute on chronic renal failure. 9. Hypomagnesemia. 10. Protein calorie malnutrition. 11. Lactic acidosis RECOMMENDATIONS: 1. Continue Zosyn. 2. Start Zyvox, would like to avoid IV vancomycin in the setting of acute kidney injury. Monitor for s/e closely 3. Start micafungin. 4. General Surgery is following. 5. Follow up lab in the a.m. and cultures. 6. The patient may need drainage of the intraabdominal fluid collection if continues to worsen. 7. Pt's granddaughter is very irate and does not prefer her grandmother to be taken care off here at this hospital. I gave them reassurance . 8. Detailed discussion done about my evaluation and recommendations at length with the patient, her daughter and granddaughter in the room. All questions answered. D/W Chief RN about family's concerns also. Thank you, Dr. Null, for consulting Infectious Disease to participate in this patient's care. If you have any questions, do not hesitate to contact me. YANI BROOKS MD DR: Quique JOB#: [id number] / [id number] JAJA
[2018-12-22 04:26] LABS: BASO % 1 % (0-3); EOS # 0.1 x10^3/uL (0.0-0.7); EOS % 3 % (0-3); HEMATOCRIT 28.5 % (36.0-47.0); HEMOGLOBIN 9.3 g/dL (12.0-15.5); LYMPH % 24 % (24-48); MEAN CORPUSCULAR HEMOGLOBIN 26 pg (25-35); MEAN CORPUSCULAR HGB CONC 33 g/dL (31-37); MEAN CORPUSCULAR VOLUME 80 fL (79-100); MONO # 0.6 x10^3/uL (0.0-1.1); MONO % 14 % (0-9); NEUT # 2.5 x10^3uL (1.8-7.7); NEUT % 58 % (31-73); PLATELET COUNT 324 x10^3/uL (140-400); RED BLOOD COUNT 3.57 x10^6/uL (3.50-5.40); RED CELL DISTRIBUTION WIDTH 16.4 % (11.5-14.5); WHITE BLOOD COUNT 4.3 x10^3/uL (4.0-11.0)
[2018-12-22 05:20] LABS: CALCIUM 8.5 mg/dL (8.5-10.1); CREATININE 1.5 mg/dL (0.6-1.0); GFR 41.5; POTASSIUM 4.3 mmol/L (3.5-5.1)
[2018-12-22] MEDS: IV NORMAL SALINE 1000ML BAG 1,000 ML IV SCH ×2 (06:01→12:17)
[2018-12-22] MEDS: INSULIN LISPRO 300 UNITS/3 ML INSULN.PEN. SQ SCH ×4 (07:30→21:00)
[2018-12-22] MEDS: PANTOPRAZOLE 40 MG TABLET.DR. PO SCH (08:01)
[2018-12-22] MEDS: LACTOBACILLUS RHAMNOSUS GG 1 CAPSULE. PO SCH ×2 (08:01→21:12)
--- NOTE | 2018-12-22 08:39 | PDOC ---
SURGICAL PROGRESS NOTE Subjective Pt feels much better today, persistent problems with nausea. Denies pain. Good ostomy output. Vital Signs Vital Signs Date Time Temp Pulse Resp B/P (MAP) Pulse Ox O2 Delivery O2 Flow Rate FiO2 12/22/18 08:00 66 18 92/60 (71) 100 Room Air 12/22/18 07:00 97.6 97.6 I&O Intake and Output 12/22/18 07:00 Intake Total 220 ml Output Total 575 ml Balance -355 ml Intake Oral 220 ml Output Stool Total 425 ml Other 150 ml # Voids 5 General: Alert, Oriented X3, Cooperative, No acute distress Abdomen: Soft, No tenderness, Other (ostomy fxn) Labs Laboratory Tests Test 12/21/18 04:32 12/21/18 08:00 12/21/18 08:30 12/21/18 11:30 White Blood Count 13.8 x10^3/uL (4.0-11.0) Red Blood Count 4.74 x10^6/uL (3.50-5.40) Hemoglobin 12.3 g/dL (12.0-15.5) Hematocrit 37.7 % (36.0-47.0) Mean Corpuscular Volume 80 fL (79-100) Mean Corpuscular Hemoglobin 26 pg (25-35) Mean Corpuscular Hemoglobin Concent 33 g/dL (31-37) Red Cell Distribution Width 16.5 % (11.5-14.5) Platelet Count 536 x10^3/uL (140-400) Neutrophils (%) (Auto) 77 % (31-73) Lymphocytes (%) (Auto) 15 % (24-48) Monocytes (%) (Auto) 7 % (0-9) Eosinophils (%) (Auto) 0 % (0-3) Basophils (%) (Auto) 1 % (0-3) Neutrophils # (Auto) 10.6 x10^3uL (1.8-7.7) Lymphocytes # (Auto) 2.1 x10^3/uL (1.0-4.8) Monocytes # (Auto) 0.9 x10^3/uL (0.0-1.1) Eosinophils # (Auto) 0.0 x10^3/uL (0.0-0.7) Basophils # (Auto) 0.1 x10^3/uL (0.0-0.2) Prothrombin Time 13.3 SEC (11.7-14.0) Prothromb Time International Ratio 1.0 (0.8-1.1) Activated Partial Thromboplast Time 24 SEC (24-38) Sodium Level 124 mmol/L (136-145) Potassium Level 4.6 mmol/L (3.5-5.1) Chloride Level 86 mmol/L (98-107) Carbon Dioxide Level 24 mmol/L (21-32) Anion Gap 14 (6-14) Blood Urea Nitrogen 16 mg/dL (7-20) Creatinine 2.3 mg/dL (0.6-1.0) Estimated GFR (Cockcroft-Gault) 25.4 BUN/Creatinine Ratio 7 (6-20) Glucose Level 216 mg/dL (70-99) Lactic Acid Level 3.6 mmol/L (0.4-2.0) 3.0 mmol/L (0.4-2.0) Calcium Level 9.6 mg/dL (8.5-10.1) Magnesium Level 1.6 mg/dL (1.8-2.4) Total Bilirubin 0.3 mg/dL (0.2-1.0) Aspartate Amino Transf (AST/SGOT) 30 U/L (15-37) Alanine Aminotransferase (ALT/SGPT) 33 U/L (14-59) Alkaline Phosphatase 71 U/L (46-116) Creatine Kinase 42 U/L (26-192) Creatine Kinase MB (Mass) 0.6 ng/mL (0.0-3.6) Creatine Kinase MB Relative Index % (0-4) Troponin I Quantitative < 0.017 ng/mL (0.000-0.055) < 0.017 ng/mL (0.000-0.055) < 0.017 ng/mL (0.000-0.055) Total Protein 8.2 g/dL (6.4-8.2) Albumin 3.0 g/dL (3.4-5.0) Albumin/Globulin Ratio 0.6 (1.0-1.7) Lipase 1278 U/L (73-393) Ethyl Alcohol Level < 10 mg/dL (0-10) Nasal Screen MRSA (PCR) Negative (Negative) Test 12/21/18 12:37 12/21/18 16:55 12/21/18 21:19 12/22/18 03:40 Glucose (Fingerstick) 108 mg/dL (70-99) 91 mg/dL (70-99) 100 mg/dL (70-99) White Blood Count 4.3 x10^3/uL (4.0-11.0) Red Blood Count 3.57 x10^6/uL (3.50-5.40) Hemoglobin 9.3 g/dL (12.0-15.5) Hematocrit 28.5 % (36.0-47.0) Mean Corpuscular Volume 80 fL (79-100) Mean Corpuscular Hemoglobin 26 pg (25-35) Mean Corpuscular Hemoglobin Concent 33 g/dL (31-37) Red Cell Distribution Width 16.4 % (11.5-14.5) Platelet Count 324 x10^3/uL (140-400) Neutrophils (%) (Auto) 58 % (31-73) Lymphocytes (%) (Auto) 24 % (24-48) Monocytes (%) (Auto) 14 % (0-9) Eosinophils (%) (Auto) 3 % (0-3) Basophils (%) (Auto) 1 % (0-3) Neutrophils # (Auto) 2.5 x10^3uL (1.8-7.7) Lymphocytes # (Auto) 1.0 x10^3/uL (1.0-4.8) Monocytes # (Auto) 0.6 x10^3/uL (0.0-1.1) Eosinophils # (Auto) 0.1 x10^3/uL (0.0-0.7) Basophils # (Auto) 0.0 x10^3/uL (0.0-0.2) Sodium Level 134 mmol/L (136-145) Potassium Level 4.3 mmol/L (3.5-5.1) Chloride Level 100 mmol/L (98-107) Carbon Dioxide Level 25 mmol/L (21-32) Anion Gap 9 (6-14) Blood Urea Nitrogen 9 mg/dL (7-20) Creatinine 1.5 mg/dL (0.6-1.0) Estimated GFR (Cockcroft-Gault) 41.5 Glucose Level 102 mg/dL (70-99) Calcium Level 8.5 mg/dL (8.5-10.1) Amylase Level 120 U/L (25-115) Lipase 712 U/L (73-393) Laboratory Tests Test 12/21/18 11:30 12/21/18 12:37 12/21/18 16:55 12/21/18 21:19 Troponin I Quantitative < 0.017 ng/mL (0.000-0.055) Glucose (Fingerstick) 108 mg/dL (70-99) 91 mg/dL (70-99) 100 mg/dL (70-99) Test 12/22/18 03:40 White Blood Count 4.3 x10^3/uL (4.0-11.0) Red Blood Count 3.57 x10^6/uL (3.50-5.40) Hemoglobin 9.3 g/dL (12.0-15.5) Hematocrit 28.5 % (36.0-47.0) Mean Corpuscular Volume 80 fL (79-100) Mean Corpuscular Hemoglobin 26 pg (25-35) Mean Corpuscular Hemoglobin Concent 33 g/dL (31-37) Red Cell Distribution Width 16.4 % (11.5-14.5) Platelet Count 324 x10^3/uL (140-400) Neutrophils (%) (Auto) 58 % (31-73) Lymphocytes (%) (Auto) 24 % (24-48) Monocytes (%) (Auto) 14 % (0-9) Eosinophils (%) (Auto) 3 % (0-3) Basophils (%) (Auto) 1 % (0-3) Neutrophils # (Auto) 2.5 x10^3uL (1.8-7.7) Lymphocytes # (Auto) 1.0 x10^3/uL (1.0-4.8) Monocytes # (Auto) 0.6 x10^3/uL (0.0-1.1) Eosinophils # (Auto) 0.1 x10^3/uL (0.0-0.7) Basophils # (Auto) 0.0 x10^3/uL (0.0-0.2) Sodium Level 134 mmol/L (136-145) Potassium Level 4.3 mmol/L (3.5-5.1) Chloride Level 100 mmol/L (98-107) Carbon Dioxide Level 25 mmol/L (21-32) Anion Gap 9 (6-14) Blood Urea Nitrogen 9 mg/dL (7-20) Creatinine 1.5 mg/dL (0.6-1.0) Estimated GFR (Cockcroft-Gault) 41.5 Glucose Level 102 mg/dL (70-99) Calcium Level 8.5 mg/dL (8.5-10.1) Amylase Level 120 U/L (25-115) Lipase 712 U/L (73-393) I have reviewed the following US not helpful secondary to bowel gas Problem List Problems Medical Problems: (1) Abdominal fluid collection Status: Acute (2) Hypomagnesemia Status: Acute (3) Hyponatremia Status: Acute (4) Pancreatitis Status: Acute (5) Renal insufficiency Status: Acute (6) Severe sepsis Status: Acute Assessment/Plan dehydration, favor enteritis labs and clinical status much improved. Chronic issues with nausea remain problematic. Will ask GI to evaluate. ADAT. OK to transfer to floor. Given concern for readmission, recommend consideration of rehab or other plan. Will ask case management to consider. Pt interested. JOEY GAGNON MD Dec 22, 2018 08:39
--- NOTE | 2018-12-22 08:40 | PDOC ---
Infectious Disease Note Subjective: Subjective Pt is feeling better some headache fatigue is improving no n/v/sob/cough tolerating clear liquids well ROS: ROS Negative except for above. Vital Signs: Vital Signs Vital Signs Date Time Temp Pulse Resp B/P (MAP) Pulse Ox O2 Delivery O2 Flow Rate FiO2 12/22/18 08:00 66 18 92/60 (71) 100 Room Air 12/22/18 07:00 97.6 97.6 Physical Exam: PHYSICAL EXAM GENERAL: Alert and oriented x 3, cooperative female, lying in bed comfortably, tired appearing and nontoxic appearing, in no acute distress. Cooperative. HEENT: Normocephalic, atraumatic. Anicteric. No thrush. No conjunctival petechiae. Oropharynx clear. No oropharyngeal exudate noted. NECK: Supple. No JVD. LUNGS: Clear bilaterally. No wheezing. HEART: S1, S2. No gallops, murmurs or rubs. ABDOMEN: Soft. Ostomy +. Midline incision well healed. There is a small area, which is dehisced in the lower most part of the incision. No purulent drainage seen. There is drainage, which is dry on the gauze piece. No surrounding redness, no fluctuance. Diffuse mild tenderness present on deep palpation. No rebound, no guarding. EXTREMITIES: No edema, no cyanosis, no clubbing. DERMATOLOGIC: Warm, dry. No generalized skin rash. NEUROLOGIC: Alert and oriented x 3, grossly nonfocal. PSYCHIATRIC: Cooperative, appropriate mood and affect. Medications: Inpatient Meds: Current Medications Medications (Trade) Dose Ordered Sig/Wrener Start Time Stop Time Status Last Admin Dose Admin Acetaminophen (Tylenol) 650 mg PRN Q4HRS PRN 12/21/18 05:15 12/22/18 05:14 DC Acetaminophen/ Hydrocodone Bitart (Lortab 5/325) 2 tab PRN Q4HRS PRN 12/21/18 09:45 Enoxaparin Sodium (Lovenox 30mg Syringe) 30 mg Q24H 12/21/18 10:15 12/21/18 12:24 30 MG Famotidine (Pepcid Vial) 20 mg 1X ONCE 12/21/18 04:30 12/21/18 04:31 DC 12/21/18 04:48 20 MG Fentanyl Citrate (Fentanyl 2ml Vial) 50 mcg PRN Q2HR PRN 12/21/18 09:30 Insulin Human Lispro (HumaLOG) 0-12 UNITS QIDACHS 12/21/18 11:30 Lactobacillus Rhamnosus (Culturelle) 1 cap BID 12/21/18 21:00 12/22/18 08:01 1 CAP Linezolid/Dextrose 300 ml @ 300 mls/hr Q12HR 12/21/18 16:00 12/21/18 23:09 300 MLS/HR Magnesium Sulfate 50 ml @ 25 mls/hr 1X ONCE 12/21/18 05:30 12/21/18 07:29 DC 12/21/18 08:02 25 MLS/HR Micafungin Sodium 100 mg/Dextrose 100 ml @ 100 mls/hr Q24H 12/21/18 16:00 12/21/18 16:50 100 MLS/HR Ondansetron HCl (Zofran) 4 mg PRN Q6HRS PRN 12/21/18 09:30 12/21/18 14:45 4 MG Pantoprazole Sodium (Protonix) 40 mg DAILYAC 12/21/18 11:00 12/22/18 08:01 40 MG Piperacillin Sod/ Tazobactam Sod (Zosyn Per Pharmacy) 1 each PRN DAILY PRN 12/21/18 15:30 Piperacillin Sod/ Tazobactam Sod 2.25 gm/Sodium Chloride 50 ml @ 100 mls/hr Q6HRS 12/21/18 16:00 12/22/18 06:01 100 MLS/HR Piperacillin Sod/ Tazobactam Sod 3.375 gm/Sodium Chloride 50 ml @ 100 mls/hr 1X ONCE 12/21/18 05:30 12/21/18 05:59 DC 12/21/18 06:19 100 MLS/HR Prochlorperazine Edisylate (Compazine) 10 mg PRN Q6HRS PRN 12/21/18 09:30 12/21/18 20:53 10 MG Prochlorperazine Maleate (Compazine) 5 mg PRN Q6HRS PRN 12/21/18 09:30 Sodium Chloride 1,000 ml @ 100 mls/hr Q10H 12/21/18 09:45 12/22/18 06:01 100 MLS/HR Vancomycin HCl (Vanco Per Pharmacy) 1 each PRN DAILY PRN 12/21/18 05:15 12/21/18 12:59 1 EACH Vancomycin HCl (Vancomycin Random Level) 1 each 1X ONCE 12/23/18 08:00 12/23/18 08:01 Vancomycin HCl 1.5 gm/Sodium Chloride 500 ml @ 250 mls/hr 1X ONCE 12/21/18 06:00 12/21/18 07:59 DC 12/21/18 08:02 250 MLS/HR Labs: Lab Laboratory Tests Test 12/21/18 11:30 12/21/18 12:37 12/21/18 16:55 12/21/18 21:19 Troponin I Quantitative < 0.017 ng/mL (0.000-0.055) Glucose (Fingerstick) 108 mg/dL (70-99) 91 mg/dL (70-99) 100 mg/dL (70-99) Test 12/22/18 03:40 White Blood Count 4.3 x10^3/uL (4.0-11.0) Red Blood Count 3.57 x10^6/uL (3.50-5.40) Hemoglobin 9.3 g/dL (12.0-15.5) Hematocrit 28.5 % (36.0-47.0) Mean Corpuscular Volume 80 fL (79-100) Mean Corpuscular Hemoglobin 26 pg (25-35) Mean Corpuscular Hemoglobin Concent 33 g/dL (31-37) Red Cell Distribution Width 16.4 % (11.5-14.5) Platelet Count 324 x10^3/uL (140-400) Neutrophils (%) (Auto) 58 % (31-73) Lymphocytes (%) (Auto) 24 % (24-48) Monocytes (%) (Auto) 14 % (0-9) Eosinophils (%) (Auto) 3 % (0-3) Basophils (%) (Auto) 1 % (0-3) Neutrophils # (Auto) 2.5 x10^3uL (1.8-7.7) Lymphocytes # (Auto) 1.0 x10^3/uL (1.0-4.8) Monocytes # (Auto) 0.6 x10^3/uL (0.0-1.1) Eosinophils # (Auto) 0.1 x10^3/uL (0.0-0.7) Basophils # (Auto) 0.0 x10^3/uL (0.0-0.2) Sodium Level 134 mmol/L (136-145) Potassium Level 4.3 mmol/L (3.5-5.1) Chloride Level 100 mmol/L (98-107) Carbon Dioxide Level 25 mmol/L (21-32) Anion Gap 9 (6-14) Blood Urea Nitrogen 9 mg/dL (7-20) Creatinine 1.5 mg/dL (0.6-1.0) Estimated GFR (Cockcroft-Gault) 41.5 Glucose Level 102 mg/dL (70-99) Calcium Level 8.5 mg/dL (8.5-10.1) Amylase Level 120 U/L (25-115) Lipase 712 U/L (73-393) Objective: Assessment: Leucocytosis sepsis source likely intraabdominal Abn CT abdomen revealing fluid collection could be seroma/hematoma,? abscess SBO/ ?Enteritis SUZY on CKD lactic acidosis high lipase ,amylase Recent surgery for exploratory laparotomy with lysis of adhesions, takedown of splenic flexure, sigmoid colectomy with protecting loop ileostomy, repair of vaginal cuff.Mild dehiscence at the inferior aspect of the incision Ascites. Severe hyponatremia. Hypomagnesemia. Protein calorie malnutrition. Plan: Plan of Care Zyvox/zosyn/micafungin f/u cult and labs in am Gen surgery following May need drainage of intraabdo fluid collection if symptoms worsen cont wound care D/W YANI RAYGOZA MD Dec 22, 2018 08:40
[2018-12-22] MEDS: ENOXAPARIN 30 MG/0.3 ML SYRINGE. SQ SCH (10:19)
--- NOTE | 2018-12-22 11:21 | PDOC2 ---
GI CONSULT Reason For Consult: Nausea HPI: HPI: 68 y/o female seen this morning in ICU. Admitted 12/21/18 w/ n/v, now improved w / plans to advance diet for lunch. For colovaginal fistula, diverticulitis, and colonic stricture, underwent open exploration, MADELIN, takedown of splenic flexure, sigmoid colectomy w/ protecting loop ileostomy, and repair of vaginal cuff last month w/ Dr. Irvin. Soon after discharge, began to feel nauseated. Improved w/ Zofran but might have made her lips swell once. Seems nausea improved some on it's own but then recurred w/ vomiting on Thursday. That day she ate grist, Sprite, chicken breast, and potatoes. Denies abd pain but might be a little "sore" still from surgery. H/o GERD on Protonix QD. Has also been taking "a gas pill." No dysphagia ( though h/o this). No hematemesis. Ostomy output has been stable - watery, brown, no blood. Has previously attributed issues w/ nausea to hypoglycemia. BE in 06/2018: 5mm sigmoid colon stricture and diverticulosis. EGD and flex sig 06/2018: mild antral inflammation, normal duodenum, colon stricture @ 20cm w/ edematous mucosa. EGD and colonoscopy 07/2010: mild Schatzki's ring, normal stomach, normal small bowel, sigmoid diverticulosis, internal hemorrhoids. EGD and colonosocpy in 2005: reflux esophagitis, diverticulosis, hemorrhoids. Denies GB, pancreas, or liver history. PMH: PMH: HTN, DM, allergic rhinitis, GERD, Schatzki's ring, diverticulitis, hemorrhoids bunionectomy, hammer toe surgery, hysterectomy, appendectomy, and per HPI FH: Family History: Cancer (stomach, breast), DM Social History: ALCOHOL: none Drugs: None ROS: GEN: Denies fevers, chills, sweats HEENT: Denies blurred vision, sore throat CV: Denies chest pain RESP: Denies shortness of air, cough GI: Per HPI : Denies hematuria, dysuria ENDO: Denies weight changes NEURO: Denies confusion, dizziness MSK: Denies weakness, joint pain/swelling SKIN: Denies jaundice, pruritus Vitals: Vitals: Vital Signs Date Time Temp Pulse Resp B/P (MAP) Pulse Ox O2 Delivery O2 Flow Rate FiO2 12/22/18 09:00 78 24 116/74 (88) 100 Room Air 12/22/18 07:00 97.6 97.6 Labs: Labs: Laboratory Tests Test 12/21/18 11:30 12/21/18 12:37 12/21/18 16:55 12/21/18 21:19 Troponin I Quantitative < 0.017 ng/mL (0.000-0.055) Glucose (Fingerstick) 108 mg/dL (70-99) 91 mg/dL (70-99) 100 mg/dL (70-99) Test 12/22/18 03:40 White Blood Count 4.3 x10^3/uL (4.0-11.0) Red Blood Count 3.57 x10^6/uL (3.50-5.40) Hemoglobin 9.3 g/dL (12.0-15.5) Hematocrit 28.5 % (36.0-47.0) Mean Corpuscular Volume 80 fL (79-100) Mean Corpuscular Hemoglobin 26 pg (25-35) Mean Corpuscular Hemoglobin Concent 33 g/dL (31-37) Red Cell Distribution Width 16.4 % (11.5-14.5) Platelet Count 324 x10^3/uL (140-400) Neutrophils (%) (Auto) 58 % (31-73) Lymphocytes (%) (Auto) 24 % (24-48) Monocytes (%) (Auto) 14 % (0-9) Eosinophils (%) (Auto) 3 % (0-3) Basophils (%) (Auto) 1 % (0-3) Neutrophils # (Auto) 2.5 x10^3uL (1.8-7.7) Lymphocytes # (Auto) 1.0 x10^3/uL (1.0-4.8) Monocytes # (Auto) 0.6 x10^3/uL (0.0-1.1) Eosinophils # (Auto) 0.1 x10^3/uL (0.0-0.7) Basophils # (Auto) 0.0 x10^3/uL (0.0-0.2) Sodium Level 134 mmol/L (136-145) Potassium Level 4.3 mmol/L (3.5-5.1) Chloride Level 100 mmol/L (98-107) Carbon Dioxide Level 25 mmol/L (21-32) Anion Gap 9 (6-14) Blood Urea Nitrogen 9 mg/dL (7-20) Creatinine 1.5 mg/dL (0.6-1.0) Estimated GFR (Cockcroft-Gault) 41.5 Glucose Level 102 mg/dL (70-99) Calcium Level 8.5 mg/dL (8.5-10.1) Amylase Level 120 U/L (25-115) Lipase 712 U/L (73-393) BLOOD CULTURE Preliminary NO GROWTH AFTER 1 DAY Allergies: Coded Allergies: ciprofloxacin (Verified Allergy, Intermediate, 12/07/18) sulfamethoxazole (Verified Allergy, Intermediate, 12/21/18) trimethoprim (Verified Allergy, Intermediate, 12/21/18) naproxen (Verified Adverse Reaction, Severe, gastric bleeding, 12/07/18) tizanidine (Verified Adverse Reaction, Intermediate, N/V, 12/07/18) Medications: Current Medications Medications (Trade) Dose Ordered Sig/Werner Route PRN Reason Start Time Stop Time Status Last Admin Dose Admin Lactobacillus Rhamnosus (Culturelle) 1 cap BID PO 12/21/18 21:00 12/22/18 08:01 Linezolid/Dextrose 300 ml @ 300 mls/hr Q12HR IV 12/21/18 16:00 12/22/18 09:06 Micafungin Sodium 100 mg/Dextrose 100 ml @ 100 mls/hr Q24H IV 12/21/18 16:00 12/21/18 16:50 Piperacillin Sod/ Tazobactam Sod 2.25 gm/Sodium Chloride 50 ml @ 100 mls/hr Q6HRS IV 12/21/18 16:00 12/22/18 06:01 Imaging: Imaging: Head CT IMPRESSION: No evidence of acute intracranial abnormality. CT A/P IMPRESSION: 1. Interval small bowel resection with right lower quadrant ostomy. 2. There are dilated thickened loops of proximal small bowel with relative distal small bowel collapse. This could be related to enteritis or postoperative ileus. A partial small bowel obstruction is not excluded. 3. Small amount of ascites with loculated pocket of fluid in the low right pelvis measuring up to 5.6 cm in size. This could represent postoperative seroma or hematoma. Abscess considered less likely. Abd US IMPRESSION: 1. Probable nonvisualization of the gallbladder secondary to overlying air- filled colon. Colon is seen to be overlying the gallbladder on recent CT scan. Alternatively, stone filled gallbladder can produce a similar appearance but this is felt to be less likely. In the setting of pancreatitis, MRCP imaging is recommended to evaluate for the presence of gallstones, as well evaluation of other possible stones within the biliary tree. 2. Renal cysts as described. Attention on MRI imaging recommended. PE: GEN: NAD HEENT: Atraumatic, PERRL LUNGS: CTAB HEART: RRR ABD: NABS, S/ND/NT, RLQ ostomy w/ watery brown stool EXTREMITY: No edema SKIN: No rashes, no jaundice NEURO/PSYCH: A & O 3 A/P: A/P: N/v, abd soreness - improving, CT as above w/ ileus vs enteritis and possible seroma/hematatoma S/p MADELIN, takedown of splenic flexure, sigmoid colectomy w/ protecting loop ileostomy, and repair of vaginal cuff 11/2018 GERD - on PPI, last EGD 06/2018 CRC screen - complete colonoscopy in 2009, flex sig 06/2018 Chronic anemia - iron deficient 01/2018, Hgb around baseline now, (and B12 and retic WNL in 01/2018) Elevated lipase - improved, normal pancreas on CT, GB not visualized on US Leukocytosis (resolved), lactic acidosis (better), SUZY (better) -- Nausea improved, plans to advance diet. Check PIPIDA tomorrow. Agree w/ PPI. Additional h/o DM - could consider GES later if indicated. REECE SOLITARIO Dec 22, 2018 11:21
--- NOTE | 2018-12-22 13:00 | PDOC ---
PROGRESS NOTES Subjective Subjective Patient feeling much better. Patient tolerating clear liquids. Case discussed with infectious disease. Objective Objective Vital Signs Date Time Temp Pulse Resp B/P (MAP) Pulse Ox O2 Delivery O2 Flow Rate FiO2 12/22/18 09:00 78 24 116/74 (88) 100 Room Air 12/22/18 07:00 97.6 97.6 Intake and Output 12/22/18 07:00 Intake Total 220 ml Output Total 575 ml Balance -355 ml Intake Oral 220 ml Output Stool Total 425 ml Other 150 ml # Voids 5 Physical Exam Abdomen: Normal bowel sounds Heart: Regular rate Extremities: No edema General: Alert Lungs: Clear to auscultation Assessment Assessment Problems Medical Problems: (1) Abdominal fluid collection Status: Acute (2) Hypomagnesemia Status: Acute (3) Hyponatremia Status: Acute (4) Pancreatitis Status: Acute (5) Renal insufficiency Status: Acute (6) Severe sepsis Status: Acute Suspected sepsis neg blood clx. [id number] renal failure. Postoperative ascites/seroma on CT scan. Mild protein malnutrition. Lactic acidosis- resolved anemia Plan Plan of Care Advance diet per surgery recommendations Transfer to floor Continue IV antibiotics per ID Monitor renal status and anemia. . Comment Review of Relevant I have reviewed the following items sathya (where applicable) has been applied. Labs Laboratory Tests Test 12/21/18 04:32 12/21/18 08:00 12/21/18 08:30 12/21/18 11:30 White Blood Count 13.8 x10^3/uL (4.0-11.0) Red Blood Count 4.74 x10^6/uL (3.50-5.40) Hemoglobin 12.3 g/dL (12.0-15.5) Hematocrit 37.7 % (36.0-47.0) Mean Corpuscular Volume 80 fL (79-100) Mean Corpuscular Hemoglobin 26 pg (25-35) Mean Corpuscular Hemoglobin Concent 33 g/dL (31-37) Red Cell Distribution Width 16.5 % (11.5-14.5) Platelet Count 536 x10^3/uL (140-400) Neutrophils (%) (Auto) 77 % (31-73) Lymphocytes (%) (Auto) 15 % (24-48) Monocytes (%) (Auto) 7 % (0-9) Eosinophils (%) (Auto) 0 % (0-3) Basophils (%) (Auto) 1 % (0-3) Neutrophils # (Auto) 10.6 x10^3uL (1.8-7.7) Lymphocytes # (Auto) 2.1 x10^3/uL (1.0-4.8) Monocytes # (Auto) 0.9 x10^3/uL (0.0-1.1) Eosinophils # (Auto) 0.0 x10^3/uL (0.0-0.7) Basophils # (Auto) 0.1 x10^3/uL (0.0-0.2) Prothrombin Time 13.3 SEC (11.7-14.0) Prothromb Time International Ratio 1.0 (0.8-1.1) Activated Partial Thromboplast Time 24 SEC (24-38) Sodium Level 124 mmol/L (136-145) Potassium Level 4.6 mmol/L (3.5-5.1) Chloride Level 86 mmol/L (98-107) Carbon Dioxide Level 24 mmol/L (21-32) Anion Gap 14 (6-14) Blood Urea Nitrogen 16 mg/dL (7-20) Creatinine 2.3 mg/dL (0.6-1.0) Estimated GFR (Cockcroft-Gault) 25.4 BUN/Creatinine Ratio 7 (6-20) Glucose Level 216 mg/dL (70-99) Lactic Acid Level 3.6 mmol/L (0.4-2.0) 3.0 mmol/L (0.4-2.0) Calcium Level 9.6 mg/dL (8.5-10.1) Magnesium Level 1.6 mg/dL (1.8-2.4) Total Bilirubin 0.3 mg/dL (0.2-1.0) Aspartate Amino Transf (AST/SGOT) 30 U/L (15-37) Alanine Aminotransferase (ALT/SGPT) 33 U/L (14-59) Alkaline Phosphatase 71 U/L (46-116) Creatine Kinase 42 U/L (26-192) Creatine Kinase MB (Mass) 0.6 ng/mL (0.0-3.6) Creatine Kinase MB Relative Index % (0-4) Troponin I Quantitative < 0.017 ng/mL (0.000-0.055) < 0.017 ng/mL (0.000-0.055) < 0.017 ng/mL (0.000-0.055) Total Protein 8.2 g/dL (6.4-8.2) Albumin 3.0 g/dL (3.4-5.0) Albumin/Globulin Ratio 0.6 (1.0-1.7) Lipase 1278 U/L (73-393) Ethyl Alcohol Level < 10 mg/dL (0-10) Nasal Screen MRSA (PCR) Negative (Negative) Test 12/21/18 12:37 12/21/18 16:55 12/21/18 21:19 12/22/18 03:40 Glucose (Fingerstick) 108 mg/dL (70-99) 91 mg/dL (70-99) 100 mg/dL (70-99) White Blood Count 4.3 x10^3/uL (4.0-11.0) Red Blood Count 3.57 x10^6/uL (3.50-5.40) Hemoglobin 9.3 g/dL (12.0-15.5) Hematocrit 28.5 % (36.0-47.0) Mean Corpuscular Volume 80 fL (79-100) Mean Corpuscular Hemoglobin 26 pg (25-35) Mean Corpuscular Hemoglobin Concent 33 g/dL (31-37) Red Cell Distribution Width 16.4 % (11.5-14.5) Platelet Count 324 x10^3/uL (140-400) Neutrophils (%) (Auto) 58 % (31-73) Lymphocytes (%) (Auto) 24 % (24-48) Monocytes (%) (Auto) 14 % (0-9) Eosinophils (%) (Auto) 3 % (0-3) Basophils (%) (Auto) 1 % (0-3) Neutrophils # (Auto) 2.5 x10^3uL (1.8-7.7) Lymphocytes # (Auto) 1.0 x10^3/uL (1.0-4.8) Monocytes # (Auto) 0.6 x10^3/uL (0.0-1.1) Eosinophils # (Auto) 0.1 x10^3/uL (0.0-0.7) Basophils # (Auto) 0.0 x10^3/uL (0.0-0.2) Sodium Level 134 mmol/L (136-145) Potassium Level 4.3 mmol/L (3.5-5.1) Chloride Level 100 mmol/L (98-107) Carbon Dioxide Level 25 mmol/L (21-32) Anion Gap 9 (6-14) Blood Urea Nitrogen 9 mg/dL (7-20) Creatinine 1.5 mg/dL (0.6-1.0) Estimated GFR (Cockcroft-Gault) 41.5 Glucose Level 102 mg/dL (70-99) Calcium Level 8.5 mg/dL (8.5-10.1) Amylase Level 120 U/L (25-115) Lipase 712 U/L (73-393) Test 12/22/18 12:15 Glucose (Fingerstick) 86 mg/dL (70-99) Laboratory Tests Test 12/21/18 16:55 12/21/18 21:19 12/22/18 03:40 12/22/18 12:15 Glucose (Fingerstick) 91 mg/dL (70-99) 100 mg/dL (70-99) 86 mg/dL (70-99) White Blood Count 4.3 x10^3/uL (4.0-11.0) Red Blood Count 3.57 x10^6/uL (3.50-5.40) Hemoglobin 9.3 g/dL (12.0-15.5) Hematocrit 28.5 % (36.0-47.0) Mean Corpuscular Volume 80 fL (79-100) Mean Corpuscular Hemoglobin 26 pg (25-35) Mean Corpuscular Hemoglobin Concent 33 g/dL (31-37) Red Cell Distribution Width 16.4 % (11.5-14.5) Platelet Count 324 x10^3/uL (140-400) Neutrophils (%) (Auto) 58 % (31-73) Lymphocytes (%) (Auto) 24 % (24-48) Monocytes (%) (Auto) 14 % (0-9) Eosinophils (%) (Auto) 3 % (0-3) Basophils (%) (Auto) 1 % (0-3) Neutrophils # (Auto) 2.5 x10^3uL (1.8-7.7) Lymphocytes # (Auto) 1.0 x10^3/uL (1.0-4.8) Monocytes # (Auto) 0.6 x10^3/uL (0.0-1.1) Eosinophils # (Auto) 0.1 x10^3/uL (0.0-0.7) Basophils # (Auto) 0.0 x10^3/uL (0.0-0.2) Sodium Level 134 mmol/L (136-145) Potassium Level 4.3 mmol/L (3.5-5.1) Chloride Level 100 mmol/L (98-107) Carbon Dioxide Level 25 mmol/L (21-32) Anion Gap 9 (6-14) Blood Urea Nitrogen 9 mg/dL (7-20) Creatinine 1.5 mg/dL (0.6-1.0) Estimated GFR (Cockcroft-Gault) 41.5 Glucose Level 102 mg/dL (70-99) Calcium Level 8.5 mg/dL (8.5-10.1) Amylase Level 120 U/L (25-115) Lipase 712 U/L (73-393) Microbiology 12/21/18 Blood Culture - Preliminary, Resulted NO GROWTH AFTER 1 DAY Medications Current Medications Ondansetron HCl (Zofran) 4 mg 1X ONCE IV Last administered on 12/21/18at 04:44; Start 12/21/18 at 04:30; Stop 12/21/18 at 04:31; Status DC Famotidine (Pepcid Vial) 20 mg 1X ONCE IVP Last administered on 12/21/18at 04:48 ; Start 12/21/18 at 04:30; Stop 12/21/18 at 04:31; Status DC Sodium Chloride 1,000 ml @ 1,000 mls/hr 1X ONCE IV Last administered on at 04:43; Start 12/21/18 at 04:30; Stop 12/21/18 at 05:29; Status DC Sodium Chloride 1,000 ml @ 1,000 mls/hr 1X ONCE IV Last administered on at 05:42; Start 12/21/18 at 05:00; Stop 12/21/18 at 05:59; Status DC Fentanyl Citrate (Fentanyl 2ml Vial) 25 mcg 1X ONCE IV ; Start 12/21/18 at 05:30 ; Stop 12/21/18 at 05:31; Status DC Piperacillin Sod/ Tazobactam Sod 3.375 gm/Sodium Chloride 50 ml @ 100 mls/hr 1X ONCE IV Last administered on 12/21/18at 06:19; Start 12/21/18 at 05:30; Stop 12/21/18 at 05:59; Status DC Sodium Chloride 500 ml @ 500 mls/hr 1X ONCE IV Last administered on 12/21/18at 05:43; Start 12/21/18 at 05:30; Stop 12/21/18 at 06:29; Status DC Vancomycin HCl 1.5 gm/Sodium Chloride 500 ml @ 250 mls/hr 1X ONCE IV Last administered on 12/21/18at 08:02; Start 12/21/18 at 06:00; Stop 12/21/18 at 07:59; Status DC Magnesium Sulfate 50 ml @ 25 mls/hr 1X ONCE IV Last administered on 12/21/18at 08:02; Start 12/21/18 at 05:30; Stop 12/21/18 at 07:29; Status DC Vancomycin HCl (Vanco Per Pharmacy) 1 each PRN DAILY PRN MC SEE COMMENTS Last administered on 12/21/18at 12:59; Start 12/21/18 at 05:15; Stop 12/22/18 at 08:47; Status DC Ondansetron HCl (Zofran) 4 mg PRN Q8HRS PRN IV NAUSEA/VOMITING 1ST CHOICE; Start 12/21/18 at 05:15; Stop 12/22/18 at 05:14; Status DC Fentanyl Citrate (Fentanyl 2ml Vial) 25 mcg PRN Q2HRS PRN IV MODERATE PAIN Last administered on 12/21/18at 20:53; Start 12/21/18 at 05:15 Acetaminophen (Tylenol) 650 mg PRN Q4HRS PRN PO FEVER; Start 12/21/18 at 05:15; Stop 12/22/18 at 05:14; Status DC Fentanyl Citrate (Fentanyl 2ml Vial) 50 mcg PRN Q2HR PRN IV SEVERE PAIN; Start 12/21/18 at 09:30 Ondansetron HCl (Zofran) 4 mg PRN Q6HRS PRN IV NAUSEA/VOMITING Last administered on 12/21/18at 14:45; Start 12/21/18 at 09:30 Prochlorperazine Edisylate (Compazine) 10 mg PRN Q6HRS PRN IV NAUSEA/VOMITING Last administered on 12/21/18at 20:53; Start 12/21/18 at 09:30 Prochlorperazine Maleate (Compazine) 5 mg PRN Q6HRS PRN PO NAUSEA/VOMITING; Start 12/21/18 at 09:30 Pantoprazole Sodium (Protonix) 40 mg DAILYAC PO Last administered on 12/22/18at 08:01; Start 12/21/18 at 11:00 Sodium Chloride 1,000 ml @ 100 mls/hr Q10H IV Last administered on 12/22/18at 12 :17; Start 12/21/18 at 09:45 Acetaminophen/ Hydrocodone Bitart (Lortab 5/325) 1 tab PRN Q4HRS PRN PO MILD PAIN; Start 12/21/18 at 09:45 Acetaminophen/ Hydrocodone Bitart (Lortab 5/325) 2 tab PRN Q4HRS PRN PO MODERATE PAIN, SEVERE PAIN; Start 12/21/18 at 09:45 Enoxaparin Sodium (Lovenox 30mg Syringe) 30 mg Q24H SQ Last administered on 12/22at 10:19; Start 12/21/18 at 10:15 Insulin Human Lispro (HumaLOG) 0-12 UNITS QIDACHS SQ ; Start 12/21/18 at 11:30 Vancomycin HCl (Vancomycin Random Level) 1 each 1X ONCE MC ; Start 12/23/18 at 08:00; Stop 12/23/18 at 08:01; Status Cancel Lactobacillus Rhamnosus (Culturelle) 1 cap BID PO Last administered on at 08:01; Start 12/21/18 at 21:00 Piperacillin Sod/ Tazobactam Sod (Zosyn Per Pharmacy) 1 each PRN DAILY PRN MC SEE COMMENTS; Start 12/21/18 at 15:30 Linezolid/Dextrose 300 ml @ 300 mls/hr Q12HR IV Last administered on 12/22/18at 09:06; Start 12/21/18 at 16:00 Micafungin Sodium 100 mg/Dextrose 100 ml @ 100 mls/hr Q24H IV Last administered on 12/21/18at 16:50; Start 12/21/18 at 16:00 Piperacillin Sod/ Tazobactam Sod 2.25 gm/Sodium Chloride 50 ml @ 100 mls/hr Q6HRS IV Last administered on 12/22/18at 12:17; Start 12/21/18 at 16:00 Active Scripts Active Hydrocodone-Apap 5-325 (Hydrocodone Bit/Acetaminophen) 1 Tab Tablet 1 Tab PO PRN Q4HRS PRN 30 Days Reported Lisinopril-Hctz 20-12.5 Mg Tab (Lisinopril/Hydrochlorothiazide) 1 Each Tablet 1 Tab PO DAILY Dicyclomine Hcl 10 Mg Capsule 1 Cap PO TID Metformin Hcl 500 Mg Tablet 500 Mg PO BIDWMEALS Flonase Allergy Relief (Fluticasone Propionate) 9.9 Ml [place].susp 2 Sprays NS DAILY Pantoprazole Sodium 40 Mg Tablet. 1 Tab PO DAILY Vitals/I & O Vital Sign - Last 24 Hours 12/21/18 12/21/18 12/21/18 12/21/18 13:00 14:00 14:45 15:00 Pulse 70 72 74 Resp 18 20 17 B/P (MAP) 103/62 (76) 87/55 (66) 95/57 (70) Pulse Ox 100 98 99 99 O2 Delivery Room Air Room Air Room Air Room Air 12/21/18 12/21/18 12/21/18 12/21/18 16:00 16:00 17:00 18:00 Temp 98.5 98.5 Pulse 80 79 73 Resp 17 18 18 B/P (MAP) 90/53 (65) 91/48 (62) 109/56 (73) Pulse Ox 99 100 100 O2 Delivery Room Air Room Air Room Air Room Air 12/21/18 12/21/18 12/21/18 12/21/18 19:00 20:00 20:00 20:53 Temp 98.6 98.6 Pulse 80 70 Resp 25 20 13 B/P (MAP) 102/69 (80) 98/61 (73) Pulse Ox 100 99 100 O2 Delivery Room Air Room Air Room Air Room Air 12/21/18 12/21/18 12/21/18 12/21/18 21:00 21:23 22:00 23:00 Pulse 74 75 70 Resp 18 15 15 24 B/P (MAP) 94/54 (67) 96/48 (64) 88/44 (59) Pulse Ox 100 100 100 99 O2 Delivery Room Air Room Air Room Air Room Air 12/21/18 12/22/18 12/22/18 12/22/18 23:59 00:00 01:00 02:00 Temp 98.2 98.2 Pulse 68 60 62 Resp 18 15 15 B/P (MAP) 76/49 (58) 97/52 (67) 77/50 (59) Pulse Ox 100 100 100 O2 Delivery Room Air Room Air Room Air Room Air 12/22/18 12/22/18 12/22/18 12/22/18 03:00 04:00 04:00 05:00 Temp 97.5 97.5 Pulse 64 64 62 Resp 16 18 15 B/P (MAP) 86/55 (65) 84/48 (60) 105/57 (73) Pulse Ox 100 99 99 O2 Delivery Room Air Room Air Room Air Room Air 12/22/18 12/22/18 12/22/18 12/22/18 06:00 07:00 08:00 08:00 Temp 97.6 97.6 Pulse 100 60 66 Resp 18 16 18 B/P (MAP) 103/60 (74) 97/53 (68) 92/60 (71) Pulse Ox 100 99 100 O2 Delivery Room Air Room Air Room Air Room Air 12/22/18 09:00 Pulse 78 Resp 24 B/P (MAP) 116/74 (88) Pulse Ox 100 O2 Delivery Room Air Intake and Output 12/21/18 12/21/18 12/22/18 15:00 23:00 07:00 Intake Total 120 ml 100 ml 0 ml Output Total 325 ml 100 ml 150 ml Balance -205 ml 0 ml -150 ml ASTRID DURAN MD Dec 22, 2018 13:00
[2018-12-22] MEDS: MICAFUNGIN 100 MG in IV DEXTROSE 5% 100ML 100 ML IV SCH (14:58)
[2018-12-23] MEDS: IV NORMAL SALINE 1000ML BAG 1,000 ML IV SCH ×2 (02:48→11:45)
[2018-12-23 03:00] VITALS: BP 108/67
[2018-12-23] MEDS: PIPERACILLIN/TAZOBACTAM 2.25 GM in IV NORMAL SALINE 50ML 50 ML IV SCH ×2 (06:07→12:00)
[2018-12-23 07:00] VITALS: BP 101/58
[2018-12-23] MEDS: INSULIN LISPRO 300 UNITS/3 ML INSULN.PEN. SQ SCH ×3 (07:30→16:30)
[2018-12-23] MEDS: PANTOPRAZOLE 40 MG TABLET.DR. PO SCH (07:30)
[2018-12-23] MEDS ORDERED: VANCOMYCIN RANDOM LEVEL. MC ONE (08:00)
[2018-12-23] MEDS ORDERED: MORPHINE SULFATE 4 MG/ML VIAL. IV ONE (08:15)
[2018-12-23] MEDS ORDERED: MORPHINE SULFATE 4 MG/ML VIAL. ONE (08:17)
[2018-12-23] MEDS: LACTOBACILLUS RHAMNOSUS GG 1 CAPSULE. PO SCH (09:00)
--- NOTE | 2018-12-23 09:51 | RAD ---
Hepatobiliary scan 12/23/2018 CLINICAL HISTORY: Nausea and vomiting. Contracted gallbladder seen on abdominal ultrasound. TECHNIQUE: After the intravenous administration of 5.5 mCi of Technetium 99m Choletec, imaging of the right upper quadrant abdomen was performed using the gamma camera for one hour. The gallbladder was not visualized at 1 hour and 4 mg of morphine sulfate were administered intravenously. Continued imaging of the right upper quadrant abdomen was performed for an additional 30 minutes. FINDINGS: Comparison is made to the patient's CT scan of the abdomen dated 12/23/2018 and ultrasound of the abdomen dated 12/21/2018. Normal perfusion, uptake and excretion of the radionuclide by the liver is seen. The gallbladder is not visualized at 1 hour. Following administration of the morphine gradual accumulation of activity within the gallbladder is seen on the delayed images. This finding could be seen with chronic cholecystitis. IMPRESSION: Delayed gallbladder visualization is seen which can be seen with chronic cholecystitis. Clinical correlation is recommended. Electronically signed by: Tera Higuera MD (12/23/2018 9:48 AM) [id number]
--- NOTE | 2018-12-23 10:16 | PDOC ---
Infectious Disease Note Subjective: Subjective Pt is feeling better no f/cn/v/sob/cough/abdo pain eating breakfast ROS: ROS Negative except for above. Vital Signs: Vital Signs Vital Signs Date Time Temp Pulse Resp B/P (MAP) Pulse Ox O2 Delivery O2 Flow Rate FiO2 12/23/18 08:30 16 96 Room Air 12/23/18 07:00 98.2 66 101/58 (72) 98.2 Physical Exam: PHYSICAL EXAM GENERAL: Alert and oriented x 3, cooperative female, lying in bed comfortably, tired appearing and nontoxic appearing, in no acute distress. Cooperative. HEENT: Normocephalic, atraumatic. Anicteric. No thrush. No conjunctival petechiae. Oropharynx clear. No oropharyngeal exudate noted. NECK: Supple. No JVD. LUNGS: Clear bilaterally. No wheezing. HEART: S1, S2. No gallops, murmurs or rubs. ABDOMEN: Soft. Ostomy +. Midline incision well healed. There is a small area, which is dehisced in the lower most part of the incision. No purulent drainage seen. There is drainage, which is dry on the gauze piece. No surrounding redness, no fluctuance. Diffuse mild tenderness present on deep palpation. No rebound, no guarding. EXTREMITIES: No edema, no cyanosis, no clubbing. DERMATOLOGIC: Warm, dry. No generalized skin rash. NEUROLOGIC: Alert and oriented x 3, grossly nonfocal. PSYCHIATRIC: Cooperative, appropriate mood and affect. Medications: Inpatient Meds: Current Medications Medications (Trade) Dose Ordered Sig/Werner Start Time Stop Time Status Last Admin Dose Admin Acetaminophen (Tylenol) 650 mg PRN Q4HRS PRN 12/21/18 05:15 12/22/18 05:14 DC Acetaminophen/ Hydrocodone Bitart (Lortab 5/325) 2 tab PRN Q4HRS PRN 12/21/18 09:45 Enoxaparin Sodium (Lovenox 30mg Syringe) 30 mg Q24H 12/21/18 10:15 12/22/18 10:19 30 MG Famotidine (Pepcid Vial) 20 mg 1X ONCE 12/21/18 04:30 12/21/18 04:31 DC 12/21/18 04:48 20 MG Fentanyl Citrate (Fentanyl 2ml Vial) 50 mcg PRN Q2HR PRN 12/21/18 09:30 Insulin Human Lispro (HumaLOG) 0-12 UNITS QIDACHS 12/21/18 11:30 Lactobacillus Rhamnosus (Culturelle) 1 cap BID 12/21/18 21:00 12/22/18 21:12 1 CAP Linezolid/Dextrose 300 ml @ 300 mls/hr Q12HR 12/21/18 16:00 12/22/18 21:13 300 MLS/HR Magnesium Sulfate 50 ml @ 25 mls/hr 1X ONCE 12/21/18 05:30 12/21/18 07:29 DC 12/21/18 08:02 25 MLS/HR Micafungin Sodium 100 mg/Dextrose 100 ml @ 100 mls/hr Q24H 12/21/18 16:00 12/22/18 14:58 100 MLS/HR Morphine Sulfate (Morphine Sulfate) 4 mg STK-MED ONCE 12/23/18 08:17 12/23/18 08:18 DC Ondansetron HCl (Zofran) 4 mg PRN Q6HRS PRN 12/21/18 09:30 12/21/18 14:45 4 MG Pantoprazole Sodium (Protonix) 40 mg DAILYAC 12/21/18 11:00 12/22/18 08:01 40 MG Piperacillin Sod/ Tazobactam Sod (Zosyn Per Pharmacy) 1 each PRN DAILY PRN 12/21/18 15:30 Piperacillin Sod/ Tazobactam Sod 2.25 gm/Sodium Chloride 50 ml @ 100 mls/hr Q6HRS 12/21/18 16:00 12/23/18 06:07 100 MLS/HR Piperacillin Sod/ Tazobactam Sod 3.375 gm/Sodium Chloride 50 ml @ 100 mls/hr 1X ONCE 12/21/18 05:30 12/21/18 05:59 DC 12/21/18 06:19 100 MLS/HR Prochlorperazine Edisylate (Compazine) 10 mg PRN Q6HRS PRN 12/21/18 09:30 12/21/18 20:53 10 MG Prochlorperazine Maleate (Compazine) 5 mg PRN Q6HRS PRN 12/21/18 09:30 Sodium Chloride 1,000 ml @ 100 mls/hr Q10H 12/21/18 09:45 12/23/18 02:48 100 MLS/HR Vancomycin HCl (Vanco Per Pharmacy) 1 each PRN DAILY PRN 12/21/18 05:15 12/22/18 08:47 DC 12/21/18 12:59 1 EACH Vancomycin HCl (Vancomycin Random Level) 1 each 1X ONCE 12/23/18 08:00 12/23/18 08:01 Cancel Vancomycin HCl 1.5 gm/Sodium Chloride 500 ml @ 250 mls/hr 1X ONCE 12/21/18 06:00 12/21/18 07:59 DC 12/21/18 08:02 250 MLS/HR Labs: Lab Laboratory Tests Test 12/22/18 12:15 12/22/18 17:06 12/22/18 21:10 12/23/18 07:12 Glucose (Fingerstick) 86 mg/dL (70-99) 90 mg/dL (70-99) 69 mg/dL (70-99) 75 mg/dL (70-99) Objective: Assessment: Leucocytosis sepsis source likely intraabdominal Abn CT abdomen revealing fluid collection could be seroma/hematoma, SBO/ ?Enteritis SUZY on CKD lactic acidosis high lipase ,amylase Recent surgery for exploratory laparotomy with lysis of adhesions, takedown of splenic flexure, sigmoid colectomy with protecting loop ileostomy, repair of vaginal cuff.Mild dehiscence at the inferior aspect of the incision Ascites. Severe hyponatremia. Hypomagnesemia. Protein calorie malnutrition. Plan: Plan of Care dc zyvox /micafungin/zosyn augmentin f/u cult and labs in am Gen surgery following cont ostomy care D/W granddaughter D/W YANI RAYGOZA MD Dec 23, 2018 10:16
--- NOTE | 2018-12-23 11:02 | PDOC ---
SURGICAL PROGRESS NOTE Subjective Pt without c/o, franny reg diet well, feels much better Vital Signs Vital Signs Date Time Temp Pulse Resp B/P (MAP) Pulse Ox O2 Delivery O2 Flow Rate FiO2 12/23/18 08:30 16 96 Room Air 12/23/18 07:00 98.2 66 101/58 (72) 98.2 I&O Intake and Output 12/23/18 06:59 Intake Total 960 ml Output Total 1000 ml Balance -40 ml Intake Oral 960 ml Output Stool Total 900 ml Other 100 ml # Voids 10 General: Alert, Oriented X3, Cooperative, No acute distress Abdomen: Soft Labs Laboratory Tests Test 12/21/18 11:30 12/21/18 12:37 12/21/18 16:55 12/21/18 21:19 Troponin I Quantitative < 0.017 ng/mL (0.000-0.055) Glucose (Fingerstick) 108 mg/dL (70-99) 91 mg/dL (70-99) 100 mg/dL (70-99) Test 12/22/18 03:40 12/22/18 12:15 12/22/18 17:06 12/22/18 21:10 White Blood Count 4.3 x10^3/uL (4.0-11.0) Red Blood Count 3.57 x10^6/uL (3.50-5.40) Hemoglobin 9.3 g/dL (12.0-15.5) Hematocrit 28.5 % (36.0-47.0) Mean Corpuscular Volume 80 fL (79-100) Mean Corpuscular Hemoglobin 26 pg (25-35) Mean Corpuscular Hemoglobin Concent 33 g/dL (31-37) Red Cell Distribution Width 16.4 % (11.5-14.5) Platelet Count 324 x10^3/uL (140-400) Neutrophils (%) (Auto) 58 % (31-73) Lymphocytes (%) (Auto) 24 % (24-48) Monocytes (%) (Auto) 14 % (0-9) Eosinophils (%) (Auto) 3 % (0-3) Basophils (%) (Auto) 1 % (0-3) Neutrophils # (Auto) 2.5 x10^3uL (1.8-7.7) Lymphocytes # (Auto) 1.0 x10^3/uL (1.0-4.8) Monocytes # (Auto) 0.6 x10^3/uL (0.0-1.1) Eosinophils # (Auto) 0.1 x10^3/uL (0.0-0.7) Basophils # (Auto) 0.0 x10^3/uL (0.0-0.2) Sodium Level 134 mmol/L (136-145) Potassium Level 4.3 mmol/L (3.5-5.1) Chloride Level 100 mmol/L (98-107) Carbon Dioxide Level 25 mmol/L (21-32) Anion Gap 9 (6-14) Blood Urea Nitrogen 9 mg/dL (7-20) Creatinine 1.5 mg/dL (0.6-1.0) Estimated GFR (Cockcroft-Gault) 41.5 Glucose Level 102 mg/dL (70-99) Calcium Level 8.5 mg/dL (8.5-10.1) Amylase Level 120 U/L (25-115) Lipase 712 U/L (73-393) Glucose (Fingerstick) 86 mg/dL (70-99) 90 mg/dL (70-99) 69 mg/dL (70-99) Test 12/23/18 07:12 Glucose (Fingerstick) 75 mg/dL (70-99) Laboratory Tests Test 12/22/18 12:15 12/22/18 17:06 12/22/18 21:10 12/23/18 07:12 Glucose (Fingerstick) 86 mg/dL (70-99) 90 mg/dL (70-99) 69 mg/dL (70-99) 75 mg/dL (70-99) Problem List Problems Medical Problems: (1) Abdominal fluid collection Status: Acute (2) Hypomagnesemia Status: Acute (3) Hyponatremia Status: Acute (4) Pancreatitis Status: Acute (5) Renal insufficiency Status: Acute (6) Severe sepsis Status: Acute Assessment/Plan dehydration appears clinically improved OK to work towards d/c f/u in a few weeks to plan ileostomy takedown. JOEY GAGNON MD Dec 23, 2018 11:02
[2018-12-23] MEDS: ENOXAPARIN 30 MG/0.3 ML SYRINGE. SQ SCH (11:07)
[2018-12-23 11:23] VITALS: BP 127/64
[2018-12-23] MEDS ORDERED: AMOX1TAB61 PO (12:34)
[2018-12-23] MEDS ORDERED: FLUTICASONE 50MCG/NASAL SPRAY 16GM BOTTLE. NS SCH (13:00)
--- NOTE | 2018-12-23 13:04 | PDOC ---
Subjective: Subjective: Feels much better - tolerating PO, very little intermittent nausea, had PIPIDA this morning. Objective: Vital Signs: Vital Signs Date Time Temp Pulse Resp B/P (MAP) Pulse Ox O2 Delivery O2 Flow Rate FiO2 12/23/18 11:23 99.0 72 18 127/64 (85) 98 Room Air 99.0 Labs: Laboratory Tests Test 12/22/18 17:06 12/22/18 21:10 12/23/18 07:12 12/23/18 11:13 Glucose (Fingerstick) 90 mg/dL (70-99) 69 mg/dL (70-99) 75 mg/dL (70-99) 106 mg/dL (70-99) Imaging: HIDA IMPRESSION: Delayed gallbladder visualization is seen which can be seen with chronic cholecystitis. Clinical correlation is recommended. PE: GEN: NAD, sitting up in bed LUNGS: CTAB HEART: RRR ABD: non-tender NEURO/PSYCH: A & O 3 A/P: N/v, abd soreness - resolved S/p sigmoid colectomy w/ loop ileostomy Chronic anemia Elevated lipase - improved (checked yesterday) -- HIDA results as above. Surgery following. Continue PPI. REECE SOLITARIO Dec 23, 2018 13:03
[2018-12-23 15:00] VITALS: BP 108/55
[2018-12-23 16:34] LABS: BASO # 0.1 x10^3/uL (0.0-0.2); BASO % 1 % (0-3); EOS # 0.1 x10^3/uL (0.0-0.7); EOS % 2 % (0-3); HEMOGLOBIN 9.8 g/dL (12.0-15.5); LYMPH # 1.6 x10^3/uL (1.0-4.8); LYMPH % 27 % (24-48); MEAN CORPUSCULAR HEMOGLOBIN 26 pg (25-35); MEAN CORPUSCULAR HGB CONC 33 g/dL (31-37); MEAN CORPUSCULAR VOLUME 80 fL (79-100); MONO # 0.6 x10^3/uL (0.0-1.1); MONO % 10 % (0-9); NEUT # 3.5 x10^3uL (1.8-7.7); NEUT % 60 % (31-73); PLATELET COUNT 378 x10^3/uL (140-400); RED BLOOD COUNT 3.74 x10^6/uL (3.50-5.40); RED CELL DISTRIBUTION WIDTH 16.4 % (11.5-14.5); WHITE BLOOD COUNT 5.8 x10^3/uL (4.0-11.0)
[2018-12-23 17:02] LABS: CREATININE 1.2 mg/dL (0.6-1.0); GFR 53.7; POTASSIUM 4.1 mmol/L (3.5-5.1)
--- NOTE | 2018-12-23 21:18 | DS ---
DATE OF DISCHARGE: 12/23/2018 ADMITTING DIAGNOSIS: Sepsis. DISMISSAL DIAGNOSES: 1. Viral gastroenteritis. 2. Acute on chronic renal failure. 3. Ileus. 4. Hyponatremia, resolved. 5. Hypomagnesemia, resolved. 6. Mild protein malnutrition. 7. Lactic acidosis, resolved. HISTORY OF PRESENT ILLNESS AND HOSPITAL COURSE: This patient is a 68-year-old -[place] female who was recently discharged from the hospital approximately 6 days ago after operation for colovaginal fistula. She had a diverting ileostomy and has been convalescing well. She did have an ileus post-surgery, which did resolve, but the patient began having increased nausea after the day of discharge, having profound output through ileostomy as well as nausea and vomiting. She became markedly dehydrated and came to the hospital for weakness and abdominal pain. She met criteria for sepsis and sepsis protocol was followed. IV antibiotics and fluids were given. The patient improved dramatically within the first 24-48 hours. No further evidence of significant infection was discovered. The patient did have evidence of gallbladder dysfunction and plans for possible cholecystectomy at the time of ileostomy takedown were made. The patient was back to baseline and tolerating diet. Therefore, plans for discharge to home were made. DISCHARGE MEDICATIONS: She was discharged on the following medications: Augmentin 875 one p.o. b.i.d., Flonase 2 sprays each nostril daily, Lortab 5 one q. 4 hours p.r.n. pain, pantoprazole 40 mg daily. The patient's chronic medications of dicyclomine, lisinopril and metformin were held due to low blood sugars and low blood pressures. She will [facility] up [facility] in one week for continued care. ASTRID DURAN MD DR: PORTIA/esperanza JOB#: [id number] / [id number]
[2019-02-02] MEDS ORDERED: ONDA4TAB12 PO (12:39)
[2019-02-02] MEDS ORDERED: FERR325T72 PO (12:39)
== END 2018-12-23 18:45 | disposition home health service (06) | DRG 871 ==
LOC: ER 04:07 → 1 WEST ICU 05:15 → 5 SOUTH 12-22 11:52
PROVIDERS: ADMIT Family Medicine; ATTEND Family Medicine
DX: A41.9 Sepsis, unspecified organism (principal); K85.90 Acute pancreatitis without necrosis or infection, unspecified; T81.30XA Disruption of wound, unspecified, initial encounter; E44.1 Mild protein-calorie malnutrition; E87.1 Hypo-osmolality and hyponatremia; R18.8 Other ascites; N17.9 Acute kidney failure, unspecified; K56.7 Ileus, unspecified; K91.870 Postprocedural hematoma of a digestive system organ or structure following a digestive system procedure; R65.20 Severe sepsis without septic shock; E86.0 Dehydration; E83.42 Hypomagnesemia; A08.4 Viral intestinal infection, unspecified; D64.9 Anemia, unspecified; E11.22 Type 2 diabetes mellitus with diabetic chronic kidney disease; E11.649 Type 2 diabetes mellitus with hypoglycemia without coma; I12.9 Hypertensive chronic kidney disease with stage 1 through stage 4 chronic kidney disease, or unspecified chronic kidney disease; K21.9 Gastro-esophageal reflux disease without esophagitis; N18.9 Chronic kidney disease, unspecified; E66.01 Morbid (severe) obesity due to excess calories; M19.90 Unspecified osteoarthritis, unspecified site; Y83.8 Other surgical procedures as the cause of abnormal reaction of the patient, or of later complication, without mention of misadventure at the time of the procedure; N28.1 Cyst of kidney, acquired; Z80.3 Family history of malignant neoplasm of breast; Z82.3 Family history of stroke; Z82.49 Family history of ischemic heart disease and other diseases of the circulatory system; Z83.3 Family history of diabetes mellitus; Z90.49 Acquired absence of other specified parts of digestive tract; Z90.710 Acquired absence of both cervix and uterus; Z88.1 Allergy status to other antibiotic agents; Z88.8 Allergy status to other drugs, medicaments and biological substances; Z68.29 Body mass index [BMI] 29.0-29.9, adult; Y92.89 Other specified places as the place of occurrence of the external cause; Z79.84 Long term (current) use of oral hypoglycemic drugs
CPT/HCPCS: 36415; 70450; 74176; 76700; 78226; 80048; 80053; 82150; 82553; 82962; 83605; 83690; 83735; 84484; 85025; 85610; 85730; 87040; 87641; 93005; 96361; 96374; 96375; A9537; G0480; J0780; J1650; J1815; J2020; J2248; J2270; J2405; J2543; J3010; J3370; J3475; J3490; J7030; J7040; 97530; 97535; 99291-25

== ENCOUNTER 2018-12-31 14:50 | Observation (INO) | payer MEDICARE, OTHER ==
[~2018-12-31] VITALS: Ht 152.4 cm; Wt 64.0 kg
[~2018-12-31 14:50] MED LIST changes: +AMOX1TAB61 PO
[2018-12-31] MEDS ORDERED: ONDANSETRON PF 4 MG/2 ML VIAL. IV ONE ×2 (16:45→19:15)
[2018-12-31] MEDS ORDERED: IV NORMAL SALINE 1000ML BAG 1,000 ML IV ONE (16:45)
[2018-12-31 17:01] LABS: BASO % 0 % (0-3); EOS % 1 % (0-3); HEMATOCRIT 35.3 % (36.0-47.0); HEMOGLOBIN 11.5 g/dL (12.0-15.5); LYMPH % 34 % (24-48); MEAN CORPUSCULAR HEMOGLOBIN 26 pg (25-35); MEAN CORPUSCULAR HGB CONC 33 g/dL (31-37); MEAN CORPUSCULAR VOLUME 79 fL (79-100); MONO # 0.8 x10^3/uL (0.0-1.1); MONO % 13 % (0-9); NEUT # 3.2 x10^3uL (1.8-7.7); NEUT % 52 % (31-73); PLATELET COUNT 408 x10^3/uL (140-400); RED BLOOD COUNT 4.44 x10^6/uL (3.50-5.40); RED CELL DISTRIBUTION WIDTH 17.2 % (11.5-14.5)
--- NOTE | 2018-12-31 17:32 | RAD ---
EXAM: CT Head without IV contrast CLINICAL HISTORY: VILLARREAL X 3 DAYS NV PREV SENT COMPARISON: 12/21/2018 05/05/2013 TECHNIQUE: Routine CT of the head without contrast. RS compliance statement - One or more of the following individualized dose reduction techniques were utilized for this study: 1. Automated exposure control 2. Adjustment of the mA and/or kV according to patient size 3. Use of iterative reconstruction technique FINDINGS: There is no evidence of hemorrhage, mass or extra-axial fluid collection. Miller-white differentiation is maintained with no evidence of edema. There is no mass effect or shift of the intracranial structures. The ventricles, basilar cisterns and cortical sulci are normal in size and configuration for the patients stated age. The cerebellum and brainstem are unremarkable. The calvarium demonstrates no evidence of fracture or focal lesion. There is normal aeration of the visualized paranasal sinuses and mastoid air cells. The visualized portions of the orbits are normal. IMPRESSION: No evidence for acute intracranial process. Electronically signed by: Baudilio Hogue MD (12/31/2018 5:29 PM) [facility]
[2018-12-31 17:59] LABS: BILIRUBIN,URINE NEGATIVE (NEG); CLARITY,URINE CLEAR; COLOR,URINE YELLOW; NITRITE,URINE NEGATIVE (NEG); PROTEIN,URINE 30 mg/dL (NEG-TRACE); UROBILINOGEN,URINE 0.2 mg/dL (0.2 mg/dL)
[2018-12-31 18:06] LABS: CALCIUM 10.2 mg/dL (8.5-10.1); CREATININE 1.3 mg/dL (0.6-1.0); POTASSIUM 4.6 mmol/L (3.5-5.1)
[2018-12-31 18:11] LABS: BACTERIA,URINE FEW /HPF (0-FEW); HYALINE CASTS, URINE FEW /HPF; SQUAMOUS EPITHELIAL CELL,UR OCC /LPF
[2018-12-31 18:12] LABS: ALBUMIN 3.6 g/dL (3.4-5.0); ALBUMIN/GLOBULIN RATIO 0.7 (1.0-1.7); TOTAL BILIRUBIN 0.4 mg/dL (0.2-1.0)
--- NOTE | 2018-12-31 18:13 | PHYS DOC ---
Past Medical History Past Medical History: Diabetes-Type II, Diverticulitis, GERD, Hypertension Past Surgical History: Colectomy, Hysterectomy, Other Additional Past Surgical Histo: BILAT BUNION REMOVAL Alcohol Use: None Drug Use: None Adult General Chief Complaint Chief Complaint: HEADACHE HPI HPI Patient is a 68 year old AA female who presents to the ER, accompanied by her daughter, with complaints of nausea, vomiting, and a headache for the last 3 days. She reports that she was recently admitted to [facility] for sepsis and sent home on 12/23/18. She was feeling better, but 3 days ago started feeling bad again. She denies any fever, abdominal pain, chest, pain, cough, or shortness of breath. She had an ileostomy placed last month and reports increased output from her pouch. Review of Systems Review of Systems Constitutional: Denies fever or chills [] Eyes: Denies changes HENT: Denies nasal congestion or sore throat [] Respiratory: Denies cough or shortness of breath [] Cardiovascular: No additional information not addressed in HPI [] GI: see HPI Musculoskeletal: Denies back pain or joint pain [] Integument: Denies rash or skin lesions [] Neurologic: Denies focal weakness or sensory changes; reports headache Current Medications Current Medications Current Medications Medications (Trade) Dose Ordered Sig/Werner Start Time Stop Time Status Last Admin Dose Admin Ondansetron HCl (Zofran) 4 mg 1X ONCE 12/31/18 19:15 12/31/18 19:16 DC 12/31/18 19:34 4 MG Sodium Chloride 1,000 ml @ 1,000 mls/hr 1X ONCE 12/31/18 16:45 12/31/18 17:44 DC 12/31/18 17:42 1,000 MLS/HR Allergies Allergies Allergies Coded Allergies Type Severity Reaction Last Updated Verified ciprofloxacin Allergy Intermediate 12/07/18 Yes sulfamethoxazole Allergy Intermediate 12/21/18 Yes trimethoprim Allergy Intermediate 12/21/18 Yes naproxen Adverse Reaction Severe gastric bleeding 12/07/18 Yes tizanidine Adverse Reaction Intermediate N/V 12/07/18 Yes Physical Exam Physical Exam Constitutional: Well developed, well nourished, no acute distress, non-toxic appearance. [] HENT: Normocephalic, atraumatic, bilateral external ears normal, oropharynx dry , nose normal. [] Eyes: conjunctiva normal, no discharge. [] Neck: Normal range of motion, no stridor. [] Cardiovascular:Heart rate regular rhythm, no murmur [] Lungs & Thorax: Bilateral breath sounds clear to auscultation [] Abdomen: Bowel sounds normal, soft, TTP x4 quadrants, no guarding, ileostomy in place with red tinged fluid present in pouch Skin: Warm, dry, no erythema, no rash. [] Extremities: No cyanosis, no edema. [] Neurologic: Alert and oriented X 3, no focal deficits noted. [] Psychologic: Affect normal, judgement normal, mood normal. [] Current Patient Data Vital Signs Vital Signs Date Time Temp Pulse Resp B/P (MAP) Pulse Ox O2 Delivery O2 Flow Rate FiO2 12/31/18 21:30 88 18 96 12/31/18 16:00 98.7 120/83 (95) Room Air 98.7 Lab Values Laboratory Tests Test 12/31/18 16:30 12/31/18 17:40 12/31/18 17:45 12/31/18 20:15 White Blood Count 6.0 x10^3/uL (4.0-11.0) Red Blood Count 4.44 x10^6/uL (3.50-5.40) Hemoglobin 11.5 g/dL (12.0-15.5) L Hematocrit 35.3 % (36.0-47.0) L Mean Corpuscular Volume 79 fL (79-100) Mean Corpuscular Hemoglobin 26 pg (25-35) Mean Corpuscular Hemoglobin Concent 33 g/dL (31-37) Red Cell Distribution Width 17.2 % (11.5-14.5) H Platelet Count 408 x10^3/uL (140-400) H Neutrophils (%) (Auto) 52 % (31-73) Lymphocytes (%) (Auto) 34 % (24-48) Monocytes (%) (Auto) 13 % (0-9) H Eosinophils (%) (Auto) 1 % (0-3) Basophils (%) (Auto) 0 % (0-3) Neutrophils # (Auto) 3.2 x10^3uL (1.8-7.7) Lymphocytes # (Auto) 2.0 x10^3/uL (1.0-4.8) Monocytes # (Auto) 0.8 x10^3/uL (0.0-1.1) Eosinophils # (Auto) 0.0 x10^3/uL (0.0-0.7) Basophils # (Auto) 0.0 x10^3/uL (0.0-0.2) Urine Color Yellow Urine Clarity Clear Urine pH 6.0 Urine Specific [place] 1.015 Urine Protein 30 mg/dL (NEG-TRACE) Urine Glucose (UA) Negative mg/dL (NEG) Urine Ketones (Stick) Negative mg/dL (NEG) Urine Blood Small (NEG) Urine Nitrite Negative (NEG) Urine Bilirubin Negative (NEG) Urine Urobilinogen Dipstick 0.2 mg/dL (0.2 mg/dL) Urine Leukocyte Esterase Trace (NEG) Urine RBC 3-5 /HPF (0-2) Urine WBC 5-10 /HPF (0-4) Urine Squamous Epithelial Cells Occ /LPF Urine Bacteria Few /HPF (0-FEW) Urine Hyaline Casts Few /HPF Urine Mucus Slight /LPF Sodium Level 127 mmol/L (136-145) L 130 mmol/L (136-145) L Potassium Level 4.6 mmol/L (3.5-5.1) Chloride Level 92 mmol/L (98-107) L Carbon Dioxide Level 21 mmol/L (21-32) Anion Gap 14 (6-14) Blood Urea Nitrogen 18 mg/dL (7-20) Creatinine 1.3 mg/dL (0.6-1.0) H Estimated GFR (Cockcroft-Gault) 49.0 BUN/Creatinine Ratio 14 (6-20) Glucose Level 94 mg/dL (70-99) Calcium Level 10.2 mg/dL (8.5-10.1) H Total Bilirubin 0.4 mg/dL (0.2-1.0) Aspartate Amino Transferase (AST) 40 U/L (15-37) H Alanine Aminotransferase (ALT) 67 U/L (14-59) H Alkaline Phosphatase 82 U/L (46-116) Total Protein 9.0 g/dL (6.4-8.2) H Albumin 3.6 g/dL (3.4-5.0) Albumin/Globulin Ratio 0.7 (1.0-1.7) L Lactic Acid Level 1.6 mmol/L (0.4-2.0) Laboratory Tests 3/15/19 16:30 Laboratory Tests 12/31/18 17:40 12/31/18 20:15 EKG EKG 1704- SR no STEMI read by Dr. Pedro rate of 86[] Radiology/Procedures Radiology/Procedures PROCEDURE: CT HEAD WO CONTRAST EXAM: CT Head without IV contrast CLINICAL HISTORY: VILLARREAL X 3 DAYS NV PREV SENT COMPARISON: 12/21/2018 05/05/2013 TECHNIQUE: Routine CT of the head without contrast. PQRS compliance statement - One or more of the following individualized dose reduction techniques were utilized for this study: 1. Automated exposure control 2. Adjustment of the mA and/or kV according to patient size 3. Use of iterative reconstruction technique FINDINGS: There is no evidence of hemorrhage, mass or extra-axial fluid collection. Miller-white differentiation is maintained with no evidence of edema. There is no mass effect or shift of the intracranial structures. The ventricles, basilar cisterns and cortical sulci are normal in size and configuration for the patients stated age. The cerebellum and brainstem are unremarkable. The calvarium demonstrates no evidence of fracture or focal lesion. There is normal aeration of the visualized paranasal sinuses and mastoid air cells. The visualized portions of the orbits are normal. IMPRESSION: No evidence for acute intracranial process. [] Course & Med Decision Making Course & Med Decision Making Pertinent Labs and Imaging studies reviewed. (See chart for details) [] Dragon Disclaimer Dragon Disclaimer This electronic medical record was generated, in whole or in part, using a voice recognition dictation system. Departure Departure Impression: Primary Impression: Hyponatremia Additional Impression: Nausea Disposition: ADMITTED INPATIENT Admitting Physician: Marquise Null Condition: STABLE Referrals: MARQUISE NULL MD (PCP) Scripts [Pantoprazole] 40 MG TABLET.DR [place]ales Conflict Check 40 MG PO BIDAC for gerd for 30 Days, #60 Prov: MARQUISE NULL MD 01/02/19 Ondansetron Hcl/Pf (ONDANSETRON HCL 4 MG/2 ML VIAL) 4 Mg/2 Ml Vial 4 MG IV PRN Q4HRS PRN for NAUSEA/VOMITING 1ST CHOICE for 14 Days, #14 EACH 3 Refills Prov: MARQUISE NULL MD 01/02/19 Problem Qualifiers MARY SMITH [employer] DES[employer] Dec 31, 2018 18:13
[2018-12-31 22:30] VITALS: BP 121/68
[2018-12-31] MEDS: ONDANSETRON PF 4 MG/2 ML VIAL. IV PRN (23:42)
[2018-12-31] MEDS: IV NORMAL SALINE 1000ML BAG 1,000 ML IV SCH (23:43)
[2018-12-31] MEDS: ACETAMINOPHEN 325 MG TABLET. PO PRN (23:43)
--- NOTE | 2019-01-01 00:46 | NUR ---
2229-- The patient, GAURAV DEAL, 68 y/o, F was admitted by ASTRID DURAN MD. Pt. arrived on unit via wheelchair with daughter at bedside. Pt. was given written information regarding hospital policies, unit procedures and contact persons. Pt.'s purse left in room with only clothing inside. Pt.'s daughter took valuables home. Call light within reach, bed low. Will continue to monitor.
[2019-01-01 03:11] VITALS: BP 104/64
[2019-01-01] MEDS: IV NORMAL SALINE 1000ML BAG 1,000 ML IV SCH ×2 (06:09→14:22)
[2019-01-01] MEDS: ONDANSETRON PF 4 MG/2 ML VIAL. IV PRN ×2 (06:10→10:37)
[2019-01-01] MEDS: ACETAMINOPHEN 325 MG TABLET. PO PRN ×4 (06:10→21:14)
[2019-01-01 07:00] VITALS: BP 110/75
--- NOTE | 2019-01-01 08:55 | PDOC2 ---
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 Last couple days she's been feeling ill with nausea and headache was found to be hyponatremic on admission. She denies any decrease in ileostomy output no vomiting. Past Medical History Cardiovascular: HTN GI: Diverticulosis, Other Hepatobiliary: Cholelithiasis Musculoskeletal: Osteoarthritis Renal/: Chronic renal insuff Endocrine: Diabetes Past Surgical History Past Surgical History: Appendectomy, Hysterectomy, Other Family History Family History: Coronary Artery Disease, Stroke Social History ALCOHOL: none Drugs: None Lives: with Family Current Medications Current Medications Current Medications Sodium Chloride 1,000 ml @ 1,000 mls/hr 1X ONCE IV Last administered on at 17:42; Start 12/31/18 at 16:45; Stop 12/31/18 at 17:44; Status DC Ondansetron HCl (Zofran) 4 mg 1X ONCE IV Last administered on 12/31/18at 17:42 ; Start 12/31/18 at 16:45; Stop 12/31/18 at 16:46; Status DC Ondansetron HCl (Zofran) 4 mg 1X ONCE IV Last administered on 12/31/18at 19:34 ; Start 12/31/18 at 19:15; Stop 12/31/18 at 19:16; Status DC Sodium Chloride 1,000 ml @ 125 mls/hr Q8H IV Last administered on 01/01/19at 06 :09; Start 12/31/18 at 22:00; Stop 01/01/19 at 21:59 Ondansetron HCl (Zofran) 4 mg PRN Q4HRS PRN IV NAUSEA/VOMITING 1ST CHOICE Last administered on 01/01/19at 06:10; Start 12/31/18 at 23:30 Acetaminophen (Tylenol) 650 mg PRN Q4HRS PRN PO MILD PAIN Last administered on 01/01/19at 06:10; Start 12/31/18 at 23:30 Active Scripts Active Augmentin 875-125 Tablet (Amoxicillin/Potassium Clav) 1 Each Tablet 1 Tab PO BID Hydrocodone-Apap 5-325 (Hydrocodone Bit/Acetaminophen) 1 Tab Tablet 1 Tab PO PRN Q4HRS PRN 30 Days Reported Flonase Allergy Relief (Fluticasone Propionate) 9.9 Ml [place].susp 2 Sprays NS DAILY Pantoprazole Sodium 40 Mg Tablet. 1 Tab PO DAILY Allergies Allergies: Coded Allergies: ciprofloxacin (Verified Allergy, Intermediate, 12/07/18) sulfamethoxazole (Verified Allergy, Intermediate, 12/21/18) trimethoprim (Verified Allergy, Intermediate, 12/21/18) naproxen (Verified Adverse Reaction, Severe, gastric bleeding, 12/07/18) tizanidine (Verified Adverse Reaction, Intermediate, N/V, 12/07/18) ROS HEENT: YES: [place] Gastrointestinal: Yes Nausea Physical Exam General: Alert, Oriented X3, Cooperative, No acute distress HEENT: Atraumatic, EOMI Lungs: Clear to auscultation, Normal air movement Heart: Regular rate, No murmurs Abdomen: Normal bowel sounds, Soft, No tenderness, Other (ileostomy output ileostomy is pink and viable) Extremities: No edema Skin: No significant lesion Neuro: Normal speech Psych/Mental Status: Mental status NL Vitals VITALS Vital Signs Date Time Temp Pulse Resp B/P (MAP) Pulse Ox O2 Delivery O2 Flow Rate FiO2 01/01/19 08:00 Room Air 01/01/19 07:00 97.7 73 18 110/75 (87) 99 97.7 Labs Labs Laboratory Tests Test 12/31/18 16:30 12/31/18 17:40 12/31/18 17:45 12/31/18 20:15 White Blood Count 6.0 x10^3/uL (4.0-11.0) Red Blood Count 4.44 x10^6/uL (3.50-5.40) Hemoglobin 11.5 g/dL (12.0-15.5) Hematocrit 35.3 % (36.0-47.0) Mean Corpuscular Volume 79 fL (79-100) Mean Corpuscular Hemoglobin 26 pg (25-35) Mean Corpuscular Hemoglobin Concent 33 g/dL (31-37) Red Cell Distribution Width 17.2 % (11.5-14.5) Platelet Count 408 x10^3/uL (140-400) Neutrophils (%) (Auto) 52 % (31-73) Lymphocytes (%) (Auto) 34 % (24-48) Monocytes (%) (Auto) 13 % (0-9) Eosinophils (%) (Auto) 1 % (0-3) Basophils (%) (Auto) 0 % (0-3) Neutrophils # (Auto) 3.2 x10^3uL (1.8-7.7) Lymphocytes # (Auto) 2.0 x10^3/uL (1.0-4.8) Monocytes # (Auto) 0.8 x10^3/uL (0.0-1.1) Eosinophils # (Auto) 0.0 x10^3/uL (0.0-0.7) Basophils # (Auto) 0.0 x10^3/uL (0.0-0.2) Urine Color Yellow Urine Clarity Clear Urine pH 6.0 Urine Specific [place] 1.015 Urine Protein 30 mg/dL (NEG-TRACE) Urine Glucose (UA) Negative mg/dL (NEG) Urine Ketones (Stick) Negative mg/dL (NEG) Urine Blood Small (NEG) Urine Nitrite Negative (NEG) Urine Bilirubin Negative (NEG) Urine Urobilinogen Dipstick 0.2 mg/dL (0.2 mg/dL) Urine Leukocyte Esterase Trace (NEG) Urine RBC 3-5 /HPF (0-2) Urine WBC 5-10 /HPF (0-4) Urine Squamous Epithelial Cells Occ /LPF Urine Bacteria Few /HPF (0-FEW) Urine Hyaline Casts Few /HPF Urine Mucus Slight /LPF Sodium Level 127 mmol/L (136-145) 130 mmol/L (136-145) Potassium Level 4.6 mmol/L (3.5-5.1) Chloride Level 92 mmol/L (98-107) Carbon Dioxide Level 21 mmol/L (21-32) Anion Gap 14 (6-14) Blood Urea Nitrogen 18 mg/dL (7-20) Creatinine 1.3 mg/dL (0.6-1.0) Estimated GFR (Cockcroft-Gault) 49.0 BUN/Creatinine Ratio 14 (6-20) Glucose Level 94 mg/dL (70-99) Calcium Level 10.2 mg/dL (8.5-10.1) Total Bilirubin 0.4 mg/dL (0.2-1.0) Aspartate Amino Transf (AST/SGOT) 40 U/L (15-37) Alanine Aminotransferase (ALT/SGPT) 67 U/L (14-59) Alkaline Phosphatase 82 U/L (46-116) Total Protein 9.0 g/dL (6.4-8.2) Albumin 3.6 g/dL (3.4-5.0) Albumin/Globulin Ratio 0.7 (1.0-1.7) Lactic Acid Level 1.6 mmol/L (0.4-2.0) Test 12/31/18 23:08 Glucose (Fingerstick) 87 mg/dL (70-99) Laboratory Tests Test 12/31/18 16:30 12/31/18 17:40 12/31/18 17:45 12/31/18 20:15 White Blood Count 6.0 x10^3/uL (4.0-11.0) Red Blood Count 4.44 x10^6/uL (3.50-5.40) Hemoglobin 11.5 g/dL (12.0-15.5) Hematocrit 35.3 % (36.0-47.0) Mean Corpuscular Volume 79 fL (79-100) Mean Corpuscular Hemoglobin 26 pg (25-35) Mean Corpuscular Hemoglobin Concent 33 g/dL (31-37) Red Cell Distribution Width 17.2 % (11.5-14.5) Platelet Count 408 x10^3/uL (140-400) Neutrophils (%) (Auto) 52 % (31-73) Lymphocytes (%) (Auto) 34 % (24-48) Monocytes (%) (Auto) 13 % (0-9) Eosinophils (%) (Auto) 1 % (0-3) Basophils (%) (Auto) 0 % (0-3) Neutrophils # (Auto) 3.2 x10^3uL (1.8-7.7) Lymphocytes # (Auto) 2.0 x10^3/uL (1.0-4.8) Monocytes # (Auto) 0.8 x10^3/uL (0.0-1.1) Eosinophils # (Auto) 0.0 x10^3/uL (0.0-0.7) Basophils # (Auto) 0.0 x10^3/uL (0.0-0.2) Urine Color Yellow Urine Clarity Clear Urine pH 6.0 Urine Specific [place] 1.015 Urine Protein 30 mg/dL (NEG-TRACE) Urine Glucose (UA) Negative mg/dL (NEG) Urine Ketones (Stick) Negative mg/dL (NEG) Urine Blood Small (NEG) Urine Nitrite Negative (NEG) Urine Bilirubin Negative (NEG) Urine Urobilinogen Dipstick 0.2 mg/dL (0.2 mg/dL) Urine Leukocyte Esterase Trace (NEG) Urine RBC 3-5 /HPF (0-2) Urine WBC 5-10 /HPF (0-4) Urine Squamous Epithelial Cells Occ /LPF Urine Bacteria Few /HPF (0-FEW) Urine Hyaline Casts Few /HPF Urine Mucus Slight /LPF Sodium Level 127 mmol/L (136-145) 130 mmol/L (136-145) Potassium Level 4.6 mmol/L (3.5-5.1) Chloride Level 92 mmol/L (98-107) Carbon Dioxide Level 21 mmol/L (21-32) Anion Gap 14 (6-14) Blood Urea Nitrogen 18 mg/dL (7-20) Creatinine 1.3 mg/dL (0.6-1.0) Estimated GFR (Cockcroft-Gault) 49.0 BUN/Creatinine Ratio 14 (6-20) Glucose Level 94 mg/dL (70-99) Calcium Level 10.2 mg/dL (8.5-10.1) Total Bilirubin 0.4 mg/dL (0.2-1.0) Aspartate Amino Transf (AST/SGOT) 40 U/L (15-37) Alanine Aminotransferase (ALT/SGPT) 67 U/L (14-59) Alkaline Phosphatase 82 U/L (46-116) Total Protein 9.0 g/dL (6.4-8.2) Albumin 3.6 g/dL (3.4-5.0) Albumin/Globulin Ratio 0.7 (1.0-1.7) Lactic Acid Level 1.6 mmol/L (0.4-2.0) Test 12/31/18 23:08 Glucose (Fingerstick) 87 mg/dL (70-99) Assessment/Plan Assessment/Plan Ileostomy appears be working well no evidence of obstruction Electrolyte disturbance possibly secondary to ileostomy output and dehydration No surgical plans at this time we'll follow URIEL VIGIL MD Jan 01, 2019 08:55
[2019-01-01] MEDS ORDERED: HYDROcodone/APAP 5/325MG 1 TAB TABLET PO PRN (10:30)
[2019-01-01] MEDS ORDERED: PANTOPRAZOLE 40 MG TABLET.DR. PO SCH (10:30)
--- NOTE | 2019-01-01 10:52 | HP ---
ADMIT DATE: 12/31/2018 CHIEF COMPLAINT: Nausea, vomiting and headache. HISTORY OF PRESENT ILLNESS AND HOSPITAL COURSE: This patient is a 68-year-old -Turk[place] female who had surgery for colovaginal fistula in 11/2018. She required an ileostomy. Her postoperative course was complicated by ileus and subsequently did improve and she was discharged home, but had re-admission with suspected sepsis, which proved to be a viral syndrome and recurrent ileus. She was treated with supportive measures and IV fluids and improved and was discharged on 12/23/2018. The patient was doing well, but had recurrent nausea, vomiting and increased ostomy output with severe headache and came to the Emergency Room. On the day of admission, she was found to be mildly anemic without a white count and significantly hyponatremic with sodium of 127 and evidence of nxlsq-zg-wgydyrd renal failure with a creatinine of 1.3 and baseline of 1. Due to these findings, the patient was admitted for IV fluids and n.p.o. status and slow advancement of diet and surgical consultation to continue to evaluate ileostomy. PAST MEDICAL HISTORY: Significant for diet-controlled hypertension, diet-controlled type 2 diabetes, gastroesophageal reflux disease, chronic kidney disease, class 2 morbid obesity, osteoarthritis, history of gallstones without cholecystitis and history of diverticulitis with colovaginal fistula, status post resection and diverting ileostomy. FAMILY HISTORY: Significant for mother who with effects of CVA, father who with heart disease and a sister who is with breast cancer. PAST SURGICAL HISTORY: Significant for total abdominal hysterectomy, appendectomy and previous surgery for diverting ileostomy in 11/2018. REVIEW OF SYSTEMS: The patient was doing well until increasing nausea and vomiting over the last 24-48 hours, with increasing headache. She does have nausea and has increased ostomy output, but no significant cough, congestion, abdominal pain, shortness of breath or recent weight gain or weight loss. PHYSICAL EXAMINATION: GENERAL: This is a well-nourished, well-developed -Turk[place] female, in no distress on my exam. She is alert and oriented x 3. HEENT: Benign. NECK: Supple. CARDIAC EXAMINATION: Regular rate and rhythm. LUNGS: Clear. ABDOMEN: Soft. Positive bowel sounds were noted. Good ostomy output was noted. EXTREMITIES: With 2+ pulses, without edema. NEUROLOGICAL EXAMINATION: Showed no unilateral findings. ASSESSMENT: 1. Klcwq-hk-xonnaua renal failure. 2. Severe hyponatremia. 3. Nausea and vomiting. PLAN: To proceed with IV fluids with normal saline, recheck labs and decrease diet to clear liquids and monitor symptoms. Discontinue oral antibiotics at this time. ASTRID DURAN MD DR: PORTIA/esperanza JOB#: [id number] / [id number]
[2019-01-01 11:00] VITALS: BP 98/64
[2019-01-01 11:38] LABS: CALCIUM 8.9 mg/dL (8.5-10.1); CREATININE 1.3 mg/dL (0.6-1.0); MAGNESIUM 1.4 mg/dL (1.8-2.4)
--- NOTE | 2019-01-01 14:03 | PDOC2 ---
GI CONSULT HPI: HPI: 68 y/o female prior admit 12/22/18 w/ n/v. She thinks she month benefit from PPI and probiotics. ON hr last admit, she had a PIPIDA that raised the question of chronic cholecystitis. LFTs elevated to AST 40 and ALT 67 today. Na 127 on admit, now 134 PMH For colovaginal fistula, diverticulitis, and colonic stricture, underwent open exploration, MADELIN, takedown of splenic flexure, sigmoid colectomy w/ protecting loop ileostomy, and repair of vaginal cuff last month w/ Dr. Irvin. Soon after discharge, began to feel nauseated. Improved w/ Zofran but might have made her lips swell once. Seems nausea improved some on it's own but then recurred w/ vomiting on Thursday. That day she ate grist, Sprite, chicken breast , and potatoes. Denies abd pain but might be a little "sore" still from surgery. H/o GERD on Protonix QD. Has also been taking "a gas pill." No dysphagia ( though h/o this). No hematemesis. Ostomy output has been stable - watery, brown, no blood. Has previously attributed issues w/ nausea to hypoglycemia. BE in 06/2018: 5mm sigmoid colon stricture and diverticulosis. EGD and flex sig 06/2018: mild antral inflammation, normal duodenum, colon stricture @ 20cm w/ edematous mucosa. EGD and colonoscopy 07/2010: mild Schatzki's ring, normal stomach, normal small bowel, sigmoid diverticulosis, internal hemorrhoids. EGD and colonosocpy in 2005: reflux esophagitis, diverticulosis, hemorrhoids. Denies GB, pancreas, or liver history. PMH: PMH: HTN, DM, allergic rhinitis, GERD, Schatzki's ring, diverticulitis, hemorrhoids bunionectomy, hammer toe surgery, hysterectomy, appendectomy, and per HPI FH: Family History: Cancer (stomach, breast), DM Social History: ALCOHOL: none Drugs: None PMH: PMH: Past Medical History Cardiovascular: HTN GI: Diverticulosis, Other Hepatobiliary: Cholelithiasis Musculoskeletal: Osteoarthritis Renal/: Chronic renal insuff Endocrine: Diabetes Past Surgical History Past Surgical History: Appendectomy, Hysterectomy, Other Family History Family History: Coronary Artery Disease, Stroke Social History ALCOHOL: none Drugs: None Lives: with Family Current Medications Current Medications Current Medications Sodium Chloride 1,000 ml @ 1,000 mls/hr 1X ONCE IV Last administered on at 17:42; Start 12/31/18 at 16:45; Stop 12/31/18 at 17:44; Status DC Ondansetron HCl (Zofran) 4 mg 1X ONCE IV Last administered on 12/31/18at 17:42 ; Start 12/31/18 at 16:45; Stop 12/31/18 at 16:46; Status DC Ondansetron HCl (Zofran) 4 mg 1X ONCE IV Last administered on 12/31/18at 19:34 ; Start 12/31/18 at 19:15; Stop 12/31/18 at 19:16; Status DC Sodium Chloride 1,000 ml @ 125 mls/hr Q8H IV Last administered on 01/01/19at 06 :09; Start 12/31/18 at 22:00; Stop 01/01/19 at 21:59 Ondansetron HCl (Zofran) 4 mg PRN Q4HRS PRN IV NAUSEA/VOMITING 1ST CHOICE Last administered on 01/01/19at 06:10; Start 12/31/18 at 23:30 Acetaminophen (Tylenol) 650 mg PRN Q4HRS PRN PO MILD PAIN Last administered on 01/01/19at 06:10; Start 12/31/18 at 23:30 Active Scripts Active Augmentin 875-125 Tablet (Amoxicillin/Potassium Clav) 1 Each Tablet 1 Tab PO BID Hydrocodone-Apap 5-325 (Hydrocodone Bit/Acetaminophen) 1 Tab Tablet 1 Tab PO PRN Q4HRS PRN 30 Days Reported Flonase Allergy Relief (Fluticasone Propionate) 9.9 Ml [place].susp 2 Sprays NS DAILY Pantoprazole Sodium 40 Mg Tablet. 1 Tab PO DAILY Allergies Allergies: Coded Allergies: ciprofloxacin (Verified Allergy, Intermediate, 12/07/18) sulfamethoxazole (Verified Allergy, Intermediate, 12/21/18) trimethoprim (Verified Allergy, Intermediate, 12/21/18) naproxen (Verified Adverse Reaction, Severe, gastric bleeding, 12/07/18) tizanidine (Verified Adverse Reaction, Intermediate, N/V, 12/07/18) FH: Family History: Cancer, DM Social History: ALCOHOL: none Drugs: None ROS: ROS HEENT: YES: [place] Gastrointestinal: Yes Nausea VItals: Vitals: Vital Signs Date Time Temp Pulse Resp B/P (MAP) Pulse Ox O2 Delivery O2 Flow Rate FiO2 01/01/19 11:00 97.7 67 18 98/64 (75) 98 Room Air 97.7 Labs: Labs: Laboratory Tests Test 12/31/18 16:30 12/31/18 17:40 12/31/18 17:45 12/31/18 20:15 White Blood Count 6.0 x10^3/uL (4.0-11.0) Red Blood Count 4.44 x10^6/uL (3.50-5.40) Hemoglobin 11.5 g/dL (12.0-15.5) Hematocrit 35.3 % (36.0-47.0) Mean Corpuscular Volume 79 fL (79-100) Mean Corpuscular Hemoglobin 26 pg (25-35) Mean Corpuscular Hemoglobin Concent 33 g/dL (31-37) Red Cell Distribution Width 17.2 % (11.5-14.5) Platelet Count 408 x10^3/uL (140-400) Neutrophils (%) (Auto) 52 % (31-73) Lymphocytes (%) (Auto) 34 % (24-48) Monocytes (%) (Auto) 13 % (0-9) Eosinophils (%) (Auto) 1 % (0-3) Basophils (%) (Auto) 0 % (0-3) Neutrophils # (Auto) 3.2 x10^3uL (1.8-7.7) Lymphocytes # (Auto) 2.0 x10^3/uL (1.0-4.8) Monocytes # (Auto) 0.8 x10^3/uL (0.0-1.1) Eosinophils # (Auto) 0.0 x10^3/uL (0.0-0.7) Basophils # (Auto) 0.0 x10^3/uL (0.0-0.2) Urine Color Yellow Urine Clarity Clear Urine pH 6.0 Urine Specific [place] 1.015 Urine Protein 30 mg/dL (NEG-TRACE) Urine Glucose (UA) Negative mg/dL (NEG) Urine Ketones (Stick) Negative mg/dL (NEG) Urine Blood Small (NEG) Urine Nitrite Negative (NEG) Urine Bilirubin Negative (NEG) Urine Urobilinogen Dipstick 0.2 mg/dL (0.2 mg/dL) Urine Leukocyte Esterase Trace (NEG) Urine RBC 3-5 /HPF (0-2) Urine WBC 5-10 /HPF (0-4) Urine Squamous Epithelial Cells Occ /LPF Urine Bacteria Few /HPF (0-FEW) Urine Hyaline Casts Few /HPF Urine Mucus Slight /LPF Sodium Level 127 mmol/L (136-145) 130 mmol/L (136-145) Potassium Level 4.6 mmol/L (3.5-5.1) Chloride Level 92 mmol/L (98-107) Carbon Dioxide Level 21 mmol/L (21-32) Anion Gap 14 (6-14) Blood Urea Nitrogen 18 mg/dL (7-20) Creatinine 1.3 mg/dL (0.6-1.0) Estimated GFR (Cockcroft-Gault) 49.0 BUN/Creatinine Ratio 14 (6-20) Glucose Level 94 mg/dL (70-99) Calcium Level 10.2 mg/dL (8.5-10.1) Total Bilirubin 0.4 mg/dL (0.2-1.0) Aspartate Amino Transf (AST/SGOT) 40 U/L (15-37) Alanine Aminotransferase (ALT/SGPT) 67 U/L (14-59) Alkaline Phosphatase 82 U/L (46-116) Total Protein 9.0 g/dL (6.4-8.2) Albumin 3.6 g/dL (3.4-5.0) Albumin/Globulin Ratio 0.7 (1.0-1.7) Lactic Acid Level 1.6 mmol/L (0.4-2.0) Test 12/31/18 23:08 01/01/19 11:00 Glucose (Fingerstick) 87 mg/dL (70-99) Sodium Level 134 mmol/L (136-145) Potassium Level 4.0 mmol/L (3.5-5.1) Chloride Level 102 mmol/L (98-107) Carbon Dioxide Level 19 mmol/L (21-32) Anion Gap 13 (6-14) Blood Urea Nitrogen 11 mg/dL (7-20) Creatinine 1.3 mg/dL (0.6-1.0) Estimated GFR (Cockcroft-Gault) 49.0 Glucose Level 94 mg/dL (70-99) Calcium Level 8.9 mg/dL (8.5-10.1) Magnesium Level 1.4 mg/dL (1.8-2.4) Imaging: Imaging: Hepatobiliary scan 12/23/2018 CLINICAL HISTORY: Nausea and vomiting. Contracted gallbladder seen on abdominal ultrasound. TECHNIQUE: After the intravenous administration of 5.5 mCi of Technetium 99m Choletec, imaging of the right upper quadrant abdomen was performed using the gamma camera for one hour. The gallbladder was not visualized at 1 hour and 4 mg of morphine sulfate were administered intravenously. Continued imaging of the right upper quadrant abdomen was performed for an additional 30 minutes. FINDINGS: Comparison is made to the patient's CT scan of the abdomen dated 12/23/2018 and ultrasound of the abdomen dated 12/21/2018. Normal perfusion, uptake and excretion of the radionuclide by the liver is seen. The gallbladder is not visualized at 1 hour. Following administration of the morphine gradual accumulation of activity within the gallbladder is seen on the delayed images. This finding could be seen with chronic cholecystitis. IMPRESSION: Delayed gallbladder visualization is seen which can be seen with chronic cholecystitis. Clinical correlation is recommended. Electronically signed by: Tera Higuera MD (12/23/2018 9:48 AM) [id number] DICTATED and SIGNED BY: TERA HIGUERA MD DATE: 12/23/18 0928 PE: Physical Exam General: Alert, Oriented X3, Cooperative, No acute distress HEENT: Atraumatic, EOMI Lungs: Clear to auscultation, Normal air movement Heart: Regular rate, No murmurs Abdomen: Normal bowel sounds, Soft, No tenderness, Other (ileostomy output ileostomy is pink and viable) Extremities: No edema Skin: No significant lesion Neuro: Normal speech Psych/Mental Status: Mental status NL A/P: A/P: A 1) N/V 2) Abnormal PIPIDA 3) Elevated lFTS p) 1) Hyponatremia correction- may be source of N/V 2) She requests increase PPI to BID and add probiotics 3) Consuelo's last note with ? nico at time of ileostomy takedown. Patient not aware of plan. Will defer to DONY GIL MD Jan 01, 2019 14:03
[2019-01-01 15:00] VITALS: BP 102/70
[2019-01-01] MEDS: PANTOPRAZOLE 40 MG TABLET.DR. PO SCH (17:02)
--- NOTE | 2019-01-01 17:08 | EKG ---
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
[2019-01-01 19:00] VITALS: BP 93/54
[2019-01-01] MEDS: LACTOBACILLUS RHAMNOSUS GG 1 CAPSULE. PO SCH (21:14)
[2019-01-01 23:00] VITALS: BP 110/62
[2019-01-02 03:00] VITALS: BP 108/55
[2019-01-02 05:43] LABS: BASO % 0 % (0-3); EOS # 0.1 x10^3/uL (0.0-0.7); EOS % 3 % (0-3); HEMATOCRIT 29.4 % (36.0-47.0); HEMOGLOBIN 9.5 g/dL (12.0-15.5); LYMPH # 1.2 x10^3/uL (1.0-4.8); LYMPH % 36 % (24-48); MEAN CORPUSCULAR HEMOGLOBIN 27 pg (25-35); MEAN CORPUSCULAR HGB CONC 33 g/dL (31-37); MEAN CORPUSCULAR VOLUME 82 fL (79-100); MONO # 0.6 x10^3/uL (0.0-1.1); MONO % 17 % (0-9); NEUT # 1.5 x10^3uL (1.8-7.7); NEUT % 44 % (31-73); PLATELET COUNT 277 x10^3/uL (140-400); RED BLOOD COUNT 3.61 x10^6/uL (3.50-5.40); WHITE BLOOD COUNT 3.3 x10^3/uL (4.0-11.0)
[2019-01-02 06:00] LABS: CREATININE 1.1 mg/dL (0.6-1.0); GFR 59.4; POTASSIUM 4.2 mmol/L (3.5-5.1)
[2019-01-02 07:00] VITALS: BP 89/56
[2019-01-02] MEDS ORDERED: FLUTICASONE 50MCG/NASAL SPRAY 16GM BOTTLE. NS SCH (09:00)
--- NOTE | 2019-01-02 10:18 | PDOC ---
SURGICAL PROGRESS NOTE Subjective Patient feeling better this morning less nausea no vomiting has had good ileostomy output Vital Signs Vital Signs Date Time Temp Pulse Resp B/P (MAP) Pulse Ox O2 Delivery O2 Flow Rate FiO2 01/02/19 07:00 97.8 58 18 89/56 (67) 100 Room Air 97.8 I&O Intake and Output 01/02/19 07:00 Intake Total 1495 ml Output Total 2582 ml Balance -1087 ml Intake Oral 620 ml Other 875 ml Output Urine Total 2302 ml Stool Total 80 ml Gastric Drainage Total 200 ml # Voids 2 PATIENT HAS A GONGORA: No General: Alert, Oriented X3, Cooperative, No acute distress Abdomen: Normal bowel sounds, Soft, No tenderness, Other (good ileostomy output ) Labs Laboratory Tests Test 12/31/18 16:30 12/31/18 17:40 12/31/18 17:45 12/31/18 20:15 White Blood Count 6.0 x10^3/uL (4.0-11.0) Red Blood Count 4.44 x10^6/uL (3.50-5.40) Hemoglobin 11.5 g/dL (12.0-15.5) Hematocrit 35.3 % (36.0-47.0) Mean Corpuscular Volume 79 fL (79-100) Mean Corpuscular Hemoglobin 26 pg (25-35) Mean Corpuscular Hemoglobin Concent 33 g/dL (31-37) Red Cell Distribution Width 17.2 % (11.5-14.5) Platelet Count 408 x10^3/uL (140-400) Neutrophils (%) (Auto) 52 % (31-73) Lymphocytes (%) (Auto) 34 % (24-48) Monocytes (%) (Auto) 13 % (0-9) Eosinophils (%) (Auto) 1 % (0-3) Basophils (%) (Auto) 0 % (0-3) Neutrophils # (Auto) 3.2 x10^3uL (1.8-7.7) Lymphocytes # (Auto) 2.0 x10^3/uL (1.0-4.8) Monocytes # (Auto) 0.8 x10^3/uL (0.0-1.1) Eosinophils # (Auto) 0.0 x10^3/uL (0.0-0.7) Basophils # (Auto) 0.0 x10^3/uL (0.0-0.2) Urine Color Yellow Urine Clarity Clear Urine pH 6.0 Urine Specific [place] 1.015 Urine Protein 30 mg/dL (NEG-TRACE) Urine Glucose (UA) Negative mg/dL (NEG) Urine Ketones (Stick) Negative mg/dL (NEG) Urine Blood Small (NEG) Urine Nitrite Negative (NEG) Urine Bilirubin Negative (NEG) Urine Urobilinogen Dipstick 0.2 mg/dL (0.2 mg/dL) Urine Leukocyte Esterase Trace (NEG) Urine RBC 3-5 /HPF (0-2) Urine WBC 5-10 /HPF (0-4) Urine Squamous Epithelial Cells Occ /LPF Urine Bacteria Few /HPF (0-FEW) Urine Hyaline Casts Few /HPF Urine Mucus Slight /LPF Sodium Level 127 mmol/L (136-145) 130 mmol/L (136-145) Potassium Level 4.6 mmol/L (3.5-5.1) Chloride Level 92 mmol/L (98-107) Carbon Dioxide Level 21 mmol/L (21-32) Anion Gap 14 (6-14) Blood Urea Nitrogen 18 mg/dL (7-20) Creatinine 1.3 mg/dL (0.6-1.0) Estimated GFR (Cockcroft-Gault) 49.0 BUN/Creatinine Ratio 14 (6-20) Glucose Level 94 mg/dL (70-99) Calcium Level 10.2 mg/dL (8.5-10.1) Total Bilirubin 0.4 mg/dL (0.2-1.0) Aspartate Amino Transf (AST/SGOT) 40 U/L (15-37) Alanine Aminotransferase (ALT/SGPT) 67 U/L (14-59) Alkaline Phosphatase 82 U/L (46-116) Total Protein 9.0 g/dL (6.4-8.2) Albumin 3.6 g/dL (3.4-5.0) Albumin/Globulin Ratio 0.7 (1.0-1.7) Lactic Acid Level 1.6 mmol/L (0.4-2.0) Test 12/31/18 23:08 01/01/19 11:00 01/01/19 20:43 01/02/19 05:05 Glucose (Fingerstick) 87 mg/dL (70-99) 79 mg/dL (70-99) Sodium Level 134 mmol/L (136-145) 140 mmol/L (136-145) Potassium Level 4.0 mmol/L (3.5-5.1) 4.2 mmol/L (3.5-5.1) Chloride Level 102 mmol/L (98-107) 108 mmol/L (98-107) Carbon Dioxide Level 19 mmol/L (21-32) 21 mmol/L (21-32) Anion Gap 13 (6-14) 11 (6-14) Blood Urea Nitrogen 11 mg/dL (7-20) 5 mg/dL (7-20) Creatinine 1.3 mg/dL (0.6-1.0) 1.1 mg/dL (0.6-1.0) Estimated GFR (Cockcroft-Gault) 49.0 59.4 Glucose Level 94 mg/dL (70-99) 88 mg/dL (70-99) Calcium Level 8.9 mg/dL (8.5-10.1) 9.0 mg/dL (8.5-10.1) Magnesium Level 1.4 mg/dL (1.8-2.4) White Blood Count 3.3 x10^3/uL (4.0-11.0) Red Blood Count 3.61 x10^6/uL (3.50-5.40) Hemoglobin 9.5 g/dL (12.0-15.5) Hematocrit 29.4 % (36.0-47.0) Mean Corpuscular Volume 82 fL (79-100) Mean Corpuscular Hemoglobin 27 pg (25-35) Mean Corpuscular Hemoglobin Concent 33 g/dL (31-37) Red Cell Distribution Width 18.0 % (11.5-14.5) Platelet Count 277 x10^3/uL (140-400) Neutrophils (%) (Auto) 44 % (31-73) Lymphocytes (%) (Auto) 36 % (24-48) Monocytes (%) (Auto) 17 % (0-9) Eosinophils (%) (Auto) 3 % (0-3) Basophils (%) (Auto) 0 % (0-3) Neutrophils # (Auto) 1.5 x10^3uL (1.8-7.7) Lymphocytes # (Auto) 1.2 x10^3/uL (1.0-4.8) Monocytes # (Auto) 0.6 x10^3/uL (0.0-1.1) Eosinophils # (Auto) 0.1 x10^3/uL (0.0-0.7) Basophils # (Auto) 0.0 x10^3/uL (0.0-0.2) Test 01/02/19 07:37 Glucose (Fingerstick) 81 mg/dL (70-99) Laboratory Tests Test 01/01/19 11:00 01/01/19 20:43 01/02/19 05:05 01/02/19 07:37 Sodium Level 134 mmol/L (136-145) 140 mmol/L (136-145) Potassium Level 4.0 mmol/L (3.5-5.1) 4.2 mmol/L (3.5-5.1) Chloride Level 102 mmol/L (98-107) 108 mmol/L (98-107) Carbon Dioxide Level 19 mmol/L (21-32) 21 mmol/L (21-32) Anion Gap 13 (6-14) 11 (6-14) Blood Urea Nitrogen 11 mg/dL (7-20) 5 mg/dL (7-20) Creatinine 1.3 mg/dL (0.6-1.0) 1.1 mg/dL (0.6-1.0) Estimated GFR (Cockcroft-Gault) 49.0 59.4 Glucose Level 94 mg/dL (70-99) 88 mg/dL (70-99) Calcium Level 8.9 mg/dL (8.5-10.1) 9.0 mg/dL (8.5-10.1) Magnesium Level 1.4 mg/dL (1.8-2.4) Glucose (Fingerstick) 79 mg/dL (70-99) 81 mg/dL (70-99) White Blood Count 3.3 x10^3/uL (4.0-11.0) Red Blood Count 3.61 x10^6/uL (3.50-5.40) Hemoglobin 9.5 g/dL (12.0-15.5) Hematocrit 29.4 % (36.0-47.0) Mean Corpuscular Volume 82 fL (79-100) Mean Corpuscular Hemoglobin 27 pg (25-35) Mean Corpuscular Hemoglobin Concent 33 g/dL (31-37) Red Cell Distribution Width 18.0 % (11.5-14.5) Platelet Count 277 x10^3/uL (140-400) Neutrophils (%) (Auto) 44 % (31-73) Lymphocytes (%) (Auto) 36 % (24-48) Monocytes (%) (Auto) 17 % (0-9) Eosinophils (%) (Auto) 3 % (0-3) Basophils (%) (Auto) 0 % (0-3) Neutrophils # (Auto) 1.5 x10^3uL (1.8-7.7) Lymphocytes # (Auto) 1.2 x10^3/uL (1.0-4.8) Monocytes # (Auto) 0.6 x10^3/uL (0.0-1.1) Eosinophils # (Auto) 0.1 x10^3/uL (0.0-0.7) Basophils # (Auto) 0.0 x10^3/uL (0.0-0.2) Assessment/Plan Nausea improved Would advance diet as tolerated No further surgical recommendations URIEL VIGIL MD Jan 02, 2019 10:18
[2019-01-02] MEDS: PANTOPRAZOLE 40 MG TABLET.DR. PO SCH (10:59)
[2019-01-02 11:00] VITALS: BP 99/50
[2019-01-02] MEDS: LACTOBACILLUS RHAMNOSUS GG 1 CAPSULE. PO SCH (11:00)
--- NOTE | 2019-01-02 14:05 | PDOC ---
Subjective: Subjective: nausea and hyponatremia much better Objective: Vital Signs: Vital Signs Date Time Temp Pulse Resp B/P (MAP) Pulse Ox O2 Delivery O2 Flow Rate FiO2 01/02/19 11:00 98.1 73 18 99/50 (66) 100 Room Air 98.1 Labs: Laboratory Tests Test 01/01/19 20:43 01/02/19 05:05 01/02/19 07:37 Glucose (Fingerstick) 79 mg/dL (70-99) 81 mg/dL (70-99) White Blood Count 3.3 x10^3/uL (4.0-11.0) Red Blood Count 3.61 x10^6/uL (3.50-5.40) Hemoglobin 9.5 g/dL (12.0-15.5) Hematocrit 29.4 % (36.0-47.0) Mean Corpuscular Volume 82 fL (79-100) Mean Corpuscular Hemoglobin 27 pg (25-35) Mean Corpuscular Hemoglobin Concent 33 g/dL (31-37) Red Cell Distribution Width 18.0 % (11.5-14.5) Platelet Count 277 x10^3/uL (140-400) Neutrophils (%) (Auto) 44 % (31-73) Lymphocytes (%) (Auto) 36 % (24-48) Monocytes (%) (Auto) 17 % (0-9) Eosinophils (%) (Auto) 3 % (0-3) Basophils (%) (Auto) 0 % (0-3) Neutrophils # (Auto) 1.5 x10^3uL (1.8-7.7) Lymphocytes # (Auto) 1.2 x10^3/uL (1.0-4.8) Monocytes # (Auto) 0.6 x10^3/uL (0.0-1.1) Eosinophils # (Auto) 0.1 x10^3/uL (0.0-0.7) Basophils # (Auto) 0.0 x10^3/uL (0.0-0.2) Sodium Level 140 mmol/L (136-145) Potassium Level 4.2 mmol/L (3.5-5.1) Chloride Level 108 mmol/L (98-107) Carbon Dioxide Level 21 mmol/L (21-32) Anion Gap 11 (6-14) Blood Urea Nitrogen 5 mg/dL (7-20) Creatinine 1.1 mg/dL (0.6-1.0) Estimated GFR (Cockcroft-Gault) 59.4 Glucose Level 88 mg/dL (70-99) Calcium Level 9.0 mg/dL (8.5-10.1) Physical Exam: Physical Exam: Physical Exam General: Alert, Oriented X3, Cooperative, No acute distress HEENT: Atraumatic, EOMI Lungs: Clear to auscultation, Normal air movement Heart: Regular rate, No murmurs Abdomen: Normal bowel sounds, Soft, No tenderness, Other (ileostomy output ileostomy is pink and viable) Extremities: No edema Skin: No significant lesion Neuro: Normal speech Psych/Mental Status: Mental status NL Assessment & Plan: Assessment : A/P: A/P: A 1) N/V 2) Abnormal PIPIDA 3) Elevated lFTS Plan: p) 1) Hyponatremia correction- may be source of N/V 2) She requests increase PPI to BID and add probiotics 3) Consuelo's last note with ? nico at time of ileostomy takedown. Patient not aware of plan. Will defer to DONY REYAN MD Jan 02, 2019 14:05
[2019-01-02] MEDS ORDERED: ONDA4VIA7 IV (14:44)
[2019-01-02] MEDS ORDERED: Pantoprazole PO (14:44)
--- NOTE | 2019-01-02 16:09 | NUR ---
Pt was discharged to home at 1405 today in stable condition with all personal belongings after reviewing all pertinent information including education, medications, follow up and at home care. Pt was escorted via wc and accompanied by family and staff to the main exit where her daughter drove her home.
[2019-02-02] MEDS ORDERED: FERR325T72 PO (12:39)
[2019-02-02] MEDS ORDERED: ONDA4TAB12 PO (12:39)
== END 2019-01-02 16:05 | disposition home or self-care (01) ==
LOC: ER 14:50 → 4 NORTH 21:38 → UNDOADMIN 21:53 → 4 NORTH 21:53 → UNDODISIN 01-02 16:05
PROVIDERS: ADMIT Family Medicine; ATTEND Family Medicine
DX: E87.1 Hypo-osmolality and hyponatremia (principal); R11.2 Nausea with vomiting, unspecified; E11.9 Type 2 diabetes mellitus without complications; K21.9 Gastro-esophageal reflux disease without esophagitis; I10 Essential (primary) hypertension; K57.92 Diverticulitis of intestine, part unspecified, without perforation or abscess without bleeding; R51 Headache; Z90.710 Acquired absence of both cervix and uterus; Z98.890 Other specified postprocedural states; A41.9 Sepsis, unspecified organism
CPT/HCPCS: 36415; 70450; 80048; 80053; 81001; 82962; 83605; 83735; 84295; 85025; 87086; 93005; 96361; 96374; 96376; 99284; G0378; J2405; J7030; G0379; 99285-25

== ENCOUNTER 2019-01-20 15:47 | Inpatient (IN) | payer MEDICARE, OTHER ==
[~2019-01-20] VITALS: Ht 152.4 cm; Wt 75.3 kg
[~2019-01-20 15:47] MED LIST changes: +ONDA4VIA7 IV; +Pantoprazole PO
[2019-01-20] MEDS ORDERED: IV NORMAL SALINE 1000ML BAG 1,000 ML IV SCH (16:09)
[2019-01-20] MEDS ORDERED: ONDANSETRON PF 4 MG/2 ML VIAL. IV ONE (16:15)
[2019-01-20 16:58] LABS: BASO % 1 % (0-3); EOS % 1 % (0-3); HEMATOCRIT 38.8 % (36.0-47.0); HEMOGLOBIN 12.4 g/dL (12.0-15.5); LYMPH % 18 % (24-48); MEAN CORPUSCULAR HEMOGLOBIN 26 pg (25-35); MEAN CORPUSCULAR HGB CONC 32 g/dL (31-37); MEAN CORPUSCULAR VOLUME 82 fL (79-100); MONO # 0.6 x10^3/uL (0.0-1.1); MONO % 12 % (0-9); NEUT # 3.8 x10^3uL (1.8-7.7); NEUT % 69 % (31-73); PLATELET COUNT 264 x10^3/uL (140-400); RED BLOOD COUNT 4.73 x10^6/uL (3.50-5.40); RED CELL DISTRIBUTION WIDTH 17.1 % (11.5-14.5); WHITE BLOOD COUNT 5.5 x10^3/uL (4.0-11.0)
[2019-01-20 17:07] LABS: CALCIUM 10.4 mg/dL (8.5-10.1); CREATININE 3.3 mg/dL (0.6-1.0); GFR 16.7; POTASSIUM 4.4 mmol/L (3.5-5.1)
[2019-01-20 17:19] LABS: ALBUMIN 4.3 g/dL (3.4-5.0); MAGNESIUM 2.3 mg/dL (1.8-2.4); TOTAL BILIRUBIN 0.4 mg/dL (0.2-1.0); TOTAL PROTEIN 8.5 g/dL (6.4-8.2)
--- NOTE | 2019-01-20 18:15 | PHYS DOC ---
Past Medical History Past Medical History: Diabetes-Type II, Diverticulitis, GERD, Hypertension Past Surgical History: Colectomy, Hysterectomy, Other Additional Past Surgical Histo: BILAT BUNION REMOVAL Alcohol Use: None Drug Use: None Adult General Chief Complaint Chief Complaint: DEHYDRATION HPI HPI Patient is a 68 year old female with history of insertion of colostomy in November 2018 who sent to the emergency room from her primary care physician because of abnormal labs. Patient patient states she has colostomy since November and has nausea and unable to eat and drink well and has dehydration. Patient denies abdominal pain, fever and chills, urinary symptoms, chest pain and shortness of breath. Patient seen by her primary care physician 2 days ago and had labs and had BUN of 70 and creatinine of >3 and her primary care physician called her to come to ER. Review of Systems Review of Systems Constitutional: Denies fever or chills [] Eyes: Denies change in visual acuity, redness, or eye pain [] HENT: Denies nasal congestion or sore throat [] Respiratory: Denies cough or shortness of breath [] Cardiovascular: No additional information not addressed in HPI [] GI: Denies abdominal pain, vomiting, bloody stools or diarrhea , reports nausea [] : Denies dysuria or hematuria [] Musculoskeletal: Denies back pain or joint pain [] Integument: Denies rash or skin lesions [] Neurologic: Denies headache, focal weakness or sensory changes [] Endocrine: Denies polyuria or polydipsia [] All other systems were reviewed and found to be within normal limits, except as documented in this note. Current Medications Current Medications Current Medications Medications (Trade) Dose Ordered Sig/Werner Start Time Stop Time Status Last Admin Dose Admin Ondansetron HCl (Zofran) 4 mg 1X ONCE 01/20/19 16:15 01/20/19 16:22 DC 01/20/19 16:50 4 MG Sodium Chloride 1,000 ml @ 150 mls/hr Q6H40M 01/20/19 18:15 01/21/19 18:14 Allergies Allergies Allergies Coded Allergies Type Severity Reaction Last Updated Verified ciprofloxacin Allergy Intermediate 12/07/18 Yes sulfamethoxazole Allergy Intermediate 12/21/18 Yes trimethoprim Allergy Intermediate 12/21/18 Yes naproxen Adverse Reaction Severe gastric bleeding 12/07/18 Yes tizanidine Adverse Reaction Intermediate N/V 12/07/18 Yes Physical Exam Physical Exam Constitutional: Well developed, well nourished,mild distress, non-toxic appearance. [] HENT: Normocephalic, atraumatic, oropharynx dry Eyes: PERRLA, EOMI, conjunctiva normal, no discharge. [] Neck: Normal range of motion, no tenderness, supple, no stridor. [] Cardiovascular:Heart rate regular rhythm, no murmur [] Lungs & Thorax: Bilateral breath sounds clear to auscultation [] Abdomen: Bowel sounds normal, soft, no tenderness, colostomy in place with firm stool, no masses, no pulsatile masses. [] Skin: Warm, dry, no erythema, no rash. [] Back: No tenderness, no CVA tenderness. [] Extremities: No tenderness, no cyanosis, no clubbing, ROM intact, no edema. [] Neurologic: Alert and oriented X 3, normal motor function, normal sensory function, no focal deficits noted. [] Psychologic: Affect normal, judgement normal, mood normal. [] Current Patient Data Vital Signs Vital Signs Date Time Temp Pulse Resp B/P (MAP) Pulse Ox O2 Delivery O2 Flow Rate FiO2 01/20/19 16:04 97.6 84 18 115/77 (90) 98 Room Air 97.6 Lab Values Laboratory Tests Test 01/20/19 16:49 White Blood Count 5.5 x10^3/uL (4.0-11.0) Red Blood Count 4.73 x10^6/uL (3.50-5.40) Hemoglobin 12.4 g/dL (12.0-15.5) Hematocrit 38.8 % (36.0-47.0) Mean Corpuscular Volume 82 fL (79-100) Mean Corpuscular Hemoglobin 26 pg (25-35) Mean Corpuscular Hemoglobin Concent 32 g/dL (31-37) Red Cell Distribution Width 17.1 % (11.5-14.5) H Platelet Count 264 x10^3/uL (140-400) Neutrophils (%) (Auto) 69 % (31-73) Lymphocytes (%) (Auto) 18 % (24-48) L Monocytes (%) (Auto) 12 % (0-9) H Eosinophils (%) (Auto) 1 % (0-3) Basophils (%) (Auto) 1 % (0-3) Neutrophils # (Auto) 3.8 x10^3uL (1.8-7.7) Lymphocytes # (Auto) 1.0 x10^3/uL (1.0-4.8) Monocytes # (Auto) 0.6 x10^3/uL (0.0-1.1) Eosinophils # (Auto) 0.0 x10^3/uL (0.0-0.7) Basophils # (Auto) 0.0 x10^3/uL (0.0-0.2) Sodium Level 129 mmol/L (136-145) L Potassium Level 4.4 mmol/L (3.5-5.1) Chloride Level 96 mmol/L (98-107) L Carbon Dioxide Level 13 mmol/L (21-32) L Anion Gap 20 (6-14) H Blood Urea Nitrogen 66 mg/dL (7-20) H Creatinine 3.3 mg/dL (0.6-1.0) H Estimated GFR (Cockcroft-Gault) 16.7 BUN/Creatinine Ratio 20 (6-20) Glucose Level 110 mg/dL (70-99) H Lactic Acid Level 1.5 mmol/L (0.4-2.0) Calcium Level 10.4 mg/dL (8.5-10.1) H Magnesium Level 2.3 mg/dL (1.8-2.4) Total Bilirubin 0.4 mg/dL (0.2-1.0) Aspartate Amino Transferase (AST) 69 U/L (15-37) H Alanine Aminotransferase (ALT) 154 U/L (14-59) H Alkaline Phosphatase 87 U/L (46-116) Troponin I Quantitative < 0.017 ng/mL (0.000-0.055) Total Protein 8.5 g/dL (6.4-8.2) H Albumin 4.3 g/dL (3.4-5.0) Albumin/Globulin Ratio 1.0 (1.0-1.7) Lipase 1870 U/L (73-393) H Laboratory Tests 01/20/19 16:49 Laboratory Tests 01/20/19 16:49 EKG EKG [] Radiology/Procedures Radiology/Procedures [] Course & Med Decision Making Course & Med Decision Making Pertinent Labs reviewed. (See chart for details) Evolution of patient in ER showed 68-year-old female patient with grossly in place and decrease of oral intake for several weeks. Patient had elevation of BUN/creatinine and hyponatremia. Patient treated with IV fluid and Zofran and felt better. Dr. Mario Pierre accepted admission at 1810. Dragon Disclaimer Dragon Disclaimer This electronic medical record was generated, in whole or in part, using a voice recognition dictation system. Departure Departure Impression: Primary Impression: Acute renal failure Additional Impressions: Hyponatremia Nausea Pancreatitis Colostomy in place Dehydration Disposition: 09 ADMITTED INPATIENT (at 181) Admitting Physician: Mario Pierre (accepted admission at 181) Condition: IMPROVED Referrals: ASTRID DURAN MD (PCP) Problem Qualifiers Primary Impression: Acute renal failure Acute renal failure type: with other specified pathological lesion Qualified Codes: N17.8 - Other acute kidney failure Additional Impressions: Pancreatitis Chronicity: acute Pancreatitis type: unspecified pancreatitis type Acute pancreatitis complication: unspecified Qualified Codes: K85.90 - Acute pancreatitis without necrosis or infection, unspecified ELENA LABOY MD Jan 20, 2019 18:14
[2019-01-20 18:35] LABS: BILIRUBIN,URINE NEGATIVE (NEG); CLARITY,URINE CLEAR; COLOR,URINE YELLOW; NITRITE,URINE NEGATIVE (NEG); PH,URINE 5.5; PROTEIN,URINE 100 mg/dL (NEG-TRACE); UROBILINOGEN,URINE 0.2 mg/dL (0.2 mg/dL)
[2019-01-20 18:51] LABS: HYALINE CASTS, URINE MANY /HPF; SQUAMOUS EPITHELIAL CELL,UR MOD /LPF
[2019-01-20 18:52] LABS: AMORPHOUS SEDIMENT,UR PRESENT /HPF; BACTERIA,URINE MODERATE /HPF (0-FEW); GRANULAR CASTS,URINE MODERATE /HPF; RBC,URINE OCC /HPF (0-2)
[2019-01-20] MEDS: IV NORMAL SALINE 1000ML BAG 1,000 ML IV SCH (21:24)
[2019-01-20 23:00] VITALS: BP 110/69
[2019-01-21] VITALS (7 sets, daily range): BP systolic 80–105; BP diastolic 43–68
[2019-01-21] MEDS: IV NORMAL SALINE 1000ML BAG 1,000 ML IV SCH ×3 (04:30→17:45)
--- NOTE | 2019-01-21 12:57 | PDOC2 ---
FERNANDO [employer] 01/21/19 1256: CONSULT Date of Consult Date of Consult DATE: 01/21/19 TIME: 12:35 Reason for Consult Reason for Consult: ostomy care Referring Physician Referring Physician: Dr Null Identification/Chief Complaint Chief Complaint weakness Source Source: Chart review, Patient History of Present Illness Reason for Visit: Previous patient of Dr Irvin, in November underwent Laparoscopic converted to open exploration, lysis of adhesions (extensive), takedown of splenic flexure, sigmoid colectomy with protecting loop ileostomy, repair of vaginal cuff. Has been having problem with PO intake and increased ostomy output. She has become dehydrated and weak. Noted lab work showed elevated lipase level. Patient denies any abdominal pain , currently tolerating lunch in room. Noted that she was here last month with similar issues--lack po intake, ARF, pancreatitis, HIDA showed possible chronic cholecystitis-Dr Irvin discussed ostomy takedown, cholecystectomy Past Medical History Cardiovascular: HTN GI: Diverticulosis, Other Hepatobiliary: Cholelithiasis Musculoskeletal: Osteoarthritis Renal/: Chronic renal insuff Endocrine: Diabetes Past Surgical History Past Surgical History: Appendectomy, Hysterectomy, Other Family History Family History: Coronary Artery Disease, Stroke Social History ALCOHOL: none Drugs: None Lives: with Family Current Problem List Problem List Problems Medical Problems: (1) Colostomy in place Status: Acute (2) Pancreatitis Status: Acute Current Medications Current Medications Current Medications Sodium Chloride 1,000 ml @ 1,000 mls/hr Q1H IV Last administered on 01/20/19at 16:49; Start 01/20/19 at 16:09; Stop 01/20/19 at 17:08; Status DC Ondansetron HCl (Zofran) 4 mg 1X ONCE IV Last administered on 01/20/19at 16:50; Start 01/20/19 at 16:15; Stop 01/20/19 at 16:22; Status DC Sodium Chloride 1,000 ml @ 150 mls/hr Q6H40M IV Last administered on 01/21/19at 11:12; Start 01/20/19 at 18:15; Stop 01/21/19 at 18:14 Active Scripts Active [Pantoprazole] 40 MG Tablet. 40 Mg PO BIDAC 30 Days Ondansetron Hcl 4 Mg/2 Ml Vial (Ondansetron Hcl/Pf) 4 Mg/2 Ml Vial 4 Mg IV PRN Q4HRS PRN 14 Days Hydrocodone-Apap 5-325 (Hydrocodone Bit/Acetaminophen) 1 Tab Tablet 1 Tab PO PRN Q4HRS PRN 30 Days Reported Flonase Allergy Relief (Fluticasone Propionate) 9.9 Ml [place].susp 2 Sprays NS DAILY Allergies Allergies: Coded Allergies: ciprofloxacin (Verified Allergy, Intermediate, 12/07/18) sulfamethoxazole (Verified Allergy, Intermediate, 12/21/18) trimethoprim (Verified Allergy, Intermediate, 12/21/18) naproxen (Verified Adverse Reaction, Severe, gastric bleeding, 12/07/18) tizanidine (Verified Adverse Reaction, Intermediate, N/V, 12/07/18) ROS General: No: Chills, Other (fevers) PSYCHOLOGICAL ROS: No: Anxiety, Depression Eyes: No Blurry vision, No Double vision HEENT: No: Heacaches, Sore Throat Hematological and Lymphatic: No: Bleeding Problems, Blood Clots Respiratory: No: Cough, Shortness of breath Cardiovascular: No Chest Pain, No Palpitations Gastrointestinal: Yes Other (see hpi) Genitourinary: No Dysuria, No Retention Musculoskeletal: No Joint Pain, No Muscle Pain Physical Exam General: Alert, Oriented X3, Cooperative, No acute distress HEENT: PERRLA, Mucous membr. moist/pink Lungs: Clear to auscultation, Normal air movement Heart: Regular rate, Normal S1, Normal S2 Abdomen: Soft, Other (ostomy with stool, NTTP) Extremities: No clubbing, No cyanosis Skin: No rashes, No breakdown Neuro: Normal speech, Sensation intact Psych/Mental Status: Mental status NL, Mood NL MUSCULOSKELETAL: No deformity, No swelling Vitals VITALS Vital Signs Date Time Temp Pulse Resp B/P (MAP) Pulse Ox O2 Delivery O2 Flow Rate FiO2 01/21/19 11:00 97.6 68 18 80/43 (55) 98 Room Air 97.6 Labs Labs Laboratory Tests Test 01/20/19 16:49 01/20/19 18:24 White Blood Count 5.5 x10^3/uL (4.0-11.0) Red Blood Count 4.73 x10^6/uL (3.50-5.40) Hemoglobin 12.4 g/dL (12.0-15.5) Hematocrit 38.8 % (36.0-47.0) Mean Corpuscular Volume 82 fL (79-100) Mean Corpuscular Hemoglobin 26 pg (25-35) Mean Corpuscular Hemoglobin Concent 32 g/dL (31-37) Red Cell Distribution Width 17.1 % (11.5-14.5) Platelet Count 264 x10^3/uL (140-400) Neutrophils (%) (Auto) 69 % (31-73) Lymphocytes (%) (Auto) 18 % (24-48) Monocytes (%) (Auto) 12 % (0-9) Eosinophils (%) (Auto) 1 % (0-3) Basophils (%) (Auto) 1 % (0-3) Neutrophils # (Auto) 3.8 x10^3uL (1.8-7.7) Lymphocytes # (Auto) 1.0 x10^3/uL (1.0-4.8) Monocytes # (Auto) 0.6 x10^3/uL (0.0-1.1) Eosinophils # (Auto) 0.0 x10^3/uL (0.0-0.7) Basophils # (Auto) 0.0 x10^3/uL (0.0-0.2) Sodium Level 129 mmol/L (136-145) Potassium Level 4.4 mmol/L (3.5-5.1) Chloride Level 96 mmol/L (98-107) Carbon Dioxide Level 13 mmol/L (21-32) Anion Gap 20 (6-14) Blood Urea Nitrogen 66 mg/dL (7-20) Creatinine 3.3 mg/dL (0.6-1.0) Estimated GFR (Cockcroft-Gault) 16.7 BUN/Creatinine Ratio 20 (6-20) Glucose Level 110 mg/dL (70-99) Lactic Acid Level 1.5 mmol/L (0.4-2.0) Calcium Level 10.4 mg/dL (8.5-10.1) Magnesium Level 2.3 mg/dL (1.8-2.4) Total Bilirubin 0.4 mg/dL (0.2-1.0) Aspartate Amino Transf (AST/SGOT) 69 U/L (15-37) Alanine Aminotransferase (ALT/SGPT) 154 U/L (14-59) Alkaline Phosphatase 87 U/L (46-116) Troponin I Quantitative < 0.017 ng/mL (0.000-0.055) Total Protein 8.5 g/dL (6.4-8.2) Albumin 4.3 g/dL (3.4-5.0) Albumin/Globulin Ratio 1.0 (1.0-1.7) Lipase 1870 U/L (73-393) Urine Collection Type Unknown Urine Color Yellow Urine Clarity Clear Urine pH 5.5 Urine Specific [place] 1.020 Urine Protein 100 mg/dL (NEG-TRACE) Urine Glucose (UA) Negative mg/dL (NEG) Urine Ketones (Stick) Negative mg/dL (NEG) Urine Blood Trace (NEG) Urine Nitrite Negative (NEG) Urine Bilirubin Negative (NEG) Urine Urobilinogen Dipstick 0.2 mg/dL (0.2 mg/dL) Urine Leukocyte Esterase Small (NEG) Urine RBC Occ /HPF (0-2) Urine WBC 11-20 /HPF (0-4) Urine Squamous Epithelial Cells Mod /LPF Urine Transitional Epithelial Cells Occ /LPF Urine Renal Epithelial Cells Occ /LPF Urine Amorphous Sediment Present /HPF Urine Bacteria Moderate /HPF (0-FEW) Urine Hyaline Casts Many /HPF Urine Granular Casts Moderate /HPF Urine Mucus Marked /LPF Laboratory Tests Test 01/20/19 16:49 01/20/19 18:24 White Blood Count 5.5 x10^3/uL (4.0-11.0) Red Blood Count 4.73 x10^6/uL (3.50-5.40) Hemoglobin 12.4 g/dL (12.0-15.5) Hematocrit 38.8 % (36.0-47.0) Mean Corpuscular Volume 82 fL (79-100) Mean Corpuscular Hemoglobin 26 pg (25-35) Mean Corpuscular Hemoglobin Concent 32 g/dL (31-37) Red Cell Distribution Width 17.1 % (11.5-14.5) Platelet Count 264 x10^3/uL (140-400) Neutrophils (%) (Auto) 69 % (31-73) Lymphocytes (%) (Auto) 18 % (24-48) Monocytes (%) (Auto) 12 % (0-9) Eosinophils (%) (Auto) 1 % (0-3) Basophils (%) (Auto) 1 % (0-3) Neutrophils # (Auto) 3.8 x10^3uL (1.8-7.7) Lymphocytes # (Auto) 1.0 x10^3/uL (1.0-4.8) Monocytes # (Auto) 0.6 x10^3/uL (0.0-1.1) Eosinophils # (Auto) 0.0 x10^3/uL (0.0-0.7) Basophils # (Auto) 0.0 x10^3/uL (0.0-0.2) Sodium Level 129 mmol/L (136-145) Potassium Level 4.4 mmol/L (3.5-5.1) Chloride Level 96 mmol/L (98-107) Carbon Dioxide Level 13 mmol/L (21-32) Anion Gap 20 (6-14) Blood Urea Nitrogen 66 mg/dL (7-20) Creatinine 3.3 mg/dL (0.6-1.0) Estimated GFR (Cockcroft-Gault) 16.7 BUN/Creatinine Ratio 20 (6-20) Glucose Level 110 mg/dL (70-99) Lactic Acid Level 1.5 mmol/L (0.4-2.0) Calcium Level 10.4 mg/dL (8.5-10.1) Magnesium Level 2.3 mg/dL (1.8-2.4) Total Bilirubin 0.4 mg/dL (0.2-1.0) Aspartate Amino Transf (AST/SGOT) 69 U/L (15-37) Alanine Aminotransferase (ALT/SGPT) 154 U/L (14-59) Alkaline Phosphatase 87 U/L (46-116) Troponin I Quantitative < 0.017 ng/mL (0.000-0.055) Total Protein 8.5 g/dL (6.4-8.2) Albumin 4.3 g/dL (3.4-5.0) Albumin/Globulin Ratio 1.0 (1.0-1.7) Lipase 1870 U/L (73-393) Urine Collection Type Unknown Urine Color Yellow Urine Clarity Clear Urine pH 5.5 Urine Specific Sabael 1.020 Urine Protein 100 mg/dL (NEG-TRACE) Urine Glucose (UA) Negative mg/dL (NEG) Urine Ketones (Stick) Negative mg/dL (NEG) Urine Blood Trace (NEG) Urine Nitrite Negative (NEG) Urine Bilirubin Negative (NEG) Urine Urobilinogen Dipstick 0.2 mg/dL (0.2 mg/dL) Urine Leukocyte Esterase Small (NEG) Urine RBC Occ /HPF (0-2) Urine WBC 11-20 /HPF (0-4) Urine Squamous Epithelial Cells Mod /LPF Urine Transitional Epithelial Cells Occ /LPF Urine Renal Epithelial Cells Occ /LPF Urine Amorphous Sediment Present /HPF Urine Bacteria Moderate /HPF (0-FEW) Urine Hyaline Casts Many /HPF Urine Granular Casts Moderate /HPF Urine Mucus Marked /LPF Assessment/Plan Assessment/Plan weakness, dehydration, ARF, pancreatitis will review with Dr Irvin improve kidney function, bowel rest for pancreatitis JOEY IRVIN MD 01/21/19 1452: CONSULT Assessment/Plan Assessment/Plan Pt seen and examined. Agree with Ms. Gorman's note Pt feels better with hydration d/w Dr. Null yesterday abd soft, ostomy fxn will plan ileostomy takedown on 01/25 may benefit from cholecystectomy (pancreatitis, persistent nausea) pt will consider Thanks for consult! FERNANDO GORMAN [employer] Jan 21, 2019 12:56 JOEY IRVIN MD Jan 21, 2019 14:52
--- NOTE | 2019-01-21 13:30 | HP ---
ADMIT DATE: 01/20/2019 CHIEF COMPLAINT: Fatigue. HISTORY OF PRESENT ILLNESS AND HOSPITAL COURSE: This patient is a 68-year-old -[place] female who has had a protracted course of illness, initially having surgery for a rectovaginal fistula due to a ruptured diverticulosis/diverticulitis. This was repaired and the patient required ileostomy. The patient had prolonged ileus and re-hospitalization due to nausea, vomiting and dehydration. She was stabilized and discharged to home, and on followup evaluation in the office, showing evidence of poor p.o. intake, but otherwise doing well. Outpatient labs revealed profound dehydration and prerenal azotemia with acute renal failure and hyponatremia. Due to severity of findings, she was directed to the ER for further evaluation, where it was confirmed that the patient had renal failure and she was admitted for IV hydration. The patient recently had barium enema, showing well-healed surgery from rectovaginal fistula and plans for ileostomy takedown were made and discussed with Dr. Irvin. The patient will be hydrated and renal failure addressed prior to corrective takedown surgery. PAST MEDICAL HISTORY: The patient's past medical history is significant for: 1. Diet-controlled hypertension. 2. Diet-controlled type 2 diabetes. 3. Gastroesophageal reflux disease. 4. Chronic kidney disease stage 2. 5. Osteoarthritis. 6. History of cholelithiasis, without cholecystitis. 7. History of diverticulitis. 8. Colovaginal fistula, status post repair. FAMILY HISTORY: Significant for mother who with complications of CVA, father who with heart disease and a sister who is with breast cancer. PAST SURGICAL HISTORY: Significant for total abdominal hysterectomy, appendectomy and previous surgery for diverting ileostomy in 11/2018. REVIEW OF SYSTEMS: The patient was doing well, but admits to having poor appetite and poor p.o. intake and large amount of ileostomy output. The patient denies cough, congestion or fever, but does have nausea and weight loss. PHYSICAL EXAMINATION: GENERAL: This is a well-nourished -[place] female, in no distress. She is alert and oriented x 3. HEENT: Benign. NECK: Supple, without JVD or bruit. CARDIAC EXAMINATION: Regular rate and rhythm. LUNGS: Clear. ABDOMEN: Soft with appropriately working ileostomy. Positive bowel sounds are noted. She is nontender. EXTREMITIES: With 2+ pulses, without significant edema. NEUROLOGICAL EXAMINATION: Intact. ASSESSMENT: 1. [id number] renal failure. 2. Hyponatremia. 3. See past medical history. PLAN: To proceed with IV hydration with normal saline. Consider Nephrology consultation if renal function does not improve rapidly and consult Surgery for ileostomy takedown once the patient is stabilized. ASTRID DURAN MD DR: PORTIA/esperanza JOB#: [id number] / [id number]
--- NOTE | 2019-01-21 14:26 | NUR ---
SW following pt for anticipated dc needs. Chart reviewed. Pt lives at home with family and was on home health service with [facility], phone: [phone], fax: [phone]. Plan confirmed with Toshia at [facility].
[2019-01-21 15:37] LABS: CALCIUM 8.5 mg/dL (8.5-10.1); CREATININE 2.2 mg/dL (0.6-1.0); GFR 26.7; POTASSIUM 4.2 mmol/L (3.5-5.1)
[2019-01-22] VITALS (7 sets, daily range): BP systolic 81–106; BP diastolic 46–68
[2019-01-22 04:34] LABS: BASO % 0 % (0-3); EOS # 0.1 x10^3/uL (0.0-0.7); EOS % 2 % (0-3); HEMATOCRIT 28.6 % (36.0-47.0); HEMOGLOBIN 9.1 g/dL (12.0-15.5); LYMPH # 1.1 x10^3/uL (1.0-4.8); LYMPH % 27 % (24-48); MEAN CORPUSCULAR HEMOGLOBIN 26 pg (25-35); MEAN CORPUSCULAR HGB CONC 32 g/dL (31-37); MEAN CORPUSCULAR VOLUME 83 fL (79-100); MONO # 0.5 x10^3/uL (0.0-1.1); MONO % 13 % (0-9); NEUT # 2.3 x10^3uL (1.8-7.7); NEUT % 58 % (31-73); PLATELET COUNT 197 x10^3/uL (140-400); RED BLOOD COUNT 3.46 x10^6/uL (3.50-5.40); RED CELL DISTRIBUTION WIDTH 17.1 % (11.5-14.5)
[2019-01-22 04:58] LABS: CALCIUM 8.4 mg/dL (8.5-10.1); CREATININE 1.8 mg/dL (0.6-1.0); GFR 33.7; POTASSIUM 3.7 mmol/L (3.5-5.1)
--- NOTE | 2019-01-22 09:18 | PDOC ---
FERNANDO MAHONEY SUPERVISOR [employer] 01/22/19 0918: SURGICAL PROGRESS NOTE Subjective some nausea does feel better eating a little Vital Signs Vital Signs Date Time Temp Pulse Resp B/P (MAP) Pulse Ox O2 Delivery O2 Flow Rate FiO2 01/22/19 07:00 98.5 64 18 83/47 (59) 98 Room Air 98.5 I&O Intake and Output 01/22/19 07:00 Output Total 280 ml Balance -280 ml Output Stool Total 280 ml # Voids 5 General: Alert, Oriented X3, Cooperative, No acute distress Abdomen: Soft, Other (ostmoy in place) Labs Laboratory Tests Test 01/20/19 16:49 01/20/19 18:24 01/21/19 15:10 01/22/19 03:25 White Blood Count 5.5 x10^3/uL (4.0-11.0) 4.0 x10^3/uL (4.0-11.0) Red Blood Count 4.73 x10^6/uL (3.50-5.40) 3.46 x10^6/uL (3.50-5.40) Hemoglobin 12.4 g/dL (12.0-15.5) 9.1 g/dL (12.0-15.5) Hematocrit 38.8 % (36.0-47.0) 28.6 % (36.0-47.0) Mean Corpuscular Volume 82 fL (79-100) 83 fL (79-100) Mean Corpuscular Hemoglobin 26 pg (25-35) 26 pg (25-35) Mean Corpuscular Hemoglobin Concent 32 g/dL (31-37) 32 g/dL (31-37) Red Cell Distribution Width 17.1 % (11.5-14.5) 17.1 % (11.5-14.5) Platelet Count 264 x10^3/uL (140-400) 197 x10^3/uL (140-400) Neutrophils (%) (Auto) 69 % (31-73) 58 % (31-73) Lymphocytes (%) (Auto) 18 % (24-48) 27 % (24-48) Monocytes (%) (Auto) 12 % (0-9) 13 % (0-9) Eosinophils (%) (Auto) 1 % (0-3) 2 % (0-3) Basophils (%) (Auto) 1 % (0-3) 0 % (0-3) Neutrophils # (Auto) 3.8 x10^3uL (1.8-7.7) 2.3 x10^3uL (1.8-7.7) Lymphocytes # (Auto) 1.0 x10^3/uL (1.0-4.8) 1.1 x10^3/uL (1.0-4.8) Monocytes # (Auto) 0.6 x10^3/uL (0.0-1.1) 0.5 x10^3/uL (0.0-1.1) Eosinophils # (Auto) 0.0 x10^3/uL (0.0-0.7) 0.1 x10^3/uL (0.0-0.7) Basophils # (Auto) 0.0 x10^3/uL (0.0-0.2) 0.0 x10^3/uL (0.0-0.2) Sodium Level 129 mmol/L (136-145) 135 mmol/L (136-145) 140 mmol/L (136-145) Potassium Level 4.4 mmol/L (3.5-5.1) 4.2 mmol/L (3.5-5.1) 3.7 mmol/L (3.5-5.1) Chloride Level 96 mmol/L (98-107) 106 mmol/L (98-107) 112 mmol/L (98-107) Carbon Dioxide Level 13 mmol/L (21-32) 14 mmol/L (21-32) 14 mmol/L (21-32) Anion Gap 20 (6-14) 15 (6-14) 14 (6-14) Blood Urea Nitrogen 66 mg/dL (7-20) 45 mg/dL (7-20) 34 mg/dL (7-20) Creatinine 3.3 mg/dL (0.6-1.0) 2.2 mg/dL (0.6-1.0) 1.8 mg/dL (0.6-1.0) Estimated GFR (Cockcroft-Gault) 16.7 26.7 33.7 BUN/Creatinine Ratio 20 (6-20) Glucose Level 110 mg/dL (70-99) 104 mg/dL (70-99) 77 mg/dL (70-99) Lactic Acid Level 1.5 mmol/L (0.4-2.0) Calcium Level 10.4 mg/dL (8.5-10.1) 8.5 mg/dL (8.5-10.1) 8.4 mg/dL (8.5-10.1) Magnesium Level 2.3 mg/dL (1.8-2.4) Total Bilirubin 0.4 mg/dL (0.2-1.0) Aspartate Amino Transf (AST/SGOT) 69 U/L (15-37) Alanine Aminotransferase (ALT/SGPT) 154 U/L (14-59) Alkaline Phosphatase 87 U/L (46-116) Troponin I Quantitative < 0.017 ng/mL (0.000-0.055) Total Protein 8.5 g/dL (6.4-8.2) Albumin 4.3 g/dL (3.4-5.0) Albumin/Globulin Ratio 1.0 (1.0-1.7) Lipase 1870 U/L (73-393) Urine Collection Type Unknown Urine Color Yellow Urine Clarity Clear Urine pH 5.5 Urine Specific [place] 1.020 Urine Protein 100 mg/dL (NEG-TRACE) Urine Glucose (UA) Negative mg/dL (NEG) Urine Ketones (Stick) Negative mg/dL (NEG) Urine Blood Trace (NEG) Urine Nitrite Negative (NEG) Urine Bilirubin Negative (NEG) Urine Urobilinogen Dipstick 0.2 mg/dL (0.2 mg/dL) Urine Leukocyte Esterase Small (NEG) Urine RBC Occ /HPF (0-2) Urine WBC 11-20 /HPF (0-4) Urine Squamous Epithelial Cells Mod /LPF Urine Transitional Epithelial Cells Occ /LPF Urine Renal Epithelial Cells Occ /LPF Urine Amorphous Sediment Present /HPF Urine Bacteria Moderate /HPF (0-FEW) Urine Hyaline Casts Many /HPF Urine Granular Casts Moderate /HPF Urine Mucus Marked /LPF Laboratory Tests Test 01/21/19 15:10 01/22/19 03:25 Sodium Level 135 mmol/L (136-145) 140 mmol/L (136-145) Potassium Level 4.2 mmol/L (3.5-5.1) 3.7 mmol/L (3.5-5.1) Chloride Level 106 mmol/L (98-107) 112 mmol/L (98-107) Carbon Dioxide Level 14 mmol/L (21-32) 14 mmol/L (21-32) Anion Gap 15 (6-14) 14 (6-14) Blood Urea Nitrogen 45 mg/dL (7-20) 34 mg/dL (7-20) Creatinine 2.2 mg/dL (0.6-1.0) 1.8 mg/dL (0.6-1.0) Estimated GFR (Cockcroft-Gault) 26.7 33.7 Glucose Level 104 mg/dL (70-99) 77 mg/dL (70-99) Calcium Level 8.5 mg/dL (8.5-10.1) 8.4 mg/dL (8.5-10.1) White Blood Count 4.0 x10^3/uL (4.0-11.0) Red Blood Count 3.46 x10^6/uL (3.50-5.40) Hemoglobin 9.1 g/dL (12.0-15.5) Hematocrit 28.6 % (36.0-47.0) Mean Corpuscular Volume 83 fL (79-100) Mean Corpuscular Hemoglobin 26 pg (25-35) Mean Corpuscular Hemoglobin Concent 32 g/dL (31-37) Red Cell Distribution Width 17.1 % (11.5-14.5) Platelet Count 197 x10^3/uL (140-400) Neutrophils (%) (Auto) 58 % (31-73) Lymphocytes (%) (Auto) 27 % (24-48) Monocytes (%) (Auto) 13 % (0-9) Eosinophils (%) (Auto) 2 % (0-3) Basophils (%) (Auto) 0 % (0-3) Neutrophils # (Auto) 2.3 x10^3uL (1.8-7.7) Lymphocytes # (Auto) 1.1 x10^3/uL (1.0-4.8) Monocytes # (Auto) 0.5 x10^3/uL (0.0-1.1) Eosinophils # (Auto) 0.1 x10^3/uL (0.0-0.7) Basophils # (Auto) 0.0 x10^3/uL (0.0-0.2) Problem List Problems Medical Problems: (1) Colostomy in place Status: Acute (2) Pancreatitis Status: Acute Assessment/Plan ARF improved plans from takedown 01/25 URIEL VIGIL MD 01/22/19 1019: SURGICAL PROGRESS NOTE Assessment/Plan Agree with Justice assessment and plan FERNANDO MAHONEY SUPERVISOR [employer] Jan 22, 2019 09:18 URIEL VIGIL MD Jan 22, 2019 10:19
[2019-01-22] MEDS ORDERED: ONDANSETRON ODT 4 MG TAB.RAPDIS. PO PRN (09:30)
[2019-01-22] MEDS ORDERED: ONDANSETRON PF 4 MG/2 ML VIAL. IV PRN (10:00)
[2019-01-22] MEDS: CEPHALEXIN 250 MG CAPSULE. PO SCH ×2 (10:23→20:42)
--- NOTE | 2019-01-22 11:20 | PDOC ---
PROGRESS NOTES Subjective Subjective Patient improving with renal failure. PO intake still poor do to nausea. Discussed possible need for cholecystectomy during ileostomy take down do to persistent nausea, recurrent pancreatitis, and abnormal GB scan. Patient c/o of allergic symptoms today as well requesting Flonase Objective Objective Vital Signs Date Time Temp Pulse Resp B/P (MAP) Pulse Ox O2 Delivery O2 Flow Rate FiO2 01/22/19 07:00 98.5 64 18 83/47 (59) 98 Room Air 98.5 Intake and Output 01/22/19 07:00 Output Total 280 ml Balance -280 ml Output Stool Total 280 ml # Voids 5 Physical Exam Abdomen: Normal bowel sounds Heart: Regular rate Extremities: No edema General: Alert Lungs: Clear to auscultation Assessment Assessment Problems Medical Problems: (1) Colostomy in place Status: Acute (2) Pancreatitis Status: Acute [id number] renal failure. Hyponatremia. Chronic cholecystitis Pancreatitis Diet-controlled hypertension. Diet-controlled type 2 diabetes. Gastroesophageal reflux disease. Osteoarthritis. History of diverticulitis. Colovaginal fistula, status post repair. Allergic rhinitis Plan Plan of Care Continue IV fluids restart home meds follow labs recheck amylase & lipase Comment Review of Relevant I have reviewed the following items sathya (where applicable) has been applied. Labs Laboratory Tests Test 01/20/19 16:49 01/20/19 18:24 01/21/19 15:10 01/22/19 03:25 White Blood Count 5.5 x10^3/uL (4.0-11.0) 4.0 x10^3/uL (4.0-11.0) Red Blood Count 4.73 x10^6/uL (3.50-5.40) 3.46 x10^6/uL (3.50-5.40) Hemoglobin 12.4 g/dL (12.0-15.5) 9.1 g/dL (12.0-15.5) Hematocrit 38.8 % (36.0-47.0) 28.6 % (36.0-47.0) Mean Corpuscular Volume 82 fL (79-100) 83 fL (79-100) Mean Corpuscular Hemoglobin 26 pg (25-35) 26 pg (25-35) Mean Corpuscular Hemoglobin Concent 32 g/dL (31-37) 32 g/dL (31-37) Red Cell Distribution Width 17.1 % (11.5-14.5) 17.1 % (11.5-14.5) Platelet Count 264 x10^3/uL (140-400) 197 x10^3/uL (140-400) Neutrophils (%) (Auto) 69 % (31-73) 58 % (31-73) Lymphocytes (%) (Auto) 18 % (24-48) 27 % (24-48) Monocytes (%) (Auto) 12 % (0-9) 13 % (0-9) Eosinophils (%) (Auto) 1 % (0-3) 2 % (0-3) Basophils (%) (Auto) 1 % (0-3) 0 % (0-3) Neutrophils # (Auto) 3.8 x10^3uL (1.8-7.7) 2.3 x10^3uL (1.8-7.7) Lymphocytes # (Auto) 1.0 x10^3/uL (1.0-4.8) 1.1 x10^3/uL (1.0-4.8) Monocytes # (Auto) 0.6 x10^3/uL (0.0-1.1) 0.5 x10^3/uL (0.0-1.1) Eosinophils # (Auto) 0.0 x10^3/uL (0.0-0.7) 0.1 x10^3/uL (0.0-0.7) Basophils # (Auto) 0.0 x10^3/uL (0.0-0.2) 0.0 x10^3/uL (0.0-0.2) Sodium Level 129 mmol/L (136-145) 135 mmol/L (136-145) 140 mmol/L (136-145) Potassium Level 4.4 mmol/L (3.5-5.1) 4.2 mmol/L (3.5-5.1) 3.7 mmol/L (3.5-5.1) Chloride Level 96 mmol/L (98-107) 106 mmol/L (98-107) 112 mmol/L (98-107) Carbon Dioxide Level 13 mmol/L (21-32) 14 mmol/L (21-32) 14 mmol/L (21-32) Anion Gap 20 (6-14) 15 (6-14) 14 (6-14) Blood Urea Nitrogen 66 mg/dL (7-20) 45 mg/dL (7-20) 34 mg/dL (7-20) Creatinine 3.3 mg/dL (0.6-1.0) 2.2 mg/dL (0.6-1.0) 1.8 mg/dL (0.6-1.0) Estimated GFR (Cockcroft-Gault) 16.7 26.7 33.7 BUN/Creatinine Ratio 20 (6-20) Glucose Level 110 mg/dL (70-99) 104 mg/dL (70-99) 77 mg/dL (70-99) Lactic Acid Level 1.5 mmol/L (0.4-2.0) Calcium Level 10.4 mg/dL (8.5-10.1) 8.5 mg/dL (8.5-10.1) 8.4 mg/dL (8.5-10.1) Magnesium Level 2.3 mg/dL (1.8-2.4) Total Bilirubin 0.4 mg/dL (0.2-1.0) Aspartate Amino Transf (AST/SGOT) 69 U/L (15-37) Alanine Aminotransferase (ALT/SGPT) 154 U/L (14-59) Alkaline Phosphatase 87 U/L (46-116) Troponin I Quantitative < 0.017 ng/mL (0.000-0.055) Total Protein 8.5 g/dL (6.4-8.2) Albumin 4.3 g/dL (3.4-5.0) Albumin/Globulin Ratio 1.0 (1.0-1.7) Lipase 1870 U/L (73-393) Urine Collection Type Unknown Urine Color Yellow Urine Clarity Clear Urine pH 5.5 Urine Specific [place] 1.020 Urine Protein 100 mg/dL (NEG-TRACE) Urine Glucose (UA) Negative mg/dL (NEG) Urine Ketones (Stick) Negative mg/dL (NEG) Urine Blood Trace (NEG) Urine Nitrite Negative (NEG) Urine Bilirubin Negative (NEG) Urine Urobilinogen Dipstick 0.2 mg/dL (0.2 mg/dL) Urine Leukocyte Esterase Small (NEG) Urine RBC Occ /HPF (0-2) Urine WBC 11-20 /HPF (0-4) Urine Squamous Epithelial Cells Mod /LPF Urine Transitional Epithelial Cells Occ /LPF Urine Renal Epithelial Cells Occ /LPF Urine Amorphous Sediment Present /HPF Urine Bacteria Moderate /HPF (0-FEW) Urine Hyaline Casts Many /HPF Urine Granular Casts Moderate /HPF Urine Mucus Marked /LPF Laboratory Tests Test 01/21/19 15:10 01/22/19 03:25 Sodium Level 135 mmol/L (136-145) 140 mmol/L (136-145) Potassium Level 4.2 mmol/L (3.5-5.1) 3.7 mmol/L (3.5-5.1) Chloride Level 106 mmol/L (98-107) 112 mmol/L (98-107) Carbon Dioxide Level 14 mmol/L (21-32) 14 mmol/L (21-32) Anion Gap 15 (6-14) 14 (6-14) Blood Urea Nitrogen 45 mg/dL (7-20) 34 mg/dL (7-20) Creatinine 2.2 mg/dL (0.6-1.0) 1.8 mg/dL (0.6-1.0) Estimated GFR (Cockcroft-Gault) 26.7 33.7 Glucose Level 104 mg/dL (70-99) 77 mg/dL (70-99) Calcium Level 8.5 mg/dL (8.5-10.1) 8.4 mg/dL (8.5-10.1) White Blood Count 4.0 x10^3/uL (4.0-11.0) Red Blood Count 3.46 x10^6/uL (3.50-5.40) Hemoglobin 9.1 g/dL (12.0-15.5) Hematocrit 28.6 % (36.0-47.0) Mean Corpuscular Volume 83 fL (79-100) Mean Corpuscular Hemoglobin 26 pg (25-35) Mean Corpuscular Hemoglobin Concent 32 g/dL (31-37) Red Cell Distribution Width 17.1 % (11.5-14.5) Platelet Count 197 x10^3/uL (140-400) Neutrophils (%) (Auto) 58 % (31-73) Lymphocytes (%) (Auto) 27 % (24-48) Monocytes (%) (Auto) 13 % (0-9) Eosinophils (%) (Auto) 2 % (0-3) Basophils (%) (Auto) 0 % (0-3) Neutrophils # (Auto) 2.3 x10^3uL (1.8-7.7) Lymphocytes # (Auto) 1.1 x10^3/uL (1.0-4.8) Monocytes # (Auto) 0.5 x10^3/uL (0.0-1.1) Eosinophils # (Auto) 0.1 x10^3/uL (0.0-0.7) Basophils # (Auto) 0.0 x10^3/uL (0.0-0.2) Medications Current Medications Sodium Chloride 1,000 ml @ 1,000 mls/hr Q1H IV Last administered on 01/20/19at 16:49; Start 01/20/19 at 16:09; Stop 01/20/19 at 17:08; Status DC Ondansetron HCl (Zofran) 4 mg 1X ONCE IV Last administered on 01/20/19at 16:50; Start 01/20/19 at 16:15; Stop 01/20/19 at 16:22; Status DC Sodium Chloride 1,000 ml @ 150 mls/hr Q6H40M IV Last administered on 01/21/19at 17:45; Start 01/20/19 at 18:15; Stop 01/21/19 at 18:14; Status DC Cephalexin HCl (Keflex) 1,000 mg BID PO Last administered on 01/22/19at 10:23; Start 01/22/19 at 09:00 Ondansetron HCl (Zofran Odt) 4 mg PRN Q8HRS PRN PO NAUSEA/VOMITING; Start at 09:30; Stop 01/22/19 at 09:54; Status DC Acetaminophen/ Hydrocodone Bitart (Lortab 5/325) 1 tab PRN Q4HRS PRN PO PAIN; Start 01/22/19 at 10:00 Ondansetron HCl (Zofran) 4 mg PRN Q4HRS PRN IV NAUSEA/VOMITING; Start 01/22/19 at 10:00 Fluticasone Propionate (Flonase) 2 spray DAILY NS ; Start 01/22/19 at 10:30 Pantoprazole Sodium (Protonix) 40 mg BIDAC PO ; Start 01/22/19 at 11:30 Ondansetron HCl (Zofran Odt) 4 mg PRN Q4HRS PRN PO NAUSEA/VOMITING; Start at 10:00 Active Scripts Active [Pantoprazole] 40 MG Tablet.dr 40 Mg PO BIDAC 30 Days Ondansetron Hcl 4 Mg/2 Ml Vial (Ondansetron Hcl/Pf) 4 Mg/2 Ml Vial 4 Mg IV PRN Q4HRS PRN 14 Days Hydrocodone-Apap 5-325 (Hydrocodone Bit/Acetaminophen) 1 Tab Tablet 1 Tab PO PRN Q4HRS PRN 30 Days Reported Flonase Allergy Relief (Fluticasone Propionate) 9.9 Ml [place].susp 2 Sprays NS DAILY Vitals/I & O Vital Sign - Last 24 Hours 01/21/19 01/21/19 01/21/19 01/21/19 12:45 15:00 19:00 23:00 Temp 98.5 97.8 97.8 98.5 97.8 97.8 Pulse 70 66 71 Resp 16 18 18 B/P (MAP) 101/57 (72) 85/52 (63) 105/57 (73) 97/49 (65) Pulse Ox 100 99 100 O2 Delivery Room Air Room Air Room Air 01/22/19 01/22/19 01/22/19 03:00 03:25 07:00 Temp 98.3 98.5 98.3 98.5 Pulse 64 59 64 Resp 18 18 B/P (MAP) 81/47 (58) 92/57 (69) 83/47 (59) Pulse Ox 98 98 O2 Delivery Room Air Room Air Intake and Output 01/21/19 01/21/19 01/22/19 15:00 23:00 07:00 Output Total 180 ml 100 ml Balance -180 ml -100 ml ASTRID DURAN MD Jan 22, 2019 11:20
[2019-01-22] MEDS: FLUTICASONE 50MCG/NASAL SPRAY 16GM BOTTLE. NS SCH (12:43)
[2019-01-22] MEDS: PANTOPRAZOLE 40 MG TABLET.DR. PO SCH ×2 (12:43→16:45)
[2019-01-22] MEDS: IV NORMAL SALINE 1000ML BAG 1,000 ML IV SCH ×2 (12:53→20:48)
[2019-01-22] MEDS: LACTOBACILLUS RHAMNOSUS GG 1 CAPSULE. PO SCH (20:42)
[2019-01-23 03:00] VITALS: BP 97/63
[2019-01-23 05:05] LABS: HEMATOCRIT 31.5 % (36.0-47.0); RED BLOOD COUNT 3.8 x10^6/uL (3.50-5.40); RED CELL DISTRIBUTION WIDTH 17.7 % (11.5-14.5); WHITE BLOOD COUNT 4.2 x10^3/uL (4.0-11.0)
[2019-01-23 05:26] LABS: CALCIUM 8.5 mg/dL (8.5-10.1); CREATININE 1.5 mg/dL (0.6-1.0); GFR 41.5; POTASSIUM 3.7 mmol/L (3.5-5.1)
[2019-01-23 05:28] LABS: AMYLASE 144 U/L (25-115); LIPASE 1017 U/L (73-393)
[2019-01-23 07:00] VITALS: BP 118/66
[2019-01-23] MEDS: LACTOBACILLUS RHAMNOSUS GG 1 CAPSULE. PO SCH ×2 (08:11→20:55)
[2019-01-23] MEDS: PANTOPRAZOLE 40 MG TABLET.DR. PO SCH ×2 (08:11→16:44)
[2019-01-23] MEDS: CEPHALEXIN 250 MG CAPSULE. PO SCH ×2 (08:11→20:56)
[2019-01-23] MEDS: FLUTICASONE 50MCG/NASAL SPRAY 16GM BOTTLE. NS SCH (08:12)
[2019-01-23] MEDS: IV NORMAL SALINE 1000ML BAG 1,000 ML IV SCH ×2 (08:16→16:44)
--- NOTE | 2019-01-23 09:08 | PDOC ---
FERNANDO MAHONEY WAITER/WAITRESS 01/23/19 0908: SURGICAL PROGRESS NOTE Subjective not eating much, no appetite Vital Signs Vital Signs Date Time Temp Pulse Resp B/P (MAP) Pulse Ox O2 Delivery O2 Flow Rate FiO2 01/23/19 07:00 98.7 52 18 118/66 (83) 100 Room Air 98.7 I&O Intake and Output 01/23/19 07:00 Intake Total 390 ml Balance 390 ml Intake Oral 390 ml # Voids 6 General: Alert, Oriented X3, Cooperative, No acute distress Abdomen: Soft, Other (ostomy ) Labs Laboratory Tests Test 01/21/19 15:10 01/22/19 03:25 01/23/19 04:00 Sodium Level 135 mmol/L (136-145) 140 mmol/L (136-145) 139 mmol/L (136-145) Potassium Level 4.2 mmol/L (3.5-5.1) 3.7 mmol/L (3.5-5.1) 3.7 mmol/L (3.5-5.1) Chloride Level 106 mmol/L (98-107) 112 mmol/L (98-107) 109 mmol/L (98-107) Carbon Dioxide Level 14 mmol/L (21-32) 14 mmol/L (21-32) 16 mmol/L (21-32) Anion Gap 15 (6-14) 14 (6-14) 14 (6-14) Blood Urea Nitrogen 45 mg/dL (7-20) 34 mg/dL (7-20) 19 mg/dL (7-20) Creatinine 2.2 mg/dL (0.6-1.0) 1.8 mg/dL (0.6-1.0) 1.5 mg/dL (0.6-1.0) Estimated GFR (Cockcroft-Gault) 26.7 33.7 41.5 Glucose Level 104 mg/dL (70-99) 77 mg/dL (70-99) 76 mg/dL (70-99) Calcium Level 8.5 mg/dL (8.5-10.1) 8.4 mg/dL (8.5-10.1) 8.5 mg/dL (8.5-10.1) White Blood Count 4.0 x10^3/uL (4.0-11.0) 4.2 x10^3/uL (4.0-11.0) Red Blood Count 3.46 x10^6/uL (3.50-5.40) 3.80 x10^6/uL (3.50-5.40) Hemoglobin 9.1 g/dL (12.0-15.5) 10.0 g/dL (12.0-15.5) Hematocrit 28.6 % (36.0-47.0) 31.5 % (36.0-47.0) Mean Corpuscular Volume 83 fL (79-100) 83 fL (79-100) Mean Corpuscular Hemoglobin 26 pg (25-35) 26 pg (25-35) Mean Corpuscular Hemoglobin Concent 32 g/dL (31-37) 32 g/dL (31-37) Red Cell Distribution Width 17.1 % (11.5-14.5) 17.7 % (11.5-14.5) Platelet Count 197 x10^3/uL (140-400) 203 x10^3/uL (140-400) Neutrophils (%) (Auto) 58 % (31-73) Lymphocytes (%) (Auto) 27 % (24-48) Monocytes (%) (Auto) 13 % (0-9) Eosinophils (%) (Auto) 2 % (0-3) Basophils (%) (Auto) 0 % (0-3) Neutrophils # (Auto) 2.3 x10^3uL (1.8-7.7) Lymphocytes # (Auto) 1.1 x10^3/uL (1.0-4.8) Monocytes # (Auto) 0.5 x10^3/uL (0.0-1.1) Eosinophils # (Auto) 0.1 x10^3/uL (0.0-0.7) Basophils # (Auto) 0.0 x10^3/uL (0.0-0.2) Amylase Level 144 U/L (25-115) Lipase 1017 U/L (73-393) Laboratory Tests Test 01/23/19 04:00 White Blood Count 4.2 x10^3/uL (4.0-11.0) Red Blood Count 3.80 x10^6/uL (3.50-5.40) Hemoglobin 10.0 g/dL (12.0-15.5) Hematocrit 31.5 % (36.0-47.0) Mean Corpuscular Volume 83 fL (79-100) Mean Corpuscular Hemoglobin 26 pg (25-35) Mean Corpuscular Hemoglobin Concent 32 g/dL (31-37) Red Cell Distribution Width 17.7 % (11.5-14.5) Platelet Count 203 x10^3/uL (140-400) Sodium Level 139 mmol/L (136-145) Potassium Level 3.7 mmol/L (3.5-5.1) Chloride Level 109 mmol/L (98-107) Carbon Dioxide Level 16 mmol/L (21-32) Anion Gap 14 (6-14) Blood Urea Nitrogen 19 mg/dL (7-20) Creatinine 1.5 mg/dL (0.6-1.0) Estimated GFR (Cockcroft-Gault) 41.5 Glucose Level 76 mg/dL (70-99) Calcium Level 8.5 mg/dL (8.5-10.1) Amylase Level 144 U/L (25-115) Lipase 1017 U/L (73-393) Problem List Problems Medical Problems: (1) Colostomy in place Status: Acute (2) Pancreatitis Status: Acute Assessment/Plan plans for surgery 01/25 URIEL VIGIL MD 01/23/19 1244: SURGICAL PROGRESS NOTE Assessment/Plan Agree with Vita's assessment and plan FERNANDO MAHONEY WAITER/WAITRESS Jan 23, 2019 09:08 URIEL VIGIL MD Jan 23, 2019 12:44
--- NOTE | 2019-01-23 10:04 | PDOC ---
PROGRESS NOTES Subjective Subjective Patient feeling better. Patient still having decreased by mouth intake but nausea slightly improved. Renal function continues to improve with IV fluids. Objective Objective Vital Signs Date Time Temp Pulse Resp B/P (MAP) Pulse Ox O2 Delivery O2 Flow Rate FiO2 01/23/19 08:00 Room Air 01/23/19 07:00 98.7 52 18 118/66 (83) 100 98.7 Intake and Output 01/23/19 07:00 Intake Total 390 ml Balance 390 ml Intake Oral 390 ml # Voids 6 Physical Exam Abdomen: Normal bowel sounds Heart: Regular rate Extremities: No edema General: Alert Lungs: Clear to auscultation Assessment Assessment Problems Medical Problems: (1) Colostomy in place Status: Acute (2) Pancreatitis Status: Acute Rhibg-al-aurtnfn renal failure. Hyponatremia. Chronic cholecystitis Pancreatitis Diet-controlled hypertension. Diet-controlled type 2 diabetes. Gastroesophageal reflux disease. Osteoarthritis. History of diverticulitis. Colovaginal fistula, status post repair. Allergic rhinitis Plan Plan of Care Continue IV fluids restart home meds follow labs Proceed with PT and OT modalities increase activity. Comment Review of Relevant I have reviewed the following items sathya (where applicable) has been applied. Labs Laboratory Tests Test 01/21/19 15:10 01/22/19 03:25 01/23/19 04:00 Sodium Level 135 mmol/L (136-145) 140 mmol/L (136-145) 139 mmol/L (136-145) Potassium Level 4.2 mmol/L (3.5-5.1) 3.7 mmol/L (3.5-5.1) 3.7 mmol/L (3.5-5.1) Chloride Level 106 mmol/L (98-107) 112 mmol/L (98-107) 109 mmol/L (98-107) Carbon Dioxide Level 14 mmol/L (21-32) 14 mmol/L (21-32) 16 mmol/L (21-32) Anion Gap 15 (6-14) 14 (6-14) 14 (6-14) Blood Urea Nitrogen 45 mg/dL (7-20) 34 mg/dL (7-20) 19 mg/dL (7-20) Creatinine 2.2 mg/dL (0.6-1.0) 1.8 mg/dL (0.6-1.0) 1.5 mg/dL (0.6-1.0) Estimated GFR (Cockcroft-Gault) 26.7 33.7 41.5 Glucose Level 104 mg/dL (70-99) 77 mg/dL (70-99) 76 mg/dL (70-99) Calcium Level 8.5 mg/dL (8.5-10.1) 8.4 mg/dL (8.5-10.1) 8.5 mg/dL (8.5-10.1) White Blood Count 4.0 x10^3/uL (4.0-11.0) 4.2 x10^3/uL (4.0-11.0) Red Blood Count 3.46 x10^6/uL (3.50-5.40) 3.80 x10^6/uL (3.50-5.40) Hemoglobin 9.1 g/dL (12.0-15.5) 10.0 g/dL (12.0-15.5) Hematocrit 28.6 % (36.0-47.0) 31.5 % (36.0-47.0) Mean Corpuscular Volume 83 fL (79-100) 83 fL (79-100) Mean Corpuscular Hemoglobin 26 pg (25-35) 26 pg (25-35) Mean Corpuscular Hemoglobin Concent 32 g/dL (31-37) 32 g/dL (31-37) Red Cell Distribution Width 17.1 % (11.5-14.5) 17.7 % (11.5-14.5) Platelet Count 197 x10^3/uL (140-400) 203 x10^3/uL (140-400) Neutrophils (%) (Auto) 58 % (31-73) Lymphocytes (%) (Auto) 27 % (24-48) Monocytes (%) (Auto) 13 % (0-9) Eosinophils (%) (Auto) 2 % (0-3) Basophils (%) (Auto) 0 % (0-3) Neutrophils # (Auto) 2.3 x10^3uL (1.8-7.7) Lymphocytes # (Auto) 1.1 x10^3/uL (1.0-4.8) Monocytes # (Auto) 0.5 x10^3/uL (0.0-1.1) Eosinophils # (Auto) 0.1 x10^3/uL (0.0-0.7) Basophils # (Auto) 0.0 x10^3/uL (0.0-0.2) Amylase Level 144 U/L (25-115) Lipase 1017 U/L (73-393) Laboratory Tests Test 01/23/19 04:00 White Blood Count 4.2 x10^3/uL (4.0-11.0) Red Blood Count 3.80 x10^6/uL (3.50-5.40) Hemoglobin 10.0 g/dL (12.0-15.5) Hematocrit 31.5 % (36.0-47.0) Mean Corpuscular Volume 83 fL (79-100) Mean Corpuscular Hemoglobin 26 pg (25-35) Mean Corpuscular Hemoglobin Concent 32 g/dL (31-37) Red Cell Distribution Width 17.7 % (11.5-14.5) Platelet Count 203 x10^3/uL (140-400) Sodium Level 139 mmol/L (136-145) Potassium Level 3.7 mmol/L (3.5-5.1) Chloride Level 109 mmol/L (98-107) Carbon Dioxide Level 16 mmol/L (21-32) Anion Gap 14 (6-14) Blood Urea Nitrogen 19 mg/dL (7-20) Creatinine 1.5 mg/dL (0.6-1.0) Estimated GFR (Cockcroft-Gault) 41.5 Glucose Level 76 mg/dL (70-99) Calcium Level 8.5 mg/dL (8.5-10.1) Amylase Level 144 U/L (25-115) Lipase 1017 U/L (73-393) Microbiology 01/20/19 Urine Culture - Final, Complete 01/20/19 Urine Culture Result 1 (JOSE ANTONIO) - Final, Complete Medications Current Medications Sodium Chloride 1,000 ml @ 1,000 mls/hr Q1H IV Last administered on 01/20/19at 16:49; Start 01/20/19 at 16:09; Stop 01/20/19 at 17:08; Status DC Ondansetron HCl (Zofran) 4 mg 1X ONCE IV Last administered on 01/20/19at 16:50; Start 01/20/19 at 16:15; Stop 01/20/19 at 16:22; Status DC Sodium Chloride 1,000 ml @ 150 mls/hr Q6H40M IV Last administered on 01/21/19at 17:45; Start 01/20/19 at 18:15; Stop 01/21/19 at 18:14; Status DC Cephalexin HCl (Keflex) 1,000 mg BID PO Last administered on 01/23/19 08:11; Start 01/22/19 at 09:00 Ondansetron HCl (Zofran Odt) 4 mg PRN Q8HRS PRN PO NAUSEA/VOMITING; Start at 09:30; Stop 01/22/19 at 09:54; Status DC Acetaminophen/ Hydrocodone Bitart (Lortab 5/325) 1 tab PRN Q4HRS PRN PO PAIN; Start 01/22/19 at 10:00 Ondansetron HCl (Zofran) 4 mg PRN Q4HRS PRN IV NAUSEA/VOMITING; Start 01/22/19 at 10:00 Fluticasone Propionate (Flonase) 2 spray DAILY NS Last administered on 08:12; Start 01/22/19 at 10:30 Pantoprazole Sodium (Protonix) 40 mg BIDAC PO Last administered on 01/23/19 08: 11; Start 01/22/19 at 11:30 Ondansetron HCl (Zofran Odt) 4 mg PRN Q4HRS PRN PO NAUSEA/VOMITING; Start at 10:00 Sodium Chloride 1,000 ml @ 100 mls/hr Q10H IV Last administered on 01/23/19 08 :16; Start 01/22/19 at 12:30 Lactobacillus Rhamnosus (Culturelle) 1 cap BID PO Last administered on 08:11; Start 01/22/19 at 21:00 Active Scripts Active [Pantoprazole] 40 MG Tablet.dr 40 Mg PO BIDAC 30 Days Ondansetron Hcl 4 Mg/2 Ml Vial (Ondansetron Hcl/Pf) 4 Mg/2 Ml Vial 4 Mg IV PRN Q4HRS PRN 14 Days Hydrocodone-Apap 5-325 (Hydrocodone Bit/Acetaminophen) 1 Tab Tablet 1 Tab PO PRN Q4HRS PRN 30 Days Reported Flonase Allergy Relief (Fluticasone Propionate) 9.9 Ml [place].susp 2 Sprays NS DAILY Vitals/I & O Vital Sign - Last 24 Hours 01/22/19 01/22/19 01/22/19 01/22/19 11:00 15:00 19:00 19:53 Temp 98.5 98.0 98.4 98.5 98.0 98.4 Pulse 71 68 71 Resp 19 B/P (MAP) 105/57 (73) 98/59 (72) 106/68 (81) Pulse Ox 97 99 100 O2 Delivery Room Air Room Air Room Air Room Air 01/22/19 01/23/19 01/23/19 01/23/19 23:00 03:00 07:00 08:00 Temp 98.4 98.2 98.7 98.4 98.2 98.7 Pulse 77 75 52 Resp 18 B/P (MAP) 89/46 (60) 97/63 (74) 118/66 (83) Pulse Ox 100 100 100 O2 Delivery Room Air Room Air Room Air Room Air Intake and Output 01/22/19 01/22/19 01/23/19 15:00 23:00 07:00 Intake Total 150 ml 240 ml Balance 150 ml 240 ml ASTRID DURAN MD Jan 23, 2019 10:04
[2019-01-23 11:00] VITALS: BP 92/49
[2019-01-23 15:00] VITALS: BP 94/56
[2019-01-23 19:00] VITALS: BP 96/56
[2019-01-23 23:00] VITALS: BP 104/58
[2019-01-24] MEDS: IV NORMAL SALINE 1000ML BAG 1,000 ML IV SCH ×3 (02:22→21:26)
[2019-01-24 03:00] VITALS: BP 91/57
[2019-01-24 06:16] LABS: CALCIUM 8.2 mg/dL (8.5-10.1); CREATININE 1.4 mg/dL (0.6-1.0); POTASSIUM 3.4 mmol/L (3.5-5.1)
[2019-01-24 07:00] VITALS: BP 94/60
[2019-01-24] MEDS: PANTOPRAZOLE 40 MG TABLET.DR. PO SCH ×2 (07:32→17:43)
[2019-01-24] MEDS: LACTOBACILLUS RHAMNOSUS GG 1 CAPSULE. PO SCH ×2 (08:30→21:25)
[2019-01-24] MEDS: FLUTICASONE 50MCG/NASAL SPRAY 16GM BOTTLE. NS SCH (08:30)
[2019-01-24] MEDS: CEPHALEXIN 250 MG CAPSULE. PO SCH (08:31)
[2019-01-24] MEDS ORDERED: POTASSIUM CHLORIDE 20 MEQ TABLET.ER. PO ONE (10:30)
[2019-01-24 10:37] VITALS: BP 137/71
--- NOTE | 2019-01-24 12:18 | PDOC ---
[employer] 01/24/19 1218: SURGICAL PROGRESS NOTE Subjective no complaints ate better yesterday Vital Signs Vital Signs Date Time Temp Pulse Resp B/P (MAP) Pulse Ox O2 Delivery O2 Flow Rate FiO2 01/24/19 10:37 97.9 70 18 137/71 (93) 100 Room Air 97.9 I&O Intake and Output 01/24/19 07:00 Intake Total 1400 ml Balance 1400 ml Intake Oral 400 ml IV Total 1000 ml # Voids 7 General: Alert, Oriented X3, Cooperative, No acute distress Abdomen: Soft Labs Laboratory Tests Test 01/23/19 04:00 01/24/19 04:55 White Blood Count 4.2 x10^3/uL (4.0-11.0) Red Blood Count 3.80 x10^6/uL (3.50-5.40) Hemoglobin 10.0 g/dL (12.0-15.5) Hematocrit 31.5 % (36.0-47.0) Mean Corpuscular Volume 83 fL (79-100) Mean Corpuscular Hemoglobin 26 pg (25-35) Mean Corpuscular Hemoglobin Concent 32 g/dL (31-37) Red Cell Distribution Width 17.7 % (11.5-14.5) Platelet Count 203 x10^3/uL (140-400) Sodium Level 139 mmol/L (136-145) 140 mmol/L (136-145) Potassium Level 3.7 mmol/L (3.5-5.1) 3.4 mmol/L (3.5-5.1) Chloride Level 109 mmol/L (98-107) 111 mmol/L (98-107) Carbon Dioxide Level 16 mmol/L (21-32) 16 mmol/L (21-32) Anion Gap 14 (6-14) 13 (6-14) Blood Urea Nitrogen 19 mg/dL (7-20) 10 mg/dL (7-20) Creatinine 1.5 mg/dL (0.6-1.0) 1.4 mg/dL (0.6-1.0) Estimated GFR (Cockcroft-Gault) 41.5 45.0 Glucose Level 76 mg/dL (70-99) 78 mg/dL (70-99) Calcium Level 8.5 mg/dL (8.5-10.1) 8.2 mg/dL (8.5-10.1) Amylase Level 144 U/L (25-115) Lipase 1017 U/L (73-393) Laboratory Tests Test 01/24/19 04:55 Sodium Level 140 mmol/L (136-145) Potassium Level 3.4 mmol/L (3.5-5.1) Chloride Level 111 mmol/L (98-107) Carbon Dioxide Level 16 mmol/L (21-32) Anion Gap 13 (6-14) Blood Urea Nitrogen 10 mg/dL (7-20) Creatinine 1.4 mg/dL (0.6-1.0) Estimated GFR (Cockcroft-Gault) 45.0 Glucose Level 78 mg/dL (70-99) Calcium Level 8.2 mg/dL (8.5-10.1) Problem List Problems Medical Problems: (1) Colostomy in place Status: Acute (2) Pancreatitis Status: Acute Assessment/Plan surgery in AM clears today, NPO after mn JOEY GAGNON MD 01/24/19 1432: SURGICAL PROGRESS NOTE Assessment/Plan Pt seen and examined. Agree with Abhinav Mahoney's note Pt feels much better, franny PO well abd soft, ND, NTTP labs much improved TO OR for ileostomy takedown. D/w pt regarding proceeding also with cholecystectomy. Given chemical signs of pancreatitis and nausea, recommend proceeding. She is in agreement. R/R/B/A d/w pt. [employer] Jan 24, 2019 12:18 JOEY GAGNON MD Jan 24, 2019 14:32
--- NOTE | 2019-01-24 13:53 | PDOC ---
PROGRESS NOTES Subjective Subjective Patient stable for surgery in AM. Nausea improved. Objective Objective Vital Signs Date Time Temp Pulse Resp B/P (MAP) Pulse Ox O2 Delivery O2 Flow Rate FiO2 01/24/19 10:37 97.9 70 18 137/71 (93) 100 Room Air 97.9 Intake and Output 01/24/19 07:00 Intake Total 1400 ml Balance 1400 ml Intake Oral 400 ml IV Total 1000 ml # Voids 7 Physical Exam Abdomen: Normal bowel sounds Heart: Regular rate Extremities: No edema General: Alert Lungs: Clear to auscultation Assessment Assessment Problems Medical Problems: (1) Colostomy in place Status: Acute (2) Pancreatitis Status: Acute Cjyfh-gi-fgnpubb renal failure. Chronic cholecystitis Pancreatitis Diet-controlled hypertension. Diet-controlled type 2 diabetes. Gastroesophageal reflux disease. Plan Plan of Care Proceed with ileostomy takedown and choley Continue IV fluids Proceed with PT and OT modalities increase activity. Consider TPN post op. Comment Review of Relevant I have reviewed the following items sathya (where applicable) has been applied. Labs Laboratory Tests Test 01/23/19 04:00 01/24/19 04:55 White Blood Count 4.2 x10^3/uL (4.0-11.0) Red Blood Count 3.80 x10^6/uL (3.50-5.40) Hemoglobin 10.0 g/dL (12.0-15.5) Hematocrit 31.5 % (36.0-47.0) Mean Corpuscular Volume 83 fL (79-100) Mean Corpuscular Hemoglobin 26 pg (25-35) Mean Corpuscular Hemoglobin Concent 32 g/dL (31-37) Red Cell Distribution Width 17.7 % (11.5-14.5) Platelet Count 203 x10^3/uL (140-400) Sodium Level 139 mmol/L (136-145) 140 mmol/L (136-145) Potassium Level 3.7 mmol/L (3.5-5.1) 3.4 mmol/L (3.5-5.1) Chloride Level 109 mmol/L (98-107) 111 mmol/L (98-107) Carbon Dioxide Level 16 mmol/L (21-32) 16 mmol/L (21-32) Anion Gap 14 (6-14) 13 (6-14) Blood Urea Nitrogen 19 mg/dL (7-20) 10 mg/dL (7-20) Creatinine 1.5 mg/dL (0.6-1.0) 1.4 mg/dL (0.6-1.0) Estimated GFR (Cockcroft-Gault) 41.5 45.0 Glucose Level 76 mg/dL (70-99) 78 mg/dL (70-99) Calcium Level 8.5 mg/dL (8.5-10.1) 8.2 mg/dL (8.5-10.1) Amylase Level 144 U/L (25-115) Lipase 1017 U/L (73-393) Laboratory Tests Test 01/24/19 04:55 Sodium Level 140 mmol/L (136-145) Potassium Level 3.4 mmol/L (3.5-5.1) Chloride Level 111 mmol/L (98-107) Carbon Dioxide Level 16 mmol/L (21-32) Anion Gap 13 (6-14) Blood Urea Nitrogen 10 mg/dL (7-20) Creatinine 1.4 mg/dL (0.6-1.0) Estimated GFR (Cockcroft-Gault) 45.0 Glucose Level 78 mg/dL (70-99) Calcium Level 8.2 mg/dL (8.5-10.1) Microbiology 01/20/19 Urine Culture - Final, Complete 01/20/19 Urine Culture Result 1 (JOSE ANTONIO) - Final, Complete Medications Current Medications Sodium Chloride 1,000 ml @ 1,000 mls/hr Q1H IV Last administered on 01/20/19at 16:49; Start 01/20/19 at 16:09; Stop 01/20/19 at 17:08; Status DC Ondansetron HCl (Zofran) 4 mg 1X ONCE IV Last administered on 01/20/19at 16:50; Start 01/20/19 at 16:15; Stop 01/20/19 at 16:22; Status DC Sodium Chloride 1,000 ml @ 150 mls/hr Q6H40M IV Last administered on 01/21/19at 17:45; Start 01/20/19 at 18:15; Stop 01/21/19 at 18:14; Status DC Cephalexin HCl (Keflex) 1,000 mg BID PO Last administered on 01/24/19at 08:31; Start 01/22/19 at 09:00; Stop 01/24/19 at 10:22; Status DC Ondansetron HCl (Zofran Odt) 4 mg PRN Q8HRS PRN PO NAUSEA/VOMITING; Start at 09:30; Stop 01/22/19 at 09:54; Status DC Acetaminophen/ Hydrocodone Bitart (Lortab 5/325) 1 tab PRN Q4HRS PRN PO PAIN; Start 01/22/19 at 10:00 Ondansetron HCl (Zofran) 4 mg PRN Q4HRS PRN IV NAUSEA/VOMITING; Start 01/22/19 at 10:00 Fluticasone Propionate (Flonase) 2 spray DAILY NS Last administered on at 08:30; Start 01/22/19 at 10:30 Pantoprazole Sodium (Protonix) 40 mg BIDAC PO Last administered on 01/24/19at 07: 32; Start 01/22/19 at 11:30 Ondansetron HCl (Zofran Odt) 4 mg PRN Q4HRS PRN PO NAUSEA/VOMITING; Start at 10:00 Sodium Chloride 1,000 ml @ 100 mls/hr Q10H IV Last administered on 01/24/19at 11 :11; Start 01/22/19 at 12:30 Lactobacillus Rhamnosus (Culturelle) 1 cap BID PO Last administered on at 08:30; Start 01/22/19 at 21:00 Potassium Chloride (Klor-Con) 20 meq 1X ONCE PO Last administered on 01/24/19at 11:08; Start 01/24/19 at 10:30; Stop 01/24/19 at 10:31; Status DC Active Scripts Active [Pantoprazole] 40 MG Tablet.dr 40 Mg PO BIDAC 30 Days Ondansetron Hcl 4 Mg/2 Ml Vial (Ondansetron Hcl/Pf) 4 Mg/2 Ml Vial 4 Mg IV PRN Q4HRS PRN 14 Days Hydrocodone-Apap 5-325 (Hydrocodone Bit/Acetaminophen) 1 Tab Tablet 1 Tab PO PRN Q4HRS PRN 30 Days Reported Flonase Allergy Relief (Fluticasone Propionate) 9.9 Ml [place].susp 2 Sprays NS DAILY Vitals/I & O Vital Sign - Last 24 Hours 01/23/19 01/23/19 01/23/19 01/23/19 15:00 19:00 19:44 23:00 Temp 98.4 98.7 98.5 98.4 98.7 98.5 Pulse 72 74 79 Resp 16 16 16 B/P (MAP) 94/56 (69) 96/56 (69) 104/58 (73) Pulse Ox 100 93 95 O2 Delivery Room Air Room Air Room Air Room Air 01/24/19 01/24/19 01/24/19 01/24/19 03:00 07:00 08:00 10:37 Temp 98.7 98.6 97.9 98.7 98.6 97.9 Pulse 71 65 70 Resp 16 16 18 B/P (MAP) 91/57 (68) 94/60 (71) 137/71 (93) Pulse Ox 95 99 100 O2 Delivery Room Air Room Air Room Air Room Air Intake and Output 01/23/19 01/23/19 01/24/19 15:00 23:00 07:00 Intake Total 0 ml 1400 ml Balance 0 ml 1400 ml ASTRID DURAN MD Jan 24, 2019 13:53
[2019-01-24 14:35] VITALS: BP 132/68
--- NOTE | 2019-01-24 14:53 | NUR ---
Dr. Irvin here to see patient and discuss surgery with her, see orders, consents witnessed.
[2019-01-24 19:00] VITALS: BP 130/82
[2019-01-24 22:52] VITALS: BP 107/72
[2019-01-25 03:00] VITALS: BP 103/61
[2019-01-25 06:06] LABS: CALCIUM 7.9 mg/dL (8.5-10.1); CREATININE 1.2 mg/dL (0.6-1.0); GFR 53.7; POTASSIUM 3.4 mmol/L (3.5-5.1)
[2019-01-25] MEDS ORDERED: IOHEXOL 300 MG/ML 100ML VIAL. ONE (06:22)
[2019-01-25] MEDS ORDERED: BISACODYL 10 MG SUPP.RECT. ONE (06:22)
[2019-01-25] MEDS ORDERED: BUPIVAC MPF-EPI 0.5%-1:200000 30 ML VIAL. ONE (06:22)
[2019-01-25] MEDS ORDERED: SURGICEL HEMOSTAT 2X3 EACH. ONE (06:22)
[2019-01-25 07:00] VITALS: BP 95/59
[2019-01-25] MEDS ORDERED: PROCHLORPERAZINE 10 MG/2 ML VIAL. IV PRN (07:00)
[2019-01-25] MEDS ORDERED: ONDANSETRON PF 4 MG/2 ML VIAL. IV PRN ×2 (07:00→11:15)
[2019-01-25] MEDS ORDERED: HYDROmorphone 2 MG/ML VIAL IV PRN (07:00)
[2019-01-25] MEDS ORDERED: IV RINGERS,LACTATED 1000ML 1,000 ML IV SCH (07:00)
[2019-01-25] MEDS ORDERED: fentaNYL PF VIAL 100 MCG/2 ML VIAL IV PRN (07:00)
[2019-01-25] MEDS: IV NORMAL SALINE 1000ML BAG 1,000 ML IV SCH ×3 (07:28→20:30)
[2019-01-25] MEDS: PANTOPRAZOLE 40 MG TABLET.DR. PO SCH ×2 (07:46→16:30)
[2019-01-25] MEDS: LACTOBACILLUS RHAMNOSUS GG 1 CAPSULE. PO SCH ×2 (07:46→20:47)
[2019-01-25] MEDS: FLUTICASONE 50MCG/NASAL SPRAY 16GM BOTTLE. NS SCH (07:46)
[2019-01-25] MEDS ORDERED: fentaNYL PF VIAL 100 MCG/2 ML VIAL ONE ×2 (08:26→10:15)
[2019-01-25] MEDS ORDERED: SEVOFLURANE > 120 MINUTES. IH ONE (08:26)
[2019-01-25] MEDS ORDERED: ROCURONIUM 50 MG/5 ML VIAL. ONE ×2 (08:26→10:26)
[2019-01-25] MEDS ORDERED: ONDANSETRON PF 4 MG/2 ML VIAL. ONE (08:27)
[2019-01-25] MEDS ORDERED: DEXAMETHASONE SOD PHOS 20 MG/5 ML VIAL. ONE (08:27)
[2019-01-25] MEDS ORDERED: PROPOFOL 20 ML IV ONE (08:27)
[2019-01-25] MEDS ORDERED: LIDOCAINE 2% PF 5 ML VIAL. ONE (08:27)
[2019-01-25] MEDS ORDERED: PHENYLEPHRINE in 0.9% NACL PF 1 MG/10 ML SYRINGE. IV ONE (08:27)
[2019-01-25] MEDS ORDERED: MIDAZOLAM HCL/PF 2 MG/2 ML VIAL. ONE (08:27)
[2019-01-25] MEDS ORDERED: GLYCOPYRROLATE 1 MG/5 ML VIAL. ONE (08:27)
[2019-01-25] MEDS ORDERED: NEOSTIGMINE METHYLSULFATE 5 MG/5 ML SYRINGE. ONE (08:27)
[2019-01-25] MEDS ORDERED: HEPARIN 1,000 UNIT in IV NORMAL SALINE 1,000 ML for SURG PERIOP IRR ONE (08:45)
[2019-01-25] MEDS ORDERED: cefOXitin SODIUM IV Push 1 GM VIAL. IVP ONE (08:57)
[2019-01-25] MEDS ORDERED: cefOXitin SODIUM IV Push 2 GM VIAL. IVP SCH (09:00)
--- NOTE | 2019-01-25 09:01 | PDOC ---
SURGICAL PROGRESS NOTE Subjective 68 yo F with hx of diverticulitis with ileostomy. Pt with repeated episodes of dehydration and electrolyte abnormalities. Pt now feels well. Barium enema wnl Pt also with recurrent associated episodes of nausea and chemical pancreatitis. Imaging suggestive of biliary disease TO OR for ileostomy takedown, cholecystectomy with cholangiogram R/R/B/A d/w pt and pt's supportive family. Risks, including, but not limited to : bleeding, infection, damage to surrounding structures, risk of anesthesia, risk of open. They appear to understand, their questions are answered and they elect to proceed. Vital Signs Vital Signs Date Time Temp Pulse Resp B/P (MAP) Pulse Ox O2 Delivery O2 Flow Rate FiO2 01/25/19 08:16 97.0 84 15 106/62 100 Room Air 97.0 I&O Intake and Output 01/25/19 07:00 Intake Total 2600 ml Output Total 100 ml Balance 2500 ml Intake Oral 1600 ml IV Total 1000 ml Output Stool Total 100 ml # Voids 7 # Bowel Movements 1 Labs Laboratory Tests Test 01/24/19 04:55 01/25/19 04:07 Sodium Level 140 mmol/L (136-145) 142 mmol/L (136-145) Potassium Level 3.4 mmol/L (3.5-5.1) 3.4 mmol/L (3.5-5.1) Chloride Level 111 mmol/L (98-107) 112 mmol/L (98-107) Carbon Dioxide Level 16 mmol/L (21-32) 16 mmol/L (21-32) Anion Gap 13 (6-14) 14 (6-14) Blood Urea Nitrogen 10 mg/dL (7-20) 6 mg/dL (7-20) Creatinine 1.4 mg/dL (0.6-1.0) 1.2 mg/dL (0.6-1.0) Estimated GFR (Cockcroft-Gault) 45.0 53.7 Glucose Level 78 mg/dL (70-99) 77 mg/dL (70-99) Calcium Level 8.2 mg/dL (8.5-10.1) 7.9 mg/dL (8.5-10.1) Laboratory Tests Test 01/25/19 04:07 Sodium Level 142 mmol/L (136-145) Potassium Level 3.4 mmol/L (3.5-5.1) Chloride Level 112 mmol/L (98-107) Carbon Dioxide Level 16 mmol/L (21-32) Anion Gap 14 (6-14) Blood Urea Nitrogen 6 mg/dL (7-20) Creatinine 1.2 mg/dL (0.6-1.0) Estimated GFR (Cockcroft-Gault) 53.7 Glucose Level 77 mg/dL (70-99) Calcium Level 7.9 mg/dL (8.5-10.1) Problem List Problems Medical Problems: (1) Colostomy in place Status: Acute (2) Pancreatitis Status: Acute JOEY GAGNON MD Jan 25, 2019 09:01
[2019-01-25] MEDS ORDERED: cefOXitin SODIUM IV Push 1 GM VIAL. IVP SCH (09:15)
--- NOTE | 2019-01-25 09:15 | PDOC ---
PROGRESS NOTES Subjective Subjective Patient seen just prior to surgery. doing well Objective Objective Vital Signs Date Time Temp Pulse Resp B/P (MAP) Pulse Ox O2 Delivery O2 Flow Rate FiO2 01/25/19 08:16 97.0 84 15 106/62 100 Room Air 97.0 Intake and Output 01/25/19 07:00 Intake Total 2600 ml Output Total 100 ml Balance 2500 ml Intake Oral 1600 ml IV Total 1000 ml Output Stool Total 100 ml # Voids 7 # Bowel Movements 1 Physical Exam Abdomen: Normal bowel sounds Heart: Regular rate Extremities: No edema General: Alert Lungs: Clear to auscultation Assessment Assessment Problems Medical Problems: (1) Colostomy in place Status: Acute (2) Pancreatitis Status: Acute [id number] renal failure. Chronic cholecystitis Pancreatitis Diet-controlled hypertension. Diet-controlled type 2 diabetes. Gastroesophageal reflux disease. Plan Plan of Care Proceed with ileostomy takedown and choley Proceed with PT and OT modalities increase activity. Consider TPN post op. Comment Review of Relevant I have reviewed the following items sathya (where applicable) has been applied. Labs Laboratory Tests Test 01/24/19 04:55 01/25/19 04:07 Sodium Level 140 mmol/L (136-145) 142 mmol/L (136-145) Potassium Level 3.4 mmol/L (3.5-5.1) 3.4 mmol/L (3.5-5.1) Chloride Level 111 mmol/L (98-107) 112 mmol/L (98-107) Carbon Dioxide Level 16 mmol/L (21-32) 16 mmol/L (21-32) Anion Gap 13 (6-14) 14 (6-14) Blood Urea Nitrogen 10 mg/dL (7-20) 6 mg/dL (7-20) Creatinine 1.4 mg/dL (0.6-1.0) 1.2 mg/dL (0.6-1.0) Estimated GFR (Cockcroft-Gault) 45.0 53.7 Glucose Level 78 mg/dL (70-99) 77 mg/dL (70-99) Calcium Level 8.2 mg/dL (8.5-10.1) 7.9 mg/dL (8.5-10.1) Laboratory Tests Test 01/25/19 04:07 Sodium Level 142 mmol/L (136-145) Potassium Level 3.4 mmol/L (3.5-5.1) Chloride Level 112 mmol/L (98-107) Carbon Dioxide Level 16 mmol/L (21-32) Anion Gap 14 (6-14) Blood Urea Nitrogen 6 mg/dL (7-20) Creatinine 1.2 mg/dL (0.6-1.0) Estimated GFR (Cockcroft-Gault) 53.7 Glucose Level 77 mg/dL (70-99) Calcium Level 7.9 mg/dL (8.5-10.1) Microbiology 01/20/19 Urine Culture - Final, Complete 01/20/19 Urine Culture Result 1 (JOSE ANTONIO) - Final, Complete Medications Current Medications Sodium Chloride 1,000 ml @ 1,000 mls/hr Q1H IV Last administered on 01/20/19at 16:49; Start 01/20/19 at 16:09; Stop 01/20/19 at 17:08; Status DC Ondansetron HCl (Zofran) 4 mg 1X ONCE IV Last administered on 01/20/19at 16:50; Start 01/20/19 at 16:15; Stop 01/20/19 at 16:22; Status DC Sodium Chloride 1,000 ml @ 150 mls/hr Q6H40M IV Last administered on 01/21/19at 17:45; Start 01/20/19 at 18:15; Stop 01/21/19 at 18:14; Status DC Cephalexin HCl (Keflex) 1,000 mg BID PO Last administered on 01/24/19at 08:31; Start 01/22/19 at 09:00; Stop 01/24/19 at 10:22; Status DC Ondansetron HCl (Zofran Odt) 4 mg PRN Q8HRS PRN PO NAUSEA/VOMITING; Start at 09:30; Stop 01/22/19 at 09:54; Status DC Acetaminophen/ Hydrocodone Bitart (Lortab 5/325) 1 tab PRN Q4HRS PRN PO PAIN; Start 01/22/19 at 10:00 Ondansetron HCl (Zofran) 4 mg PRN Q4HRS PRN IV NAUSEA/VOMITING; Start 01/22/19 at 10:00 Fluticasone Propionate (Flonase) 2 spray DAILY NS Last administered on at 08:30; Start 01/22/19 at 10:30 Pantoprazole Sodium (Protonix) 40 mg BIDAC PO Last administered on 01/24/19at 17: 43; Start 01/22/19 at 11:30 Ondansetron HCl (Zofran Odt) 4 mg PRN Q4HRS PRN PO NAUSEA/VOMITING; Start at 10:00 Sodium Chloride 1,000 ml @ 100 mls/hr Q10H IV Last administered on 01/25/19at 07 :28; Start 01/22/19 at 12:30 Lactobacillus Rhamnosus (Culturelle) 1 cap BID PO Last administered on at 21:25; Start 01/22/19 at 21:00 Potassium Chloride (Klor-Con) 20 meq 1X ONCE PO Last administered on 01/24/19at 11:08; Start 01/24/19 at 10:30; Stop 01/24/19 at 10:31; Status DC Ondansetron HCl (Zofran) 4 mg PRN Q6HRS PRN IV NAUSEA/VOMITING; Start 01/25/19 at 07:00; Stop 01/25/19 at 20:00 Fentanyl Citrate (Fentanyl 2ml Vial) 25 mcg PRN Q5MIN PRN IV MILD PAIN; Start 01/25/19 at 07:00; Stop 01/25/19 at 20:00 Fentanyl Citrate (Fentanyl 2ml Vial) 50 mcg PRN Q5MIN PRN IV MODERATE TO SEVERE PAIN; Start 01/25/19 at 07:00; Stop 01/25/19 at 20:00 Morphine Sulfate (Morphine Sulfate) 1 mg PRN Q10MIN PRN IV SEVERE PAIN; Start 01/25/19 at 07:00; Stop 01/25/19 at 20:00 Ringer's Solution 1,000 ml @ 30 mls/hr Q24H IV Last administered on 01/25/19at 08:14; Start 01/25/19 at 07:00; Stop 01/25/19 at 18:59 Hydromorphone HCl (Dilaudid) 0.5 mg PRN Q10MIN PRN IV SEV PAIN, Second choice; Start 01/25/19 at 07:00; Stop 01/25/19 at 20:00 Prochlorperazine Edisylate (Compazine) 5 mg PACU PRN PRN IV NAUSEA, MRX1; Start 01/25/19 at 07:00; Stop 01/25/19 at 20:00 Bupivacaine HCl/ Epinephrine Bitart (Sensorcain-Mpf Epi 0.5%-1:[id number]) 30 ml STK -MED ONCE .ROUTE Last administered on 01/25/19at 08:49; Start 01/25/19 at 06:22; Stop 01/25/19 at 07:22; Status DC Cellulose (Surgicel Hemostat 2x3) 1 each STK-MED ONCE .ROUTE ; Start 01/25/19 at 06:22; Stop 01/25/19 at 07:22; Status DC Iohexol (Omnipaque 300 Mg/ml) 100 ml STK-MED ONCE .ROUTE Last administered on at 08:50; Start 01/25/19 at 06:22; Stop 01/25/19 at 07:22; Status DC Bisacodyl (Dulcolax Supp) 10 mg STK-MED ONCE .ROUTE Last administered on at 08:51; Start 01/25/19 at 06:22; Stop 01/25/19 at 07:23; Status DC Sevoflurane (Ultane) 90 ml STK-MED ONCE IH ; Start 01/25/19 at 08:26; Stop at 08:27; Status DC Rocuronium Bowie (Zemuron) 50 mg STK-MED ONCE .ROUTE ; Start 01/25/19 at 08:26 ; Stop 01/25/19 at 08:27; Status DC Fentanyl Citrate (Fentanyl 2ml Vial) 100 mcg STK-MED ONCE .ROUTE ; Start at 08:26; Stop 01/25/19 at 08:27; Status DC Neostigmine Methylsulfate (Neostigmine Methylsulfate) 5 mg STK-MED ONCE .ROUTE ; Start 01/25/19 at 08:27; Stop 01/25/19 at 08:28; Status DC Midazolam HCl (Versed) 2 mg STK-MED ONCE .ROUTE ; Start 01/25/19 at 08:27; Stop 01/25/19 at 08:28; Status DC Glycopyrrolate (Robinul) 1 mg STK-MED ONCE .ROUTE ; Start 01/25/19 at 08:27; Stop 01/25/19 at 08:28; Status DC Propofol 20 ml @ As Directed STK-MED ONCE IV ; Start 01/25/19 at 08:27; Stop 01/25 at 08:28; Status DC Phenylephrine HCl (PHENYLEPHRINE in 0.9% NACL PF) 1 mg STK-MED ONCE IV ; Start 01/25/19 at 08:27; Stop 01/25/19 at 08:28; Status DC Lidocaine HCl (Lidocaine Pf 2% Vial) 5 ml STK-MED ONCE .ROUTE ; Start 01/25/19 at 08:27; Stop 01/25/19 at 08:28; Status DC Dexamethasone Sodium Phosphate (Decadron) 20 mg STK-MED ONCE .ROUTE ; Start 01/25 at 08:27; Stop 01/25/19 at 08:28; Status DC Ondansetron HCl (Zofran) 4 mg STK-MED ONCE .ROUTE ; Start 01/25/19 at 08:27; Stop 01/25/19 at 08:28; Status DC Heparin Sodium (Porcine) 1000 unit/Sodium Chloride 1,001 ml @ 1,001 mls/hr 1X ONCE IRR Last administered on 01/25/19at 08:52; Start 01/25/19 at 08:45; Stop 01/25 at 09:44 Cefoxitin Sodium (Mefoxin) 2 gm 1X PREOP IVP ; Start 01/25/19 at 09:00; Stop 01/25/19 at 09:00; Status DC Cefoxitin Sodium (Mefoxin) 1 gm STK-MED ONCE IVP ; Start 01/25/19 at 08:57; Stop 01/25/19 at 08:58; Status DC Cefoxitin Sodium (Mefoxin) 2 gm 1X PREOP IVP ; Start 01/25/19 at 09:15; Stop 01/25/19 at 09:15; Status DC Cefoxitin Sodium (Mefoxin) 2 gm 1X PREOP IVP ; Start 01/25/19 at 09:15 Active Scripts Active [Pantoprazole] 40 MG Tablet.dr 40 Mg PO BIDAC 30 Days Ondansetron Hcl 4 Mg/2 Ml Vial (Ondansetron Hcl/Pf) 4 Mg/2 Ml Vial 4 Mg IV PRN Q4HRS PRN 14 Days Hydrocodone-Apap 5-325 (Hydrocodone Bit/Acetaminophen) 1 Tab Tablet 1 Tab PO PRN Q4HRS PRN 30 Days Reported Flonase Allergy Relief (Fluticasone Propionate) 9.9 Ml [place].susp 2 Sprays NS DAILY Vitals/I & O Vital Sign - Last 24 Hours 01/24/19 01/24/19 01/24/19 01/24/19 10:37 14:35 19:00 20:00 Temp 97.9 97.8 98.3 97.9 97.8 98.3 Pulse 70 72 81 Resp 18 18 18 B/P (MAP) 137/71 (93) 132/68 (89) 130/82 (98) Pulse Ox 100 100 100 O2 Delivery Room Air Room Air Room Air Room Air 01/24/19 01/25/19 01/25/19 01/25/19 22:52 03:00 07:00 08:00 Temp 98.8 98.3 98.3 98.8 98.3 98.3 Pulse 71 75 82 Resp 18 18 16 B/P (MAP) 107/72 (84) 103/61 (75) 95/59 (71) Pulse Ox 100 99 97 O2 Delivery Room Air Room Air Room Air Room Air 01/25/19 08:16 Temp 97.0 97.0 Pulse 84 Resp 15 B/P (MAP) 106/62 Pulse Ox 100 O2 Delivery Room Air Intake and Output 01/24/19 01/24/19 01/25/19 15:00 23:00 07:00 Intake Total 1800 ml 800 ml 0 ml Output Total 100 ml Balance 1800 ml 800 ml -100 ml ASTRID DURAN MD Jan 25, 2019 09:14
[2019-01-25] MEDS: cefOXitin SODIUM IV Push 2 GM VIAL. IVP SCH ×2 (10:28→10:31)
--- NOTE | 2019-01-25 11:01 | RAD ---
Examination: CHOLANGIOGRAM INTRAOPERATIVE History: CHOLANGIOGRAMS IN OR WITH C-ARM, FL TIME =.12 MINUTES 2 IMAGES SENT. Comparison/Correlation: None Findings: Fluoroscopy was utilized for 0.12 minutes. 2 images provided. Images of the right upper quadrant were obtained with contrast within the common bile duct and intrahepatic biliary tree. There is no common bile duct or common hepatic duct stricture. No suspicious filling defect. Extravasation of contrast lateral to the common duct at the cystic duct level is present with absence of the gallbladder identified. Cystic duct is not definitely delineated. This may relate to contrast filled common duct superimposed overlying the cystic duct obscuring evaluation. Correlate with surgical intervention. Gallbladder is not identified to opacify with contrast. Impression: Extravasation of contrast lateral to the common duct at the cystic duct level. No suspicious filling defect within the common bile duct. No common bile duct stricture. Electronically signed by: Raphael Saavedra MD (01/25/2019 10:58 AM) [facility]
[2019-01-25] MEDS ORDERED: NALOXONE 0.4 MG/ML VIAL. IV PRN (11:15)
[2019-01-25] MEDS ORDERED: 0.9 % SODIUM CHLORIDE 10 ML DISP.SYRIN. IV PRN (11:15)
[2019-01-25] MEDS ORDERED: MORPHINE SULFATE/PF 30 ML IV PRN (11:15)
--- NOTE | 2019-01-25 11:30 | PDOC4 ---
OPERATIVE NOTE Date: Date: Jan 25, 2019 Pre-Op Diagnosis: dehydration, nausea, biliary dyskinesia Post-Op Diagnosis: same, calculous cholecystitis Procedure Performed: Ileostomy takedown, laparoscopic cholecystectomy with cholangiogram Surgeon: Aldair Gagnon Anesthesia Type: GETA plus local Blood Loss: 50 Specimans Obtained: ileostomy, gallbladder Findings: dian evelio abraham adhesions, benign adhesions lower abdominal wall, chronic adhesions to gallbladder, multiple gallstones, normal cholangiogram Complications: none Operative Note: After obtaining informed consent, patient was taken to OR, induced under GETA and prepped in the usual fashion. Attention was turned to ileostomy in RLQ. Mucocutaneous junction opened with cautery. Ileostomy dissected out down to level of fascia and cleared off for several centimeters. Side to side anastomosis created at ileostomy using 75 NAUN. End sealed off with NAUN stapler. Staple line oversewn with 3 0 vicryl. Anastomosis appeared to be viable, patent, completely viable and without evidence of leakage. Bowel returned to abdominal cavity. 12 port placed via stoma site and pneumoperitoneum established. 5 mm ports placed LUQ, RUQ and 10 port placed epigastric, all under laparoscopic guidance. Abdominal cavity was explored and otherwise unremarkable. Liver with some dian evelio abraham adhesions, taken down using sharp dissected. Benign appearing lower abdominal wall omental adhesions, but bowel otherwise completely normal. No evidence of pathology in the pelvis. Ileostomy anastomosis was visualized now and at end of procedure and remained via and without evidence of pathology. Attention was turned to gallbladder. Extensive adhesions noted to gallbladder. These were taken down with sharp dissection. Critical view dissected out. Cystic artery ligated with clips. Cholangiogram obtained via cystic duct and was initially noted to have spasm, but then completely normal. Cystic duct ligated with clips and hemolok. Gallbladder taken off fossa using cautery, placed in bag, delivered via ileostomy site and sent to pathology for evaluation. Copious irrigation. No evidence of bleeding or other pathology. 12 port removed without bleeding and fascia closed with 0 vicryl. 12 port removed from ileostomy site. Fascia closed with 0 looped PDS. Laparoscope reintroduced and repair was intact. Ports removed without bleeding. Skin repaired with 4 0 monocryl. Ileostomy site closed in purse string fashion with 0 vicryl, 3 0 vicryl and 4 0 monocryl. Dressing placed. Patient tolerated procedure well and sent to PACU in stable condition. All counts correct. Wound class is 4, ileostomy. JOEY GAGNON MD Jan 25, 2019 11:30
[2019-01-25] MEDS: fentaNYL PF VIAL 100 MCG/2 ML VIAL IV PRN ×2 (11:42→12:03)
[2019-01-25] MEDS: MORPHINE SULFATE 2 MG/ML VIAL. IV PRN ×2 (12:04→12:54)
[2019-01-25] MEDS: IV RINGERS,LACTATED 1000ML 1,000 ML IV SCH (12:29)
--- NOTE | 2019-01-25 13:30 | NUR ---
Pt arrived back post op from PACU after having ileostomy takedown and cholecystectomy. Pt is stable. Alert x4. Pt is on [employer] for pain management. Rates pain at a 7 currently, will reassess. All belongings left in patients room with pt. Daughter aware of patients location. This nurse will be taking over care of the patient from Vaishali LEMONS. Report was given. Frequent vital signs started on pt. Will continue to monitor closely.
[2019-01-25 14:53] VITALS: BP 134/76
[2019-01-25 19:00] VITALS: BP_SYST 124; BP_SYST 151; BP_DIAS 105; BP_DIAS 71
[2019-01-25 22:51] VITALS: BP 127/77
[2019-01-26] MEDS: IV RINGERS,LACTATED 1000ML 1,000 ML IV SCH ×3 (01:25→23:10)
[2019-01-26 02:46] VITALS: BP 118/69
[2019-01-26] MEDS: IV NORMAL SALINE 1000ML BAG 1,000 ML IV SCH ×3 (06:30→16:30)
[2019-01-26 07:00] VITALS: BP 124/72
[2019-01-26 07:08] LABS: CALCIUM 8.3 mg/dL (8.5-10.1); CREATININE 1.4 mg/dL (0.6-1.0); POTASSIUM 3.8 mmol/L (3.5-5.1)
[2019-01-26 07:19] LABS: BASO % 0 % (0-3); EOS % 0 % (0-3); HEMATOCRIT 29.1 % (36.0-47.0); HEMOGLOBIN 9.2 g/dL (12.0-15.5); LYMPH # 0.8 x10^3/uL (1.0-4.8); LYMPH % 9 % (24-48); MEAN CORPUSCULAR HEMOGLOBIN 26 pg (25-35); MEAN CORPUSCULAR HGB CONC 32 g/dL (31-37); MEAN CORPUSCULAR VOLUME 83 fL (79-100); MONO # 0.8 x10^3/uL (0.0-1.1); MONO % 9 % (0-9); NEUT # 7.6 x10^3uL (1.8-7.7); NEUT % 82 % (31-73); PLATELET COUNT 213 x10^3/uL (140-400); RED BLOOD COUNT 3.52 x10^6/uL (3.50-5.40); RED CELL DISTRIBUTION WIDTH 17.6 % (11.5-14.5); WHITE BLOOD COUNT 9.3 x10^3/uL (4.0-11.0)
[2019-01-26] MEDS: PANTOPRAZOLE 40 MG TABLET.DR. PO SCH ×3 (07:30→17:51)
[2019-01-26] MEDS: LACTOBACILLUS RHAMNOSUS GG 1 CAPSULE. PO SCH ×2 (08:39→21:00)
[2019-01-26] MEDS: ENOXAPARIN 40 MG/0.4 ML SYRINGE. SQ SCH (08:44)
[2019-01-26] MEDS: FLUTICASONE 50MCG/NASAL SPRAY 16GM BOTTLE. NS SCH (08:44)
[2019-01-26 11:00] VITALS: BP 132/73
--- NOTE | 2019-01-26 12:56 | NUR ---
SW following pt. Spoke with RN, pt had surgery yesterday and currently is on [employer] pump. Plan is home with Chaka HUGHES upon dc.
[2019-01-26 15:00] VITALS: BP 127/74
--- NOTE | 2019-01-26 17:29 | PDOC ---
SURGICAL PROGRESS NOTE Subjective Pt feels well, no N/V, stomach rumbling, no flatus, pain controlled, has been ambulating Vital Signs Vital Signs Date Time Temp Pulse Resp B/P (MAP) Pulse Ox O2 Delivery O2 Flow Rate FiO2 01/26/19 15:00 98.2 74 17 127/74 (91) 100 Nasal Cannula 98.2 01/26/19 02:46 2.0 I&O Intake and Output 01/26/19 07:00 Intake Total 2900 ml Output Total 795 ml Balance 2105 ml Intake Oral 0 ml IV Total 2900 ml Output Urine Total 775 ml Estimated Blood Loss 20 ml General: Alert, Oriented X3, Cooperative, No acute distress Abdomen: Soft, No tenderness Labs Laboratory Tests Test 01/25/19 04:07 01/26/19 05:55 Sodium Level 142 mmol/L (136-145) 143 mmol/L (136-145) Potassium Level 3.4 mmol/L (3.5-5.1) 3.8 mmol/L (3.5-5.1) Chloride Level 112 mmol/L (98-107) 110 mmol/L (98-107) Carbon Dioxide Level 16 mmol/L (21-32) 21 mmol/L (21-32) Anion Gap 14 (6-14) 12 (6-14) Blood Urea Nitrogen 6 mg/dL (7-20) 8 mg/dL (7-20) Creatinine 1.2 mg/dL (0.6-1.0) 1.4 mg/dL (0.6-1.0) Estimated GFR (Cockcroft-Gault) 53.7 45.0 Glucose Level 77 mg/dL (70-99) 99 mg/dL (70-99) Calcium Level 7.9 mg/dL (8.5-10.1) 8.3 mg/dL (8.5-10.1) White Blood Count 9.3 x10^3/uL (4.0-11.0) Red Blood Count 3.52 x10^6/uL (3.50-5.40) Hemoglobin 9.2 g/dL (12.0-15.5) Hematocrit 29.1 % (36.0-47.0) Mean Corpuscular Volume 83 fL (79-100) Mean Corpuscular Hemoglobin 26 pg (25-35) Mean Corpuscular Hemoglobin Concent 32 g/dL (31-37) Red Cell Distribution Width 17.6 % (11.5-14.5) Platelet Count 213 x10^3/uL (140-400) Neutrophils (%) (Auto) 82 % (31-73) Lymphocytes (%) (Auto) 9 % (24-48) Monocytes (%) (Auto) 9 % (0-9) Eosinophils (%) (Auto) 0 % (0-3) Basophils (%) (Auto) 0 % (0-3) Neutrophils # (Auto) 7.6 x10^3uL (1.8-7.7) Lymphocytes # (Auto) 0.8 x10^3/uL (1.0-4.8) Monocytes # (Auto) 0.8 x10^3/uL (0.0-1.1) Eosinophils # (Auto) 0.0 x10^3/uL (0.0-0.7) Basophils # (Auto) 0.0 x10^3/uL (0.0-0.2) Laboratory Tests Test 01/26/19 05:55 White Blood Count 9.3 x10^3/uL (4.0-11.0) Red Blood Count 3.52 x10^6/uL (3.50-5.40) Hemoglobin 9.2 g/dL (12.0-15.5) Hematocrit 29.1 % (36.0-47.0) Mean Corpuscular Volume 83 fL (79-100) Mean Corpuscular Hemoglobin 26 pg (25-35) Mean Corpuscular Hemoglobin Concent 32 g/dL (31-37) Red Cell Distribution Width 17.6 % (11.5-14.5) Platelet Count 213 x10^3/uL (140-400) Neutrophils (%) (Auto) 82 % (31-73) Lymphocytes (%) (Auto) 9 % (24-48) Monocytes (%) (Auto) 9 % (0-9) Eosinophils (%) (Auto) 0 % (0-3) Basophils (%) (Auto) 0 % (0-3) Neutrophils # (Auto) 7.6 x10^3uL (1.8-7.7) Lymphocytes # (Auto) 0.8 x10^3/uL (1.0-4.8) Monocytes # (Auto) 0.8 x10^3/uL (0.0-1.1) Eosinophils # (Auto) 0.0 x10^3/uL (0.0-0.7) Basophils # (Auto) 0.0 x10^3/uL (0.0-0.2) Sodium Level 143 mmol/L (136-145) Potassium Level 3.8 mmol/L (3.5-5.1) Chloride Level 110 mmol/L (98-107) Carbon Dioxide Level 21 mmol/L (21-32) Anion Gap 12 (6-14) Blood Urea Nitrogen 8 mg/dL (7-20) Creatinine 1.4 mg/dL (0.6-1.0) Estimated GFR (Cockcroft-Gault) 45.0 Glucose Level 99 mg/dL (70-99) Calcium Level 8.3 mg/dL (8.5-10.1) Problem List Problems Medical Problems: (1) Colostomy in place Status: Acute (2) Pancreatitis Status: Acute Assessment/Plan s/p lap nico, ileostomy takedown appears to be doing well, will start clears await bowel fxJOEY Weiss MD Jan 26, 2019 17:29
[2019-01-26 19:00] VITALS: BP 143/82
--- NOTE | 2019-01-26 22:03 | PDOC ---
PROGRESS NOTES Subjective Subjective Patient POD # 1 open choley and ileostomy take down. doing well still no flatus Objective Objective Vital Signs Date Time Temp Pulse Resp B/P (MAP) Pulse Ox O2 Delivery O2 Flow Rate FiO2 01/26/19 19:30 Nasal Cannula 2.0 01/26/19 19:00 98.8 85 20 143/82 (102) 100 98.8 Intake and Output 01/26/19 07:00 Intake Total 2900 ml Output Total 795 ml Balance 2105 ml Intake Oral 0 ml IV Total 2900 ml Output Urine Total 775 ml Estimated Blood Loss 20 ml Physical Exam Abdomen: Other (no BS) Heart: No murmurs Extremities: No clubbing General: Alert Lungs: Clear to auscultation Assessment Assessment Problems Medical Problems: (1) Colostomy in place Status: Acute (2) Pancreatitis Status: Acute POD # 1 Open choley and ileostomy take down [id number] renal failure. Chronic cholecystitis Pancreatitis Diet-controlled hypertension. Diet-controlled type 2 diabetes. Gastroesophageal reflux disease. Plan Plan of Care Continue CARTOONIST SPECIAL EFFECTS Continue IVF Continue NPO Increase activity Comment Review of Relevant I have reviewed the following items sathya (where applicable) has been applied. Labs Laboratory Tests Test 01/25/19 04:07 4 05:55 Sodium Level 142 mmol/L (136-145) 143 mmol/L (136-145) Potassium Level 3.4 mmol/L (3.5-5.1) 3.8 mmol/L (3.5-5.1) Chloride Level 112 mmol/L (98-107) 110 mmol/L (98-107) Carbon Dioxide Level 16 mmol/L (21-32) 21 mmol/L (21-32) Anion Gap 14 (6-14) 12 (6-14) Blood Urea Nitrogen 6 mg/dL (7-20) 8 mg/dL (7-20) Creatinine 1.2 mg/dL (0.6-1.0) 1.4 mg/dL (0.6-1.0) Estimated GFR (Cockcroft-Gault) 53.7 45.0 Glucose Level 77 mg/dL (70-99) 99 mg/dL (70-99) Calcium Level 7.9 mg/dL (8.5-10.1) 8.3 mg/dL (8.5-10.1) White Blood Count 9.3 x10^3/uL (4.0-11.0) Red Blood Count 3.52 x10^6/uL (3.50-5.40) Hemoglobin 9.2 g/dL (12.0-15.5) Hematocrit 29.1 % (36.0-47.0) Mean Corpuscular Volume 83 fL (79-100) Mean Corpuscular Hemoglobin 26 pg (25-35) Mean Corpuscular Hemoglobin Concent 32 g/dL (31-37) Red Cell Distribution Width 17.6 % (11.5-14.5) Platelet Count 213 x10^3/uL (140-400) Neutrophils (%) (Auto) 82 % (31-73) Lymphocytes (%) (Auto) 9 % (24-48) Monocytes (%) (Auto) 9 % (0-9) Eosinophils (%) (Auto) 0 % (0-3) Basophils (%) (Auto) 0 % (0-3) Neutrophils # (Auto) 7.6 x10^3uL (1.8-7.7) Lymphocytes # (Auto) 0.8 x10^3/uL (1.0-4.8) Monocytes # (Auto) 0.8 x10^3/uL (0.0-1.1) Eosinophils # (Auto) 0.0 x10^3/uL (0.0-0.7) Basophils # (Auto) 0.0 x10^3/uL (0.0-0.2) Laboratory Tests Test 01/26/19 05:55 White Blood Count 9.3 x10^3/uL (4.0-11.0) Red Blood Count 3.52 x10^6/uL (3.50-5.40) Hemoglobin 9.2 g/dL (12.0-15.5) Hematocrit 29.1 % (36.0-47.0) Mean Corpuscular Volume 83 fL (79-100) Mean Corpuscular Hemoglobin 26 pg (25-35) Mean Corpuscular Hemoglobin Concent 32 g/dL (31-37) Red Cell Distribution Width 17.6 % (11.5-14.5) Platelet Count 213 x10^3/uL (140-400) Neutrophils (%) (Auto) 82 % (31-73) Lymphocytes (%) (Auto) 9 % (24-48) Monocytes (%) (Auto) 9 % (0-9) Eosinophils (%) (Auto) 0 % (0-3) Basophils (%) (Auto) 0 % (0-3) Neutrophils # (Auto) 7.6 x10^3uL (1.8-7.7) Lymphocytes # (Auto) 0.8 x10^3/uL (1.0-4.8) Monocytes # (Auto) 0.8 x10^3/uL (0.0-1.1) Eosinophils # (Auto) 0.0 x10^3/uL (0.0-0.7) Basophils # (Auto) 0.0 x10^3/uL (0.0-0.2) Sodium Level 143 mmol/L (136-145) Potassium Level 3.8 mmol/L (3.5-5.1) Chloride Level 110 mmol/L (98-107) Carbon Dioxide Level 21 mmol/L (21-32) Anion Gap 12 (6-14) Blood Urea Nitrogen 8 mg/dL (7-20) Creatinine 1.4 mg/dL (0.6-1.0) Estimated GFR (Cockcroft-Gault) 45.0 Glucose Level 99 mg/dL (70-99) Calcium Level 8.3 mg/dL (8.5-10.1) Microbiology 01/20/19 Urine Culture - Final, Complete 01/20/19 Urine Culture Result 1 (JOSE ANTONIO) - Final, Complete Medications Current Medications Sodium Chloride 1,000 ml @ 1,000 mls/hr Q1H IV Last administered on 01/20/19at 16:49; Start 01/20/19 at 16:09; Stop 01/20/19 at 17:08; Status DC Ondansetron HCl (Zofran) 4 mg 1X ONCE IV Last administered on 01/20/19at 16:50; Start 01/20/19 at 16:15; Stop 01/20/19 at 16:22; Status DC Sodium Chloride 1,000 ml @ 150 mls/hr Q6H40M IV Last administered on 01/21/19at 17:45; Start 01/20/19 at 18:15; Stop 01/21/19 at 18:14; Status DC Cephalexin HCl (Keflex) 1,000 mg BID PO Last administered on 01/24/19at 08:31; Start 01/22/19 at 09:00; Stop 01/24/19 at 10:22; Status DC Ondansetron HCl (Zofran Odt) 4 mg PRN Q8HRS PRN PO NAUSEA/VOMITING; Start at 09:30; Stop 01/22/19 at 09:54; Status DC Acetaminophen/ Hydrocodone Bitart (Lortab 5/325) 1 tab PRN Q4HRS PRN PO PAIN; Start 01/22/19 at 10:00 Ondansetron HCl (Zofran) 4 mg PRN Q4HRS PRN IV NAUSEA/VOMITING; Start 01/22/19 at 10:00; Stop 01/26/19 at 10:57; Status DC Fluticasone Propionate (Flonase) 2 spray DAILY NS Last administered on at 08:44; Start 01/22/19 at 10:30 Pantoprazole Sodium (Protonix) 40 mg BIDAC PO Last administered on 01/26/19at 17 :51; Start 01/22/19 at 11:30 Ondansetron HCl (Zofran Odt) 4 mg PRN Q4HRS PRN PO NAUSEA/VOMITING; Start at 10:00 Sodium Chloride 1,000 ml @ 100 mls/hr Q10H IV Last administered on 01/25/19at 07 :28; Start 01/22/19 at 12:30 Lactobacillus Rhamnosus (Culturelle) 1 cap BID PO Last administered on at 21:25; Start 01/22/19 at 21:00 Potassium Chloride (Klor-Con) 20 meq 1X ONCE PO Last administered on 01/24/19at 11:08; Start 01/24/19 at 10:30; Stop 01/24/19 at 10:31; Status DC Ondansetron HCl (Zofran) 4 mg PRN Q6HRS PRN IV NAUSEA/VOMITING; Start 01/25/19 at 07:00; Stop 01/25/19 at 20:00; Status DC Fentanyl Citrate (Fentanyl 2ml Vial) 25 mcg PRN Q5MIN PRN IV MILD PAIN; Start 01/25/19 at 07:00; Stop 01/25/19 at 20:00; Status DC Fentanyl Citrate (Fentanyl 2ml Vial) 50 mcg PRN Q5MIN PRN IV MODERATE TO SEVERE PAIN Last administered on 01/25/19 12:03; Start 01/25/19 at 07:00; Stop at 20:00; Status DC Morphine Sulfate (Morphine Sulfate) 1 mg PRN Q10MIN PRN IV SEVERE PAIN Last administered on 01/25/19at 12:54; Start 01/25/19 at 07:00; Stop 01/25/19 at 20:00; Status DC Ringer's Solution 1,000 ml @ 30 mls/hr Q24H IV Last administered on 01/25/19at 08:14; Start 01/25/19 at 07:00; Stop 01/25/19 at 18:59; Status DC Hydromorphone HCl (Dilaudid) 0.5 mg PRN Q10MIN PRN IV SEV PAIN, Second choice; Start 01/25/19 at 07:00; Stop 01/25/19 at 20:00; Status DC Prochlorperazine Edisylate (Compazine) 5 mg PACU PRN PRN IV NAUSEA, MRX1; Start 01/25/19 at 07:00; Stop 01/25/19 at 20:00; Status DC Bupivacaine HCl/ Epinephrine Bitart (Sensorcain-Mpf Epi 0.5%-1:[id number]) 30 ml STK -MED ONCE .ROUTE Last administered on 01/25/19at 08:49; Start 01/25/19 at 06:22; Stop 01/25/19 at 07:22; Status DC Cellulose (Surgicel Hemostat 2x3) 1 each STK-MED ONCE .ROUTE ; Start 01/25/19 at 06:22; Stop 01/25/19 at 07:22; Status DC Iohexol (Omnipaque 300 Mg/ml) 100 ml STK-MED ONCE .ROUTE Last administered on at 08:50; Start 01/25/19 at 06:22; Stop 01/25/19 at 07:22; Status DC Bisacodyl (Dulcolax Supp) 10 mg STK-MED ONCE .ROUTE Last administered on at 08:51; Start 01/25/19 at 06:22; Stop 01/25/19 at 07:23; Status DC Sevoflurane (Ultane) 90 ml STK-MED ONCE IH ; Start 01/25/19 at 08:26; Stop at 08:27; Status DC Rocuronium [place] (Zemuron) 50 mg STK-MED ONCE .ROUTE ; Start 01/25/19 at 08:26 ; Stop 01/25/19 at 08:27; Status DC Fentanyl Citrate (Fentanyl 2ml Vial) 100 mcg STK-MED ONCE .ROUTE ; Start at 08:26; Stop 01/25/19 at 08:27; Status DC Neostigmine Methylsulfate (Neostigmine Methylsulfate) 5 mg STK-MED ONCE .ROUTE ; Start 01/25/19 at 08:27; Stop 01/25/19 at 08:28; Status DC Midazolam HCl (Versed) 2 mg STK-MED ONCE .ROUTE ; Start 01/25/19 at 08:27; Stop 01/25/19 at 08:28; Status DC Glycopyrrolate (Robinul) 1 mg STK-MED ONCE .ROUTE ; Start 01/25/19 at 08:27; Stop 01/25/19 at 08:28; Status DC Propofol 20 ml @ As Directed STK-MED ONCE IV ; Start 01/25/19 at 08:27; Stop 01/25 at 08:28; Status DC Phenylephrine HCl (PHENYLEPHRINE in 0.9% NACL PF) 1 mg STK-MED ONCE IV ; Start 01/25/19 at 08:27; Stop 01/25/19 at 08:28; Status DC Lidocaine HCl (Lidocaine Pf 2% Vial) 5 ml STK-MED ONCE .ROUTE ; Start 01/25/19 at 08:27; Stop 01/25/19 at 08:28; Status DC Dexamethasone Sodium Phosphate (Decadron) 20 mg STK-MED ONCE .ROUTE ; Start 01/25 at 08:27; Stop 01/25/19 at 08:28; Status DC Ondansetron HCl (Zofran) 4 mg STK-MED ONCE .ROUTE ; Start 01/25/19 at 08:27; Stop 01/25/19 at 08:28; Status DC Heparin Sodium (Porcine) 1000 unit/Sodium Chloride 1,001 ml @ 1,001 mls/hr 1X ONCE IRR Last administered on 01/25/19at 08:52; Start 01/25/19 at 08:45; Stop 01/25 at 09:44; Status DC Cefoxitin Sodium (Mefoxin) 2 gm 1X PREOP IVP ; Start 01/25/19 at 09:00; Stop 01/25/19 at 09:00; Status DC Cefoxitin Sodium (Mefoxin) 1 gm STK-MED ONCE IVP ; Start 01/25/19 at 08:57; Stop 01/25/19 at 08:58; Status DC Cefoxitin Sodium (Mefoxin) 2 gm 1X PREOP IVP ; Start 01/25/19 at 09:15; Stop 01/25/19 at 09:15; Status DC Cefoxitin Sodium (Mefoxin) 2 gm 1X PREOP IVP Last administered on 01/25/19at 10: 31; Start 01/25/19 at 09:15; Stop 01/26/19 at 16:25; Status DC Fentanyl Citrate (Fentanyl 2ml Vial) 100 mcg STK-MED ONCE .ROUTE ; Start at 10:15; Stop 01/25/19 at 10:16; Status DC Rocuronium [place] (Zemuron) 50 mg STK-MED ONCE .ROUTE ; Start 01/25/19 at 10:26 ; Stop 01/25/19 at 10:27; Status DC Enoxaparin Sodium (Lovenox 40mg Syringe) 40 mg Q24H SQ Last administered on 08/06at 08:44; Start 01/26/19 at 09:00 Sodium Chloride (Normal Saline Flush) 3 ml QSHIFT PRN IV AFTER MEDS AND BLOOD DRAWS; Start 01/25/19 at 11:15 Ringer's Solution 1,000 ml @ 100 mls/hr Q10H IV Last administered on at 11:47; Start 01/25/19 at 12:00 Naloxone HCl (Narcan) 0.4 mg PRN Q2MIN PRN IV SEE INSTRUCTIONS; Start 01/25/19 at 11:15 Sodium Chloride 1,000 ml @ 25 mls/hr Q24H IV ; Start 01/25/19 at 11:30 Morphine Sulfate 30 ml @ 0 mls/hr CONT PRN PRN IV PER PROTOCOL Last administered on 01/25/19at 12:04; Start 01/25/19 at 11:15 Ondansetron HCl (Zofran) 4 mg PRN Q6HRS PRN IV NAUESA, 1ST CHOICE; Start at 11:15 Active Scripts Active [Pantoprazole] 40 MG Tablet.dr 40 Mg PO BIDAC 30 Days Ondansetron Hcl 4 Mg/2 Ml Vial (Ondansetron Hcl/Pf) 4 Mg/2 Ml Vial 4 Mg IV PRN Q4HRS PRN 14 Days Hydrocodone-Apap 5-325 (Hydrocodone Bit/Acetaminophen) 1 Tab Tablet 1 Tab PO PRN Q4HRS PRN 30 Days Reported Flonase Allergy Relief (Fluticasone Propionate) 9.9 Ml Madelia.susp 2 Sprays NS DAILY Vitals/I & O Vital Sign - Last 24 Hours 01/25/19 01/26/19 01/26/19 01/26/19 22:51 02:46 07:00 08:00 Temp 98.7 98.0 98.3 98.7 98.0 98.3 Pulse 83 80 87 Resp 20 18 18 B/P (MAP) 127/77 (94) 118/69 (85) 124/72 (89) Pulse Ox 100 100 100 O2 Delivery Nasal Cannula Nasal Cannula Nasal Cannula Nasal Cannula O2 Flow Rate 2.0 01/26/19 01/26/19 01/26/19 01/26/19 11:00 15:00 19:00 19:30 Temp 98.5 98.2 98.8 98.5 98.2 98.8 Pulse 77 74 85 Resp 18 17 20 B/P (MAP) 132/73 (92) 127/74 (91) 143/82 (102) Pulse Ox 100 100 100 O2 Delivery Nasal Cannula Nasal Cannula Nasal Cannula Nasal Cannula O2 Flow Rate 2.0 Intake and Output 01/25/19 01/25/19 01/26/19 15:00 23:00 07:00 Intake Total 1900 ml 1000 ml Output Total 170 ml 250 ml 375 ml Balance 1730 ml 750 ml -375 ml ASTRID DURAN MD Jan 26, 2019 22:03
[2019-01-26 23:00] VITALS: BP 133/82
[2019-01-27] MEDS: IV NORMAL SALINE 1000ML BAG 1,000 ML IV SCH (02:30)
[2019-01-27 03:14] VITALS: BP 105/65
[2019-01-27] MEDS: IV RINGERS,LACTATED 1000ML 1,000 ML IV SCH ×2 (04:00→09:38)
[2019-01-27 07:00] VITALS: BP 105/42
[2019-01-27] MEDS: LACTOBACILLUS RHAMNOSUS GG 1 CAPSULE. PO SCH ×2 (07:10→21:00)
[2019-01-27] MEDS: PANTOPRAZOLE 40 MG TABLET.DR. PO SCH ×2 (08:42→17:12)
[2019-01-27] MEDS: ENOXAPARIN 40 MG/0.4 ML SYRINGE. SQ SCH (08:43)
[2019-01-27] MEDS: FLUTICASONE 50MCG/NASAL SPRAY 16GM BOTTLE. NS SCH (08:43)
[2019-01-27] MEDS ORDERED: SENNOSIDES/DOCUSATE 8.6/50MG TABLET. PO PRN (09:45)
--- NOTE | 2019-01-27 09:46 | PDOC ---
SURGICAL PROGRESS NOTE Subjective taking clears, full easy, not ready to advance yet overall feels better + flatus Vital Signs Vital Signs Date Time Temp Pulse Resp B/P (MAP) Pulse Ox O2 Delivery O2 Flow Rate FiO2 01/27/19 07:00 97.9 86 17 105/42 (63) 98 Nasal Cannula 97.9 01/26/19 19:30 2.0 I&O Intake and Output 01/27/19 06:59 Intake Total 1000 ml Output Total 200 ml Balance 800 ml IV Total 1000 ml Output Urine Total 200 ml # Voids 4 # Bowel Movements 1 General: Alert, Oriented X3, Cooperative, No acute distress Abdomen: Soft, Other (ND, dressings dry) Labs Laboratory Tests Test 01/26/19 05:55 White Blood Count 9.3 x10^3/uL (4.0-11.0) Red Blood Count 3.52 x10^6/uL (3.50-5.40) Hemoglobin 9.2 g/dL (12.0-15.5) Hematocrit 29.1 % (36.0-47.0) Mean Corpuscular Volume 83 fL (79-100) Mean Corpuscular Hemoglobin 26 pg (25-35) Mean Corpuscular Hemoglobin Concent 32 g/dL (31-37) Red Cell Distribution Width 17.6 % (11.5-14.5) Platelet Count 213 x10^3/uL (140-400) Neutrophils (%) (Auto) 82 % (31-73) Lymphocytes (%) (Auto) 9 % (24-48) Monocytes (%) (Auto) 9 % (0-9) Eosinophils (%) (Auto) 0 % (0-3) Basophils (%) (Auto) 0 % (0-3) Neutrophils # (Auto) 7.6 x10^3uL (1.8-7.7) Lymphocytes # (Auto) 0.8 x10^3/uL (1.0-4.8) Monocytes # (Auto) 0.8 x10^3/uL (0.0-1.1) Eosinophils # (Auto) 0.0 x10^3/uL (0.0-0.7) Basophils # (Auto) 0.0 x10^3/uL (0.0-0.2) Sodium Level 143 mmol/L (136-145) Potassium Level 3.8 mmol/L (3.5-5.1) Chloride Level 110 mmol/L (98-107) Carbon Dioxide Level 21 mmol/L (21-32) Anion Gap 12 (6-14) Blood Urea Nitrogen 8 mg/dL (7-20) Creatinine 1.4 mg/dL (0.6-1.0) Estimated GFR (Cockcroft-Gault) 45.0 Glucose Level 99 mg/dL (70-99) Calcium Level 8.3 mg/dL (8.5-10.1) Problem List Problems Medical Problems: (1) Colostomy in place Status: Acute (2) Pancreatitis Status: Acute Assessment/Plan s/p ileostomy takedown, nico clears today, if continues to do well advance tomorrow FERNANDO MAHONEY MODEL SET ARTIST Jan 27, 2019 09:46
--- NOTE | 2019-01-27 09:48 | PDOC ---
SURGICAL PROGRESS NOTE Subjective Pt without c/o, franny clears, no N/V, feels rumbling in stomach Vital Signs Vital Signs Date Time Temp Pulse Resp B/P (MAP) Pulse Ox O2 Delivery O2 Flow Rate FiO2 01/27/19 07:00 97.9 86 17 105/42 (63) 98 Nasal Cannula 97.9 01/26/19 19:30 2.0 I&O Intake and Output 01/27/19 07:00 Intake Total 1000 ml Output Total 200 ml Balance 800 ml IV Total 1000 ml Output Urine Total 200 ml # Voids 4 # Bowel Movements 1 PATIENT HAS A GONGORA: Yes (d/c today) General: Alert, Oriented X3, Cooperative, No acute distress Abdomen: Soft, No tenderness Labs Laboratory Tests Test 01/26/19 05:55 White Blood Count 9.3 x10^3/uL (4.0-11.0) Red Blood Count 3.52 x10^6/uL (3.50-5.40) Hemoglobin 9.2 g/dL (12.0-15.5) Hematocrit 29.1 % (36.0-47.0) Mean Corpuscular Volume 83 fL (79-100) Mean Corpuscular Hemoglobin 26 pg (25-35) Mean Corpuscular Hemoglobin Concent 32 g/dL (31-37) Red Cell Distribution Width 17.6 % (11.5-14.5) Platelet Count 213 x10^3/uL (140-400) Neutrophils (%) (Auto) 82 % (31-73) Lymphocytes (%) (Auto) 9 % (24-48) Monocytes (%) (Auto) 9 % (0-9) Eosinophils (%) (Auto) 0 % (0-3) Basophils (%) (Auto) 0 % (0-3) Neutrophils # (Auto) 7.6 x10^3uL (1.8-7.7) Lymphocytes # (Auto) 0.8 x10^3/uL (1.0-4.8) Monocytes # (Auto) 0.8 x10^3/uL (0.0-1.1) Eosinophils # (Auto) 0.0 x10^3/uL (0.0-0.7) Basophils # (Auto) 0.0 x10^3/uL (0.0-0.2) Sodium Level 143 mmol/L (136-145) Potassium Level 3.8 mmol/L (3.5-5.1) Chloride Level 110 mmol/L (98-107) Carbon Dioxide Level 21 mmol/L (21-32) Anion Gap 12 (6-14) Blood Urea Nitrogen 8 mg/dL (7-20) Creatinine 1.4 mg/dL (0.6-1.0) Estimated GFR (Cockcroft-Gault) 45.0 Glucose Level 99 mg/dL (70-99) Calcium Level 8.3 mg/dL (8.5-10.1) Problem List Problems Medical Problems: (1) Colostomy in place Status: Acute (2) Pancreatitis Status: Acute Assessment/Plan s/p ileostomy takedown, nico ADAT OOB await bowel fxn JOEY GAGNON MD Jan 27, 2019 09:48
[2019-01-27 11:00] VITALS: BP 127/77
--- NOTE | 2019-01-27 11:09 | PATHOLOGY ---
[facility] Accession Number: [id number] . 01 Material submitted: . PART A: colon - ILEOSTOMY PART B: gallbladder - GALLBLADDER . 01 Clinical history: . Osteotomy,cholelithiasis . 02 Diagnosis: A. Segment of small intestine and attached fibroadipose tissue, ileostomy takedown: - Consistent with ileostomy stoma, with focal mucosal erosion, hemorrhage, and acute and chronic inflammation of ileal mucosa of stomal orifice. - Focal fibrosis, fat necrosis, and foreign body giant cell reaction in region of stomal orifice. . B. Gallbladder, laparoscopic cholecystectomy: - Cholelithiasis. - Chronic cholecystitis with focally increased eosinophils. . (JEROMEM:brennon; 01/26/2019) MBR/01/27/2019 . 02 Comment: There is no evidence of malignancy. (PAM:brennon; 01/26/2019) . 02 Electronically signed: . Olman Garcia MD, Pathologist NPI- [id number] . 01 Gross description: . A. The specimen is received in formalin, labeled "Isela Poole, ileostomy", is an ileostomy stoma measuring 4.0 x 2.6 x 1.8 cm. The mucosa is strange-brown and partially glistening. There is a linear staple line measuring 4.0 cm in length on the deep aspect. Order Processing Manager tissue is submitted in A1. . B. The specimen is received in formalin, labeled "Isela Poole gallbladder", is an intact, distended gallbladder measuring 10.2 x 2.5 x 2.2 cm with glistening, smooth, strange-purple serosa. The lumen is filled with multifaceted green-yellow to dark brown calculi admixed with yellow bile measuring 6.0 x 5.2 x 1.0 cm in aggregate. The cystic duct region is impacted by a calculus and is dilated. The mucosa has a diffuse focal effaced area. The wall has an average thickness of 0.1 cm. No discrete masses are identified. Order Processing Manager tissue is submitted in B1. (SWS; 01/25/2019) SHS/SHS . 02 Pathologist provided ICD-10: K94.13, K80.10 . 02 CPT . 140335, 039383 Specimen Comment: A courtesy copy of this report has been sent to Specimen Comment: [phone], , , . Specimen Comment: Report sent to , DR PRATT.DR DURAN / DR LABOY Performed at: 01 [facility] [address], [place] [id number] MD Kaden Norman MD Phone: [phone] Performed at: 02 [facility] [address] [place], [place] [id number] MD Olman Garcia MD Phone: [phone]
--- NOTE | 2019-01-27 12:01 | PDOC ---
PROGRESS NOTES Subjective Subjective Patient doing better passing some gas tolerating clear liquids Objective Objective Vital Signs Date Time Temp Pulse Resp B/P (MAP) Pulse Ox O2 Delivery O2 Flow Rate FiO2 01/27/19 11:00 98.6 98 17 127/77 (94) 96 Nasal Cannula 98.6 01/26/19 19:30 2.0 Intake and Output 01/27/19 07:00 Intake Total 1000 ml Output Total 200 ml Balance 800 ml IV Total 1000 ml Output Urine Total 200 ml # Voids 4 # Bowel Movements 1 Physical Exam Abdomen: Other (hypoactive soft nontender) Heart: Regular rate Extremities: No clubbing General: Alert Lungs: Clear to auscultation Assessment Assessment Problems Medical Problems: (1) Colostomy in place Status: Acute (2) Pancreatitis Status: Acute POD # 2 Open choley and ileostomy take down [id number] renal failure. Chronic cholecystitis Pancreatitis Diet-controlled hypertension. Diet-controlled type 2 diabetes. Gastroesophageal reflux disease. 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 Labs Laboratory Tests Test 01/26/19 05:55 White Blood Count 9.3 x10^3/uL (4.0-11.0) Red Blood Count 3.52 x10^6/uL (3.50-5.40) Hemoglobin 9.2 g/dL (12.0-15.5) Hematocrit 29.1 % (36.0-47.0) Mean Corpuscular Volume 83 fL (79-100) Mean Corpuscular Hemoglobin 26 pg (25-35) Mean Corpuscular Hemoglobin Concent 32 g/dL (31-37) Red Cell Distribution Width 17.6 % (11.5-14.5) Platelet Count 213 x10^3/uL (140-400) Neutrophils (%) (Auto) 82 % (31-73) Lymphocytes (%) (Auto) 9 % (24-48) Monocytes (%) (Auto) 9 % (0-9) Eosinophils (%) (Auto) 0 % (0-3) Basophils (%) (Auto) 0 % (0-3) Neutrophils # (Auto) 7.6 x10^3uL (1.8-7.7) Lymphocytes # (Auto) 0.8 x10^3/uL (1.0-4.8) Monocytes # (Auto) 0.8 x10^3/uL (0.0-1.1) Eosinophils # (Auto) 0.0 x10^3/uL (0.0-0.7) Basophils # (Auto) 0.0 x10^3/uL (0.0-0.2) Sodium Level 143 mmol/L (136-145) Potassium Level 3.8 mmol/L (3.5-5.1) Chloride Level 110 mmol/L (98-107) Carbon Dioxide Level 21 mmol/L (21-32) Anion Gap 12 (6-14) Blood Urea Nitrogen 8 mg/dL (7-20) Creatinine 1.4 mg/dL (0.6-1.0) Estimated GFR (Cockcroft-Gault) 45.0 Glucose Level 99 mg/dL (70-99) Calcium Level 8.3 mg/dL (8.5-10.1) Microbiology 01/20/19 Urine Culture - Final, Complete 01/20/19 Urine Culture Result 1 (JOSE ANTONIO) - Final, Complete Medications Current Medications Sodium Chloride 1,000 ml @ 1,000 mls/hr Q1H IV Last administered on 01/20/19at 16:49; Start 01/20/19 at 16:09; Stop 01/20/19 at 17:08; Status DC Ondansetron HCl (Zofran) 4 mg 1X ONCE IV Last administered on 01/20/19at 16:50; Start 01/20/19 at 16:15; Stop 01/20/19 at 16:22; Status DC Sodium Chloride 1,000 ml @ 150 mls/hr Q6H40M IV Last administered on 01/21/19at 17:45; Start 01/20/19 at 18:15; Stop 01/21/19 at 18:14; Status DC Cephalexin HCl (Keflex) 1,000 mg BID PO Last administered on 01/24/19at 08:31; Start 01/22/19 at 09:00; Stop 01/24/19 at 10:22; Status DC Ondansetron HCl (Zofran Odt) 4 mg PRN Q8HRS PRN PO NAUSEA/VOMITING; Start at 09:30; Stop 01/22/19 at 09:54; Status DC Acetaminophen/ Hydrocodone Bitart (Lortab 5/325) 1 tab PRN Q4HRS PRN PO PAIN; Start 01/22/19 at 10:00 Ondansetron HCl (Zofran) 4 mg PRN Q4HRS PRN IV NAUSEA/VOMITING; Start 01/22/19 at 10:00; Stop 01/26/19 at 10:57; Status DC Fluticasone Propionate (Flonase) 2 spray DAILY NS Last administered on at 08:43; Start 01/22/19 at 10:30 Pantoprazole Sodium (Protonix) 40 mg BIDAC PO Last administered on 01/27/19at 08 :42; Start 01/22/19 at 11:30 Ondansetron HCl (Zofran Odt) 4 mg PRN Q4HRS PRN PO NAUSEA/VOMITING; Start at 10:00 Sodium Chloride 1,000 ml @ 100 mls/hr Q10H IV Last administered on 01/25/19at 07 :28; Start 01/22/19 at 12:30; Stop 01/27/19 at 09:47; Status DC Lactobacillus Rhamnosus (Culturelle) 1 cap BID PO Last administered on at 21:25; Start 01/22/19 at 21:00 Potassium Chloride (Klor-Con) 20 meq 1X ONCE PO Last administered on 01/24/19at 11:08; Start 01/24/19 at 10:30; Stop 01/24/19 at 10:31; Status DC Ondansetron HCl (Zofran) 4 mg PRN Q6HRS PRN IV NAUSEA/VOMITING; Start 01/25/19 at 07:00; Stop 01/25/19 at 20:00; Status DC Fentanyl Citrate (Fentanyl 2ml Vial) 25 mcg PRN Q5MIN PRN IV MILD PAIN; Start 01/25/19 at 07:00; Stop 01/25/19 at 20:00; Status DC Fentanyl Citrate (Fentanyl 2ml Vial) 50 mcg PRN Q5MIN PRN IV MODERATE TO SEVERE PAIN Last administered on 01/25/19at 12:03; Start 01/25/19 at 07:00; Stop at 20:00; Status DC Morphine Sulfate (Morphine Sulfate) 1 mg PRN Q10MIN PRN IV SEVERE PAIN Last administered on 01/25/19at 12:54; Start 01/25/19 at 07:00; Stop 01/25/19 at 20:00; Status DC Ringer's Solution 1,000 ml @ 30 mls/hr Q24H IV Last administered on 01/25/19at 08:14; Start 01/25/19 at 07:00; Stop 01/25/19 at 18:59; Status DC Hydromorphone HCl (Dilaudid) 0.5 mg PRN Q10MIN PRN IV SEV PAIN, Second choice; Start 01/25/19 at 07:00; Stop 01/25/19 at 20:00; Status DC Prochlorperazine Edisylate (Compazine) 5 mg PACU PRN PRN IV NAUSEA, MRX1; Start 01/25/19 at 07:00; Stop 01/25/19 at 20:00; Status DC Bupivacaine HCl/ Epinephrine Bitart (Sensorcain-Mpf Epi 0.5%-1:[id number]) 30 ml STK -MED ONCE .ROUTE Last administered on 01/25/19at 08:49; Start 01/25/19 at 06:22; Stop 01/25/19 at 07:22; Status DC Cellulose (Surgicel Hemostat 2x3) 1 each STK-MED ONCE .ROUTE ; Start 01/25/19 at 06:22; Stop 01/25/19 at 07:22; Status DC Iohexol (Omnipaque 300 Mg/ml) 100 ml STK-MED ONCE .ROUTE Last administered on at 08:50; Start 01/25/19 at 06:22; Stop 01/25/19 at 07:22; Status DC Bisacodyl (Dulcolax Supp) 10 mg STK-MED ONCE .ROUTE Last administered on at 08:51; Start 01/25/19 at 06:22; Stop 01/25/19 at 07:23; Status DC Sevoflurane (Ultane) 90 ml STK-MED ONCE IH ; Start 01/25/19 at 08:26; Stop at 08:27; Status DC Rocuronium [place] (Zemuron) 50 mg STK-MED ONCE .ROUTE ; Start 01/25/19 at 08:26 ; Stop 01/25/19 at 08:27; Status DC Fentanyl Citrate (Fentanyl 2ml Vial) 100 mcg STK-MED ONCE .ROUTE ; Start at 08:26; Stop 01/25/19 at 08:27; Status DC Neostigmine Methylsulfate (Neostigmine Methylsulfate) 5 mg STK-MED ONCE .ROUTE ; Start 01/25/19 at 08:27; Stop 01/25/19 at 08:28; Status DC Midazolam HCl (Versed) 2 mg STK-MED ONCE .ROUTE ; Start 01/25/19 at 08:27; Stop 01/25/19 at 08:28; Status DC Glycopyrrolate (Robinul) 1 mg STK-MED ONCE .ROUTE ; Start 01/25/19 at 08:27; Stop 01/25/19 at 08:28; Status DC Propofol 20 ml @ As Directed STK-MED ONCE IV ; Start 01/25/19 at 08:27; Stop 01/25 at 08:28; Status DC Phenylephrine HCl (PHENYLEPHRINE in 0.9% NACL PF) 1 mg STK-MED ONCE IV ; Start 01/25/19 at 08:27; Stop 01/25/19 at 08:28; Status DC Lidocaine HCl (Lidocaine Pf 2% Vial) 5 ml STK-MED ONCE .ROUTE ; Start 01/25/19 at 08:27; Stop 01/25/19 at 08:28; Status DC Dexamethasone Sodium Phosphate (Decadron) 20 mg STK-MED ONCE .ROUTE ; Start 01/25 at 08:27; Stop 01/25/19 at 08:28; Status DC Ondansetron HCl (Zofran) 4 mg STK-MED ONCE .ROUTE ; Start 01/25/19 at 08:27; Stop 01/25/19 at 08:28; Status DC Heparin Sodium (Porcine) 1000 unit/Sodium Chloride 1,001 ml @ 1,001 mls/hr 1X ONCE IRR Last administered on 01/25/19at 08:52; Start 01/25/19 at 08:45; Stop 01/25 at 09:44; Status DC Cefoxitin Sodium (Mefoxin) 2 gm 1X PREOP IVP ; Start 01/25/19 at 09:00; Stop 01/25/19 at 09:00; Status DC Cefoxitin Sodium (Mefoxin) 1 gm STK-MED ONCE IVP ; Start 01/25/19 at 08:57; Stop 01/25/19 at 08:58; Status DC Cefoxitin Sodium (Mefoxin) 2 gm 1X PREOP IVP ; Start 01/25/19 at 09:15; Stop 01/25/19 at 09:15; Status DC Cefoxitin Sodium (Mefoxin) 2 gm 1X PREOP IVP Last administered on 01/25/19at 10: 31; Start 01/25/19 at 09:15; Stop 01/26/19 at 16:25; Status DC Fentanyl Citrate (Fentanyl 2ml Vial) 100 mcg STK-MED ONCE .ROUTE ; Start at 10:15; Stop 01/25/19 at 10:16; Status DC Rocuronium [place] (Zemuron) 50 mg STK-MED ONCE .ROUTE ; Start 01/25/19 at 10:26 ; Stop 01/25/19 at 10:27; Status DC Enoxaparin Sodium (Lovenox 40mg Syringe) 40 mg Q24H SQ Last administered on 09/06at 08:43; Start 01/26/19 at 09:00 Sodium Chloride (Normal Saline Flush) 3 ml QSHIFT PRN IV AFTER MEDS AND BLOOD DRAWS; Start 01/25/19 at 11:15; Stop 01/27/19 at 09:47; Status DC Ringer's Solution 1,000 ml @ 100 mls/hr Q10H IV Last administered on at 09:38; Start 01/25/19 at 12:00; Stop 01/27/19 at 09:47; Status DC Naloxone HCl (Narcan) 0.4 mg PRN Q2MIN PRN IV SEE INSTRUCTIONS; Start 01/25/19 at 11:15; Stop 01/27/19 at 09:47; Status DC Sodium Chloride 1,000 ml @ 25 mls/hr Q24H IV ; Start 01/25/19 at 11:30; Stop 09/06 at 09:47; Status DC Morphine Sulfate 30 ml @ 0 mls/hr CONT PRN PRN IV PER PROTOCOL Last administered on 01/25/19at 12:04; Start 01/25/19 at 11:15; Stop 01/27/19 at 09:47; Status DC Ondansetron HCl (Zofran) 4 mg PRN Q6HRS PRN IV NAUESA, 1ST CHOICE; Start at 11:15; Stop 01/27/19 at 09:47; Status DC Senna/Docusate Sodium (Senna Plus) 1 tab PRN BID PRN PO CONSTIPATION; Start 09/06 at 09:45 Active Scripts Active [Pantoprazole] 40 MG Tablet.dr 40 Mg PO BIDAC 30 Days Ondansetron Hcl 4 Mg/2 Ml Vial (Ondansetron Hcl/Pf) 4 Mg/2 Ml Vial 4 Mg IV PRN Q4HRS PRN 14 Days Hydrocodone-Apap 5-325 (Hydrocodone Bit/Acetaminophen) 1 Tab Tablet 1 Tab PO PRN Q4HRS PRN 30 Days Reported Flonase Allergy Relief (Fluticasone Propionate) 9.9 Ml [place].susp 2 Sprays NS DAILY Vitals/I & O Vital Sign - Last 24 Hours 01/26/19 01/26/19 01/26/19 01/26/19 15:00 19:00 19:30 23:00 Temp 98.2 98.8 98.6 98.2 98.8 98.6 Pulse 74 85 86 Resp 17 20 20 B/P (MAP) 127/74 (91) 143/82 (102) 133/82 (99) Pulse Ox 100 100 99 O2 Delivery Nasal Cannula Nasal Cannula Nasal Cannula Nasal Cannula O2 Flow Rate 2.0 01/27/19 01/27/19 01/27/19 01/27/19 03:14 07:00 08:00 11:00 Temp 98.6 97.9 98.6 98.6 97.9 98.6 Pulse 86 86 98 Resp 20 17 17 B/P (MAP) 105/65 (78) 105/42 (63) 127/77 (94) Pulse Ox 100 98 96 O2 Delivery Nasal Cannula Nasal Cannula Room Air Nasal Cannula Intake and Output 01/26/19 01/26/19 01/27/19 15:00 23:00 07:00 Intake Total 1000 ml Output Total 200 ml Balance 1000 ml -200 ml ASTRID DURAN MD Jan 27, 2019 12:01
[2019-01-27] MEDS: HYDROcodone/APAP 5/325MG 1 TAB TABLET PO PRN (13:55)
[2019-01-27 15:00] VITALS: BP 134/78
[2019-01-27] MEDS: ONDANSETRON ODT 4 MG TAB.RAPDIS. PO PRN ×2 (17:36→22:17)
--- NOTE | 2019-01-27 17:56 | NUR ---
Patient had emesis X1 after dinner, page sent out to MD Brandee in regards. PRN Zofran given to patient.
[2019-01-27] MEDS: MORPHINE SULFATE 2 MG/ML VIAL. IV PRN ×2 (18:14→22:18)
[2019-01-27 19:00] VITALS: BP 115/69
[2019-01-27 23:00] VITALS: BP 110/72
[2019-01-28 03:00] VITALS: BP 112/70
[2019-01-28 04:19] LABS: HEMOGLOBIN 9.9 g/dL (12.0-15.5); RED BLOOD COUNT 3.79 x10^6/uL (3.50-5.40); RED CELL DISTRIBUTION WIDTH 17.1 % (11.5-14.5); WHITE BLOOD COUNT 2.7 x10^3/uL (4.0-11.0)
[2019-01-28 04:35] LABS: CALCIUM 8.3 mg/dL (8.5-10.1); CREATININE 1.2 mg/dL (0.6-1.0); GFR 53.7; POTASSIUM 3.1 mmol/L (3.5-5.1)
[2019-01-28] MEDS: MORPHINE SULFATE 2 MG/ML VIAL. IV PRN ×3 (05:10→22:08)
[2019-01-28 07:00] VITALS: BP 98/65
[2019-01-28] MEDS: PANTOPRAZOLE 40 MG TABLET.DR. PO SCH ×2 (08:15→16:30)
[2019-01-28] MEDS: LACTOBACILLUS RHAMNOSUS GG 1 CAPSULE. PO SCH ×2 (08:15→19:11)
--- NOTE | 2019-01-28 08:33 | NUR ---
Pt vomited large amt dark brown liquid after drinking apple juice and 2 medications. Aline Gorman notified,received NPO order and IV zofran order and she will see pt.
--- NOTE | 2019-01-28 08:40 | PDOC ---
FERNANDO MAHONEY PROJECTION TECHNICIAN 01/28/19 0840: SURGICAL PROGRESS NOTE Subjective feels gassy, bloated vomiting overnight and AM minimal flatus and stool Vital Signs Vital Signs Date Time Temp Pulse Resp B/P (MAP) Pulse Ox O2 Delivery O2 Flow Rate FiO2 01/28/19 07:00 98.5 104 20 98/65 (76) 94 98.5 01/28/19 05:40 Room Air 2.0 I&O Intake and Output 01/28/19 07:00 Intake Total 920 ml Balance 920 ml Intake Oral 920 ml # Voids 5 # Bowel Movements 2 General: Alert, Oriented X3, Cooperative, No acute distress Abdomen: Soft, Other (incision c/d/i, no erythema, small amount of drainage ) Labs Laboratory Tests Test 01/28/19 03:15 White Blood Count 2.7 x10^3/uL (4.0-11.0) Red Blood Count 3.79 x10^6/uL (3.50-5.40) Hemoglobin 9.9 g/dL (12.0-15.5) Hematocrit 31.0 % (36.0-47.0) Mean Corpuscular Volume 82 fL (79-100) Mean Corpuscular Hemoglobin 26 pg (25-35) Mean Corpuscular Hemoglobin Concent 32 g/dL (31-37) Red Cell Distribution Width 17.1 % (11.5-14.5) Platelet Count 245 x10^3/uL (140-400) Sodium Level 139 mmol/L (136-145) Potassium Level 3.1 mmol/L (3.5-5.1) Chloride Level 104 mmol/L (98-107) Carbon Dioxide Level 24 mmol/L (21-32) Anion Gap 11 (6-14) Blood Urea Nitrogen 6 mg/dL (7-20) Creatinine 1.2 mg/dL (0.6-1.0) Estimated GFR (Cockcroft-Gault) 53.7 Glucose Level 124 mg/dL (70-99) Calcium Level 8.3 mg/dL (8.5-10.1) Laboratory Tests Test 01/28/19 03:15 White Blood Count 2.7 x10^3/uL (4.0-11.0) Red Blood Count 3.79 x10^6/uL (3.50-5.40) Hemoglobin 9.9 g/dL (12.0-15.5) Hematocrit 31.0 % (36.0-47.0) Mean Corpuscular Volume 82 fL (79-100) Mean Corpuscular Hemoglobin 26 pg (25-35) Mean Corpuscular Hemoglobin Concent 32 g/dL (31-37) Red Cell Distribution Width 17.1 % (11.5-14.5) Platelet Count 245 x10^3/uL (140-400) Sodium Level 139 mmol/L (136-145) Potassium Level 3.1 mmol/L (3.5-5.1) Chloride Level 104 mmol/L (98-107) Carbon Dioxide Level 24 mmol/L (21-32) Anion Gap 11 (6-14) Blood Urea Nitrogen 6 mg/dL (7-20) Creatinine 1.2 mg/dL (0.6-1.0) Estimated GFR (Cockcroft-Gault) 53.7 Glucose Level 124 mg/dL (70-99) Calcium Level 8.3 mg/dL (8.5-10.1) Problem List Problems Medical Problems: (1) Colostomy in place Status: Acute (2) Pancreatitis Status: Acute Assessment/Plan s/p ileostomy takedown, nico npo, bowel rest, hydration, will check abd films JOEY GAGNON MD 01/28/19 1346: SURGICAL PROGRESS NOTE Assessment/Plan Suspect ileus, will start PICC and TPN cont bowel rest FERNANDO MAHONEY PROJECTION TECHNICIAN Jan 28, 2019 08:40 JOEY GAGNON MD Jan 28, 2019 13:46
[2019-01-28] MEDS: POTASSIUM CL 20MEQ D5-0.45NACL 1,000 ML IV SCH ×2 (09:16→22:07)
[2019-01-28] MEDS: FLUTICASONE 50MCG/NASAL SPRAY 16GM BOTTLE. NS SCH (09:16)
[2019-01-28] MEDS: ONDANSETRON PF 4 MG/2 ML VIAL. IV PRN ×2 (09:17→22:08)
[2019-01-28] MEDS: ENOXAPARIN 40 MG/0.4 ML SYRINGE. SQ SCH (09:17)
[2019-01-28 11:00] VITALS: BP 112/73
--- NOTE | 2019-01-28 13:12 | PDOC ---
PROGRESS NOTES Subjective Subjective Patient had episodes of emesis and nausea last night. Patient just now starting to pass gas but has some abdominal distention consistent with early ileus. Surgery has made patient nothing by mouth at this time. Objective Objective Vital Signs Date Time Temp Pulse Resp B/P (MAP) Pulse Ox O2 Delivery O2 Flow Rate FiO2 01/28/19 11:00 98.6 97 18 112/73 (86) 95 98.6 01/28/19 05:40 Room Air 2.0 Intake and Output 01/28/19 07:00 Intake Total 920 ml Balance 920 ml Intake Oral 920 ml # Voids 5 # Bowel Movements 2 Physical Exam Abdomen: Other (hypoactive) Heart: Regular rate Extremities: No edema General: Alert Lungs: Clear to auscultation Assessment Assessment Problems Medical Problems: (1) Colostomy in place Status: Acute (2) Pancreatitis Status: Acute POD # 3 Open choley and ileostomy take down Hypokalemia [id number] renal failure. Chronic cholecystitis Pancreatitis Diet-controlled hypertension. Diet-controlled type 2 diabetes. Gastroesophageal reflux disease. Plan Plan of Care Back off on diet nothing by mouth for now Await improved bowel function Increase activity check bmp in am Supplement potassium as needed Comment Review of Relevant I have reviewed the following items sathya (where applicable) has been applied. Labs Laboratory Tests Test 01/28/19 03:15 White Blood Count 2.7 x10^3/uL (4.0-11.0) Red Blood Count 3.79 x10^6/uL (3.50-5.40) Hemoglobin 9.9 g/dL (12.0-15.5) Hematocrit 31.0 % (36.0-47.0) Mean Corpuscular Volume 82 fL (79-100) Mean Corpuscular Hemoglobin 26 pg (25-35) Mean Corpuscular Hemoglobin Concent 32 g/dL (31-37) Red Cell Distribution Width 17.1 % (11.5-14.5) Platelet Count 245 x10^3/uL (140-400) Sodium Level 139 mmol/L (136-145) Potassium Level 3.1 mmol/L (3.5-5.1) Chloride Level 104 mmol/L (98-107) Carbon Dioxide Level 24 mmol/L (21-32) Anion Gap 11 (6-14) Blood Urea Nitrogen 6 mg/dL (7-20) Creatinine 1.2 mg/dL (0.6-1.0) Estimated GFR (Cockcroft-Gault) 53.7 Glucose Level 124 mg/dL (70-99) Calcium Level 8.3 mg/dL (8.5-10.1) Laboratory Tests Test 01/28/19 03:15 White Blood Count 2.7 x10^3/uL (4.0-11.0) Red Blood Count 3.79 x10^6/uL (3.50-5.40) Hemoglobin 9.9 g/dL (12.0-15.5) Hematocrit 31.0 % (36.0-47.0) Mean Corpuscular Volume 82 fL (79-100) Mean Corpuscular Hemoglobin 26 pg (25-35) Mean Corpuscular Hemoglobin Concent 32 g/dL (31-37) Red Cell Distribution Width 17.1 % (11.5-14.5) Platelet Count 245 x10^3/uL (140-400) Sodium Level 139 mmol/L (136-145) Potassium Level 3.1 mmol/L (3.5-5.1) Chloride Level 104 mmol/L (98-107) Carbon Dioxide Level 24 mmol/L (21-32) Anion Gap 11 (6-14) Blood Urea Nitrogen 6 mg/dL (7-20) Creatinine 1.2 mg/dL (0.6-1.0) Estimated GFR (Cockcroft-Gault) 53.7 Glucose Level 124 mg/dL (70-99) Calcium Level 8.3 mg/dL (8.5-10.1) Microbiology 01/20/19 Urine Culture - Final, Complete 01/20/19 Urine Culture Result 1 (JOSE ANTONIO) - Final, Complete Medications Current Medications Sodium Chloride 1,000 ml @ 1,000 mls/hr Q1H IV Last administered on 01/20/19at 16:49; Start 01/20/19 at 16:09; Stop 01/20/19 at 17:08; Status DC Ondansetron HCl (Zofran) 4 mg 1X ONCE IV Last administered on 01/20/19at 16:50; Start 01/20/19 at 16:15; Stop 01/20/19 at 16:22; Status DC Sodium Chloride 1,000 ml @ 150 mls/hr Q6H40M IV Last administered on 01/21/19 17:45; Start 01/20/19 at 18:15; Stop 01/21/19 at 18:14; Status DC Cephalexin HCl (Keflex) 1,000 mg BID PO Last administered on 01/24/19 08:31; Start 01/22/19 at 09:00; Stop 01/24/19 at 10:22; Status DC Ondansetron HCl (Zofran Odt) 4 mg PRN Q8HRS PRN PO NAUSEA/VOMITING; Start at 09:30; Stop 01/22/19 at 09:54; Status DC Acetaminophen/ Hydrocodone Bitart (Lortab 5/325) 1 tab PRN Q4HRS PRN PO PAIN Last administered on 01/27/19 13:55; Start 01/22/19 at 10:00 Ondansetron HCl (Zofran) 4 mg PRN Q4HRS PRN IV NAUSEA/VOMITING; Start 01/22/19 at 10:00; Stop 01/26/19 at 10:57; Status DC Fluticasone Propionate (Flonase) 2 spray DAILY NS Last administered on 09:16; Start 01/22/19 at 10:30 Pantoprazole Sodium (Protonix) 40 mg BIDAC PO Last administered on 01/28/19 08 :15; Start 01/22/19 at 11:30 Ondansetron HCl (Zofran Odt) 4 mg PRN Q4HRS PRN PO NAUSEA/VOMITING Last administered on 01/27/19 22:17; Start 01/22/19 at 10:00 Sodium Chloride 1,000 ml @ 100 mls/hr Q10H IV Last administered on 01/25/19 07 :28; Start 01/22/19 at 12:30; Stop 01/27/19 at 09:47; Status DC Lactobacillus Rhamnosus (Culturelle) 1 cap BID PO Last administered on 08:15; Start 01/22/19 at 21:00 Potassium Chloride (Klor-Con) 20 meq 1X ONCE PO Last administered on 01/24/19 11:08; Start 01/24/19 at 10:30; Stop 01/24/19 at 10:31; Status DC Ondansetron HCl (Zofran) 4 mg PRN Q6HRS PRN IV NAUSEA/VOMITING; Start 01/25/19 at 07:00; Stop 01/25/19 at 20:00; Status DC Fentanyl Citrate (Fentanyl 2ml Vial) 25 mcg PRN Q5MIN PRN IV MILD PAIN; Start 01/25/19 at 07:00; Stop 01/25/19 at 20:00; Status DC Fentanyl Citrate (Fentanyl 2ml Vial) 50 mcg PRN Q5MIN PRN IV MODERATE TO SEVERE PAIN Last administered on 01/25/19at 12:03; Start 01/25/19 at 07:00; Stop at 20:00; Status DC Morphine Sulfate (Morphine Sulfate) 1 mg PRN Q10MIN PRN IV SEVERE PAIN Last administered on 01/25/19at 12:54; Start 01/25/19 at 07:00; Stop 01/25/19 at 20:00; Status DC Ringer's Solution 1,000 ml @ 30 mls/hr Q24H IV Last administered on 01/25/19at 08:14; Start 01/25/19 at 07:00; Stop 01/25/19 at 18:59; Status DC Hydromorphone HCl (Dilaudid) 0.5 mg PRN Q10MIN PRN IV SEV PAIN, Second choice; Start 01/25/19 at 07:00; Stop 01/25/19 at 20:00; Status DC Prochlorperazine Edisylate (Compazine) 5 mg PACU PRN PRN IV NAUSEA, MRX1; Start 01/25/19 at 07:00; Stop 01/25/19 at 20:00; Status DC Bupivacaine HCl/ Epinephrine Bitart (Sensorcain-Mpf Epi 0.5%-1:080555) 30 ml STK -MED ONCE .ROUTE Last administered on 01/25/19at 08:49; Start 01/25/19 at 06:22; Stop 01/25/19 at 07:22; Status DC Cellulose (Surgicel Hemostat 2x3) 1 each STK-MED ONCE .ROUTE ; Start 01/25/19 at 06:22; Stop 01/25/19 at 07:22; Status DC Iohexol (Omnipaque 300 Mg/ml) 100 ml STK-MED ONCE .ROUTE Last administered on at 08:50; Start 01/25/19 at 06:22; Stop 01/25/19 at 07:22; Status DC Bisacodyl (Dulcolax Supp) 10 mg STK-MED ONCE .ROUTE Last administered on at 08:51; Start 01/25/19 at 06:22; Stop 01/25/19 at 07:23; Status DC Sevoflurane (Ultane) 90 ml STK-MED ONCE IH ; Start 01/25/19 at 08:26; Stop at 08:27; Status DC Rocuronium [place] (Zemuron) 50 mg STK-MED ONCE .ROUTE ; Start 01/25/19 at 08:26 ; Stop 01/25/19 at 08:27; Status DC Fentanyl Citrate (Fentanyl 2ml Vial) 100 mcg STK-MED ONCE .ROUTE ; Start at 08:26; Stop 01/25/19 at 08:27; Status DC Neostigmine Methylsulfate (Neostigmine Methylsulfate) 5 mg STK-MED ONCE .ROUTE ; Start 01/25/19 at 08:27; Stop 01/25/19 at 08:28; Status DC Midazolam HCl (Versed) 2 mg STK-MED ONCE .ROUTE ; Start 01/25/19 at 08:27; Stop 01/25/19 at 08:28; Status DC Glycopyrrolate (Robinul) 1 mg STK-MED ONCE .ROUTE ; Start 01/25/19 at 08:27; Stop 01/25/19 at 08:28; Status DC Propofol 20 ml @ As Directed STK-MED ONCE IV ; Start 01/25/19 at 08:27; Stop 01/25 at 08:28; Status DC Phenylephrine HCl (PHENYLEPHRINE in 0.9% NACL PF) 1 mg STK-MED ONCE IV ; Start 01/25/19 at 08:27; Stop 01/25/19 at 08:28; Status DC Lidocaine HCl (Lidocaine Pf 2% Vial) 5 ml STK-MED ONCE .ROUTE ; Start 01/25/19 at 08:27; Stop 01/25/19 at 08:28; Status DC Dexamethasone Sodium Phosphate (Decadron) 20 mg STK-MED ONCE .ROUTE ; Start 01/25 at 08:27; Stop 01/25/19 at 08:28; Status DC Ondansetron HCl (Zofran) 4 mg STK-MED ONCE .ROUTE ; Start 01/25/19 at 08:27; Stop 01/25/19 at 08:28; Status DC Heparin Sodium (Porcine) 1000 unit/Sodium Chloride 1,001 ml @ 1,001 mls/hr 1X ONCE IRR Last administered on 01/25/19at 08:52; Start 01/25/19 at 08:45; Stop 01/25 at 09:44; Status DC Cefoxitin Sodium (Mefoxin) 2 gm 1X PREOP IVP ; Start 01/25/19 at 09:00; Stop 01/25/19 at 09:00; Status DC Cefoxitin Sodium (Mefoxin) 1 gm STK-MED ONCE IVP ; Start 01/25/19 at 08:57; Stop 01/25/19 at 08:58; Status DC Cefoxitin Sodium (Mefoxin) 2 gm 1X PREOP IVP ; Start 01/25/19 at 09:15; Stop 01/25/19 at 09:15; Status DC Cefoxitin Sodium (Mefoxin) 2 gm 1X PREOP IVP Last administered on 01/25/19at 10: 31; Start 01/25/19 at 09:15; Stop 01/26/19 at 16:25; Status DC Fentanyl Citrate (Fentanyl 2ml Vial) 100 mcg STK-MED ONCE .ROUTE ; Start at 10:15; Stop 01/25/19 at 10:16; Status DC Rocuronium [place] (Zemuron) 50 mg STK-MED ONCE .ROUTE ; Start 01/25/19 at 10:26 ; Stop 01/25/19 at 10:27; Status DC Enoxaparin Sodium (Lovenox 40mg Syringe) 40 mg Q24H SQ Last administered on 10/06at 09:17; Start 01/26/19 at 09:00 Sodium Chloride (Normal Saline Flush) 3 ml QSHIFT PRN IV AFTER MEDS AND BLOOD DRAWS; Start 01/25/19 at 11:15; Stop 01/27/19 at 09:47; Status DC Ringer's Solution 1,000 ml @ 100 mls/hr Q10H IV Last administered on at 09:38; Start 01/25/19 at 12:00; Stop 01/27/19 at 09:47; Status DC Naloxone HCl (Narcan) 0.4 mg PRN Q2MIN PRN IV SEE INSTRUCTIONS; Start 01/25/19 at 11:15; Stop 01/27/19 at 09:47; Status DC Sodium Chloride 1,000 ml @ 25 mls/hr Q24H IV ; Start 01/25/19 at 11:30; Stop 09/06 at 09:47; Status DC Morphine Sulfate 30 ml @ 0 mls/hr CONT PRN PRN IV PER PROTOCOL Last administered on 01/25/19at 12:04; Start 01/25/19 at 11:15; Stop 01/27/19 at 09:47; Status DC Ondansetron HCl (Zofran) 4 mg PRN Q6HRS PRN IV NAUESA, 1ST CHOICE; Start at 11:15; Stop 01/27/19 at 09:47; Status DC Senna/Docusate Sodium (Senna Plus) 1 tab PRN BID PRN PO CONSTIPATION; Start 09/06 at 09:45 Morphine Sulfate (Morphine Sulfate) 2 mg PRN Q4HRS PRN IV PAIN Last administered on 01/28/19at 05:10; Start 01/27/19 at 18:15 Ondansetron HCl (Zofran) 4 mg PRN Q8HRS PRN IV NAUSEA/VOMITING Last administered on 01/28/19at 09:17; Start 01/28/19 at 08:45 Potassium Chloride/Dextrose/ Sod Cl 1,000 ml @ 75 mls/hr [id number] IV Last administered on 01/28/19at 09:16; Start 01/28/19 at 08:45 Active Scripts Active [Pantoprazole] 40 MG Tablet.dr 40 Mg PO BIDAC 30 Days Ondansetron Hcl 4 Mg/2 Ml Vial (Ondansetron Hcl/Pf) 4 Mg/2 Ml Vial 4 Mg IV PRN Q4HRS PRN 14 Days Hydrocodone-Apap 5-325 (Hydrocodone Bit/Acetaminophen) 1 Tab Tablet 1 Tab PO PRN Q4HRS PRN 30 Days Reported Flonase Allergy Relief (Fluticasone Propionate) 9.9 Ml [place].susp 2 Sprays NS DAILY Vitals/I & O Vital Sign - Last 24 Hours 01/27/19 01/27/19 01/27/19 01/27/19 13:55 15:00 18:14 19:00 Temp 98.7 98.6 98.7 98.6 Pulse 90 107 Resp 18 B/P (MAP) 134/78 (96) 115/69 (84) Pulse Ox 96 96 96 96 O2 Delivery Room Air Nasal Cannula Room Air Nasal Cannula O2 Flow Rate 2.0 01/27/19 01/27/19 01/27/19 01/28/19 20:00 22:18 23:00 03:00 Temp 98.6 98.6 98.6 98.6 Pulse 116 100 Resp 18 B/P (MAP) 110/72 (85) 112/70 (84) Pulse Ox 96 90 95 O2 Delivery Room Air Room Air Nasal Cannula Nasal Cannula O2 Flow Rate 2.0 01/28/19 01/28/19 01/28/19 01/28/19 05:10 05:40 07:00 11:00 Temp 98.5 98.6 98.5 98.6 Pulse 104 97 Resp 18 B/P (MAP) 98/65 (76) 112/73 (86) Pulse Ox 95 95 94 95 O2 Delivery Room Air Room Air O2 Flow Rate 2.0 2.0 Intake and Output 01/27/19 01/27/19 01/28/19 15:00 23:00 07:00 Intake Total 800 ml 120 ml Balance 800 ml 120 ml ASTRID DURAN MD Jan 28, 2019 13:12
--- NOTE | 2019-01-28 13:15 | RAD ---
Acute abdominal series with single view chest 01/28/2019 INDICATION: Nausea and vomiting. COMPARISON: Barium enema January 19, 2019 TECHNIQUE: Single view of the chest, upright view of the abdomen and supine view of abdomen are provided. FINDINGS: The cardiomediastinal silhouette is within normal limits. Trace left pleural effusion. No pulmonary vascular congestion or pneumothorax. Mildly prominent small bowel loops are identified in the central abdomen measuring up to 4.3 cm. There are associated air-fluid levels. Distal colon is decompressed. Minimal residual contrast is noted throughout the colon. No dilated colonic bowel loops are identified. There is no free intraperitoneal air. Cholecystectomy clips are identified in the right upper quadrant of the abdomen. There is no portal venous gas. No pneumatosis coli. No suspicious calcifications. IMPRESSION: Dilated small bowel loops are identified in the mid abdomen measuring up to 4.3 cm. Consideration may be given for ileus versus developing small bowel obstruction. Electronically signed by: Kaity Jeronimo MD (01/28/2019 1:13 PM) [id number]
[2019-01-28 15:00] VITALS: BP 120/78
[2019-01-28 19:00] VITALS: BP 116/74
[2019-01-28 23:00] VITALS: BP 110/73
[2019-01-29 03:00] VITALS: BP 142/74
--- NOTE | 2019-01-29 06:03 | RAD ---
EXAM: AP View of the chest DATE: 01/28/2019 8:40 PM INDICATION: PICC LINE PLACEMENT - AFTER ATTEMPTED ADJUSTMENT COMPARISON: 01/28/2019 FINDINGS/ IMPRESSION: A right upper extremity PICC tip projects over the distal right brachiocephalic vein, stable to 01/28/2019. The heart is not enlarged. Mediastinal and hilar contours are normal. No focal parenchymal airspace opacity. No pleural effusion or pneumothorax. Electronically signed by: Baudilio Hogue MD (01/29/2019 6:00 AM) [place] [id number]
--- NOTE | 2019-01-29 06:04 | RAD ---
EXAM: AP View of the chest DATE: 01/28/2019 8:37 PM INDICATION: PICC LINE PLACEMENT COMPARISON: No Prior FINDINGS/ IMPRESSION: Right upper extremity PICC tip projects over the distal right brachiocephalic vein. The heart is not enlarged. Mediastinal and hilar contours are normal. No focal parenchymal airspace opacity. No pleural effusion or pneumothorax. Electronically signed by: Baudilio Hogue MD (01/29/2019 6:00 AM) [facility] [place]
[2019-01-29 07:00] VITALS: BP 103/63
[2019-01-29] MEDS: PANTOPRAZOLE 40 MG TABLET.DR. PO SCH ×2 (07:30→16:30)
[2019-01-29] MEDS: LACTOBACILLUS RHAMNOSUS GG 1 CAPSULE. PO SCH ×2 (07:35→20:55)
[2019-01-29] MEDS: MORPHINE SULFATE 2 MG/ML VIAL. IV PRN ×2 (08:02→15:47)
[2019-01-29] MEDS: ONDANSETRON PF 4 MG/2 ML VIAL. IV PRN (08:02)
[2019-01-29] MEDS: FLUTICASONE 50MCG/NASAL SPRAY 16GM BOTTLE. NS SCH (08:10)
--- NOTE | 2019-01-29 09:01 | RAD ---
AP chest. HISTORY: PICC line placement AP view was taken of the chest. There is right arm PICC line which extends to the superior vena cava near the right atrium. Patient rotated to the left. No new infiltrates are noted. There is no effusion. There is bowel distention in the abdomen. IMPRESSION: 1. Right arm PICC line in good position. 2. No other change. Electronically signed by: Daniel Shane MD (01/29/2019 8:58 AM) [facility]
--- NOTE | 2019-01-29 09:48 | PDOC ---
SURGICAL PROGRESS NOTE Subjective feels better today doesn't want anything to eat Vital Signs Vital Signs Date Time Temp Pulse Resp B/P (MAP) Pulse Ox O2 Delivery O2 Flow Rate FiO2 01/29/19 08:40 Room Air 01/29/19 07:00 98.8 83 17 103/63 (76) 96 98.8 I&O Intake and Output 01/29/19 07:00 Intake Total 1025 ml Balance 1025 ml Intake Oral 25 ml IV Total 1000 ml # Voids 5 # Bowel Movements 4 PATIENT HAS A GONGORA: No General: Alert, Cooperative Abdomen: Soft, No tenderness Labs Laboratory Tests Test 01/28/19 03:15 White Blood Count 2.7 x10^3/uL (4.0-11.0) Red Blood Count 3.79 x10^6/uL (3.50-5.40) Hemoglobin 9.9 g/dL (12.0-15.5) Hematocrit 31.0 % (36.0-47.0) Mean Corpuscular Volume 82 fL (79-100) Mean Corpuscular Hemoglobin 26 pg (25-35) Mean Corpuscular Hemoglobin Concent 32 g/dL (31-37) Red Cell Distribution Width 17.1 % (11.5-14.5) Platelet Count 245 x10^3/uL (140-400) Sodium Level 139 mmol/L (136-145) Potassium Level 3.1 mmol/L (3.5-5.1) Chloride Level 104 mmol/L (98-107) Carbon Dioxide Level 24 mmol/L (21-32) Anion Gap 11 (6-14) Blood Urea Nitrogen 6 mg/dL (7-20) Creatinine 1.2 mg/dL (0.6-1.0) Estimated GFR (Cockcroft-Gault) 53.7 Glucose Level 124 mg/dL (70-99) Calcium Level 8.3 mg/dL (8.5-10.1) Problem List Problems Medical Problems: (1) Colostomy in place Status: Acute (2) Pancreatitis Status: Acute Assessment/Plan ileus to have TPN initiated continue obs TAY HOLT MD Jan 29, 2019 09:48
[2019-01-29] MEDS: ENOXAPARIN 40 MG/0.4 ML SYRINGE. SQ SCH (09:55)
[2019-01-29 11:00] VITALS: BP 98/60
[2019-01-29] MEDS: POTASSIUM CL 20MEQ D5-0.45NACL 1,000 ML IV SCH (11:47)
--- NOTE | 2019-01-29 14:02 | PDOC ---
PROGRESS NOTES Subjective PICC line in for TPN, POD #4, no chest pain, no SOA, pain controlled Objective Afebrile General: A&O Heart: RRR Lungs: CTA Abd: soft, non distended Ext: no C/C/E Vital Signs Vital Signs Date Time Temp Pulse Resp B/P (MAP) Pulse Ox O2 Delivery O2 Flow Rate FiO2 01/29/19 11:00 98.8 84 17 98/60 (73) 97 Room Air 98.8 01/28/19 05:40 2.0 I & O Intake and Output 01/29/19 07:00 Intake Total 1025 ml Balance 1025 ml Intake Oral 25 ml IV Total 1000 ml # Voids 5 # Bowel Movements 4 Assessment and Plan POD # 4 Open nico and ileostomy take down - PICC in place for TPN Hypokalemia - replace, monitro [id number] renal failure. Chronic cholecystitis Pancreatitis - resolved Diet-controlled hypertension. Diet-controlled type 2 diabetes. Gastroesophageal reflux disease. Belinda CARPENTER MD Jan 29, 2019 14:02
[2019-01-29 15:00] VITALS: BP 100/62
[2019-01-29 15:50] LABS: CALCIUM 7.5 mg/dL (8.5-10.1); CREATININE 1.1 mg/dL (0.6-1.0); GFR 59.4
[2019-01-29 15:53] LABS: POTASSIUM 2.9 mmol/L (3.5-5.1)
[2019-01-29] MEDS: AMINO AC 3%/ELECTROLYTE/GLYCER 1,000 ML IV SCH (16:37)
[2019-01-29] MEDS: POTASSIUM CHL 20MEQ PREMIX 50 ML IV SCH ×2 (16:37→17:56)
[2019-01-29 19:00] VITALS: BP 111/69
[2019-01-29 23:00] VITALS: BP 114/68
[2019-01-30] MEDS: ONDANSETRON PF 4 MG/2 ML VIAL. IV PRN ×3 (00:29→22:07)
[2019-01-30] MEDS: MORPHINE SULFATE 2 MG/ML VIAL. IV PRN ×3 (00:30→22:07)
[2019-01-30 03:00] VITALS: BP 100/46
[2019-01-30] MEDS: AMINO AC 3%/ELECTROLYTE/GLYCER 1,000 ML IV SCH ×3 (05:26→17:15)
[2019-01-30 06:54] LABS: MAGNESIUM 1.3 mg/dL (1.8-2.4); PHOSPHORUS 1.6 mg/dL (2.6-4.7)
[2019-01-30 07:00] VITALS: BP 104/63
[2019-01-30 07:12] LABS: CALCIUM 7.9 mg/dL (8.5-10.1); CREATININE 1.1 mg/dL (0.6-1.0); GFR 59.4; POTASSIUM 3.3 mmol/L (3.5-5.1)
[2019-01-30] MEDS ORDERED: MAGNESIUM SULFATE 2GM 50 ML IV ONE (07:45)
[2019-01-30] MEDS ORDERED: MAGNESIUM SULFATE 4GM 100 ML IV ONE (08:00)
[2019-01-30] MEDS: ENOXAPARIN 40 MG/0.4 ML SYRINGE. SQ SCH (08:30)
[2019-01-30] MEDS: FLUTICASONE 50MCG/NASAL SPRAY 16GM BOTTLE. NS SCH (08:30)
[2019-01-30] MEDS: LACTOBACILLUS RHAMNOSUS GG 1 CAPSULE. PO SCH ×2 (08:31→20:15)
[2019-01-30] MEDS: PANTOPRAZOLE 40 MG TABLET.DR. PO SCH ×2 (08:31→15:46)
[2019-01-30 11:00] VITALS: BP 126/73
[2019-01-30] MEDS ORDERED: POTASSIUM CHL 20MEQ PREMIX 50 ML IV ONE (11:30)
--- NOTE | 2019-01-30 11:39 | PDOC ---
PROGRESS NOTES Subjective She is passing gas and stool, not yet eating, still on ProcalAmine, has PICC, no chest pain, no SOA or other concerns, she would prefer lab draws via PICC Objective Afebrile General: NAD, comfortable Heart: RRR Lungs: CTA Abd: soft, non tender Ext: no edema K+: 3.3 Vital Signs Vital Signs Date Time Temp Pulse Resp B/P (MAP) Pulse Ox O2 Delivery O2 Flow Rate FiO2 01/30/19 08:00 Room Air 2.0 01/30/19 07:00 99.0 78 17 104/63 (77) 95 99.0 I & O Intake and Output 01/30/19 06:59 Intake Total 1220 ml Balance 1220 ml Intake Oral 120 ml IV Total 1100 ml # Voids 7 Assessment and Plan POD # 5 Open nico and ileostomy take down, bowel function returning - PICC in place for TPN Hypokalemia - improving, continue to replace, monitor [id number] renal failure - creatinine appears back to baseline at 1.1. Chronic cholecystitis - s/p open nico Pancreatitis - resolved Diet-controlled hypertension. Diet-controlled type 2 diabetes. Gastroesophageal reflux disease. Belinda CARPENTER MD Jan 30, 2019 11:39
[2019-01-30] MEDS: POTASSIUM PHOSPHATE DIBASIC 10 MMOL in IV DEXTROSE 5% 100ML 100 ML IV SCH ×2 (12:00→15:43)
[2019-01-30] MEDS: TPN PER PHARMACY MC PRN (12:44)
--- NOTE | 2019-01-30 13:06 | NUR ---
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) Height: 5 feet, 0 inches Weight: 75.241714 kg Current diet: NPO LABS: Sodium: 138 Potassium: 3.3 Chloride: 105 Calcium: 7.9 Corrected Calcium: 7.66 Magnesium: 1.3 CO2: 26 SCr: 1.1 Glucose: 98 Albumin: 4.3 (01/20/19) AST: 69 (01/20/19) ALT: 154 (01/20/19) TPN FORMULA: TPN TYPE: Central Continuous AMINO ACIDS: 60 gm DEXTROSE: 195 gm LIPIDS: 20 gm SODIUM CHLORIDE: 90 mEq SODIUM ACETATE: - mEq SODIUM PHOSPHATE: - mmol POTASSIUM CHLORIDE: 50 mEq POTASSIUM ACETATE: - mEq POTASSIUM PHOSPHATE: 20 mmol MAGNESIUM: 18 mEq CALCIUM: 10 mEq INSULIN: - units MULTIPLE VITAMIN: 10 ml TRACE ELEMENTS: mte-5 1 mL ml(s) TPN PLAN: -Standard macros initiated at this time. Awaiting boardmarker recommendations for future TPN orders. -Magnesium, phosphate and potassium all low this AM. Additionally, noted patient risk factors for re-feeding. For these reasons replaced electrolytes outside of TPN prior to initiation of TPN with 4 grams of Magnesium and 20 mmol of KPhos per protocol. An additional 40 mEq of potassium ordered per Dr. Dunham. -For these reasons will start standard TPN formulation with slight increase in KPhos and Mag. -BMP, Mag and Phos ordered for 01/31/19 R: Begin standard TPN formulation with increased KPhos and Magnesium. Will monitor electrolytes, glucose, and tolerance to TPN. WILLIAM GENAO, [facility], 01/30/19 0619
[2019-01-30 15:00] VITALS: BP 119/71
[2019-01-30 19:00] VITALS: BP 123/57
[2019-01-30] MEDS ORDERED: [UNRECOGNIZED DRUG - OTHER] IV SCH ×10 (22:00)
[2019-01-30] MEDS ORDERED: DEXTROSE 70% IV SCH ×10 (22:00)
[2019-01-30] MEDS ORDERED: TOTAL PARENTERAL NUTRITION IV SCH ×10 (22:00)
[2019-01-30] MEDS ORDERED: AMINO ACID IV SCH ×10 (22:00)
[2019-01-30 23:00] VITALS: BP 110/55
[2019-01-31] VITALS (7 sets, daily range): BP systolic 98–121; BP diastolic 52–71
[2019-01-31] MEDS: HYDROcodone/APAP 5/325MG 1 TAB TABLET PO PRN (02:16)
[2019-01-31 06:09] LABS: BASO % 1 % (0-3); EOS # 0.1 x10^3/uL (0.0-0.7); EOS % 2 % (0-3); HEMATOCRIT 23.5 % (36.0-47.0); HEMOGLOBIN 7.6 g/dL (12.0-15.5); LYMPH % 26 % (24-48); MEAN CORPUSCULAR HEMOGLOBIN 26 pg (25-35); MEAN CORPUSCULAR HGB CONC 32 g/dL (31-37); MEAN CORPUSCULAR VOLUME 82 fL (79-100); MONO # 0.5 x10^3/uL (0.0-1.1); MONO % 14 % (0-9); NEUT # 2.2 x10^3uL (1.8-7.7); NEUT % 58 % (31-73); PLATELET COUNT 236 x10^3/uL (140-400); RED BLOOD COUNT 2.88 x10^6/uL (3.50-5.40); RED CELL DISTRIBUTION WIDTH 16.8 % (11.5-14.5); WHITE BLOOD COUNT 3.8 x10^3/uL (4.0-11.0)
[2019-01-31 06:16] LABS: CALCIUM 7.5 mg/dL (8.5-10.1); CREATININE 1.2 mg/dL (0.6-1.0); GFR 53.7; MAGNESIUM 2.2 mg/dL (1.8-2.4); PHOSPHORUS 2.6 mg/dL (2.6-4.7); POTASSIUM 3.6 mmol/L (3.5-5.1)
--- NOTE | 2019-01-31 08:11 | PDOC ---
SURGICAL PROGRESS NOTE Subjective Pt feels better, passing flatus and stool, no N/V, some bloating Vital Signs Vital Signs Date Time Temp Pulse Resp B/P (MAP) Pulse Ox O2 Delivery O2 Flow Rate FiO2 01/31/19 07:00 98.4 69 18 121/71 (88) 98 Room Air 98.4 01/30/19 15:43 2.0 I&O Intake and Output 01/31/19 07:00 Intake Total 1356.6666 ml Balance 1356.6666 ml Intake Oral 0 ml IV Total 1356.6666 ml # Voids 7 # Bowel Movements 1 General: Alert, Oriented X3, Cooperative, No acute distress Abdomen: Soft, No tenderness Labs Laboratory Tests Test 01/29/19 15:35 01/30/19 06:15 01/31/19 05:30 Sodium Level 139 mmol/L (136-145) 138 mmol/L (136-145) 140 mmol/L (136-145) Potassium Level 2.9 mmol/L (3.5-5.1) 3.3 mmol/L (3.5-5.1) 3.6 mmol/L (3.5-5.1) Chloride Level 105 mmol/L (98-107) 105 mmol/L (98-107) 105 mmol/L (98-107) Carbon Dioxide Level 25 mmol/L (21-32) 26 mmol/L (21-32) 27 mmol/L (21-32) Anion Gap 9 (6-14) 7 (6-14) 8 (6-14) Blood Urea Nitrogen 6 mg/dL (7-20) 8 mg/dL (7-20) 11 mg/dL (7-20) Creatinine 1.1 mg/dL (0.6-1.0) 1.1 mg/dL (0.6-1.0) 1.2 mg/dL (0.6-1.0) Estimated GFR (Cockcroft-Gault) 59.4 59.4 53.7 Glucose Level 100 mg/dL (70-99) 98 mg/dL (70-99) 106 mg/dL (70-99) Calcium Level 7.5 mg/dL (8.5-10.1) 7.9 mg/dL (8.5-10.1) 7.5 mg/dL (8.5-10.1) Phosphorus Level 1.6 mg/dL (2.6-4.7) 2.6 mg/dL (2.6-4.7) Magnesium Level 1.3 mg/dL (1.8-2.4) 2.2 mg/dL (1.8-2.4) Triglycerides Level 121 mg/dL (0-150) White Blood Count 3.8 x10^3/uL (4.0-11.0) Red Blood Count 2.88 x10^6/uL (3.50-5.40) Hemoglobin 7.6 g/dL (12.0-15.5) Hematocrit 23.5 % (36.0-47.0) Mean Corpuscular Volume 82 fL (79-100) Mean Corpuscular Hemoglobin 26 pg (25-35) Mean Corpuscular Hemoglobin Concent 32 g/dL (31-37) Red Cell Distribution Width 16.8 % (11.5-14.5) Platelet Count 236 x10^3/uL (140-400) Neutrophils (%) (Auto) 58 % (31-73) Lymphocytes (%) (Auto) 26 % (24-48) Monocytes (%) (Auto) 14 % (0-9) Eosinophils (%) (Auto) 2 % (0-3) Basophils (%) (Auto) 1 % (0-3) Neutrophils # (Auto) 2.2 x10^3uL (1.8-7.7) Lymphocytes # (Auto) 1.0 x10^3/uL (1.0-4.8) Monocytes # (Auto) 0.5 x10^3/uL (0.0-1.1) Eosinophils # (Auto) 0.1 x10^3/uL (0.0-0.7) Basophils # (Auto) 0.0 x10^3/uL (0.0-0.2) Laboratory Tests Test 01/31/19 05:30 White Blood Count 3.8 x10^3/uL (4.0-11.0) Red Blood Count 2.88 x10^6/uL (3.50-5.40) Hemoglobin 7.6 g/dL (12.0-15.5) Hematocrit 23.5 % (36.0-47.0) Mean Corpuscular Volume 82 fL (79-100) Mean Corpuscular Hemoglobin 26 pg (25-35) Mean Corpuscular Hemoglobin Concent 32 g/dL (31-37) Red Cell Distribution Width 16.8 % (11.5-14.5) Platelet Count 236 x10^3/uL (140-400) Neutrophils (%) (Auto) 58 % (31-73) Lymphocytes (%) (Auto) 26 % (24-48) Monocytes (%) (Auto) 14 % (0-9) Eosinophils (%) (Auto) 2 % (0-3) Basophils (%) (Auto) 1 % (0-3) Neutrophils # (Auto) 2.2 x10^3uL (1.8-7.7) Lymphocytes # (Auto) 1.0 x10^3/uL (1.0-4.8) Monocytes # (Auto) 0.5 x10^3/uL (0.0-1.1) Eosinophils # (Auto) 0.1 x10^3/uL (0.0-0.7) Basophils # (Auto) 0.0 x10^3/uL (0.0-0.2) Sodium Level 140 mmol/L (136-145) Potassium Level 3.6 mmol/L (3.5-5.1) Chloride Level 105 mmol/L (98-107) Carbon Dioxide Level 27 mmol/L (21-32) Anion Gap 8 (6-14) Blood Urea Nitrogen 11 mg/dL (7-20) Creatinine 1.2 mg/dL (0.6-1.0) Estimated GFR (Cockcroft-Gault) 53.7 Glucose Level 106 mg/dL (70-99) Calcium Level 7.5 mg/dL (8.5-10.1) Phosphorus Level 2.6 mg/dL (2.6-4.7) Magnesium Level 2.2 mg/dL (1.8-2.4) Problem List Problems Medical Problems: (1) Colostomy in place Status: Acute (2) Pancreatitis Status: Acute Assessment/Plan s/p nico and ileostomy takedown suspect hgb is inaccurate with being taken from PICC, no signs of bleeding, VSS will start clears cont supportive care, cont TPN JOEY GAGNON MD Jan 31, 2019 08:11
[2019-01-31] MEDS: LACTOBACILLUS RHAMNOSUS GG 1 CAPSULE. PO SCH ×2 (09:05→21:20)
[2019-01-31] MEDS: PANTOPRAZOLE 40 MG TABLET.DR. PO SCH ×2 (09:06→16:20)
[2019-01-31] MEDS: FLUTICASONE 50MCG/NASAL SPRAY 16GM BOTTLE. NS SCH (09:06)
[2019-01-31] MEDS: ENOXAPARIN 40 MG/0.4 ML SYRINGE. SQ SCH (09:07)
--- NOTE | 2019-01-31 11:30 | NUR ---
SW following pt. Spoke with pt at bedside regarding PT Recommendation for SNU. Pt reported she rather go home with Chaka HUGHES upon dc. Pt currently on TPN and is starting clear liquid diet as well. Will continue to eval needs. KIM LEMONS.
[2019-01-31] MEDS: TPN PER PHARMACY MC PRN (13:26)
--- NOTE | 2019-01-31 13:28 | NUR ---
Pharmacy TPN Dosing Note S: GAURAV DEAL is a 68 year old F Currently receiving Central Continuous TPN started 01/30/19 B:Pertinent PMH: Ileus s/p ileostomy takedown Height: 5 feet, 0 inches Weight: 75.447445 kg Current diet: CLEARS LABS: Sodium: 140 Potassium: 3.6 Chloride: 105 Calcium: 7.5 Corrected Calcium: 7.26 Magnesium: 2.2 CO2: 27 SCr: 1.2 Glucose: 106 Albumin: 4.3 AST: 69 (01/20/19) ALT: 154 (01/20/19) TPN FORMULA: TPN TYPE: Central Continuous AMINO ACIDS: 60 gm DEXTROSE: 195 gm LIPIDS: 20 gm SODIUM CHLORIDE: 90 mEq SODIUM ACETATE: - mEq SODIUM PHOSPHATE: - mmol POTASSIUM CHLORIDE: 50 mEq POTASSIUM ACETATE: - mEq POTASSIUM PHOSPHATE: 20 mmol MAGNESIUM: 18 mEq CALCIUM: 10 mEq INSULIN: - units MULTIPLE VITAMIN: 10 ml TRACE ELEMENTS: mte-5 1 mL ml(s) TPN PLAN: -Electrolytes replaced yesterday, all within normal limits today -Continue same TPN -Labs in the am R: Continue TPN as written above. Will monitor electrolytes, glucose, and tolerance to TPN. MANISH AYALA [facility], 01/31/19 [id number]
--- NOTE | 2019-01-31 13:48 | PDOC ---
PROGRESS NOTES Subjective Subjective Patient feeling better on TPN now. clear liq started + BM and flatus reported Objective Objective Vital Signs Date Time Temp Pulse Resp B/P (MAP) Pulse Ox O2 Delivery O2 Flow Rate FiO2 01/31/19 11:00 98.0 66 18 115/65 (82) 99 Room Air 98.0 01/30/19 15:43 2.0 Intake and Output 01/31/19 07:00 Intake Total 1356.6666 ml Balance 1356.6666 ml Intake Oral 0 ml IV Total 1356.6666 ml # Voids 7 # Bowel Movements 1 Physical Exam Abdomen: No tenderness, Other (+ bs) Extremities: No edema General: Alert Lungs: Clear to auscultation Assessment Assessment Problems Medical Problems: (1) Colostomy in place Status: Acute (2) Pancreatitis Status: Acute POD # 6 Open choley and ileostomy take down Hypokalemia [id number] renal failure. Chronic cholecystitis Pancreatitis Diet-controlled hypertension. Diet-controlled type 2 diabetes. Gastroesophageal reflux disease. Plan Plan of Care Advance diet per surg recc continue tpn Home when tolerating diet and appropriate bowel function Comment Review of Relevant I have reviewed the following items sathya (where applicable) has been applied. Labs Laboratory Tests Test 01/29/19 15:35 01/30/19 06:15 01/31/19 05:30 Sodium Level 139 mmol/L (136-145) 138 mmol/L (136-145) 140 mmol/L (136-145) Potassium Level 2.9 mmol/L (3.5-5.1) 3.3 mmol/L (3.5-5.1) 3.6 mmol/L (3.5-5.1) Chloride Level 105 mmol/L (98-107) 105 mmol/L (98-107) 105 mmol/L (98-107) Carbon Dioxide Level 25 mmol/L (21-32) 26 mmol/L (21-32) 27 mmol/L (21-32) Anion Gap 9 (6-14) 7 (6-14) 8 (6-14) Blood Urea Nitrogen 6 mg/dL (7-20) 8 mg/dL (7-20) 11 mg/dL (7-20) Creatinine 1.1 mg/dL (0.6-1.0) 1.1 mg/dL (0.6-1.0) 1.2 mg/dL (0.6-1.0) Estimated GFR (Cockcroft-Gault) 59.4 59.4 53.7 Glucose Level 100 mg/dL (70-99) 98 mg/dL (70-99) 106 mg/dL (70-99) Calcium Level 7.5 mg/dL (8.5-10.1) 7.9 mg/dL (8.5-10.1) 7.5 mg/dL (8.5-10.1) Phosphorus Level 1.6 mg/dL (2.6-4.7) 2.6 mg/dL (2.6-4.7) Magnesium Level 1.3 mg/dL (1.8-2.4) 2.2 mg/dL (1.8-2.4) Triglycerides Level 121 mg/dL (0-150) White Blood Count 3.8 x10^3/uL (4.0-11.0) Red Blood Count 2.88 x10^6/uL (3.50-5.40) Hemoglobin 7.6 g/dL (12.0-15.5) Hematocrit 23.5 % (36.0-47.0) Mean Corpuscular Volume 82 fL (79-100) Mean Corpuscular Hemoglobin 26 pg (25-35) Mean Corpuscular Hemoglobin Concent 32 g/dL (31-37) Red Cell Distribution Width 16.8 % (11.5-14.5) Platelet Count 236 x10^3/uL (140-400) Neutrophils (%) (Auto) 58 % (31-73) Lymphocytes (%) (Auto) 26 % (24-48) Monocytes (%) (Auto) 14 % (0-9) Eosinophils (%) (Auto) 2 % (0-3) Basophils (%) (Auto) 1 % (0-3) Neutrophils # (Auto) 2.2 x10^3uL (1.8-7.7) Lymphocytes # (Auto) 1.0 x10^3/uL (1.0-4.8) Monocytes # (Auto) 0.5 x10^3/uL (0.0-1.1) Eosinophils # (Auto) 0.1 x10^3/uL (0.0-0.7) Basophils # (Auto) 0.0 x10^3/uL (0.0-0.2) Laboratory Tests Test 01/31/19 05:30 White Blood Count 3.8 x10^3/uL (4.0-11.0) Red Blood Count 2.88 x10^6/uL (3.50-5.40) Hemoglobin 7.6 g/dL (12.0-15.5) Hematocrit 23.5 % (36.0-47.0) Mean Corpuscular Volume 82 fL (79-100) Mean Corpuscular Hemoglobin 26 pg (25-35) Mean Corpuscular Hemoglobin Concent 32 g/dL (31-37) Red Cell Distribution Width 16.8 % (11.5-14.5) Platelet Count 236 x10^3/uL (140-400) Neutrophils (%) (Auto) 58 % (31-73) Lymphocytes (%) (Auto) 26 % (24-48) Monocytes (%) (Auto) 14 % (0-9) Eosinophils (%) (Auto) 2 % (0-3) Basophils (%) (Auto) 1 % (0-3) Neutrophils # (Auto) 2.2 x10^3uL (1.8-7.7) Lymphocytes # (Auto) 1.0 x10^3/uL (1.0-4.8) Monocytes # (Auto) 0.5 x10^3/uL (0.0-1.1) Eosinophils # (Auto) 0.1 x10^3/uL (0.0-0.7) Basophils # (Auto) 0.0 x10^3/uL (0.0-0.2) Sodium Level 140 mmol/L (136-145) Potassium Level 3.6 mmol/L (3.5-5.1) Chloride Level 105 mmol/L (98-107) Carbon Dioxide Level 27 mmol/L (21-32) Anion Gap 8 (6-14) Blood Urea Nitrogen 11 mg/dL (7-20) Creatinine 1.2 mg/dL (0.6-1.0) Estimated GFR (Cockcroft-Gault) 53.7 Glucose Level 106 mg/dL (70-99) Calcium Level 7.5 mg/dL (8.5-10.1) Phosphorus Level 2.6 mg/dL (2.6-4.7) Magnesium Level 2.2 mg/dL (1.8-2.4) Microbiology 01/20/19 Urine Culture - Final, Complete 01/20/19 Urine Culture Result 1 (JOSE ANTONIO) - Final, Complete Medications Current Medications Sodium Chloride 1,000 ml @ 1,000 mls/hr Q1H IV Last administered on 01/20/19 16:49; Start 01/20/19 at 16:09; Stop 01/20/19 at 17:08; Status DC Ondansetron HCl (Zofran) 4 mg 1X ONCE IV Last administered on 01/20/19 16:50; Start 01/20/19 at 16:15; Stop 01/20/19 at 16:22; Status DC Sodium Chloride 1,000 ml @ 150 mls/hr Q6H40M IV Last administered on 01/21/19 17:45; Start 01/20/19 at 18:15; Stop 01/21/19 at 18:14; Status DC Cephalexin HCl (Keflex) 1,000 mg BID PO Last administered on 01/24/19 08:31; Start 01/22/19 at 09:00; Stop 01/24/19 at 10:22; Status DC Ondansetron HCl (Zofran Odt) 4 mg PRN Q8HRS PRN PO NAUSEA/VOMITING; Start at 09:30; Stop 01/22/19 at 09:54; Status DC Acetaminophen/ Hydrocodone Bitart (Lortab 5/325) 1 tab PRN Q4HRS PRN PO PAIN Last administered on 01/31/19at 02:16; Start 01/22/19 at 10:00 Ondansetron HCl (Zofran) 4 mg PRN Q4HRS PRN IV NAUSEA/VOMITING; Start 01/22/19 at 10:00; Stop 01/26/19 at 10:57; Status DC Fluticasone Propionate (Flonase) 2 spray DAILY NS Last administered on 09:06; Start 01/22/19 at 10:30 Pantoprazole Sodium (Protonix) 40 mg BIDAC PO Last administered on 01/31/19 09 :06; Start 01/22/19 at 11:30 Ondansetron HCl (Zofran Odt) 4 mg PRN Q4HRS PRN PO NAUSEA/VOMITING Last administered on 01/27/19at 22:17; Start 01/22/19 at 10:00 Sodium Chloride 1,000 ml @ 100 mls/hr Q10H IV Last administered on 01/25/19at 07 :28; Start 01/22/19 at 12:30; Stop 01/27/19 at 09:47; Status DC Lactobacillus Rhamnosus (Culturelle) 1 cap BID PO Last administered on at 08:15; Start 01/22/19 at 21:00 Potassium Chloride (Klor-Con) 20 meq 1X ONCE PO Last administered on 01/24/19at 11:08; Start 01/24/19 at 10:30; Stop 01/24/19 at 10:31; Status DC Ondansetron HCl (Zofran) 4 mg PRN Q6HRS PRN IV NAUSEA/VOMITING; Start 01/25/19 at 07:00; Stop 01/25/19 at 20:00; Status DC Fentanyl Citrate (Fentanyl 2ml Vial) 25 mcg PRN Q5MIN PRN IV MILD PAIN; Start 01/25/19 at 07:00; Stop 01/25/19 at 20:00; Status DC Fentanyl Citrate (Fentanyl 2ml Vial) 50 mcg PRN Q5MIN PRN IV MODERATE TO SEVERE PAIN Last administered on 01/25/19at 12:03; Start 01/25/19 at 07:00; Stop at 20:00; Status DC Morphine Sulfate (Morphine Sulfate) 1 mg PRN Q10MIN PRN IV SEVERE PAIN Last administered on 01/25/19at 12:54; Start 01/25/19 at 07:00; Stop 01/25/19 at 20:00; Status DC Ringer's Solution 1,000 ml @ 30 mls/hr Q24H IV Last administered on 01/25/19at 08:14; Start 01/25/19 at 07:00; Stop 01/25/19 at 18:59; Status DC Hydromorphone HCl (Dilaudid) 0.5 mg PRN Q10MIN PRN IV SEV PAIN, Second choice; Start 01/25/19 at 07:00; Stop 01/25/19 at 20:00; Status DC Prochlorperazine Edisylate (Compazine) 5 mg PACU PRN PRN IV NAUSEA, MRX1; Start 01/25/19 at 07:00; Stop 01/25/19 at 20:00; Status DC Bupivacaine HCl/ Epinephrine Bitart (Sensorcain-Mpf Epi 0.5%-[id number]) 30 ml STK -MED ONCE .ROUTE Last administered on 01/25/19at 08:49; Start 01/25/19 at 06:22; Stop 01/25/19 at 07:22; Status DC Cellulose (Surgicel Hemostat 2x3) 1 each STK-MED ONCE .ROUTE ; Start 01/25/19 at 06:22; Stop 01/25/19 at 07:22; Status DC Iohexol (Omnipaque 300 Mg/ml) 100 ml STK-MED ONCE .ROUTE Last administered on at 08:50; Start 01/25/19 at 06:22; Stop 01/25/19 at 07:22; Status DC Bisacodyl (Dulcolax Supp) 10 mg STK-MED ONCE .ROUTE Last administered on at 08:51; Start 01/25/19 at 06:22; Stop 01/25/19 at 07:23; Status DC Sevoflurane (Ultane) 90 ml STK-MED ONCE IH ; Start 01/25/19 at 08:26; Stop at 08:27; Status DC Rocuronium Lag[place] (Zemuron) 50 mg STK-MED ONCE .ROUTE ; Start 01/25/19 at 08:26 ; Stop 01/25/19 at 08:27; Status DC Fentanyl Citrate (Fentanyl 2ml Vial) 100 mcg STK-MED ONCE .ROUTE ; Start at 08:26; Stop 01/25/19 at 08:27; Status DC Neostigmine Methylsulfate (Neostigmine Methylsulfate) 5 mg STK-MED ONCE .ROUTE ; Start 01/25/19 at 08:27; Stop 01/25/19 at 08:28; Status DC Midazolam HCl (Versed) 2 mg STK-MED ONCE .ROUTE ; Start 01/25/19 at 08:27; Stop 01/25/19 at 08:28; Status DC Glycopyrrolate (Robinul) 1 mg STK-MED ONCE .ROUTE ; Start 01/25/19 at 08:27; Stop 01/25/19 at 08:28; Status DC Propofol 20 ml @ As Directed STK-MED ONCE IV ; Start 01/25/19 at 08:27; Stop 01/25 at 08:28; Status DC Phenylephrine HCl (PHENYLEPHRINE in 0.9% NACL PF) 1 mg STK-MED ONCE IV ; Start 01/25/19 at 08:27; Stop 01/25/19 at 08:28; Status DC Lidocaine HCl (Lidocaine Pf 2% Vial) 5 ml STK-MED ONCE .ROUTE ; Start 01/25/19 at 08:27; Stop 01/25/19 at 08:28; Status DC Dexamethasone Sodium Phosphate (Decadron) 20 mg STK-MED ONCE .ROUTE ; Start 01/25 at 08:27; Stop 01/25/19 at 08:28; Status DC Ondansetron HCl (Zofran) 4 mg STK-MED ONCE .ROUTE ; Start 01/25/19 at 08:27; Stop 01/25/19 at 08:28; Status DC Heparin Sodium (Porcine) 1000 unit/Sodium Chloride 1,001 ml @ 1,001 mls/hr 1X ONCE IRR Last administered on 01/25/19at 08:52; Start 01/25/19 at 08:45; Stop 01/25 at 09:44; Status DC Cefoxitin Sodium (Mefoxin) 2 gm 1X PREOP IVP ; Start 01/25/19 at 09:00; Stop 01/25/19 at 09:00; Status DC Cefoxitin Sodium (Mefoxin) 1 gm STK-MED ONCE IVP ; Start 01/25/19 at 08:57; Stop 01/25/19 at 08:58; Status DC Cefoxitin Sodium (Mefoxin) 2 gm 1X PREOP IVP ; Start 01/25/19 at 09:15; Stop 01/25/19 at 09:15; Status DC Cefoxitin Sodium (Mefoxin) 2 gm 1X PREOP IVP Last administered on 01/25/19at 10: 31; Start 01/25/19 at 09:15; Stop 01/26/19 at 16:25; Status DC Fentanyl Citrate (Fentanyl 2ml Vial) 100 mcg STK-MED ONCE .ROUTE ; Start at 10:15; Stop 01/25/19 at 10:16; Status DC Rocuronium [place] (Zemuron) 50 mg STK-MED ONCE .ROUTE ; Start 01/25/19 at 10:26 ; Stop 01/25/19 at 10:27; Status DC Enoxaparin Sodium (Lovenox 40mg Syringe) 40 mg Q24H SQ Last administered on at 09:07; Start 01/26/19 at 09:00 Sodium Chloride (Normal Saline Flush) 3 ml QSHIFT PRN IV AFTER MEDS AND BLOOD DRAWS; Start 01/25/19 at 11:15; Stop 01/27/19 at 09:47; Status DC Ringer's Solution 1,000 ml @ 100 mls/hr Q10H IV Last administered on at 09:38; Start 01/25/19 at 12:00; Stop 01/27/19 at 09:47; Status DC Naloxone HCl (Narcan) 0.4 mg PRN Q2MIN PRN IV SEE INSTRUCTIONS; Start 01/25/19 at 11:15; Stop 01/27/19 at 09:47; Status DC Sodium Chloride 1,000 ml @ 25 mls/hr Q24H IV ; Start 01/25/19 at 11:30; Stop 09/06 at 09:47; Status DC Morphine Sulfate 30 ml @ 0 mls/hr CONT PRN PRN IV PER PROTOCOL Last administered on 01/25/19at 12:04; Start 01/25/19 at 11:15; Stop 01/27/19 at 09:47; Status DC Ondansetron HCl (Zofran) 4 mg PRN Q6HRS PRN IV NAUESA, 1ST CHOICE; Start at 11:15; Stop 01/27/19 at 09:47; Status DC Senna/Docusate Sodium (Senna Plus) 1 tab PRN BID PRN PO CONSTIPATION; Start 09/06 at 09:45 Morphine Sulfate (Morphine Sulfate) 2 mg PRN Q4HRS PRN IV PAIN Last administered on 01/30/19at 22:07; Start 01/27/19 at 18:15 Ondansetron HCl (Zofran) 4 mg PRN Q8HRS PRN IV NAUSEA/VOMITING Last administered on 01/30/19at 22:07; Start 01/28/19 at 08:45 Potassium Chloride/Dextrose/ Sod Cl 1,000 ml @ 75 mls/hr [id number] IV Last administered on 01/29/19at 11:47; Start 01/28/19 at 08:45; Stop 01/29/19 at 16:28 ; Status DC Info (Tpn Per Pharmacy) 1 each PRN DAILY PRN MC SEE COMMENTS Last administered on 01/31/19at 13:26; Start 01/30/19 at 12:45 Amino Acids/ Glycerin/ Electrolytes 1,000 ml @ 80 mls/hr [id number] IV Last administered on 01/30/19at 05:26; Start 01/29/19 at 16:15; Stop 01/30/19 at 21:17 ; Status DC Potassium Chloride/Water 50 ml @ 50 mls/hr Q1H IV Last administered on at 17:56; Start 01/29/19 at 16:30; Stop 01/29/19 at 18:29; Status DC Potassium Phosphate 10 mmol/ Dextrose 103.3333 ml @ 51.667 m... Q2H IV Last administered on 01/30/19at 15:43; Start 01/30/19 at 12:00; Stop 01/30/19 at 15:59 ; Status DC Magnesium Sulfate 50 ml @ 25 mls/hr 1X ONCE IV ; Start 01/30/19 at 07:45; Stop 01/30/19 at 09:44; Status UNV Magnesium Sulfate/ Dextrose 100 ml @ 25 mls/hr 1X ONCE IV Last administered on 01/30/19at 08:30; Start 01/30/19 at 08:00; Stop 01/30/19 at 11:59; Status DC Potassium Chloride/Water 50 ml @ 50 mls/hr 1X ONCE IV Last administered on at 11:56; Start 01/30/19 at 11:30; Stop 01/30/19 at 12:29; Status DC Sodium Chloride 90 meq/Potassium Chloride 50 meq/ Potassium Phosphate 20 mmol/ Magnesium Sulfate 18 meq/Calcium Gluconate 10 meq/ Multivitamins 10 ml/Chromium / Copper/Manganese/ Seleni/Zn 1 ml/ Total Parenteral Nutrition/Amino Acids/ Dextrose/ Fat Emulsion Intravenous 1,512 ml @ 63 mls/hr TPN CONT IV Last administered on 01/30/19at 22:06; Start 01/30/19 at 22:00; Stop 01/31/19 at 21:59 Sodium Chloride 90 meq/Potassium Chloride 50 meq/ Potassium Phosphate 20 mmol/ Magnesium Sulfate 18 meq/Calcium Gluconate 10 meq/ Multivitamins 10 ml/Chromium / Copper/Manganese/ Seleni/Zn 1 ml/ Total Parenteral Nutrition/Amino Acids/ Dextrose/ Fat Emulsion Intravenous 1,512 ml @ 63 mls/hr TPN CONT IV ; Start at 22:00; Stop 02/01/19 at 21:59 Active Scripts Active [Pantoprazole] 40 MG Tablet.dr 40 Mg PO BIDAC 30 Days Ondansetron Hcl 4 Mg/2 Ml Vial (Ondansetron Hcl/Pf) 4 Mg/2 Ml Vial 4 Mg IV PRN Q4HRS PRN 14 Days Hydrocodone-Apap 5-325 (Hydrocodone Bit/Acetaminophen) 1 Tab Tablet 1 Tab PO PRN Q4HRS PRN 30 Days Reported Flonase Allergy Relief (Fluticasone Propionate) 9.9 Ml [place].susp 2 Sprays NS DAILY Vitals/I & O Vital Sign - Last 24 Hours 01/30/19 01/30/19 01/30/19 01/30/19 15:00 15:43 19:00 19:28 Temp 98.9 97.7 98.9 97.7 Pulse 74 72 Resp 17 18 20 B/P (MAP) 119/71 (87) 123/57 (79) Pulse Ox 97 97 98 O2 Delivery Room Air Room Air Room Air Room Air O2 Flow Rate 2.0 01/30/19 01/30/19 01/30/19 01/31/19 22:07 22:37 23:00 02:16 Temp 99.9 99.9 Pulse 76 Resp 18 18 20 18 B/P (MAP) 110/55 (73) Pulse Ox 98 98 95 95 O2 Delivery Room Air Room Air Room Air Room Air 01/31/19 01/31/19 01/31/19 01/31/19 03:02 03:16 03:26 07:00 Temp 100.2 97.7 98.4 100.2 97.7 98.4 Pulse 81 69 Resp 20 18 18 B/P (MAP) 115/52 (73) 121/71 (88) Pulse Ox 95 95 98 O2 Delivery Room Air Room Air Room Air 01/31/19 01/31/19 08:00 11:00 Temp 98.0 98.0 Pulse 66 Resp 18 B/P (MAP) 115/65 (82) Pulse Ox 99 O2 Delivery Room Air Room Air Intake and Output 01/30/19 01/30/19 01/31/19 15:00 23:00 07:00 Intake Total 150 ml 206.6666 ml 1000 ml Balance 150 ml 206.6666 ml 1000 ml ASTRID DURAN MD Jan 31, 2019 13:48
[2019-01-31] MEDS ORDERED: TOTAL PARENTERAL NUTRITION IV SCH ×10 (22:00)
[2019-01-31] MEDS ORDERED: [UNRECOGNIZED DRUG - OTHER] IV SCH ×10 (22:00)
[2019-01-31] MEDS ORDERED: DEXTROSE 70% IV SCH ×10 (22:00)
[2019-01-31] MEDS ORDERED: AMINO ACID IV SCH ×10 (22:00)
[2019-02-01 02:56] VITALS: BP 103/65
[2019-02-01 06:07] LABS: GFR 66.3; MAGNESIUM 2.2 mg/dL (1.8-2.4); PHOSPHORUS 2.7 mg/dL (2.6-4.7); POTASSIUM 4.1 mmol/L (3.5-5.1)
[2019-02-01 07:00] VITALS: BP 125/60
[2019-02-01] MEDS: PANTOPRAZOLE 40 MG TABLET.DR. PO SCH ×2 (08:21→17:00)
[2019-02-01] MEDS: FLUTICASONE 50MCG/NASAL SPRAY 16GM BOTTLE. NS SCH (08:22)
[2019-02-01] MEDS: LACTOBACILLUS RHAMNOSUS GG 1 CAPSULE. PO SCH ×2 (08:22→21:02)
[2019-02-01] MEDS: ENOXAPARIN 40 MG/0.4 ML SYRINGE. SQ SCH (08:23)
--- NOTE | 2019-02-01 09:39 | PDOC ---
SURGICAL PROGRESS NOTE Subjective tolerating clears, would like more to eat + flatus and stool no emesis Vital Signs Vital Signs Date Time Temp Pulse Resp B/P (MAP) Pulse Ox O2 Delivery O2 Flow Rate FiO2 02/01/19 08:00 Room Air 02/01/19 07:00 98.1 68 16 125/60 (81) 96 98.1 General: Alert, Oriented X3, Cooperative, No acute distress Abdomen: Soft, Other (ND, incision intact) Labs Laboratory Tests Test 01/31/19 05:30 02/01/19 05:40 White Blood Count 3.8 x10^3/uL (4.0-11.0) Red Blood Count 2.88 x10^6/uL (3.50-5.40) Hemoglobin 7.6 g/dL (12.0-15.5) Hematocrit 23.5 % (36.0-47.0) Mean Corpuscular Volume 82 fL (79-100) Mean Corpuscular Hemoglobin 26 pg (25-35) Mean Corpuscular Hemoglobin Concent 32 g/dL (31-37) Red Cell Distribution Width 16.8 % (11.5-14.5) Platelet Count 236 x10^3/uL (140-400) Neutrophils (%) (Auto) 58 % (31-73) Lymphocytes (%) (Auto) 26 % (24-48) Monocytes (%) (Auto) 14 % (0-9) Eosinophils (%) (Auto) 2 % (0-3) Basophils (%) (Auto) 1 % (0-3) Neutrophils # (Auto) 2.2 x10^3uL (1.8-7.7) Lymphocytes # (Auto) 1.0 x10^3/uL (1.0-4.8) Monocytes # (Auto) 0.5 x10^3/uL (0.0-1.1) Eosinophils # (Auto) 0.1 x10^3/uL (0.0-0.7) Basophils # (Auto) 0.0 x10^3/uL (0.0-0.2) Sodium Level 140 mmol/L (136-145) 141 mmol/L (136-145) Potassium Level 3.6 mmol/L (3.5-5.1) 4.1 mmol/L (3.5-5.1) Chloride Level 105 mmol/L (98-107) 107 mmol/L (98-107) Carbon Dioxide Level 27 mmol/L (21-32) 28 mmol/L (21-32) Anion Gap 8 (6-14) 6 (6-14) Blood Urea Nitrogen 11 mg/dL (7-20) 11 mg/dL (7-20) Creatinine 1.2 mg/dL (0.6-1.0) 1.0 mg/dL (0.6-1.0) Estimated GFR (Cockcroft-Gault) 53.7 66.3 Glucose Level 106 mg/dL (70-99) 108 mg/dL (70-99) Calcium Level 7.5 mg/dL (8.5-10.1) 8.0 mg/dL (8.5-10.1) Phosphorus Level 2.6 mg/dL (2.6-4.7) 2.7 mg/dL (2.6-4.7) Magnesium Level 2.2 mg/dL (1.8-2.4) 2.2 mg/dL (1.8-2.4) Laboratory Tests Test 02/01/19 05:40 Sodium Level 141 mmol/L (136-145) Potassium Level 4.1 mmol/L (3.5-5.1) Chloride Level 107 mmol/L (98-107) Carbon Dioxide Level 28 mmol/L (21-32) Anion Gap 6 (6-14) Blood Urea Nitrogen 11 mg/dL (7-20) Creatinine 1.0 mg/dL (0.6-1.0) Estimated GFR (Cockcroft-Gault) 66.3 Glucose Level 108 mg/dL (70-99) Calcium Level 8.0 mg/dL (8.5-10.1) Phosphorus Level 2.7 mg/dL (2.6-4.7) Magnesium Level 2.2 mg/dL (1.8-2.4) Problem List Problems Medical Problems: (1) Colostomy in place Status: Acute (2) Pancreatitis Status: Acute Assessment/Plan s/p takedown advance diet FERNANDO MAHONEY APRN Feb 01, 2019 09:38
[2019-02-01 11:00] VITALS: BP 140/96
--- NOTE | 2019-02-01 12:32 | PDOC ---
PROGRESS NOTES Subjective Subjective In feeling better. Passing gas but still no BM. Tolerating clear liquids. Objective Objective Vital Signs Date Time Temp Pulse Resp B/P (MAP) Pulse Ox O2 Delivery O2 Flow Rate FiO2 02/01/19 11:00 98.4 74 16 140/96 (111) 97 Room Air 98.4 01/30/19 15:43 2.0 Intake and Output 02/01/19 07:00 # Voids 6 Physical Exam Abdomen: Normal bowel sounds Heart: Regular rate Extremities: No edema General: Alert Lungs: Clear to auscultation Assessment Assessment Problems Medical Problems: (1) Colostomy in place Status: Acute (2) Pancreatitis Status: Acute POD # 6 Open choley and ileostomy take down Diet-controlled hypertension. Diet-controlled type 2 diabetes. Gastroesophageal reflux disease. anemia Plan Plan of Care check cbc Advance diet per surg recc continue tpn Home when tolerating diet and appropriate bowel function Comment Review of Relevant I have reviewed the following items sathya (where applicable) has been applied. Labs Laboratory Tests Test 01/31/19 05:30 02/01/19 05:40 White Blood Count 3.8 x10^3/uL (4.0-11.0) Red Blood Count 2.88 x10^6/uL (3.50-5.40) Hemoglobin 7.6 g/dL (12.0-15.5) Hematocrit 23.5 % (36.0-47.0) Mean Corpuscular Volume 82 fL (79-100) Mean Corpuscular Hemoglobin 26 pg (25-35) Mean Corpuscular Hemoglobin Concent 32 g/dL (31-37) Red Cell Distribution Width 16.8 % (11.5-14.5) Platelet Count 236 x10^3/uL (140-400) Neutrophils (%) (Auto) 58 % (31-73) Lymphocytes (%) (Auto) 26 % (24-48) Monocytes (%) (Auto) 14 % (0-9) Eosinophils (%) (Auto) 2 % (0-3) Basophils (%) (Auto) 1 % (0-3) Neutrophils # (Auto) 2.2 x10^3uL (1.8-7.7) Lymphocytes # (Auto) 1.0 x10^3/uL (1.0-4.8) Monocytes # (Auto) 0.5 x10^3/uL (0.0-1.1) Eosinophils # (Auto) 0.1 x10^3/uL (0.0-0.7) Basophils # (Auto) 0.0 x10^3/uL (0.0-0.2) Sodium Level 140 mmol/L (136-145) 141 mmol/L (136-145) Potassium Level 3.6 mmol/L (3.5-5.1) 4.1 mmol/L (3.5-5.1) Chloride Level 105 mmol/L (98-107) 107 mmol/L (98-107) Carbon Dioxide Level 27 mmol/L (21-32) 28 mmol/L (21-32) Anion Gap 8 (6-14) 6 (6-14) Blood Urea Nitrogen 11 mg/dL (7-20) 11 mg/dL (7-20) Creatinine 1.2 mg/dL (0.6-1.0) 1.0 mg/dL (0.6-1.0) Estimated GFR (Cockcroft-Gault) 53.7 66.3 Glucose Level 106 mg/dL (70-99) 108 mg/dL (70-99) Calcium Level 7.5 mg/dL (8.5-10.1) 8.0 mg/dL (8.5-10.1) Phosphorus Level 2.6 mg/dL (2.6-4.7) 2.7 mg/dL (2.6-4.7) Magnesium Level 2.2 mg/dL (1.8-2.4) 2.2 mg/dL (1.8-2.4) Laboratory Tests Test 02/01/19 05:40 Sodium Level 141 mmol/L (136-145) Potassium Level 4.1 mmol/L (3.5-5.1) Chloride Level 107 mmol/L (98-107) Carbon Dioxide Level 28 mmol/L (21-32) Anion Gap 6 (6-14) Blood Urea Nitrogen 11 mg/dL (7-20) Creatinine 1.0 mg/dL (0.6-1.0) Estimated GFR (Cockcroft-Gault) 66.3 Glucose Level 108 mg/dL (70-99) Calcium Level 8.0 mg/dL (8.5-10.1) Phosphorus Level 2.7 mg/dL (2.6-4.7) Magnesium Level 2.2 mg/dL (1.8-2.4) Microbiology 01/20/19 Urine Culture - Final, Complete 01/20/19 Urine Culture Result 1 (JOSE ANTONIO) - Final, Complete Medications Current Medications Sodium Chloride 1,000 ml @ 1,000 mls/hr Q1H IV Last administered on 01/20/19 16:49; Start 01/20/19 at 16:09; Stop 01/20/19 at 17:08; Status DC Ondansetron HCl (Zofran) 4 mg 1X ONCE IV Last administered on 01/20/19 16:50; Start 01/20/19 at 16:15; Stop 01/20/19 at 16:22; Status DC Sodium Chloride 1,000 ml @ 150 mls/hr Q6H40M IV Last administered on 01/21/19 17:45; Start 01/20/19 at 18:15; Stop 01/21/19 at 18:14; Status DC Cephalexin HCl (Keflex) 1,000 mg BID PO Last administered on 01/24/19at 08:31; Start 01/22/19 at 09:00; Stop 01/24/19 at 10:22; Status DC Ondansetron HCl (Zofran Odt) 4 mg PRN Q8HRS PRN PO NAUSEA/VOMITING; Start at 09:30; Stop 01/22/19 at 09:54; Status DC Acetaminophen/ Hydrocodone Bitart (Lortab 5/325) 1 tab PRN Q4HRS PRN PO PAIN Last administered on 01/31/19at 02:16; Start 01/22/19 at 10:00 Ondansetron HCl (Zofran) 4 mg PRN Q4HRS PRN IV NAUSEA/VOMITING; Start 01/22/19 at 10:00; Stop 01/26/19 at 10:57; Status DC Fluticasone Propionate (Flonase) 2 spray DAILY NS Last administered on at 08:22; Start 01/22/19 at 10:30 Pantoprazole Sodium (Protonix) 40 mg BIDAC PO Last administered on 02/01/19 08 :21; Start 01/22/19 at 11:30 Ondansetron HCl (Zofran Odt) 4 mg PRN Q4HRS PRN PO NAUSEA/VOMITING Last administered on 01/27/19at 22:17; Start 01/22/19 at 10:00 Sodium Chloride 1,000 ml @ 100 mls/hr Q10H IV Last administered on 01/25/19at 07 :28; Start 01/22/19 at 12:30; Stop 01/27/19 at 09:47; Status DC Lactobacillus Rhamnosus (Culturelle) 1 cap BID PO Last administered on at 21:20; Start 01/22/19 at 21:00 Potassium Chloride (Klor-Con) 20 meq 1X ONCE PO Last administered on 01/24/19at 11:08; Start 01/24/19 at 10:30; Stop 01/24/19 at 10:31; Status DC Ondansetron HCl (Zofran) 4 mg PRN Q6HRS PRN IV NAUSEA/VOMITING; Start 01/25/19 at 07:00; Stop 01/25/19 at 20:00; Status DC Fentanyl Citrate (Fentanyl 2ml Vial) 25 mcg PRN Q5MIN PRN IV MILD PAIN; Start 01/25/19 at 07:00; Stop 01/25/19 at 20:00; Status DC Fentanyl Citrate (Fentanyl 2ml Vial) 50 mcg PRN Q5MIN PRN IV MODERATE TO SEVERE PAIN Last administered on 01/25/19at 12:03; Start 01/25/19 at 07:00; Stop at 20:00; Status DC Morphine Sulfate (Morphine Sulfate) 1 mg PRN Q10MIN PRN IV SEVERE PAIN Last administered on 01/25/19at 12:54; Start 01/25/19 at 07:00; Stop 01/25/19 at 20:00; Status DC Ringer's Solution 1,000 ml @ 30 mls/hr Q24H IV Last administered on 01/25/19at 08:14; Start 01/25/19 at 07:00; Stop 01/25/19 at 18:59; Status DC Hydromorphone HCl (Dilaudid) 0.5 mg PRN Q10MIN PRN IV SEV PAIN, Second choice; Start 01/25/19 at 07:00; Stop 01/25/19 at 20:00; Status DC Prochlorperazine Edisylate (Compazine) 5 mg PACU PRN PRN IV NAUSEA, MRX1; Start 01/25/19 at 07:00; Stop 01/25/19 at 20:00; Status DC Bupivacaine HCl/ Epinephrine Bitart (Sensorcain-Mpf Epi 0.5%-[id number]) 30 ml STK -MED ONCE .ROUTE Last administered on 01/25/19at 08:49; Start 01/25/19 at 06:22; Stop 01/25/19 at 07:22; Status DC Cellulose (Surgicel Hemostat 2x3) 1 each STK-MED ONCE .ROUTE ; Start 01/25/19 at 06:22; Stop 01/25/19 at 07:22; Status DC Iohexol (Omnipaque 300 Mg/ml) 100 ml STK-MED ONCE .ROUTE Last administered on at 08:50; Start 01/25/19 at 06:22; Stop 01/25/19 at 07:22; Status DC Bisacodyl (Dulcolax Supp) 10 mg STK-MED ONCE .ROUTE Last administered on at 08:51; Start 01/25/19 at 06:22; Stop 01/25/19 at 07:23; Status DC Sevoflurane (Ultane) 90 ml STK-MED ONCE IH ; Start 01/25/19 at 08:26; Stop at 08:27; Status DC Rocuronium Montesano (Zemuron) 50 mg STK-MED ONCE .ROUTE ; Start 01/25/19 at 08:26 ; Stop 01/25/19 at 08:27; Status DC Fentanyl Citrate (Fentanyl 2ml Vial) 100 mcg STK-MED ONCE .ROUTE ; Start at 08:26; Stop 01/25/19 at 08:27; Status DC Neostigmine Methylsulfate (Neostigmine Methylsulfate) 5 mg STK-MED ONCE .ROUTE ; Start 01/25/19 at 08:27; Stop 01/25/19 at 08:28; Status DC Midazolam HCl (Versed) 2 mg STK-MED ONCE .ROUTE ; Start 01/25/19 at 08:27; Stop 01/25/19 at 08:28; Status DC Glycopyrrolate (Robinul) 1 mg STK-MED ONCE .ROUTE ; Start 01/25/19 at 08:27; Stop 01/25/19 at 08:28; Status DC Propofol 20 ml @ As Directed STK-MED ONCE IV ; Start 01/25/19 at 08:27; Stop 01/25 at 08:28; Status DC Phenylephrine HCl (PHENYLEPHRINE in 0.9% NACL PF) 1 mg STK-MED ONCE IV ; Start 01/25/19 at 08:27; Stop 01/25/19 at 08:28; Status DC Lidocaine HCl (Lidocaine Pf 2% Vial) 5 ml STK-MED ONCE .ROUTE ; Start 01/25/19 at 08:27; Stop 01/25/19 at 08:28; Status DC Dexamethasone Sodium Phosphate (Decadron) 20 mg STK-MED ONCE .ROUTE ; Start 01/25 at 08:27; Stop 01/25/19 at 08:28; Status DC Ondansetron HCl (Zofran) 4 mg STK-MED ONCE .ROUTE ; Start 01/25/19 at 08:27; Stop 01/25/19 at 08:28; Status DC Heparin Sodium (Porcine) 1000 unit/Sodium Chloride 1,001 ml @ 1,001 mls/hr 1X ONCE IRR Last administered on 01/25/19at 08:52; Start 01/25/19 at 08:45; Stop 01/25 at 09:44; Status DC Cefoxitin Sodium (Mefoxin) 2 gm 1X PREOP IVP ; Start 01/25/19 at 09:00; Stop 01/25/19 at 09:00; Status DC Cefoxitin Sodium (Mefoxin) 1 gm STK-MED ONCE IVP ; Start 01/25/19 at 08:57; Stop 01/25/19 at 08:58; Status DC Cefoxitin Sodium (Mefoxin) 2 gm 1X PREOP IVP ; Start 01/25/19 at 09:15; Stop 01/25/19 at 09:15; Status DC Cefoxitin Sodium (Mefoxin) 2 gm 1X PREOP IVP Last administered on 01/25/19at 10: 31; Start 01/25/19 at 09:15; Stop 01/26/19 at 16:25; Status DC Fentanyl Citrate (Fentanyl 2ml Vial) 100 mcg STK-MED ONCE .ROUTE ; Start at 10:15; Stop 01/25/19 at 10:16; Status DC Rocuronium Montesano (Zemuron) 50 mg STK-MED ONCE .ROUTE ; Start 01/25/19 at 10:26 ; Stop 01/25/19 at 10:27; Status DC Enoxaparin Sodium (Lovenox 40mg Syringe) 40 mg Q24H SQ Last administered on at 08:23; Start 01/26/19 at 09:00 Sodium Chloride (Normal Saline Flush) 3 ml QSHIFT PRN IV AFTER MEDS AND BLOOD DRAWS; Start 01/25/19 at 11:15; Stop 01/27/19 at 09:47; Status DC Ringer's Solution 1,000 ml @ 100 mls/hr Q10H IV Last administered on at 09:38; Start 01/25/19 at 12:00; Stop 01/27/19 at 09:47; Status DC Naloxone HCl (Narcan) 0.4 mg PRN Q2MIN PRN IV SEE INSTRUCTIONS; Start 01/25/19 at 11:15; Stop 01/27/19 at 09:47; Status DC Sodium Chloride 1,000 ml @ 25 mls/hr Q24H IV ; Start 01/25/19 at 11:30; Stop 09/06 at 09:47; Status DC Morphine Sulfate 30 ml @ 0 mls/hr CONT PRN PRN IV PER PROTOCOL Last administered on 01/25/19at 12:04; Start 01/25/19 at 11:15; Stop 01/27/19 at 09:47; Status DC Ondansetron HCl (Zofran) 4 mg PRN Q6HRS PRN IV NAUESA, 1ST CHOICE; Start at 11:15; Stop 01/27/19 at 09:47; Status DC Senna/Docusate Sodium (Senna Plus) 1 tab PRN BID PRN PO CONSTIPATION; Start 09/06 at 09:45 Morphine Sulfate (Morphine Sulfate) 2 mg PRN Q4HRS PRN IV PAIN Last administered on 01/30/19at 22:07; Start 01/27/19 at 18:15 Ondansetron HCl (Zofran) 4 mg PRN Q8HRS PRN IV NAUSEA/VOMITING Last administered on 01/30/19 22:07; Start 01/28/19 at 08:45 Potassium Chloride/Dextrose/ Sod Cl 1,000 ml @ 75 mls/hr [id number] IV Last administered on 01/29/19at 11:47; Start 01/28/19 at 08:45; Stop 01/29/19 at 16:28 ; Status DC Info (Tpn Per Pharmacy) 1 each PRN DAILY PRN MC SEE COMMENTS Last administered on 01/31/19at 13:26; Start 01/30/19 at 12:45 Amino Acids/ Glycerin/ Electrolytes 1,000 ml @ 80 mls/hr [id number] IV Last administered on 01/30/19at 05:26; Start 01/29/19 at 16:15; Stop 01/30/19 at 21:17 ; Status DC Potassium Chloride/Water 50 ml @ 50 mls/hr Q1H IV Last administered on at 17:56; Start 01/29/19 at 16:30; Stop 01/29/19 at 18:29; Status DC Potassium Phosphate 10 mmol/ Dextrose 103.3333 ml @ 51.667 m... Q2H IV Last administered on 01/30/19at 15:43; Start 01/30/19 at 12:00; Stop 01/30/19 at 15:59 ; Status DC Magnesium Sulfate 50 ml @ 25 mls/hr 1X ONCE IV ; Start 01/30/19 at 07:45; Stop 01/30/19 at 09:44; Status UNV Magnesium Sulfate/ Dextrose 100 ml @ 25 mls/hr 1X ONCE IV Last administered on 01/30/19at 08:30; Start 01/30/19 at 08:00; Stop 01/30/19 at 11:59; Status DC Potassium Chloride/Water 50 ml @ 50 mls/hr 1X ONCE IV Last administered on at 11:56; Start 01/30/19 at 11:30; Stop 01/30/19 at 12:29; Status DC Sodium Chloride 90 meq/Potassium Chloride 50 meq/ Potassium Phosphate 20 mmol/ Magnesium Sulfate 18 meq/Calcium Gluconate 10 meq/ Multivitamins 10 ml/Chromium / Copper/Manganese/ Seleni/Zn 1 ml/ Total Parenteral Nutrition/Amino Acids/ Dextrose/ Fat Emulsion Intravenous 1,512 ml @ 63 mls/hr TPN CONT IV Last administered on 01/30/19at 22:06; Start 01/30/19 at 22:00; Stop 02/01/19 at 00:37 ; Status DC Sodium Chloride 90 meq/Potassium Chloride 50 meq/ Potassium Phosphate 20 mmol/ Magnesium Sulfate 18 meq/Calcium Gluconate 10 meq/ Multivitamins 10 ml/Chromium / Copper/Manganese/ Seleni/Zn 1 ml/ Total Parenteral Nutrition/Amino Acids/ Dextrose/ Fat Emulsion Intravenous 1,512 ml @ 63 mls/hr TPN CONT IV Last administered on 01/31/19at 21:20; Start 01/31/19 at 22:00; Stop 02/01/19 at 21:59 Active Scripts Active [Pantoprazole] 40 MG Tablet.dr 40 Mg PO BIDAC 30 Days Ondansetron Hcl 4 Mg/2 Ml Vial (Ondansetron Hcl/Pf) 4 Mg/2 Ml Vial 4 Mg IV PRN Q4HRS PRN 14 Days Hydrocodone-Apap 5-325 (Hydrocodone Bit/Acetaminophen) 1 Tab Tablet 1 Tab PO PRN Q4HRS PRN 30 Days Reported Flonase Allergy Relief (Fluticasone Propionate) 9.9 Ml [place].susp 2 Sprays NS DAILY Vitals/I & O Vital Sign - Last 24 Hours 01/31/19 01/31/19 01/31/19 01/31/19 15:00 15:43 19:00 23:00 Temp 98.5 98.5 98.7 98.4 98.5 98.5 98.7 98.4 Pulse 18 64 67 74 Resp 18 18 18 B/P (MAP) 116/67 (83) 116/67 (83) 114/68 (83) 98/55 (69) Pulse Ox 98 99 98 O2 Delivery Room Air Room Air Room Air Room Air 02/01/19 02/01/19 02/01/19 02/01/19 02:56 07:00 08:00 11:00 Temp 98.5 98.1 98.4 98.5 98.1 98.4 Pulse 62 68 74 Resp 18 16 16 B/P (MAP) 103/65 (78) 125/60 (81) 140/96 (111) Pulse Ox 98 96 97 O2 Delivery Room Air Room Air Room Air Room Air ASTRID DURAN MD Feb 01, 2019 12:32
[2019-02-01 13:18] LABS: HEMATOCRIT 22.1 % (36.0-47.0); HEMOGLOBIN 7.1 g/dL (12.0-15.5); RED BLOOD COUNT 2.69 x10^6/uL (3.50-5.40); RED CELL DISTRIBUTION WIDTH 16.8 % (11.5-14.5); WHITE BLOOD COUNT 3.5 x10^3/uL (4.0-11.0)
[2019-02-01] MEDS: TPN PER PHARMACY MC PRN (13:19)
--- NOTE | 2019-02-01 13:20 | NUR ---
Pharmacy TPN Dosing Note S: GAURAV DEAL is a 68 year old F Currently receiving Central Continuous TPN started 01/30/19 B:Pertinent PMH: Ileus s/p ileostomy takedown Height: 5 feet, 0 inches Weight: 75.066192 kg Current diet: CLEARS LABS: Sodium: 141 Potassium: 4.1 Chloride: 107 Calcium: 8.0 Corrected Calcium: 7.76 Magnesium: 2.2 CO2: 28 SCr: 1.0 Glucose: 108 Albumin: 4.3 AST: 69 (01/20/19) ALT: 154 (01/20/19) TPN FORMULA: TPN TYPE: Central Continuous AMINO ACIDS: 60 gm DEXTROSE: 195 gm LIPIDS: 20 gm SODIUM CHLORIDE: 90 mEq SODIUM ACETATE: - mEq SODIUM PHOSPHATE: - mmol POTASSIUM CHLORIDE: 50 mEq POTASSIUM ACETATE: - mEq POTASSIUM PHOSPHATE: 20 mmol MAGNESIUM: 18 mEq CALCIUM: 10 mEq INSULIN: - units MULTIPLE VITAMIN: 10 ml TRACE ELEMENTS: mte-5 1 mL ml(s) TPN PLAN: -Started on full liquid diet, likely dc TPN soon -Labs WNLs -Continue same TPN -Labs in the am R: Continue TPN as written above. Will monitor electrolytes, glucose, and tolerance to TPN. MANISH AYALA [facility], 02/01/19 0836
[2019-02-01 15:00] VITALS: BP 143/77
[2019-02-01 19:00] VITALS: BP 135/70
[2019-02-01] MEDS ORDERED: [UNRECOGNIZED DRUG - OTHER] IV SCH ×10 (22:00)
[2019-02-01] MEDS ORDERED: DEXTROSE 70% IV SCH ×10 (22:00)
[2019-02-01] MEDS ORDERED: AMINO ACID IV SCH ×10 (22:00)
[2019-02-01] MEDS ORDERED: TOTAL PARENTERAL NUTRITION IV SCH ×10 (22:00)
[2019-02-01 22:57] VITALS: BP 120/58
[2019-02-02 03:00] VITALS: BP 132/64
[2019-02-02 05:38] LABS: CALCIUM 8.2 mg/dL (8.5-10.1); GFR 66.3; POTASSIUM 4.2 mmol/L (3.5-5.1)
[2019-02-02 07:00] VITALS: BP 123/61
[2019-02-02] MEDS: ENOXAPARIN 40 MG/0.4 ML SYRINGE. SQ SCH (08:47)
[2019-02-02] MEDS: LACTOBACILLUS RHAMNOSUS GG 1 CAPSULE. PO SCH (08:48)
[2019-02-02] MEDS: PANTOPRAZOLE 40 MG TABLET.DR. PO SCH (08:48)
[2019-02-02] MEDS: FLUTICASONE 50MCG/NASAL SPRAY 16GM BOTTLE. NS SCH (08:48)
--- NOTE | 2019-02-02 08:58 | PDOC ---
SURGICAL PROGRESS NOTE Subjective Pt main c/o is stuffy with allergies, franny PO, no N/V, passing flatus and stool Vital Signs Vital Signs Date Time Temp Pulse Resp B/P (MAP) Pulse Ox O2 Delivery O2 Flow Rate FiO2 02/02/19 07:00 98.5 62 16 123/61 (81) 98 Room Air 98.5 I&O Intake and Output 02/02/19 07:00 # Voids 8 # Bowel Movements 2 General: Alert, Oriented X3, Cooperative, No acute distress Abdomen: Soft, No tenderness Labs Laboratory Tests Test 02/01/19 05:40 02/01/19 06:00 02/02/19 05:00 Sodium Level 141 mmol/L (136-145) 140 mmol/L (136-145) Potassium Level 4.1 mmol/L (3.5-5.1) 4.2 mmol/L (3.5-5.1) Chloride Level 107 mmol/L (98-107) 106 mmol/L (98-107) Carbon Dioxide Level 28 mmol/L (21-32) 31 mmol/L (21-32) Anion Gap 6 (6-14) 3 (6-14) Blood Urea Nitrogen 11 mg/dL (7-20) 9 mg/dL (7-20) Creatinine 1.0 mg/dL (0.6-1.0) 1.0 mg/dL (0.6-1.0) Estimated GFR (Cockcroft-Gault) 66.3 66.3 Glucose Level 108 mg/dL (70-99) 100 mg/dL (70-99) Calcium Level 8.0 mg/dL (8.5-10.1) 8.2 mg/dL (8.5-10.1) Phosphorus Level 2.7 mg/dL (2.6-4.7) Magnesium Level 2.2 mg/dL (1.8-2.4) White Blood Count 3.5 x10^3/uL (4.0-11.0) Red Blood Count 2.69 x10^6/uL (3.50-5.40) Hemoglobin 7.1 g/dL (12.0-15.5) Hematocrit 22.1 % (36.0-47.0) Mean Corpuscular Volume 82 fL (79-100) Mean Corpuscular Hemoglobin 26 pg (25-35) Mean Corpuscular Hemoglobin Concent 32 g/dL (31-37) Red Cell Distribution Width 16.8 % (11.5-14.5) Platelet Count 245 x10^3/uL (140-400) Laboratory Tests Test 02/02/19 05:00 Sodium Level 140 mmol/L (136-145) Potassium Level 4.2 mmol/L (3.5-5.1) Chloride Level 106 mmol/L (98-107) Carbon Dioxide Level 31 mmol/L (21-32) Anion Gap 3 (6-14) Blood Urea Nitrogen 9 mg/dL (7-20) Creatinine 1.0 mg/dL (0.6-1.0) Estimated GFR (Cockcroft-Gault) 66.3 Glucose Level 100 mg/dL (70-99) Calcium Level 8.2 mg/dL (8.5-10.1) Problem List Problems Medical Problems: (1) Colostomy in place Status: Acute (2) Pancreatitis Status: Acute Assessment/Plan s/p xlap cont ADAT OOB wean off TPN d/c plan per primary, but should be able next day or so. JOEY GAGNON MD Feb 02, 2019 08:58
[2019-02-02] MEDS ORDERED: FERROUS SULFATE 325 MG TABLET. PO SCH (10:00)
[2019-02-02 11:00] VITALS: BP_SYST 124; BP_SYST 133; BP_SYST 160; BP_DIAS 61; BP_DIAS 66
[2019-02-02] MEDS ORDERED: FERR325T72 PO (12:39)
[2019-02-02] MEDS ORDERED: ONDA4TAB12 PO (12:39)
--- NOTE | 2019-02-02 12:42 | SNU/HH DC ---
DISCHARGE WITH HOME HEALTH DISCHARGE INFORMATION: Final Diagnosis: Problems Medical Problems: (1) Colostomy in place Status: Acute (2) Pancreatitis Status: Acute Condition on Discharge: Stable CODE STATUS: Code Status: Full HOME HEALTH: Face to Face: I certify this patient is under my care and that I, or a nurse practitioner or physician's mailing machine assistant working with me, had a face to face encounter that meets the physician face to face encounter requirements with this patient on []. RN For Eval/Treatment: Yes Pt Meets Homebound Status: Fatigue w/ amb. POST DISCHARGE ORDERS: Activity Instructions for Disc: Resume previous activity Weight Bearing Status after Di: As tolerated Wound/Incision Care: Keep wound/cast CDI, Change dressing, Reinforce dressing PRN CHECKS AFTER DISCHARGE: Checks after discharge: Check blood sugar, ac/hs TREATMENT/EQUIPMENT ORDERS: Adaptive Equipment Issued: None CERTIFICATION STATEMENT: Certification Statement: Certification Statement: Based on the above finding, I certify that this patient is confined to the home and needs intermittent correction care, physical therapy and/or speech therapy, or continues to need occupational therapy.~ This patient is under my care, and I have initiated the establishment of the plan of care.~ This patient will be followed by myself or a community physician who will periodically review the plan of care. Home Meds Active Scripts Ondansetron (ONDANSETRON ODT) 4 Mg Tab.rapdis, 4 MG PO PRN Q4HRS PRN for NAUSEA/ VOMITING for 14 Days, #15 TAB 1 Refill Prov:ASTRID DURAN MD 02/02/19 Ferrous Sulfate (FEOSOL) 325 Mg Tablet, 325 MG PO BIDWMEALS for anemia for 30 Days, #60 TAB Prov:ASTRID DURAN MD 02/02/19 [Pantoprazole] 40 MG TABLET.DR [place] Conflict Check, 40 MG PO BIDAC for gerd for 30 Days, #60 Prov:ASTRID DURAN MD 01/02/19 Hydrocodone Bit/Acetaminophen (HYDROCODONE-APAP 5-325 ) 1 Tab Tablet, 1 TAB PO PRN Q4HRS PRN for PAIN for 30 Days, #60 TAB Prov:ASTRID DURAN MD 12/14/18 Reported Medications Fluticasone Propionate (Flonase Allergy Relief) 9.9 Ml [place]selmo.susp, 2 SPRAYS NS DAILY, BOTTLE 10/16/17 Discontinued Scripts Ondansetron Hcl/Pf (ONDANSETRON HCL 4 MG/2 ML VIAL) 4 Mg/2 Ml Vial, 4 MG IV PRN Q4HRS PRN for NAUSEA/VOMITING 1ST CHOICE for 14 Days, #14 EACH 3 Refills Prov:ASTRID DURAN MD 01/02/19 ASTRID DURAN MD Feb 02, 2019 12:42
--- NOTE | 2019-02-02 15:58 | NUR ---
Discharge Note: GAURAV DEAL Discharge instructions and discharge home medications reviewed with Patient and a copy given. All questions have been answered and understanding verbalized. The following instructions and handouts were given: Patient given education information regarding illeostomy takedown care and new medicine. Discontinued lines and drains: Picc line removed per Dr. Null's order. Patient discharged home with home health. Picked up by daughter.
--- NOTE | 2019-02-02 20:34 | DS ---
DATE OF DISCHARGE: 02/02/2019 ADMITTING DIAGNOSIS: Acute renal failure. SECONDARY DIAGNOSES: 1. Hyponatremia. 2. Diet controlled hypertension. 3. Diet controlled type 2 diabetes. 4. Gastroesophageal reflux disease. 5. Cholelithiasis. 6. Pancreatitis. 7. History of colovaginal fistula, status post repair and ileostomy. HISTORY OF PRESENT ILLNESS AND HOSPITAL COURSE: This patient is a 68-year-old woman who was complicated post-surgery course in 11/2018. She has had recurrent ileus and dehydration, requiring multiple hospitalizations, was followed up as an outpatient and found to be in renal failure and directly brought to the Emergency Room for evaluation where she was found to have a creatinine of greater than 3 and BUN of greater than 60 as well as an elevated lipase consistent with pancreatitis. The patient had been increasingly nauseated and having poor p.o. intake as well as increased ileostomy output combined with this. She also recently developed severe hyponatremia. She was admitted for hydration and treatment of her acute renal failure as well as hyponatremia. The patient recently had had a barium enema confirming well healed ileostomy as well as rectovaginal fistula without any communication. The patient had abnormal gallbladder studies and previous hospitalizations and suspicion of chronic cholecystitis was confirmed during surgery. The patient agreed to ileostomy takedown and gallbladder surgery and these were accomplished after adequate hydration and improvement of renal failure. On 01/25/2019, the patient's postoperative course was extended by prolonged ileus, but 2 days prior to discharge, the patient began having adequate bowel sounds. Tolerating clear liquids and subsequently full liquids with bowel movement noted. TPN was discontinued and the patient was able to ambulate up to 500 feet, because of that she was discharged home with good family support and home health will be ordered for continued PT needs and nursing management. DISCHARGE MEDICATIONS: She will be discharged on the following Iron sulfate 325 mg daily due to anemia down to 7 on discharge, Zofran 4 mg q hours p.r.n. nausea, Flonase 2 sprays each nostril daily, hydrocodone 5 one q. 4 hours p.r.n. pain, pantoprazole 40 mg daily. She will follow up in 1 week in the [facility] for continued care and evaluation and recheck of CBC. ASTRID DURAN MD DR: PORTIA/esperanza JOB#: [id number] / [id number]
== END 2019-02-02 15:42 | disposition home health service (06) | DRG 673 ==
LOC: ER 15:47 → 5 NORTH 18:10
PROVIDERS: ADMIT Family Medicine; ATTEND Family Medicine
PROC: BF141ZZ Fluoroscopy of Gallbladder, Bile Ducts and Pancreatic Ducts using Low Osmolar Contrast (ICD-10-PCS; 2019-01-25)
PROC: 0FN44ZZ Release Gallbladder, Percutaneous Endoscopic Approach (ICD-10-PCS; 2019-01-25)
PROC: 0FT44ZZ Resection of Gallbladder, Percutaneous Endoscopic Approach (ICD-10-PCS; principal; 2019-01-25 09:00)
PROC: 0DBB4ZZ Excision of Ileum, Percutaneous Endoscopic Approach (ICD-10-PCS; 2019-01-25 09:00)
PROC: 05HY33Z Insertion of Infusion Device into Upper Vein, Percutaneous Approach (ICD-10-PCS; 2019-01-28)
DX: N17.9 Acute kidney failure, unspecified (principal); K85.90 Acute pancreatitis without necrosis or infection, unspecified; K80.10 Calculus of gallbladder with chronic cholecystitis without obstruction; K56.7 Ileus, unspecified; E87.1 Hypo-osmolality and hyponatremia; E86.0 Dehydration; I12.9 Hypertensive chronic kidney disease with stage 1 through stage 4 chronic kidney disease, or unspecified chronic kidney disease; N18.2 Chronic kidney disease, stage 2 (mild); K21.9 Gastro-esophageal reflux disease without esophagitis; E11.22 Type 2 diabetes mellitus with diabetic chronic kidney disease; M19.90 Unspecified osteoarthritis, unspecified site; J30.9 Allergic rhinitis, unspecified; K66.0 Peritoneal adhesions (postprocedural) (postinfection); K82.8 Other specified diseases of gallbladder; E87.6 Hypokalemia; D64.9 Anemia, unspecified; Z90.710 Acquired absence of both cervix and uterus; Z88.6 Allergy status to analgesic agent; Z88.1 Allergy status to other antibiotic agents; Z88.2 Allergy status to sulfonamides; Z88.8 Allergy status to other drugs, medicaments and biological substances; Z82.3 Family history of stroke; Z82.49 Family history of ischemic heart disease and other diseases of the circulatory system; Z80.3 Family history of malignant neoplasm of breast; Y83.8 Other surgical procedures as the cause of abnormal reaction of the patient, or of later complication, without mention of misadventure at the time of the procedure; Y92.89 Other specified places as the place of occurrence of the external cause
CPT/HCPCS: 36415; 36569; 71045; 74022; 74270; 74300; 80048; 80053; 81001; 82150; 83605; 83690; 83735; 84100; 84478; 84484; 85025; 85027; 87086; 88304; 96361; 96374; A7015; J0610; J0694; J1100; J1644; J1650; J2001; J2250; J2270; J2370; J2405; J2704; J2710; J3010; J3475; J3480; J3490; J7030; J7120; Q0162; Q9967; 97110; 97116; 97530; 99285-25; A4461

== ENCOUNTER → 2019-05-18 | Outpatient (CLI) | payer MEDICARE, OTHER ==
[2019-02-02 11:00] VITALS: BP 160/61
[~2019-05-18] MED LIST changes: +FERR325T72 PO; +IOHEXOL 180 MG/ML 10 ML VIAL. ONE; +ONDA4TAB12 PO; -PANT40TA5 PO; +PANT40TA77 PO; +methylPREDNISolone ACETATE 40 MG/ML VIAL. ONE; +methylPREDNISolone ACETATE 80 MG/ML VIAL. ONE
--- NOTE | 2019-05-19 03:58 | PAIN ---
DATE OF SERVICE: 05/18/2019 DIAGNOSES: Lumbar radiculopathy with lumbar spinal stenosis and lumbar degenerative disk disease. HISTORY OF PRESENT ILLNESS: The patient is a 68-year-old female who returns for followup status post lumbar epidural steroid injections, last seen 10/2017. The patient did very well with near 100% improvement for almost a year following the injections. The patient reports pain is returning now in the low back, bilateral lower extremities, worse on the left than the right, posterior gluteus, posterolateral thigh, lateral anterior thigh, anterior medial thighs bilaterally. The patient reports it is aching type, sharp, constant with walking, standing, changing positions, better with sitting or lying down. The patient reports it awakens her from sleep at night, but maybe every 5 hours or so, it is worse, but not every night. The patient reports the pain is 10 on a scale of 10 at its worst, 8 on average and a 7 on a scale of 10 at its least and is a 7 today. The patient reports no new motor or sensory deficits, otherwise she has been doing quite well. She did have surgery for diverticulitis which was treated with colostomy and takedown and otherwise is doing fairly well. Also, some pain reported in her knee and in her left hip, but she is seeing Orthopedics for those at this time. The patient reports no new motor or sensory deficits, no new bowel or bladder incontinence or other complaints. PHYSICAL EXAMINATION: VITAL SIGNS: The patient's blood pressure is 121/82, pulse 76, respirations are 18, temperature 98.8 degrees Fahrenheit, height is 5 feet and weight is 164 pounds. GENERAL: The patient is awake, alert, oriented, appropriate, very pleasant demeanor. HEENT: Shows normocephalic, atraumatic. Extraocular movements are intact and symmetrical. Oral cavity: Mucous membranes are moist and pink. Dentition is intact. NECK: Shows anterior throat is supple without palpable lymphadenopathy noted. Swallow reflex symmetrical. CHEST: Shows normal on inspection. Breath sounds are clear to auscultation bilaterally. HEART: Shows S1, S2 clear. No murmurs auscultated. ABDOMEN: Soft, nontender, nondistended. No palpable organomegaly is noted. No rebound or guarding demonstrated. BACK: Shows spine grossly in the midline. Normal appearing thoracic kyphosis and lumbar lordotic curvature is slightly flattened. Lumbar paraspinous muscle shows symmetrical on inspection with palpation, has some moderate tenderness diffusely bilaterally, but only diffusely without radiation. EXTREMITIES: The patient's lower extremities show deep tendon reflexes 1+ in the patella and tendo calcaneus tendons. Motor exam is strong with 5/5 dorsiflexion and extension, quadriceps and hamstring flexion are symmetrical bilaterally as well. Peripheral pulses are 1+ posterior tibial. No peripheral edema is noted bilaterally. Options were discussed with the patient. The patient's old chart was reviewed as her current medication regimen updated. Current review of systems updated today as well and we will proceed with a lumbar epidural steroid injection today with fluoroscopic guidance. Risks were again discussed including, but not limited to bleeding, infection, possibility of epidural hematoma, subsequent neurologic compromise, dural puncture, headaches, spinal cord and/or nerve damage, side effects of steroid medication and poor results regarding pain control. The patient understands and wished to proceed. The patient will return to clinic in approximately 2 weeks for followup. She was counseled on return appointment, activity level and side effects to be aware of. DIAGNOSES: Lumbar radiculopathy with lumbar spinal stenosis, lumbar degenerative disk disease. PROCEDURE: Lumbar epidural steroid injection, translaminar approach at the L4-L5 level using C-arm fluoroscopic guidance under sterile prep and drape using local anesthetic. MEDICATION INJECTED: A total of 120 mg Depo-Medrol plus 10 mL of preservative-free normal saline and 2 mL of contrast. CONDITION AT DISCHARGE: Stable. The patient tolerated the procedure well, had no complications. WILLIAM GUEVARA MD DR: DAFNE/esperanza JOB#: [id number] / [id number]
== END ==
LOC: PNCL 11:24
PROVIDERS: ATTEND Anesthesiology
DX: M51.16 Intervertebral disc disorders with radiculopathy, lumbar region (principal); M48.061 Spinal stenosis, lumbar region without neurogenic claudication
CPT/HCPCS: 62323; J1030; J1040; Q9965

== ENCOUNTER → 2019-06-02 | Outpatient (CLI) | payer MEDICARE, OTHER ==
[2019-02-02 11:00] VITALS: BP 160/61
--- NOTE | 2019-06-03 04:44 | PAIN ---
DATE OF SERVICE: 06/02/2019 PROGRESS NOTE FOR PAIN CLINIC DIAGNOSES: Lumbar radiculopathy with lumbar spinal stenosis, lumbar degenerative disk disease. HISTORY OF PRESENT ILLNESS: The patient is a 68-year-old female who returns for followup status post lumbar epidural steroid injection x 1. The patient reports about 30-40% improvement overall in low back and left lower extremity. The patient reports it is aching, tingling, cramping, on and off in intensity, worse with walking, standing, but she has been increasing her distance walking with greater ease. The patient reports she is sleeping better and is up a longer on her feet for longer periods of time. The patient reports no new motor or sensory deficits, no new bowel or bladder incontinence or other complaints. PHYSICAL EXAMINATION: VITAL SIGNS: The patient's blood pressure 117/75, pulse 67, respirations 16, temperature 97.3 degrees Fahrenheit, and weight is 166 pounds. GENERAL: The patient is awake, alert, oriented, appropriate, very pleasant demeanor. HEENT: Head shows normocephalic, atraumatic. Extraocular movements are intact and symmetrical. Oral cavity: Mucous membranes moist and pink. Dentition is intact. NECK: Shows anterior throat supple without palpable lymphadenopathy noted. Swallow reflex symmetrical. CHEST: Shows normal on inspection. Breath sounds clear to auscultation bilaterally. HEART: Shows S1 and S2 clear. No murmurs auscultated. ABDOMEN: Soft, nontender, and nondistended. No palpable organomegaly is noted. No rebound or guarding demonstrated. BACK: Shows spine grossly in the midline. Normal appearing thoracic kyphosis and some minor flattening of lumbar lordotic curvature. Lumbar paraspinous muscle shows symmetrical on inspection. On palpation, she has some moderate tenderness diffusely bilaterally, but only diffusely without radiation. EXTREMITIES: The patient's lower extremities show deep tendon reflexes at 1+ in the patellar and tendo-calcaneus tendons. Motor exam is strong with 5/5 with dorsiflexion and extension and equal bilaterally. Peripheral pulses are 1+ posterior tibia. No peripheral edema is noted. Options were discussed with the patient. The patient's old chart was reviewed as her current medication regimen updated. Current review of systems updated today as well. We will proceed with a second lumbar epidural steroid injection today with fluoroscopic guidance. Risks were again discussed including, but not limited to bleeding, infection, possibility of epidural hematoma, subsequent neurological compromise, dural puncture, headaches, spinal cord and/or nerve damage, side effects of steroid medication and poor results regarding pain control. The patient understands and wished to proceed. The patient will return to clinic in approximately 2 weeks for followup. She was counseled on return appointment, activity level and side effects to be aware of. DIAGNOSES: Lumbar radiculopathy with lumbar spinal stenosis and lumbar degenerative disk disease. PROCEDURE: Lumbar epidural steroid injection, translaminar approach at the L4-L5 level using C-arm fluoroscopic guidance under sterile prep and drape using local anesthetic. MEDICATIONS INJECTED: A total of 120 mg Depo-Medrol plus 10 mL of preservative-free normal saline and 2 mL of contrast. CONDITION AT DISCHARGE: Stable. The patient tolerated procedure well, had no complications. WILLIAM GUEVARA MD DR: DAFNE/esperanza JOB#: [id number] / [id number]
== END ==
LOC: PNCL 12:56
PROVIDERS: ATTEND Anesthesiology
DX: M51.16 Intervertebral disc disorders with radiculopathy, lumbar region (principal); M48.061 Spinal stenosis, lumbar region without neurogenic claudication
CPT/HCPCS: 62323; J1030; J1040; Q9965

== ENCOUNTER → 2019-06-23 | Outpatient (CLI) | payer MEDICARE, OTHER ==
[2019-02-02 11:00] VITALS: BP 160/61
[~2019-06-23] MED LIST changes: -IOHEXOL 180 MG/ML 10 ML VIAL. ONE; +LISI1TAB19 PO; -LISI1TAB5 PO; -methylPREDNISolone ACETATE 40 MG/ML VIAL. ONE; -methylPREDNISolone ACETATE 80 MG/ML VIAL. ONE
--- NOTE | 2019-06-24 00:49 | PAIN ---
DATE OF SERVICE: 06/23/2019 PROGRESS NOTE FOR PAIN CLINIC DIAGNOSES: Lumbar radiculopathy with lumbar spinal stenosis, lumbar degenerative disk disease. HISTORY OF PRESENT ILLNESS: The patient is a 68-year-old female who returns for followup status post lumbar epidural steroid injections x 2. The patient reports about 50% improvement overall, but improving each time. She has been working out at her gym 3 times a week now doing a lot of walking exercise as well as core exercises and strengthening and reports she is doing fairly well with that. The patient reports the pain is decreasing moderately and she feels like she is improving each time. She is still sleeping better at night, increasing her activity, walking, doing work activities, household activities and working out activities with greater ease and comfort. The patient rates her pain as an 8 on a scale of 10 at its worst in the past week, 5 on average and a 5 at its least and 8 only when she is working out extensively and felt that she may have overdone it. The patient reports otherwise the pain is in the low back, bilateral lower extremities, posterior lateral thigh, lateral anterior thighs, medial thighs, medial lower legs into the posterior calf, aching, cramping, radiating, constant in description, on and off in intensity; however, not constant. The patient reports no new bowel or bladder incontinence, no new motor or sensory loss or deficits. PHYSICAL EXAMINATION: VITAL SIGNS: The patient's blood pressure is 120/74, pulse 74, respirations 16, temperature 98.2 degrees Fahrenheit, weight is 171 pounds. GENERAL: The patient is awake, alert, oriented, appropriate, very pleasant in demeanor. HEENT: Shows normocephalic, atraumatic. Extraocular movements are intact and symmetrical. Oral cavity: Mucous membranes moist and pink. Dentition is intact. NECK: Shows anterior throat supple without palpable lymphadenopathy noted. Swallow reflex symmetrical. CHEST: Shows normal on inspection. Breath sounds clear to auscultation bilaterally. HEART: Shows S1, S2 clear. No murmurs auscultated. ABDOMEN: Soft, obese, nontender, nondistended. BACK: Shows spine grossly in the midline. Normal appearing thoracic kyphosis and lumbar lordotic curvature. Lumbar paraspinous muscle shows symmetrical on inspection, on palpation shows some moderate tenderness diffusely bilaterally, but only diffusely without significant radiation. EXTREMITIES: The patient's lower extremities show deep tendon reflexes at 1+ in the patellar and tendo-calcaneus tendons. Motor exam is 5/5 with dorsiflexion, extension, quadriceps and hamstring flexion and strong and symmetrical. Peripheral pulses are 1+ posterior tibial. No peripheral edema is noted bilaterally. Options were discussed with the patient. The patient's old chart was reviewed as her current medication regimen updated. Current review of systems updated today as well. We will proceed with a third in the series of lumbar epidural steroid injection today with fluoroscopic guidance. Risks were again discussed including, but not limited to bleeding, infection, possibility of epidural hematoma, subsequent neurological compromise, dural puncture, headaches, spinal cord and/or nerve damage, side effects of steroid medication and poor results regarding pain control. The patient understands and wished to proceed. The patient will return to clinic in approximately 2 weeks for followup. She was counseled on return appointment, activity level and side effects to be aware of. DIAGNOSIS: Lumbar radiculopathy with lumbar degenerative disk disease and lumbar spinal stenosis. PROCEDURE: Lumbar epidural steroid injection, translaminar approach, L4-L5 level using C-arm fluoroscopic guidance under sterile prep and drape using local anesthetic. MEDICATION INJECTED: A total of 120 mg Depo-Medrol plus 10 mL of preservative-free normal saline and 2 mL of contrast. CONDITION AT DISCHARGE: Stable. The patient tolerated procedure well, had no complications. WILLIAM GUEVARA MD DR: DAFNE/esperanza JOB#: [id number] / [id number]
== END ==
LOC: PNCL 14:05
PROVIDERS: ATTEND Anesthesiology
DX: M51.16 Intervertebral disc disorders with radiculopathy, lumbar region (principal); M48.061 Spinal stenosis, lumbar region without neurogenic claudication
CPT/HCPCS: 62323

== ENCOUNTER → 2019-11-23 | Outpatient (CLI) | payer MEDICARE ==
[2019-02-02 11:00] VITALS: BP 160/61
[~2019-11-23] MED LIST changes: +IOHEXOL 180 MG/ML 10 ML VIAL. ONE; +methylPREDNISolone ACETATE 40 MG/ML VIAL. ONE; +methylPREDNISolone ACETATE 80 MG/ML VIAL. ONE
--- NOTE | 2019-11-24 00:57 | PAIN ---
DATE OF SERVICE: 11/23/2019 PROGRESS NOTE FOR PAIN CLINIC DIAGNOSES: Lumbar radiculopathy with lumbar spinal stenosis, lumbar degenerative disk disease. HISTORY OF PRESENT ILLNESS: The patient is a 69-year-old female who returns for followup status post lumbar epidural steroid injections, most recently 06/23/2019, patient did very well with about 50% improvement for over 3 months. The patient reports the pain has been returning and she has meant to get back sooner, but is returning now with significant pain in the low back, left greater than right lower extremity, but present bilaterally, posterior gluteus, posterolateral thigh, lateral anterior thigh, anterior medial thighs and medial calves. The patient reports it is a 10 on a scale of 10 at its worst over the past week, 10 on average and 8 at its least and is a 10 today. The patient reports it is aching and tight, tingling, sometimes unbearable, worse with walking, standing, changing positions. Initially, she was doing much better with distance walking, doing work activities, household activities with greater ease and comfort, traveling with greater ease, but now the pain is returning. It is waking her up at least every 2 hours at night throughout the sleeping cycle as the patient reports no motor loss, no bowel or bladder incontinence. PHYSICAL EXAMINATION: VITAL SIGNS: The patient's blood pressure 154/91, pulse 71, respirations are 16, temperature is 98.2 degrees Fahrenheit, weight is 198 pounds. GENERAL: The patient is awake, alert, oriented, appropriate, very pleasant demeanor. HEENT: Shows normocephalic, atraumatic. Extraocular movements are intact and symmetrical. Oral cavity: Mucous membranes moist and pink. Dentition is intact. NECK: Shows anterior throat supple without palpable lymphadenopathy noted. Swallow reflex symmetrical. CHEST: Shows normal on inspection. Breath sounds clear bilaterally. HEART: Shows S1, S2 clear. No murmurs auscultated. ABDOMEN: Soft, nontender, nondistended. No palpable organomegaly is noted. No rebound or guarding demonstrated. BACK: Shows spine grossly in the midline. Normal appearing thoracic kyphosis and some minor flattening of lumbar lordotic curvature. Lumbar paraspinous muscle shows symmetrical on inspection, on palpation shows some moderate tenderness diffusely without significant atrophy, hypertrophy or radiation. EXTREMITIES: The patient's lower extremities show deep tendon reflexes 1+ in the patellar and tendo calcaneus tendons. Motor exam is strong with 5/5 dorsiflexion, extension, quadriceps and hamstring flexion symmetrical. Peripheral pulses are 1+ posterior tibia. No peripheral edema is noted in the lower extremities. Options were discussed with the patient. The patient's old chart was reviewed as her current medication regimen updated. Current review of systems updated today as well. We will proceed with a first in this series of lumbar epidural steroid injection today with fluoroscopic guidance. Risks were again discussed including, but not limited to bleeding, infection, possibility of epidural hematoma, subsequent neurological compromise, dural puncture, headaches, spinal cord and/or nerve damage, side effects of steroid medication and poor results regarding pain control. The patient understands and wished to proceed. The patient will return to clinic in approximately 2 weeks for followup. She was counseled on return appointment, activity level and side effects to be aware of. DIAGNOSES: Lumbar radiculopathy with lumbar degenerative disk disease, lumbar spinal stenosis. PROCEDURE: Lumbar epidural steroid injection, translaminar approach L4-L5 level using C-arm fluoroscopic guidance under sterile prep and drape using local anesthetic. MEDICATION INJECTED: A total of 120 mg Depo-Medrol plus 10 mL of preservative-free normal saline and 2 mL of contrast. CONDITION AT DISCHARGE: Stable. The patient tolerated the procedure well, had no complications. WILLIAM GUEVARA MD DR: DAFNE/esperanza JOB#: [id number] / [id number]
== END | disposition home or self-care (01) ==
LOC: PNCL 13:44
PROVIDERS: ATTEND Anesthesiology
DX: M51.16 Intervertebral disc disorders with radiculopathy, lumbar region (principal); M48.061 Spinal stenosis, lumbar region without neurogenic claudication
CPT/HCPCS: 62323; J1030; J1040; Q9965

== ENCOUNTER → 2019-12-07 | Outpatient (CLI) | payer MEDICARE ==
[2019-02-02 11:00] VITALS: BP 160/61
[~2019-12-07] MED LIST changes: -IOHEXOL 180 MG/ML 10 ML VIAL. ONE; -methylPREDNISolone ACETATE 40 MG/ML VIAL. ONE; -methylPREDNISolone ACETATE 80 MG/ML VIAL. ONE
--- NOTE | 2019-12-08 01:21 | PAIN ---
DATE OF SERVICE: 12/07/2019 PROGRESS NOTE FOR PAIN CLINIC DIAGNOSES: Lumbar radiculopathy with lumbar degenerative disk disease, lumbar spinal stenosis. HISTORY OF PRESENT ILLNESS: The patient is a 69-year-old female who returns for followup status post lumbar epidural steroid injection x 1 on 11/23/2019. The patient reports she did very well, about 75% improvement initially in the pain in the low back and right greater than left lower extremity. The patient reports some increased activity with distance walking, doing household activities with greater ease and comfort, traveling with greater ease and comfort, driving with greater ease. The patient reports it does not awaken her from sleep any longer, but has started to do over the past few days. The patient reports over the past 3-4 days, the pain is beginning to become more noticeable in the low back, right lower extremity, posterior calf, posterior thigh, lateral thigh, anterior thigh, medial thigh, medial lower leg as well as the posterior lower leg. The patient reports it is aching and tight, tingling, cramping, radiating, becoming more noticeable, some on the left side, but mostly on the right. The patient reports it is more of a cramping sensation in the low back as well. Again, it has been almost 3 weeks since her last injection. She is doing quite a bit better, but the pain again returning as noted. The patient reports it is 8 on a scale of 10 at its worst over the past week, 8 on average, 6 at its least and is 6 today. PHYSICAL EXAMINATION: VITAL SIGNS: The patient's blood pressure 121/75, pulse 81, respirations are 16, temperature 98.6 degrees Fahrenheit, weight is 196 pounds. GENERAL: The patient is awake, alert, oriented, appropriate, very pleasant demeanor. HEENT: Shows normocephalic, atraumatic. Extraocular movements are intact and symmetrical. Extraocular movements are intact and symmetrical. Oral cavity: Mucous membranes moist and pink. Dentition is intact. NECK: Shows anterior throat supple without palpable lymphadenopathy noted. Swallow reflex symmetrical. CHEST: Shows normal on inspection. Breath sounds are clear to auscultation bilaterally. HEART: Shows S1, S2 clear. No murmurs auscultated. ABDOMEN: Soft, nontender, nondistended. No palpable organomegaly is noted. No rebound or guarding demonstrated. BACK: Shows good rotational motion of lumbar spine, both laterally as well as extension and flexion without significant difficulty. EXTREMITIES: Lower extremities show deep tendon reflexes 1+ in the patellar and tendo calcaneus tendons. Motor exam is approximately 5 on a scale of 5 with dorsiflexion, extension, quadriceps and hamstring flexion. Peripheral pulses are 1+ posterior tibia. No peripheral edema is noted bilaterally. Straight leg raise noted to be mildly positive on the right at about 45 degrees with decreased knee flexion, left side is negative. Gaenslen's and Malachi's maneuvers are negative bilaterally. Options were discussed with the patient. The patient's old chart was reviewed as her current medication regimen updated. Current review of systems updated today as well and we will preauthorize the patient for a second lumbar epidural steroid injection. She did very well with the first injection with about 75% improvement, but still with chronic radicular pain in the right lower extremity at L4-L5 dermatomal distribution beginning to return in severity. The patient will continue with stretching and strengthening exercises as well as walking daily as tolerated. We will get the patient precertified for a second lumbar epidural steroid injection at the L4-L5 level on her return. WILLIAM GUEVARA MD DR: DAFNE/esperanza JOB#: [id number] / [id number]
== END | disposition home or self-care (01) ==
LOC: PNCL 13:06
PROVIDERS: ATTEND Anesthesiology
DX: M51.16 Intervertebral disc disorders with radiculopathy, lumbar region (principal); M48.061 Spinal stenosis, lumbar region without neurogenic claudication
CPT/HCPCS: G0463

== ENCOUNTER → 2019-12-21 | Outpatient (CLI) | payer MEDICARE ==
[2019-02-02 11:00] VITALS: BP 160/61
[~2019-12-21] MED LIST changes: +IOHEXOL 180 MG/ML 10 ML VIAL. ONE; +methylPREDNISolone ACETATE 40 MG/ML VIAL. ONE; +methylPREDNISolone ACETATE 80 MG/ML VIAL. ONE
--- NOTE | 2019-12-22 01:00 | PAIN ---
DATE OF SERVICE: 12/21/2019 PROGRESS NOTE FOR PAIN CLINIC DIAGNOSIS: Lumbar radiculopathy with lumbar degenerative disk disease, lumbar spinal stenosis. HISTORY OF PRESENT ILLNESS: The patient is a 69-year-old female, who returns for followup status post lumbar epidural steroid injection x 1. The patient reports about 75% improvement after the last injection. The patient still has some pain in the low back, bilateral lower extremities, left now greater than right, but initially the right side was worse than the left. The patient reports it does move back and forth, worse with walking, standing and changing positions. She is still working out at the gym about 3 times a week and she feels it is helpful, but sometimes, she feels she is overdoing it. The patient reports it awakens her from sleep about every 5-6 hours and has for the past few weeks. The patient reports prior to that, she was doing fairly well after the last injection. Again, the pain returning now. The patient rates her pain as a 7 on a scale of 10 at its worst, 6 on an average, 5 at its least and is a 6 today. The patient reports it is aching, dull, tight, becoming constant with activity in the low back, bilateral posterior gluteus, posterolateral thighs, lateral anterior thighs, again more on the left than the right. The patient reports no new motor or sensory deficits, no new bowel or bladder incontinence. The patient reports she has less cramping in the legs and back and her stretching helps the left hip and back as well. PHYSICAL EXAMINATION: VITAL SIGNS: The patient's blood pressure is 145/80, pulse 75, respirations 16, temperature is 98.1 degrees Fahrenheit, weight is 201 pounds. GENERAL: The patient is awake, alert, oriented, appropriate, very pleasant demeanor. HEENT: Head shows normocephalic, atraumatic. Extraocular movements are intact and symmetrical. Oral cavity: Mucous membranes moist and pink; dentition is intact. NECK: Shows anterior throat supple without palpable lymphadenopathy noted. Swallow reflex symmetrical. CHEST: Shows normal on inspection. Breath sounds are clear bilaterally. HEART: Shows S1, S2 clear. No murmurs auscultated. ABDOMEN: Soft, nontender and nondistended. No palpable organomegaly is noted. No rebound or guarding demonstrated. BACK: Shows spine grossly in the midline. Normal-appearing thoracic kyphosis and lumbar lordotic curvature is slightly flattened. The patient has good rotational motion of lumbar spine, both laterally as well as extension and flexion without significant radiation or discomfort. EXTREMITIES: The patient's lower extremities show deep tendon reflexes are 1+ in the patellar and tendo-calcaneus tendons. Motor exam is strong with 5/5 dorsiflexion, extension, quadriceps and hamstring flexion and symmetrical. Peripheral pulses are 1+ posterior tibial. No peripheral edema is noted. Options were discussed with the patient. The patient's old chart was reviewed as her current medication regimen updated. Current review of systems updated today as well. We will proceed with second in the series of lumbar epidural steroid injection today with fluoroscopic guidance. Risks were again discussed including, but not limited to bleeding, infection, possibility of epidural hematoma, subsequent neurological compromise, dural puncture, headaches, spinal cord and/or nerve damage, side effects of steroid medication and poor results regarding pain control. The patient understands and wished to proceed. The patient will return to clinic in approximately 2 weeks for followup. She was counseled on return appointment, activity level and side effects to be aware of. DIAGNOSIS: Lumbar radiculopathy with lumbar degenerative disk disease, lumbar spinal stenosis. PROCEDURE: Lumbar epidural steroid injection, translaminar approach, L4-L5 level, using C-arm fluoroscopic guidance under sterile prep and drape using local anesthetic. MEDICATIONS INJECTED: A total of 120 mg Depo-Medrol plus 10 mL of preservative-free normal saline and 2 mL of contrast. CONDITION AT DISCHARGE: Stable. The patient tolerated procedure well, had no complications. WILLIAM GUEVARA MD DR: DAFNE/esperanza JOB#: [id number] / [id number]
== END ==
LOC: PNCL 14:02
PROVIDERS: ATTEND Anesthesiology
DX: M51.16 Intervertebral disc disorders with radiculopathy, lumbar region (principal); M48.061 Spinal stenosis, lumbar region without neurogenic claudication
CPT/HCPCS: 62323; J1030; J1040; Q9965

== ENCOUNTER 2020-07-17 19:50 | Emergency (ER) | payer MEDICARE, OTHER ==
[~2020-07-17] VITALS: Ht 152.4 cm; Wt 88.2 kg
[~2020-07-17 19:50] MED LIST changes: -IOHEXOL 180 MG/ML 10 ML VIAL. ONE; -LISI1TAB19 PO; +LISI1TAB37 PO; +MULT-445 PO; -MULT1TAB52 PO; -methylPREDNISolone ACETATE 40 MG/ML VIAL. ONE; -methylPREDNISolone ACETATE 80 MG/ML VIAL. ONE
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
[2020-07-17 20:57] LABS: BASO % 1 % (0-3); EOS # 0.1 x10^3/uL (0.0-0.7); EOS % 1 % (0-3); HEMATOCRIT 37.8 % (36.0-47.0); HEMOGLOBIN 12.5 g/dL (12.0-15.5); LYMPH # 1.9 x10^3/uL (1.0-4.8); LYMPH % 29 % (24-48); MEAN CORPUSCULAR HEMOGLOBIN 26 pg (25-35); MEAN CORPUSCULAR HGB CONC 33 g/dL (31-37); MEAN CORPUSCULAR VOLUME 78 fL (79-100); MONO # 0.6 x10^3/uL (0.0-1.1); MONO % 10 % (0-9); NEUT % 60 % (31-73); PLATELET COUNT 288 x10^3/uL (140-400); RED BLOOD COUNT 4.85 x10^6/uL (3.50-5.40); RED CELL DISTRIBUTION WIDTH 16.6 % (11.5-14.5); WHITE BLOOD COUNT 6.7 x10^3/uL (4.0-11.0)
[2020-07-17 21:03] LABS: CALCIUM 9.2 mg/dL (8.5-10.1); CREATININE 1.4 mg/dL (0.6-1.0); GFR 44.9; POTASSIUM 3.7 mmol/L (3.5-5.1)
[2020-07-17 21:09] LABS: ALBUMIN 3.6 g/dL (3.4-5.0); ALBUMIN/GLOBULIN RATIO 0.9 (1.0-1.7); TOTAL BILIRUBIN 0.2 mg/dL (0.2-1.0); TOTAL PROTEIN 7.4 g/dL (6.4-8.2)
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
[2020-07-17] MEDS ORDERED: ACETAMINOPHEN 325 MG TABLET. PO ONE (21:15)
[2020-07-17 21:30] VITALS: BP 184/97
--- NOTE | 2020-07-18 01:32 | EKG ---
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
== END 2020-07-17 21:37 | disposition home or self-care (01) ==
LOC: ER 19:50
DX: G89.11 Acute pain due to trauma (principal); R07.89 Other chest pain; R06.02 Shortness of breath; E11.9 Type 2 diabetes mellitus without complications; K21.9 Gastro-esophageal reflux disease without esophagitis; I10 Essential (primary) hypertension; Z90.89 Acquired absence of other organs; Z90.710 Acquired absence of both cervix and uterus; Z98.890 Other specified postprocedural states; Z88.1 Allergy status to other antibiotic agents; Z88.2 Allergy status to sulfonamides; Z88.8 Allergy status to other drugs, medicaments and biological substances; V49.9XXA Car occupant (driver) (passenger) injured in unspecified traffic accident, initial encounter; Y93.89 Activity, other specified; Y92.89 Other specified places as the place of occurrence of the external cause; Y99.8 Other external cause status
CPT/HCPCS: 36415; 71101; 80053; 82962; 84484; 85025; 93005; 99285

== ENCOUNTER → 2021-06-13 | Outpatient (CLI) | payer MEDICARE ==
[~2021-06-13] MED LIST changes: +IOHEXOL 180 MG/ML 10 ML VIAL. ONE; +methylPREDNISolone ACETATE 80 MG/ML VIAL. ONE
--- NOTE | 2021-06-13 11:17 | PDOC ---
Progress Note - Pain Clinic Date of Service: DOS: DATE: 06/13/21 TIME: 11:14 Diagnosis: Dx: Lumbar radiculopathy with lumbar degenerative disease and lumbar spinal stenosis History or Present Illness: HPI: 70-year-old female returns for follow-up last seen December 2019 patient did very well after second lumbar epidural steroid injection at time with pain about 90% improved until the last month or so patient reports pain began to return gradually not the rule of any specific injury or accident that she is aware of, but pain returning now and new pain findings of pain in the right lower extremity where traditionally it was always in the back and the left lower extremity patient reports he still has pain in the left leg but now the right leg is almost as painful as the left with pain in the posterior gluteus posterior thigh posterior calf to the mid calf and ankle patient reports is on the right side as well as the left again not quite as intense but present bilaterally which is new for her. Patient reports is aching and tight cramping shooting stabbing worse with walking standing getting up from seated position generally better with laying down or sitting generally does not awaken her from sleep at night patient reports initially she did much better distance walking doing household activities travel with greater ease and comfort as well. Patient rates her pain as 8 on scale 10 is worse over the past week 8 on average 7 at its least and is a 7 today. Patient reports no motor or sensory deficits and no bowel or bladder incontinence. Physical Exam: VS: Blood pressure is 151/84 pulse 80 respirations 18 temperature body Fahrenheit height 5 foot weight is 194 pounds PE: PHYSICAL EXAMINATION: GENERAL: The patient is awake, alert, oriented, appropriate, very pleasant in demeanor HEENT: Shows normocephalic, atraumatic. Extraocular movements are intact and symmetrical. Oral cavity: Mucous membranes moist and pink. Dentition is intact. NECK: Shows anterior throat supple without palpable lymphadenopathy noted. Swallow reflex symmetrical. CHEST: Shows normal on inspection. Breath sounds are clear bilaterally, distant but no rales rhonchi wheezes auscultated. HEART: Shows S1, S2 clear. No murmurs auscultated. ABDOMEN: Soft, nontender, nondistended, obese. No palpable organomegaly is noted. BACK: Shows spine grossly in the midline. Normal-appearing cervical lordotic curvature. There is slightly increased thoracic kyphosis, some minor flattening of the lumbar lordotic curvature. Lumbar paraspinous muscles show symmetrical on inspection, on palpation shows some moderate tenderness diffusely throughout the upper, middle and lower distribution of the paraspinous muscles without specific trigger points, without radiation of pain. The patient has good rotational motion of the lumbar spine, both laterally as well as extension and flexion without significant difficulty. EXTREMITIES: Lower extremities show deep tendon reflexes 1+ in the patellar and tendo calcaneus tendons. Motor exam is 5 on a scale of 5 with right dorsiflexion, extension, quadriceps and hamstring flexion and 5/5 on the left. Peripheral pulses are 1 posterior tibial. No peripheral edema is noted bilaterally. Lower extremities are warm and dry to touch, equal in color and appearance. SKIN: Shows warm and dry, good turgor. No edema. No sores, rashes or bruising throughout. Procedure: Procedure: Options discussed with the patient. Patient's old chart was reviewed as her current medication regimen updated current review of systems updated today as well. We will proceed with a lumbar epidural steroid injection today with fluoroscopic guidance. Risks were discussed including but not limited to: Bleeding, infection, possibility of epidural hematoma and subsequent neurological compromise, dural puncture, headaches, spinal cord and/or nerve damage, side effects of steroid medication, and poor results regarding pain control. Patient understands and wished to proceed. Patient will return to [facility] in approximate 2 weeks for follow-up, was counseled as to return appointment activity and side effects to be aware of. Medication Injected: Med Injected: Procedure is lumbar epidural steroid injection under local anesthetic using sterile prep and drape at the L4-5 level using C-arm fluoroscopic guidance in both AP and lateral views medications injected is 120 mg Depo-Medrol +10mL preservative-free normal saline and 2 mL contrast- condition at discharge is stable patient tolerated procedure well had no complications. Condition at Discharge: Condition at Discharge: Condition at discharge is stable, patient already the procedure well and had no complications. WILLIAM GUEVARA MD Jun 13, 2021 11:17
--- NOTE | 2021-06-13 11:18 | PDOC4 ---
Procedure Note: ICD 10 Code: ICD 10 Code: M 54.16 M 51.39 M 48.06 Procedure Note: Patient was consented for lumbar epidural steroid injection with fluoroscopic guidance. Risks were discussed including but not limited to: Bleeding, infection, possibility of epidural hematoma and subsequent neurological compromise, dural puncture, headaches, spinal cord and/or nerve damage, side effects of steroid medication, and poor results regarding pain control. Patient understands and wished to proceed. Procedure is lumbar epidural steroid injection under local anesthetic using s terile prep and drape at the L4-5 level using C-arm fluoroscopic guidance in both AP and lateral views medications injected is 120 mg Depo-Medrol +10mL preservative-free normal saline and 2 mL contrast- condition at discharge is stable patient tolerated procedure well had no complications. WILLIAM GUEVARA MD Jun 13, 2021 11:18
== END ==
LOC: PNCL 10:39
PROVIDERS: ATTEND Anesthesiology
DX: M51.16 Intervertebral disc disorders with radiculopathy, lumbar region (principal); M48.061 Spinal stenosis, lumbar region without neurogenic claudication
CPT/HCPCS: 62323; J1040; Q9965

== ENCOUNTER → 2021-06-27 | Outpatient (CLI) | payer MEDICARE ==
--- NOTE | 2021-06-27 14:41 | PDOC ---
Progress Note - Pain Clinic Date of Service: DOS: DATE: 06/27/21 TIME: 14:38 Diagnosis: Dx: Lumbar radiculopathy with lumbar degenerative disease lumbar spinal stenosis History or Present Illness: HPI: 70-year-old female returns for follow-up status post lumbar epidural steroid traction x1. Patient reports about 40% improvement in the pain in her low back and to the right lower extremity now pain in the left lower extremity as well patient reports the left leg is becoming more noticeable as the right leg is getting better. Patient reports is an eight on scale 10 is worse over the past week seven on average six its least and is a six today patient report is aching tight cramping radiating the bilateral lower extremities again now more on the left than the right present with walking standing changing positions or sitting for more than 30 to 40 minutes patient reports it does not not generally awaken her from sleep at night she is sleeping about 8 hours a night without disturbance. Patient reports no bowel or bladder incontinence no new motor or sensory deficits. Physical Exam: VS: Blood pressure is 163/90 pulse 73 respirations 18 temperature is 98.5 F height is 5 foot weight is 192 pounds PE: PHYSICAL EXAMINATION: GENERAL: The patient is awake, alert, oriented, appropriate, very pleasant in demeanor. HEENT: Shows normocephalic, atraumatic. Extraocular movements are intact and symmetrical. Oral cavity: Mucous membranes moist and pink. NECK: Shows anterior throat supple without palpable lymphadenopathy noted. Swallow reflex symmetrical. CHEST: Shows normal on inspection. Breath sounds are clear bilaterally, no rales rhonchi or wheezes auscultated. HEART: Shows S1, S2 clear. No murmurs auscultated. ABDOMEN: Soft, nontender, nondistended, obese. No palpable organomegaly is noted. BACK: Shows spine grossly in the midline. Normal-appearing cervical lordotic curvature. There is increased thoracic kyphosis, some flattening of the lumbar lordotic curvature. Lumbar paraspinous muscles show symmetrical on inspection, on palpation shows some moderate tenderness diffusely throughout the upper, middle and lower distribution of the paraspinous muscles without specific trigger points, without radiation of pain. The patient has good rotational motion of the lumbar spine, both laterally as well as extension and flexion without significant difficulty. No tenderness over the spinous processes, sacrum or sacroiliac regions. EXTREMITIES: Lower extremities show deep tendon reflexes one in the patellar and tendo calcaneus tendons. Motor exam is five on a scale of 5 with right dorsiflexion, extension, quadriceps and hamstring flexion and five/5 on the left. Peripheral pulses are 1+ posterior tibial. No peripheral edema is noted bilaterally. Lower extremities are warm and dry. SKIN: Shows warm and dry, good turgor. No edema. No sores, rashes or bruising throughout. Procedure: Procedure: Options discussed with the patient. Patient chart reviews her current medication regimen updated current review of systems updated today as well. We will proceed with a lumbar epidural steroid injection today with fluoroscopic guidance. Risks were discussed including but not limited to: Bleeding, infection, possibility of epidural hematoma and subsequent neurological compromise, dural puncture, headaches, spinal cord and/or nerve damage, side effects of steroid medication, and poor results regarding pain control. Patient understands and wished to proceed. Patient will return to clinic in approximate 2 weeks for follow-up, was counseled as to return appointment, activity level, and side effects to be aware of. Medication Injected: Med Injected: Procedure is lumbar epidural steroid injection under local anesthetic using sterile prep and drape at the L4-5 level using C-arm fluoroscopic guidance in both AP and lateral views medications injected is 120 mg Depo-Medrol +10mL preservative-free normal saline and 2 mL contrast- condition at discharge is stable patient tolerated procedure well had no complications. Condition at Discharge: Condition at Discharge: Condition at discharge is stable, patient already procedure well and had no complications. WILLIAM GUEVARA MD Jun 27, 2021 14:41
--- NOTE | 2021-06-27 14:42 | PDOC4 ---
Procedure Note: ICD 10 Code: ICD 10 Code: M54.16 M51.36 M 48.06 Procedure Note: Patient was consented for lumbar epidural steroid injection with fluoroscopic guidance. Risks were discussed including but not limited to: Bleeding, infection, possibility of epidural hematoma and subsequent neurological compromise, dural puncture, headaches, spinal cord and/or nerve damage, side effects of steroid medication, and poor results regarding pain control. Patient understands and wished to proceed. Procedure is lumbar epidural steroid injection under local anesthetic using abilio rile prep and drape at the L4-5 level using C-arm fluoroscopic guidance in both AP and lateral views medications injected is 120 mg Depo-Medrol +10mL preservative-free normal saline and 2 mL contrast- condition at discharge is stable patient tolerated procedure well had no complications. WILLIAM GUEVARA MD Jun 27, 2021 14:42
== END ==
LOC: PNCL 14:11
PROVIDERS: ATTEND Anesthesiology
DX: M51.16 Intervertebral disc disorders with radiculopathy, lumbar region (principal); M48.061 Spinal stenosis, lumbar region without neurogenic claudication
CPT/HCPCS: 62323; J1040; Q9965